=== PATIENT | female | born 1975 | race Caucasian/White ===

== ENCOUNTER 2020-04-09 16:19 | Outpatient (REF) | payer MEDICAID, SELFPAY ==
--- NOTE | 2020-04-09 16:26 | MM_ITS ---
EXAMINATION: MM SCREENING DIGITAL BREAST TOMOSYNTHESIS, BILATERAL CLINICAL INFORMATION: Screening. Asymptomatic. The lifetime risk of breast cancer based on the Tyrer-Cuzick Model is 10%. COMPARISON: Mammography: 09/28/2018, 09/24/2017, 09/11/2016 TECHNIQUE: Digital breast tomosynthesis is performed in both the craniocaudal and mediolateral oblique views along with computer-aided detection (CAD). Synthesized 2D images are generated from the tomosynthesis. FINDINGS: The breasts are almost entirely fatty (ACR BI-RADS breast composition Category a). There are no significant masses, abnormal calcifications, or other abnormalities. The axilla and skin contours are unremarkable. IMPRESSION: No mammographic evidence of malignancy. ASSESSMENT: BI-RADS 1: Negative RECOMMENDATION: Routine annual mammography screening. This patient's information was entered into a reminder system with a target due date for their next mammogram.
== END 2020-04-09 16:20 | disposition home or self-care (01) ==
LOC: HO.MAMMO 16:19
PROVIDERS: PCP Family Medicine; Visit Provider Family Medicine
DX: Z12.31 Encounter for screening mammogram for malignant neoplasm of breast (principal)
CPT/HCPCS: 77063; 77067; 78014

== ENCOUNTER 2020-04-11 08:44 | Outpatient (REF) | payer MEDICAID, SELFPAY ==
[2020-04-11 11:45] LABS: Hematocrit 40.1 % (37-47); Hemoglobin 12.9 g/dl (12.0-16.0); Mean Corpuscular HGB Conc 32.2 g/dl (31.0-35.0); Mean Corpuscular Hemoglobin 26.7 pg (27.0-33.0); Mean Corpuscular Volume 82.9 fL (80-98); Mean Platelet Volume 11.1 fL (9.4-12.3); Platelet Count 303 X10*3/uL (160-400); Red Blood Count 4.84 X10*6/uL (4.20-5.50); Red Cell Distribution Width 13.4 % (11.0-16.0); White Blood Count 7.9 X10*3/uL (4.8-10.8)
[2020-04-11 12:21] LABS: Thyroid Stimulating Hormone 1.88 mIU/mL (0.32-4.0)
[2020-04-11 14:19] LABS: CT PCR NOT DETECTED (Not Detect.); NG PCR NOT DETECTED (Not Detect.)
[2020-04-12 11:25] LABS: BV Int Neg Control Negative (Negative); BV Int Pos Control Positive (Positive)
== END 2020-04-11 08:45 | disposition home or self-care (01) ==
LOC: CF 08:44
PROVIDERS: PCP Family Medicine; Referring Provider Family Medicine; Visit Provider Advanced Practice Midwife
DX: Z01.419 Encounter for gynecological examination (general) (routine) without abnormal findings (principal); N94.6 Dysmenorrhea, unspecified; R10.2 Pelvic and perineal pain; N92.0 Excessive and frequent menstruation with regular cycle
CPT/HCPCS: 36415; 84443; 85027; 87480; 87491; 87510; 87591; 87660

== ENCOUNTER 2020-04-13 14:37 | Outpatient (REF) | payer MEDICAID, SELFPAY ==
--- NOTE | 2020-04-13 15:06 | US_ITS ---
EXAMINATION: PELVIC ULTRASOUND CLINICAL INFORMATION: Dysmenorrhea COMPARISON: Previous exams most recent March 2019 TECHNIQUE: Transabdominal and transvaginal pelvic ultrasound was performed. Transvaginal exam was performed for better visualization of the uterus and ovaries. FINDINGS: The uterus is anteverted and retroflexed and measures 7.2 x 3.4 x 3.9 cm in dimension. No focal uterine lesion is seen. Endometrial thickness is normal estimated at 0.9 cm. There are nabothian cysts in the cervix. The right ovary measures 2.1 x 2.6 x 2.7 cm. There is a 1.3 x 1.8 x 1.6 cm right ovarian cyst. The left ovary measures 1.8 x 1.3 x 2.9 cm. There is no fluid in the pelvis. IMPRESSION: Unremarkable exam.
== END 2020-04-13 14:38 | disposition home or self-care (01) ==
LOC: HO.US 14:37
PROVIDERS: PCP Family Medicine; Visit Provider Advanced Practice Midwife
DX: N94.6 Dysmenorrhea, unspecified (principal); R10.2 Pelvic and perineal pain
CPT/HCPCS: 76830; 76856

== ENCOUNTER 2020-08-22 10:41 | Outpatient (REF) | payer MEDICAID, SELFPAY ==
--- NOTE | ~2020-08-22 | XR_ITS ---
EXAMINATION: XR KNEE, RIGHT XR KNEE, LEFT CLINICAL INFORMATION: Bilateral knee pain COMPARISON: Radiographs bilateral knees 07/15/2018. TECHNIQUE: The right knee is imaged in 4 views of the left knee is imaged in 5 views. There are a total of 9 views. The series includes bilateral AP views with weightbearing. FINDINGS: Right: There is no fracture, dislocation, or destructive process. There are osteoarthritic changes greatest lateral patellofemoral joint with mild lateralization patella and lateral patellar spur and posterior superior and posterior inferior patellar spurs. There is small suprapatellar effusion. Hoffa's fat pad appears normal. No significant medial or lateral knee joint compartment narrowing. There are marginal osteophytes medial and lateral femoral condyles. No erosive change or chondrocalcinosis. Left: There is no fracture, dislocation, or destructive process. There are osteoarthritic changes greatest lateral patellofemoral joint with mild lateralization patella and lateral patellar spur and posterior superior and posterior inferior patellar spurs. No definite effusion. Hoffa's fat pad appears normal. No significant medial or lateral knee joint compartment narrowing. There are marginal osteophytes lateral femoral condyle and lateral tibial plateau. No erosive change or chondrocalcinosis. XR/XR knee RT 4V IMPRESSION: 1. Prominent bilateral lateral patellofemoral joint narrowing with mild bilateral lateralization patella. 2. Probable small right suprapatellar effusion. 3. No significant knee joint compartment narrowing. No erosive change.
--- NOTE | ~2020-08-22 | XR_ITS ---
EXAMINATION: XR KNEE, RIGHT XR KNEE, LEFT CLINICAL INFORMATION: Bilateral knee pain COMPARISON: Radiographs bilateral knees 07/15/2018. TECHNIQUE: The right knee is imaged in 4 views of the left knee is imaged in 5 views. There are a total of 9 views. The series includes bilateral AP views with weightbearing. FINDINGS: Right: There is no fracture, dislocation, or destructive process. There are osteoarthritic changes greatest lateral patellofemoral joint with mild lateralization patella and lateral patellar spur and posterior superior and posterior inferior patellar spurs. There is small suprapatellar effusion. Hoffa's fat pad appears normal. No significant medial or lateral knee joint compartment narrowing. There are marginal osteophytes medial and lateral femoral condyles. No erosive change or chondrocalcinosis. Left: There is no fracture, dislocation, or destructive process. There are osteoarthritic changes greatest lateral patellofemoral joint with mild lateralization patella and lateral patellar spur and posterior superior and posterior inferior patellar spurs. No definite effusion. Hoffa's fat pad appears normal. No significant medial or lateral knee joint compartment narrowing. There are marginal osteophytes lateral femoral condyle and lateral tibial plateau. No erosive change or chondrocalcinosis. XR/XR knee LT 4V IMPRESSION: 1. Prominent bilateral lateral patellofemoral joint narrowing with mild bilateral lateralization patella. 2. Probable small right suprapatellar effusion. 3. No significant knee joint compartment narrowing. No erosive change.
[2020-08-22 11:35] LABS: MANUAL DIFF FLAG NO
[2020-08-22 11:39] LABS: Basophils Absolute Auto 0.1 X10*3/uL (0.0-0.2); Basophils Percent Auto 0.9 % (0-2); Eosinophils Absolute Auto 0.3 X10*3/uL (0.0-0.4); Eosinophils Percent Auto 3.6 % (0-4); Hematocrit 39.6 % (37-47); Hemoglobin 12.8 g/dl (12.0-16.0); Imm Gran Abs Auto 0.03 X10*3/uL (0.00-0.03); Imm Gran Pct Auto 0.4 % (0.0-0.4); Lymphocytes Absolute Auto 1.4 X10*3/uL (1.2-4.9); Lymphocytes Percent Auto 20.4 % (20-40); Mean Corpuscular HGB Conc 32.3 g/dl (31.0-35.0); Mean Corpuscular Hemoglobin 26.6 pg (27.0-33.0); Mean Corpuscular Volume 82.3 fL (80-98); Mean Platelet Volume 11.6 fL (9.4-12.3); Monocytes Absolute Auto 0.6 X10*3/uL (0.1-1.2); Monocytes Percent Auto 8.5 % (2-11); Neutrophils Absolute Auto 4.5 X10*3/uL (2.0-8.3); Neutrophils Percent Auto 66.2 % (45-73); Platelet Count 283 X10*3/uL (160-400); Red Blood Count 4.81 X10*6/uL (4.20-5.50); Red Cell Distribution Width 13.4 % (11.0-16.0); White Blood Count 6.9 X10*3/uL (4.8-10.8)
[2020-08-22 12:07] LABS: Alanine Aminotransferase 23 U/L (0-31); Alkaline Phosphatase 94 U/L (39-117); Anion Gap 13 (12-20); Aspartate Amino Transferase 21 U/L (5-31); Bilirubin Direct 0.2 mg/dL (0.0-0.5); Bilirubin Total 0.5 mg/dL (0.0-1.0); Blood Urea Nitrogen 12 mg/dL (9-16); Calcium 8.6 mg/dL (8.4-10.2); Carbon Dioxide 25 mmol/L (22-29); Chloride 105 mmol/L (96-108); Cholesterol 224 mg/dL; Estimated Glomerular Filt Rate > 60; Glucose Random 84 mg/dL (60-115); HDL Cholesterol 42 mg/dL; LDL Cholesterol Calculated 153 mg/dl; Potassium 4.3 mmol/L (3.3-5.1); Sodium 139 mmol/L (135-145); Total Protein 7.1 g/dL (6.5-8.0); Triglycerides 145 mg/dL
[2020-08-22 12:19] LABS: Estimated Average Glucose 111 mg/dL; Hemoglobin A1c % 5.5 %
[2020-08-22 12:27] LABS: Free T4 (Free Thyroxine) 1.15 ng/dL (0.71-1.85); Thyroid Stimulating Hormone 1.54 uIU/mL (0.32-4.0); Vitamin D 25-OH Total 14.9 ng/mL (>30)
[2020-08-22 13:18] LABS: Creatinine Urine 99.57 mg/dL
[2020-08-23 08:09] LABS: HBsAGNum1 0.25 S/CO (0.00-0.99); HIV AB/AG Nonreactive (Nonreactive); HIV Num 1 0.08 S/CO (0.00-0.99); Hepatitis B Surface Antigen Negative (Negative); ~HepC Num1 0.08 S/CO (0.00-0.79); ~Hepatitis C Antibody Nonreactive (Nonreactive)
[2020-08-23 08:58] LABS: ~Hepatitis B Surface Antibody NONREACTIVE (Nonreactive)
[2020-08-23 11:17] LABS: Alpha Fetoprotein 5.2 ng/mL
[2020-08-24 08:17] LABS: Hepatitis A Antibody IgG Nonreactive (Nonreactive); ~Hepatitis A Antibody IgG 0.37 S/CO (0.00-0.99)
[2020-08-24 09:22] LABS: C. trachomatis RNA TMA NOT DETECTED (NOT DETECTED); N. gonorrhoeae RNA TMA NOT DETECTED (NOT DETECTED)
== END 2020-08-22 10:42 | disposition home or self-care (01) ==
LOC: HO.LAB 10:41
PROVIDERS: PCP Family Medicine; Visit Provider Family Medicine
DX: M25.562 Pain in left knee (principal); M25.561 Pain in right knee; I10 Essential (primary) hypertension; K76.0 Fatty (change of) liver, not elsewhere classified
CPT/HCPCS: 36415; 73564; 80048; 80061; 80076; 82043; 82105; 82306; 83036; 84439; 84443; 85025; 86706; 86708; 86803; 87340; 87389; 87491; 87591

== ENCOUNTER → 2020-09-06 13:15 | Outpatient (BNVA) | payer MEDICAID, SELFPAY | PROVIDERS: PCP Family Medicine; Visit Provider Orthopaedic Surgery | DX: M17.0 Bilateral primary osteoarthritis of knee (principal) | CPT/HCPCS: 99212 ==

== ENCOUNTER 2020-12-17 14:18 | Outpatient (REF) | payer MEDICAID, SELFPAY ==
--- NOTE | ~2020-12-17 | US_ITS ---
EXAMINATION: PELVIC ULTRASOUND CLINICAL INFORMATION: Pelvic pain COMPARISON: Previous exam April 2020 TECHNIQUE: Transabdominal and transvaginal pelvic ultrasound was performed. Transvaginal exam was performed for better visualization of the uterus and ovaries. FINDINGS: The uterus is anteverted and retroflexed and measures 8.1 x 3.2 x 5 cm in dimension. No focal uterine lesion is seen. Endometrial thickness is normal measuring 1.4 cm. There are nabothian cysts in the cervix. The ovaries are normal. The right ovary measures 2.4 x 1.6 x 1.8 cm. The left ovary measures 2.2 x 1.9 x 1.7 cm. There is a small amount of fluid in the pelvis. US/US pelvic and transvaginal IMPRESSION: Unremarkable pelvic ultrasound.
== END 2020-12-17 14:19 | disposition home or self-care (01) ==
LOC: HO.US 14:18
PROVIDERS: Visit Provider Family Medicine
DX: R10.2 Pelvic and perineal pain (principal)
CPT/HCPCS: 76830; 76856

== ENCOUNTER → 2021-02-28 14:44 | Outpatient (BNVA) | payer MEDICAID, SELFPAY | PROVIDERS: PCP Family Medicine; Visit Provider Advanced Practice Midwife | DX: R10.2 Pelvic and perineal pain (principal); I10 Essential (primary) hypertension; E78.00 Pure hypercholesterolemia, unspecified; J30.89 Other allergic rhinitis; J30.1 Allergic rhinitis due to pollen | CPT/HCPCS: 99212 ==

== ENCOUNTER 2021-04-24 14:23 | Outpatient (REF) | payer MEDICAID, SELFPAY ==
--- NOTE | ~2021-04-24 | MM_ITS ---
EXAMINATION: MM SCREENING DIGITAL BREAST TOMOSYNTHESIS, BILATERAL CLINICAL INFORMATION: Screening. Asymptomatic. The lifetime risk of breast cancer based on the Tyrer-Cuzick Model is 10%. COMPARISON: Mammography: 04/09/2020, 09/28/2018, 09/24/2017 TECHNIQUE: Digital breast tomosynthesis is performed in both the craniocaudal and mediolateral oblique views along with computer-aided detection (CAD). Synthesized 2D images are generated from the tomosynthesis. Additional views are provided: Right CC, right MLO, right cleavage. FINDINGS: The breasts are almost entirely fatty (ACR BI-RADS breast composition Category a). There are no significant masses, abnormal calcifications, or other abnormalities. Parenchymal pattern is similar to prior studies. No significant changes. Background stromal markings are stable. MM/MM tomosynthesis screening BI IMPRESSION: No mammographic evidence of malignancy. ASSESSMENT: BI-RADS 1: Negative RECOMMENDATION: Routine annual mammography screening. This patient's information was entered into a reminder system with a target due date for their next mammogram.
== END 2021-04-24 14:24 | disposition home or self-care (01) ==
LOC: HO.MAMMO 14:23
PROVIDERS: PCP Family Medicine; Visit Provider Family Medicine
DX: Z12.31 Encounter for screening mammogram for malignant neoplasm of breast (principal)
CPT/HCPCS: 77063; 77067

== ENCOUNTER 2021-05-13 13:01 | Outpatient (REF) | payer MEDICAID, SELFPAY ==
[2021-05-14 01:30] LABS: CT PCR NOT DETECTED (Not Detect.); NG PCR NOT DETECTED (Not Detect.)
== END 2021-05-13 13:02 | disposition home or self-care (01) ==
LOC: HO.LAB 13:01
PROVIDERS: PCP Family Medicine; Visit Provider Advanced Practice Midwife
DX: N92.0 Excessive and frequent menstruation with regular cycle (principal); N93.9 Abnormal uterine and vaginal bleeding, unspecified; Z20.2 Contact with and (suspected) exposure to infections with a predominantly sexual mode of transmission
CPT/HCPCS: 58100; 81025; 87491; 87591; 88305

== ENCOUNTER → 2021-05-22 14:17 | Outpatient (BNVA) | payer MEDICAID, SELFPAY | PROVIDERS: PCP Family Medicine; Visit Provider Advanced Practice Midwife ==

== ENCOUNTER → 2021-05-24 10:57 | Outpatient (BNVA) | payer MEDICAID, SELFPAY | PROVIDERS: PCP Family Medicine; Visit Provider Advanced Practice Midwife | DX: Z30.430 Encounter for insertion of intrauterine contraceptive device (principal) | CPT/HCPCS: 58300; 81025 ==

== ENCOUNTER → 2021-07-02 13:51 | Outpatient (BNVA) | payer MEDICAID, SELFPAY | PROVIDERS: PCP Family Medicine; Visit Provider Advanced Practice Midwife | DX: Z30.431 Encounter for routine checking of intrauterine contraceptive device (principal) | CPT/HCPCS: 99212 ==

== ENCOUNTER 2021-08-21 13:50 | Outpatient (REF) | payer MEDICAID, SELFPAY ==
[2021-08-21 14:50] LABS: Hematocrit 40.9 % (37.0-47.0); Hemoglobin 13.2 g/dl (12.0-16.0); Mean Corpuscular HGB Conc 32.3 g/dl (31.0-35.0); Mean Corpuscular Hemoglobin 26.5 pg (27.0-33.0); Mean Corpuscular Volume 82.1 fL (80.0-98.0); Mean Platelet Volume 10.8 fL (9.4-12.3); Platelet Count 274 X10*3/uL (160-400); Red Blood Count 4.98 X10*6/uL (4.20-5.50); White Blood Count 7.4 X10*3/uL (4.8-10.8)
[2021-08-21 15:59] LABS: Alanine Aminotransferase 22 U/L (0-31); Albumin Level 4.1 g/dL (3.5-5.0); Alkaline Phosphatase 91 U/L (39-117); Anion Gap 11 (12-20); Aspartate Amino Transferase 27 U/L (5-31); Bilirubin Total 0.2 mg/dL (0.0-1.0); Blood Urea Nitrogen 10 mg/dL (9-16); Calcium 9.4 mg/dL (8.4-10.2); Carbon Dioxide 27 mmol/L (22-29); Chloride 105 mmol/L (96-108); Estimated Glomerular Filt Rate > 60; Glucose Random 87 mg/dL (60-115); Potassium 4.3 mmol/L (3.3-5.1); Sodium 139 mmol/L (135-145); Total Protein 7.6 g/dL (6.5-8.0)
[2021-08-21 16:00] LABS: Vitamin B12 387 pg/mL (200-900)
[2021-08-21 16:09] LABS: TSH reflex Free T4 0.67 uIU/mL (0.32-4.0)
[2021-08-26 15:02] LABS: Vitamin D 25-OH, D2 8 ng/mL; Vitamin D 25-OH, D3 13 ng/mL; Vitamin D 25-OH, Total 21 ng/mL (30-100)
== END 2021-08-21 13:51 | disposition home or self-care (01) ==
LOC: HO.LAB 13:50
PROVIDERS: PCP Family Medicine; Referring Provider Family Medicine; Visit Provider Nurse Practitioner Family
DX: K59.00 Constipation, unspecified (principal); R19.7 Diarrhea, unspecified; E55.9 Vitamin D deficiency, unspecified; Z79.899 Other long term (current) drug therapy
CPT/HCPCS: 36415; 80053; 82306; 82607; 82746; 84443; 85027; 99212

== ENCOUNTER → 2021-09-24 14:21 | Outpatient (BNVA) | payer MEDICAID, SELFPAY | PROVIDERS: PCP Family Medicine; Referring Provider Family Medicine; Visit Provider Nurse Practitioner Family | DX: Z01.818 Encounter for other preprocedural examination (principal); K59.04 Chronic idiopathic constipation | CPT/HCPCS: 99212 ==

== ENCOUNTER 2021-11-20 12:41 | Outpatient (REF) | payer MEDICAID, SELFPAY ==
[2021-11-21 01:22] LABS: CT PCR NOT DETECTED (Not Detect.); NG PCR NOT DETECTED (Not Detect.)
[2021-11-21 09:18] LABS: BV Int Neg Control Negative (Negative); BV Int Pos Control Positive (Positive)
[2021-11-24 00:42] LABS: HPV mRNA E6/E7 rflx Not Detected (Not Detected)
== END 2021-11-20 12:42 | disposition home or self-care (01) ==
LOC: HO.LAB 12:41
PROVIDERS: PCP Family Medicine; Visit Provider Advanced Practice Midwife
DX: Z01.411 Encounter for gynecological examination (general) (routine) with abnormal findings (principal); Z11.51 Encounter for screening for human papillomavirus (HPV); R10.2 Pelvic and perineal pain
CPT/HCPCS: 87480; 87491; 87510; 87591; 87624; 87660; 88142

== ENCOUNTER 2021-12-19 15:42 | Outpatient (REF) | payer MEDICAID, SELFPAY ==
--- NOTE | ~2021-12-19 | US_ITS ---
EXAMINATION: US PELVIS CLINICAL INFORMATION: IUD check. COMPARISON: Ultrasound pelvis 12/17/2020. TECHNIQUE: Ultrasound of the pelvis was performed using both transabdominal and transvaginal transducers along with Doppler. Transvaginal imaging was performed due to inadequate visualization transabdominally. FINDINGS: UTERUS: The uterus is retroverted and anteflexed and measures 8.6 cm in length, 3.9 mL in AP and 5.7 cm in transverse dimensions. The double wall endometrial thickness is 0.9 cm. There is an IUD in correct position. The uterus is smooth in contour and has normal myometrial echogenicity. No visible fibroid. There are small nabothian cysts seen in the cervix. ADNEXA: Both ovaries are visualized. There is normal color flow to the adnexa. There is no ovarian torsion. There is no pelvic ascites or fluid collection. Right ovary measures 2.5 x 2.4 x 3.1 cm and volume 9.7 mL and it appears unremarkable. Previously, the right ovary measured 2.4 x 1.6 x 1.8 cm. Left ovary measures 3.0 x 2.4 x 2.4 cm and volume 9.1 mL and it appears unremarkable. Previously, the left ovary measured 2.2 x 1.9 x 1.7 cm. There is no free fluid seen in the cul-de-sac. US/US pelvic and transvaginal IMPRESSION: Unremarkable retroverted and anteflexed uterus. No focal lesion is seen. Unremarkable ovaries. Small nabothian cysts seen in the cervix.
== END 2021-12-19 15:43 | disposition home or self-care (01) ==
LOC: HO.US 15:42
PROVIDERS: Visit Provider Advanced Practice Midwife
DX: Z30.431 Encounter for routine checking of intrauterine contraceptive device (principal); R10.2 Pelvic and perineal pain
CPT/HCPCS: 76830; 76856

== ENCOUNTER 2022-01-03 09:53 | Day surgery (SDC) | payer MEDICAID, SELFPAY ==
--- NOTE | 2022-01-02 10:05 | HO.ANESPROP2 ---
Documented by User: Myrna Llanes NP 01/02/22 10:06 HPI - Anesthesia Eval Consult details Narrative: 46yo F for Colonoscopy PMFSH Active Problems Active Problems: All Active Problems (Updated 11/20/21 @ 13:25 by Madonna Mejia) IUD surveillance (Acute) Pelvic pain in female (Acute) BV (bacterial vaginosis) (Acute) Dysmenorrhea (Acute) Past Medical History Medical History H/O hidradenitis suppurativa History of high cholesterol History of PCOS Hx of ectopic Hx of essential hypertension Hx of herpes simplex infection Morbid obesity with BMI of 45.0-49.9, adult Family History Family History Father Hx of cancer of lung Mother History of asthma Family hx of hypertension History of high cholesterol Maternal Grandmother Hx of acute arthritis Family hx of hypertension History of angina History of high cholesterol Hx of diabetes mellitus Maternal Grandfather Family hx of hypertension Hx of completed stroke Family/Other Ovarian cancer Family/Other Colon cancer Surgical History Surgical History History of dermoid cyst excision History of unilateral fallopian tube excision Hx of dilation and curettage Social History Social History Alcohol intake: never Patient Tobacco Use Status: Never used Tobacco Use of substances other than those prescribed or required for medical reasons: No Are you DNR?: No Advance Directives: No Advance Directives Information Provided: Yes Meds Allergies Allergy/AdvReac Type Severity Reaction Status Date / Time dust Allergy Unknown Unknown Uncoded 12/30/21 16:19 mold/pollen Allergy Unknown Unknown Uncoded 12/30/21 16:19 Home Medications Medication Instructions Recorded Confirmed Last Taken Type epinephrine 0.3 mg/0.3 mL 0.3 mg IM Q10M PRN Allergic 04/11/20 12/30/21 Unknown History injection, auto-injector (EpiPen) Reaction loratadine 10 mg tablet (Allergy 10 mg PO DAILY 04/11/20 12/30/21 Unknown History Relief (loratadine)) montelukast 10 mg tablet 10 mg PO DAILY 04/11/20 12/30/21 Unknown History (Singulair) rosuvastatin 40 mg tablet (Crestor) 40 mg PO DAILY 04/11/20 12/30/21 Unknown History doxycycline hyclate 100 mg tablet 100 mg PO BID 08/21/21 12/30/21 Unknown History famotidine 20 mg tablet 20 mg PO BID PRN heartburn 08/21/21 12/30/21 Unknown History fluticasone propionate 50 2 spray intranasal DAILY 08/21/21 12/30/21 Unknown History mcg/actuation nasal spray,suspension levonorgestrel 20 mcg/24 hours (7 08/21/21 Unknown History yrs) 52 mg intrauterine device (Mirena) metformin 500 mg tablet 1,000 mg PO 08/21/21 Unknown History polyethylene glycol 3350 17 17 g PO DAILY 08/21/21 Unknown History gram/dose oral powder cyclobenzaprine 10 mg tablet 10 mg PO TID PRN pain 09/24/21 12/30/21 Unknown History ibuprofen 800 mg tablet 800 mg PO TID 09/24/21 12/30/21 Unknown History lisinopril 10 mg tablet 10 mg PO DAILY 09/24/21 12/30/21 Unknown History Exam Exam Date and Time: January 02, 2022 1005 Pertinent Lab Results Pertinent Lab Results: Laboratory Tests 08/21/21 08/21/21 14:44 14:44 WBC 7.4 Hgb 13.2 Hct 40.9 Plt Count 274 Sodium 139 Potassium 4.3 Chloride 105 Carbon Dioxide 27 BUN 10 Creatinine 0.67 Assessment and Plan Assessment Anesthesia Assessment: Chart Reviewed Documented by User: Oralia Marie MD 01/03/22 11:52 [facility] Past Medical History Medical History H/O hidradenitis suppurativa History of high cholesterol History of PCOS Hx of ectopic Hx of essential hypertension Hx of herpes simplex infection Morbid obesity with BMI of 45.0-49.9, adult Family History Family History Father Hx of cancer of lung Mother History of asthma Family hx of hypertension History of high cholesterol Maternal Grandmother Hx of acute arthritis Family hx of hypertension History of angina History of high cholesterol Hx of diabetes mellitus Maternal Grandfather Family hx of hypertension Hx of completed stroke Family/Other Ovarian cancer Family/Other Colon cancer Surgical History Surgical History History of dermoid cyst excision History of unilateral fallopian tube excision Hx of dilation and curettage History of Problems with Anesthesia: No Social History Social History Alcohol intake: never Patient Tobacco Use Status: Never used Tobacco Use of substances other than those prescribed or required for medical reasons: No Are you DNR?: No Advance Directives: No Advance Directives Information Provided: Yes Meds Allergies Allergy/AdvReac Type Severity Reaction Status Date / Time dust Allergy Unknown Unknown Uncoded 12/30/21 16:19 mold/pollen Allergy Unknown Unknown Uncoded 12/30/21 16:19 Home Medications Medication Instructions Recorded Confirmed Last Taken Type epinephrine 0.3 mg/0.3 mL 0.3 mg IM Q10M PRN Allergic 04/11/20 12/30/21 Unknown History injection, auto-injector (EpiPen) Reaction loratadine 10 mg tablet (Allergy 10 mg PO DAILY 04/11/20 12/30/21 Unknown History Relief (loratadine)) montelukast 10 mg tablet 10 mg PO DAILY 04/11/20 12/30/21 Unknown History (Singulair) rosuvastatin 40 mg tablet (Crestor) 40 mg PO DAILY 04/11/20 12/30/21 Unknown History doxycycline hyclate 100 mg tablet 100 mg PO BID 08/21/21 12/30/21 Unknown History famotidine 20 mg tablet 20 mg PO BID PRN heartburn 08/21/21 12/30/21 Unknown History fluticasone propionate 50 2 spray intranasal DAILY 08/21/21 12/30/21 Unknown History mcg/actuation nasal spray,suspension levonorgestrel 20 mcg/24 hours (7 intrauterine 08/21/21 Unknown History yrs) 52 mg intrauterine device (Mirena) metformin 500 mg tablet 1,000 mg PO 08/21/21 Unknown History polyethylene glycol 3350 17 17 g PO DAILY 08/21/21 Unknown History gram/dose oral powder cyclobenzaprine 10 mg tablet 10 mg PO TID PRN pain 09/24/21 12/30/21 Unknown History ibuprofen 800 mg tablet 800 mg PO TID 09/24/21 12/30/21 Unknown History lisinopril 10 mg tablet 10 mg PO DAILY 09/24/21 12/30/21 Unknown History Exam Airway Mallampati Class: II TM Dist: >3cm Neck ROM: Full Loose/Missing/Broken Teeth: No Heart: RRR Lungs: CTA Assessment and Plan Final Anesthetic Review History of Problems with Anesthesia: No NPO: Yes ASA Class: III Final Preanesthetic Review: Meds/Allgs Chart Reviewed, Consent Obtained/Reviewed and Anes Risks/Benef Reviewed Patient Risk: Intermediate Procedure Risk: Low Anesthetic Plan Anesthetic Plan: MAC: Disposition: Standard PACU
[2022-01-03 10:15] VITALS: BP 145/84; PULSE 79; RESP 18; TEMP 36.3; O2SAT 97; BMI 45.7
[2022-01-03 10:28] LABS: UPreg QC Valid YES; Urine Pregnancy NEGATIVE (NEGATIVE)
[2022-01-03] MEDS: Lactated Ringers 1,000 ML 100 ML IVCONT (10:31)
--- NOTE | 2022-01-03 10:53 | MHC.SHP ---
Pre-Procedural Eval Section A Date of Service: 01/03/22 Section B Chief Complaint: screening Relevant Family History (Specify if Yes): Yes Relevant Social History: None Present Medications: see Short Stay Collaborative assessment Medical History: Significant History (H/O hidradenitis suppurativa History of high cholesterol History of PCOS Hx of ectopic Hx of essential hypertension Hx of herpes simplex infection) History of Previous Operations: Relevant previous surgery/procedure and date(s) (History of dermoid cyst excision History of unilateral fallopian tube excision Hx of dilation and curettage) Allergies: Allergies Allergy/AdvReac Type Severity Reaction Status Date / Time dust Allergy Unknown Unknown Uncoded 12/30/21 16:19 mold/pollen Allergy Unknown Unknown Uncoded 12/30/21 16:19 Review of Systems Sugical H&P ROS: Negative: Constitution, Cardiovascular, Respiratory and Gastrointestinal Exam Surgical H&P Exam: Normal: Heart, Normal: Lungs, Normal: Extremities and Normal: Abdomen Plan Diagnosis/Plan: Unchanged I have reviewed the history and physical and performed a pertinent physical examination on my patient. No changes have occurred unless specified.
--- NOTE | 2022-01-03 11:53 | P.BOP_ITS ---
Brief Operative Note Date of Service: 01/03/22 Pre-op diagnosis: Colon cancer screening, chronic constipation, rectal bleeding Post-op diagnosis: other (Colon polyp, diverticulosis, hemorrhoids) Procedure: COLONOSCOPY TILL CECUM WITH SNARE POLYPECTOMY Consent: Indications for the procedure and potential complications of bleeding, perforation, reaction to medications and missed diagnosis were discussed with the patient and informed consent was obtained. Instrument: Olympus PCF H 190 L variable stiffness pediatric colonoscope Monitoring: Vital signs and clinical assessment, intermittent blood pressure monitoring, continuous EKG monitoring, Pulse oximetry and Carbon Dioxide monitoring were done throughout the procedure. Colon withdrawl time was 23 minutes. Procedure: The patient was placed in the left lateral decubitis position and pre-procedure medications were administered. After a digital rectal examination of the ano-rectum, the video colonoscope was inserted into the rectum and advanced through the colon to the cecum. The colonoscope was slowly withdrawn in a retrograde panoramic fashion and the colon mucosa was carefully examined including a retroflexed view of the rectum. Findings and interventions are described below. Procedure Difficulty: Without difficulty Findings: Terminal Ileum: Not evaluated Cecum: Normal Ascending Colon: Normal Transverse Colon: A 8-9 mm adenomatous appearing sessile polyp removed with a cold snare and polyp was not retrieved. Descending Colon: Moderate diverticulosis Sigmoid Colon: Moderate diverticulosis Rectum: Normal Ano-rectum: Moderate internal hemorrhoids Colon preparation: Good after some irrigation Impression and Post Procedure Diagnosis: Colonoscopy Findings: One small polyps removed Moderate diverticulosis seen in the left colon Moderate hemorrhoids on retroflexed exam. Plan: Patient has an appointment on 01/15/22 in the GI Clinic with Jasmin Meek FNP- [facility]. Repeat Colonoscopy in 5 years since a small adenomatous appearing polyp was re moved and not retrieved and due to family hx of colon cancer. Colon polyps and diverticulosis handouts were given in the discharge area Surgeon: Misty Berrios MD Anesthesia: MAC (Dr Marie) Was an Customer Care Specialist used for this Procedure?: Yes Customer Care Specialist: Manda Ferrara Estimated blood loss (mL): 0 Pathology: none sent Condition: stable Disposition: PACU
[2022-01-03 12:46] VITALS: BP 137/74; PULSE 92; RESP 19; TEMP 36.4; O2SAT 99
[2022-01-03 13:00] VITALS: BP 147/84; PULSE 71; RESP 18; TEMP 36.4; O2SAT 100
--- NOTE | 2022-01-06 15:12 | W.PM.OPN ---
Operative Note Operative Note Date of Service: 01/06/22 Narrative: Pre-op diagnosis: Colon cancer screening, chronic constipation, rectal bleeding Post-op diagnosis:?other (Colon polyp, diverticulosis, hemorrhoids) Procedure: COLONOSCOPY TILL CECUM WITH SNARE POLYPECTOMY Consent: Indications for the procedure and potential complications of bleeding, perforation, reaction to medications and missed diagnosis were discussed with the patient and informed consent was obtained. Instrument: Olympus PCF H 190 L variable stiffness pediatric colonoscope Monitoring: Vital signs and clinical assessment, intermittent blood pressure monitoring, continuous EKG monitoring, Pulse oximetry and Carbon Dioxide monitoring were done throughout the procedure. Colon withdrawl time was 23 minutes. Procedure: The patient was placed in the left lateral decubitis position and pre-procedure medications were administered. After a digital rectal examination of the ano-rectum, the video colonoscope was inserted into the rectum and advanced through the colon to the cecum. The colonoscope was slowly withdrawn in a retrograde panoramic fashion and the colon mucosa was carefully examined including a retroflexed view of the rectum. Findings and interventions are described below. Procedure Difficulty: Without difficulty Findings: Terminal Ileum: Not evaluated Cecum:? Normal Ascending Colon:? Normal Transverse Colon:? A 8-9 mm adenomatous appearing sessile polyp removed with a cold snare and polyp was not retrieved. Descending Colon:? Moderate diverticulosis Sigmoid Colon:? Moderate diverticulosis Rectum:? Normal Ano-rectum:? Moderate internal hemorrhoids Colon preparation:? Good after some irrigation Impression and Post Procedure Diagnosis: Colonoscopy Findings: One small polyps removed Moderate diverticulosis seen in the left colon Moderate hemorrhoids on retroflexed exam. Plan: Patient has an appointment on 01/15/22 in the GI Clinic with Jasmin Meek FNP-BC. Repeat Colonoscopy in 5 years since a small adenomatous appearing polyp was removed and not retrieved and due to family hx of colon cancer. Colon polyps and diverticulosis handouts were given in the discharge area Surgeon: Misty Berrios MD Anesthesia:?MAC (Dr Marie) Was an Corporate Physical Security Supervisor used for this Procedure?:?Yes Corporate Physical Security Supervisor:?Manda Ferrara Estimated blood loss (mL):?0 Pathology:?none sent Condition:?stable Disposition:?PACU
== END 2022-01-03 13:55 | disposition home or self-care (01) ==
PROVIDERS: Nurse Practitioner; PCP Family Medicine; Visit Provider Internal Medicine Gastroenterology
PROC: 0DJD8ZZ Inspection of Lower Intestinal Tract, Via Natural or Artificial Opening Endoscopic (ICD-10-PCS; CPT 45378; principal; 2022-01-03 11:10)
DX: Z12.11 Encounter for screening for malignant neoplasm of colon (principal); K63.5 Polyp of colon; K57.30 Diverticulosis of large intestine without perforation or abscess without bleeding; K64.8 Other hemorrhoids; K59.04 Chronic idiopathic constipation; I10 Essential (primary) hypertension; E78.00 Pure hypercholesterolemia, unspecified; Z79.1 Long term (current) use of non-steroidal anti-inflammatories (NSAID); Z79.899 Other long term (current) drug therapy; Z86.19 Personal history of other infectious and parasitic diseases; E66.01 Morbid (severe) obesity due to excess calories; Z68.42 Body mass index [BMI] 45.0-49.9, adult
CPT/HCPCS: 45385; 81025

== ENCOUNTER 2022-01-13 11:14 | Outpatient (REF) | payer MEDICAID, SELFPAY ==
[2022-01-13 11:57] LABS: Hematocrit 40.7 % (37.0-47.0); Hemoglobin 13.1 g/dl (12.0-16.0); Mean Corpuscular HGB Conc 32.2 g/dl (31.0-35.0); Mean Corpuscular Hemoglobin 26.5 pg (27.0-33.0); Mean Corpuscular Volume 82.4 fL (80.0-98.0); Mean Platelet Volume 11.4 fL (9.4-12.3); Platelet Count 257 X10*3/uL (160-400); Red Blood Count 4.94 X10*6/uL (4.20-5.50)
[2022-01-13 12:30] LABS: Alanine Aminotransferase 16 U/L (0-31); Albumin Level 4.1 g/dL (3.5-5.0); Alkaline Phosphatase 85 U/L (39-117); Anion Gap 12 (12-20); Aspartate Amino Transferase 18 U/L (5-31); Bilirubin Direct 0.2 mg/dL (0.0-0.5); Bilirubin Total 0.4 mg/dL (0.0-1.0); Blood Urea Nitrogen 8 mg/dL (9-16); Carbon Dioxide 26 mmol/L (22-29); Chloride 106 mmol/L (96-108); Cholesterol 175 mg/dL; Estimated Glomerular Filt Rate > 60; Glucose Random 89 mg/dL (60-115); HDL Cholesterol 44 mg/dL; LDL Cholesterol Calculated 107 mg/dl; Potassium 4.6 mmol/L (3.3-5.1); Sodium 139 mmol/L (135-145); Total Protein 7.2 g/dL (6.5-8.0); Triglycerides 124 mg/dL
[2022-01-13 12:47] LABS: Estimated Average Glucose 105 mg/dL; Hemoglobin A1c % 5.3 %
[2022-01-13 12:54] LABS: Free T4 (Free Thyroxine) 1.07 ng/dL (0.71-1.85); Thyroid Stimulating Hormone 0.94 uIU/mL (0.32-4.0); Vitamin D 25-OH Total 17.3 ng/mL (>30)
[2022-01-13 13:22] LABS: Syphilis Screen Nonreactive (Nonreactive)
[2022-01-13 13:45] LABS: Creatinine Urine 50.79 mg/dL; Microalbum/Creatinine Ratio Ur 11.8 ug/mg cr
[2022-01-13 15:44] LABS: CT PCR NOT DETECTED (Not Detect.); NG PCR NOT DETECTED (Not Detect.)
[2022-01-14 08:07] LABS: HIV AB/AG Nonreactive (Nonreactive); HIV Num 1 0.07 S/CO (0.00-0.99)
[2022-01-14 08:08] LABS: ~HepC Num1 0.06 S/CO (0.00-0.79); ~Hepatitis C Antibody Nonreactive (Nonreactive)
[2022-01-16 13:56] LABS: Alpha Fetoprotein 5.2 ng/mL
== END 2022-01-13 11:15 | disposition home or self-care (01) ==
LOC: HO.LAB 11:14
PROVIDERS: PCP Family Medicine; Visit Provider Family Medicine
DX: Z11.3 Encounter for screening for infections with a predominantly sexual mode of transmission (principal); Z11.4 Encounter for screening for human immunodeficiency virus [HIV]; R10.2 Pelvic and perineal pain; E78.5 Hyperlipidemia, unspecified; I10 Essential (primary) hypertension; K76.0 Fatty (change of) liver, not elsewhere classified; Z71.2 Person consulting for explanation of examination or test findings
CPT/HCPCS: 80048; 80061; 80076; 82043; 82105; 82306; 83036; 84439; 84443; 85027; 86780; 86803; 87389; 87491; 87591; 99212

== ENCOUNTER 2022-02-13 09:26 | Outpatient (REF) | payer MEDICAID, SELFPAY ==
--- NOTE | ~2022-02-13 | US_ITS ---
EXAMINATION: US ABDOMEN COMPLETE CLINICAL INFORMATION: Fatty liver. COMPARISON: Ultrasound abdomen complete 12/07/2018. TECHNIQUE: Real-time imaging of the abdominal viscera. Technically limited study secondary to body habitus. FINDINGS: PANCREAS: Normal ABDOMINAL AORTA: The proximal, mid, and distal segments are normal in caliber. INFERIOR VENA CAVA: Visualized portions are normal. LIVER: The liver is normal in size. The liver contour is normal. There is diffuse liver echogenicity. No focal hepatic lesion. There is no intrahepatic biliary duct dilatation seen. GALLBLADDER: Normal. The gallbladder is physiologically distended without evidence of stones, sludge, polyps, wall thickening or pericholecystic fluid. COMMON BILE DUCT: Normal in caliber measuring 0.3 cm in diameter. RIGHT KIDNEY: Normal. No hydronephrosis. No renal calculi or focal parenchymal lesions. The kidney measures 12.0 cm in maximum dimension. LEFT KIDNEY: Normal. No hydronephrosis. No renal calculi or focal parenchymal lesions. The kidney measures 10.4 cm in maximum dimension. SPLEEN: Normal. The spleen measures 11.6 cm in maximum dimension. FREE FLUID: None US/US abdomen complete IMPRESSION: Mild echogenic liver without focal lesion seen. The rest of the abdominal ultrasound is unremarkable.
== END 2022-02-13 09:27 | disposition home or self-care (01) ==
LOC: HO.US 09:26
PROVIDERS: Visit Provider Family Medicine
DX: K76.0 Fatty (change of) liver, not elsewhere classified (principal)
CPT/HCPCS: 76700

== ENCOUNTER → 2022-03-07 14:13 | Outpatient (BNVA) | payer MEDICAID, SELFPAY | PROVIDERS: PCP Family Medicine; Referring Provider Family Medicine; Visit Provider Internal Medicine Cardiovascular Disease | DX: R07.89 Other chest pain (principal); I10 Essential (primary) hypertension | CPT/HCPCS: 93005; 99202 ==

== ENCOUNTER 2022-03-12 17:49 | Outpatient (REF) | payer MEDICAID, SELFPAY ==
[2022-03-14 16:49] LABS: H Pylori Breath Test Negative (Negative)
== END 2022-03-12 17:50 | disposition home or self-care (01) ==
LOC: HO.LNP 17:49
PROVIDERS: Visit Provider Nurse Practitioner Family
DX: K21.9 Gastro-esophageal reflux disease without esophagitis (principal); Z11.0 Encounter for screening for intestinal infectious diseases
CPT/HCPCS: 83013; 99212

== ENCOUNTER → 2022-03-18 10:25 | Outpatient (REF) | payer MEDICAID, SELFPAY ==
--- NOTE | 2022-03-18 10:27 | CA_ITS ---
Acquisition Time: 2022-03-18 10:33:38 Total Exercise Time: 00:05:00 Test Indications: cp Medications: see chart Protocol: CHLOE Max HR: 166 BPM 95% of Pred: 174 BPM Max BP: 180/090 mmHG Max Work Load: 7.0 METS Exercise stress test with exercise 5 min of Chloe protocol, achieving 95% MPHR, 7 METs with moderate sob and fatigue, no chest discomfort, without arrythmia, with normotensive response to exercise, without EKG changes meeting criteria for ischemia with exercise, in recovery there was T inversion lead III ( present at baseline) and downsloping ST leads aVF, V5-V6. Her sob resolved rest. Will order an exercise nuclear stress test for further evaluation. Test reviewed with Dr Bryant Referred By: Eugenio Bryant Overread By: AKIN STOKES
== END ==
LOC: HO.CARD 10:25
PROVIDERS: Visit Provider Internal Medicine Cardiovascular Disease
DX: R07.89 Other chest pain (principal)
CPT/HCPCS: 93017

== ENCOUNTER → 2022-03-26 08:50 | Outpatient (REF) | payer MEDICAID, SELFPAY ==
--- NOTE | ~2022-03-26 | NM_ITS ---
Exercise Myocardial perfusion study Indication: Abnormal stress test evaluate for myocardial ischemia Technique: The patient was brought in for an exercise perfusion study on 03/26/2022. Patient performed exercise as per Max protocol and was injected 45 mCi of sestamibi was given intravenously one target HR was achieved. Images were obtained using the SPECT gamma camera interlaced with the gating device. Images were obtained in supine position. Resting perfusion study was performed on 03/27/2022. Patient was administered 45 mCi of sestamibi intravenously at rest. Images were then obtained in supine position. Images obtained with and without CT attenuation. Total DLP 150 mGy-cm Images were processed with the software and compared side to side in short axis, horizontal long axis and vertical long axis views. Findings: The stress perfusion study showed non attenuated images show minimally reduced uptake in the basal inferior wall of the LV myocardium. Remainder of the LV myocardium normally perfused. Attenuation corrected images show minimal thinning of the distal anterior wall of the LV myocardium.. The gated study shows normal LV systolic function with calculated LVEF of 73%. LV cavity is normal in size. The gated study shows normal systolic wall thickening and contraction of all segments. There is no transient ischemic dilation. Resting study shows no change in perfusion pattern compared to stress perfusion study. Gating at rest reveals normal systolic wall motion with ejection fraction at 73%. The findings are consistent with normal myocardial perfusion. NM/NM naila perf SPECT rest & str Impression: 1. Normal myocardial perfusion 2. Gated LVEF is 73% 3. Transient ischemic dilatation not present Stress EKG is no ischemia
--- NOTE | 2022-03-26 10:09 | CA_ITS ---
Acquisition Time: 2022-03-26 09:03:42 Total Exercise Time: 00:05:15 Test Indications: R94.39 Medications: SEE CHART Protocol: CHLOE Max HR: 160 BPM 91% of Pred: 174 BPM Max BP: 166/078 mmHG Max Work Load: 7.0 METS Exercise stress test with exercise 5 min 15 sec of Chloe protocol, achieving 90% MPHR, with moderate sob and fatigue, no chest discomfort, with rare isolated PVC, with normotensive response to exercise, without EKG changes meeting criteria for ischemia. Nuclear images pending. Test reviewed with Dr Fajardo. Referred By: Madison Pompa Overread By: MADISON POMPA
== END ==
LOC: HO.CARD 08:50
PROVIDERS: Visit Provider Nurse Practitioner Family
DX: R94.39 Abnormal result of other cardiovascular function study (principal)
CPT/HCPCS: 78452; 93017; A9500

== ENCOUNTER 2022-04-25 14:38 | Outpatient (REF) | payer MEDICAID, SELFPAY ==
--- NOTE | ~2022-04-25 | MM_ITS ---
EXAMINATION: MM SCREENING DIGITAL BREAST TOMOSYNTHESIS, BILATERAL CLINICAL INFORMATION: Screening. Asymptomatic. The lifetime risk of breast cancer based on the Tyrer-Cuzick Model is 11%. COMPARISON: Mammography: April 24, 2021 and studies dating back to July 25, 2015 TECHNIQUE: Digital breast tomosynthesis is performed in both the craniocaudal and mediolateral oblique views along with computer-aided detection (CAD). Synthesized 2D images are generated from the tomosynthesis. FINDINGS: The breasts are almost entirely fatty (ACR BI-RADS breast composition Category a). There are no significant masses, abnormal calcifications, or other abnormalities. MM/MM tomosynthesis screening BI IMPRESSION: No significant change from ASSESSMENT: BI-RADS 1: Negative RECOMMENDATION: Routine annual mammography screening. This patient's information was entered into a reminder system with a target due date for their next mammogram.
== END 2022-04-25 14:39 | disposition home or self-care (01) ==
LOC: HO.MAMMO 14:38
PROVIDERS: Visit Provider Family Medicine
DX: Z12.31 Encounter for screening mammogram for malignant neoplasm of breast (principal)
CPT/HCPCS: 77063; 77067

== ENCOUNTER 2022-06-20 08:44 | Outpatient (REF) | payer MEDICAID, SELFPAY ==
--- NOTE | ~2022-06-20 | FL_ITS ---
EXAMINATION: UPPER GI EXAM WITH BARIUM SWALLOW CLINICAL INFORMATION: Dysphagia COMPARISON: None TECHNIQUE: Routine barium swallow was performed in upright view with thick barium and barium coated turkey. Subsequently upper GI air-contrast study was performed in upright and lying supine and prone position. FINDINGS: On oral administration of thick barium, effervescent granules and barium coated turkey there is normal propagation bolus from the oral cavity through the pharynx, esophagus into stomach without any evidence of obstruction, narrowing or stricture. There is no extrinsic compression or mucosal abnormality. No laryngeal penetration or aspiration seen. On placing patient supine and prone lying the course, caliber and peristalsis of the stomach, duodenal bulb and the sweep is normal. There is minimal gastroesophageal reflux without hiatal hernia. The mucosal pattern of the stomach, duodenal bulb and the sweep is normal. FL/FL upper GI w Ba Swallow IMPRESSION: 1. Minimal gastroesophageal reflux without hiatal hernia. 2. Barium swallow exam is unremarkable. Fluoroscopy time: 1.7 minutes. Dose area product: 69.107 Gy.cm2. Images: 53
== END 2022-06-20 08:45 | disposition home or self-care (01) ==
LOC: HO.XRAY 08:44
PROVIDERS: PCP Family Medicine; Visit Provider Nurse Practitioner Family
DX: K21.9 Gastro-esophageal reflux disease without esophagitis (principal)
CPT/HCPCS: 74240

== ENCOUNTER 2022-08-13 | Outpatient (REF) | payer MEDICAID, SELFPAY | END 2022-08-13 00:01 | disposition home or self-care (01) | LOC: CF | PROVIDERS: PCP Family Medicine; Visit Provider Nurse Practitioner Family | DX: K57.90 Diverticulosis of intestine, part unspecified, without perforation or abscess without bleeding (principal); K21.9 Gastro-esophageal reflux disease without esophagitis; K59.04 Chronic idiopathic constipation | CPT/HCPCS: 99212 ==

== ENCOUNTER → 2022-11-12 13:46 | Outpatient (BNVA) | payer MEDICAID, SELFPAY | PROVIDERS: PCP Family Medicine; Visit Provider Nurse Practitioner Family | DX: K57.90 Diverticulosis of intestine, part unspecified, without perforation or abscess without bleeding (principal); K58.1 Irritable bowel syndrome with constipation; K59.01 Slow transit constipation; K21.9 Gastro-esophageal reflux disease without esophagitis | CPT/HCPCS: 99212 ==

== ENCOUNTER 2023-01-20 15:59 | Outpatient (AMB) | payer MEDICAID, SELFPAY ==
[2023-01-20 16:06] VITALS: BP 173/76; PULSE 81; BMI 44.5
--- NOTE | 2023-01-20 16:06 | A.OFFVIS_ITS ---
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 Patient denies having any abdominal pain or discomfort. Patient was also encouraged to increase fluid intake and activity. The importance of empty her bowels completely was discussed with patient IBS (irritable bowel syndrome) Reports to be moving her bowels better now, however she states that she does not empty them completely. Patient can take 2 senna if needed. Patient was also encouraged fluid intake and increase activity to promote better bowel motility Constipation Continue current treatment with MiraLax and senna. Patient can increase senna if necessary. If she continues to be constipated patient will call the office and we can send her script for Margaret GERD (gastroesophageal reflux disease) Continue current dose of pantoprazole. Patient was encouraged to avoid dietary triggers and late night snacking. Staying upright for minimum 3 hours after meals discussed with patient. I will see patient in 4 months, sooner on as needed basis. Patient is agreeable to this plan and verbalizes understanding of instructions. She was given the opportunity to ask questions and all questions answered. ? Thank you for allowing me to participate in her care Plan Medications Refilled pantoprazole take one tablet half an hour before breakfast 40 mg PO DAILY 90 tabs 2RF K21.9 TODAY'S VISIT Patient is here today for follow-up. Patient reports that she has been feeling fairly well moving her bowels better. Take Senokot on as needed basis. Reports that couple times in November and couple times in December she blood on the stool when she wiped. No rectal bleeding or melena. Patient had colonoscopy in 2021 that showed moderate internal hemorrhoids. Patient denies any rectal pain. Patient reports that her soon is usually soft. Sometimes she has constipation and stool that is hard, however she states that she avoid pushing. Take Senokot and MiraLax as needed and has no trouble going. Patient reports that she is taking pantoprazole every morning half an hour before breakfast and her symptoms of acid reflux are suppressed. Patient denies any dyspepsia, dysphagia or odynophagia. Patient denies any other GI concerning symptoms. [facility] Medical History Diverticulosis H/O hidradenitis suppurativa History of high cholesterol History of PCOS Hx of ectopic Hx of essential hypertension Hx of herpes simplex infection Morbid obesity with BMI of 45.0-49.9, adult Surgical History History of dermoid cyst excision History of unilateral fallopian tube excision Hx of dilation and curettage Family History Father Hx of cancer of lung Mother History of asthma Family hx of hypertension History of high cholesterol Maternal Grandmother Hx of acute arthritis Family hx of hypertension History of angina History of high cholesterol Hx of diabetes mellitus Maternal Grandfather Family hx of hypertension Hx of completed stroke Family/Other Ovarian cancer Family/Other Colon cancer Social History Alcohol intake: never Patient Tobacco Use Status: Never used Tobacco Female Reproductive History Menstrual Age of Menarche: 12 Review of Systems Const Denies weight gain and Denies weight loss ENT Reports no additional complaints, Denies dysphagia and Denies odynophagia Card Reports no additional complaints Resp Reports no additional complaints GI Denies abdominal pain, Denies belching, Denies melena, Denies bloating, Reports hematochezia, Denies change in bowel habits, Denies dysphagia, Denies excessive flatus, Denies dyspepsia, Denies heartburn, Denies diarrhea, Denies loose stools, Denies nausea, Denies odynophagia and Denies vomiting Reports no additional complaints Musc Reports no additional complaints Neuro Reports no additional complaints Psych Reports no additional complaints Endo Reports no additional complaints Physical Exam Vital Signs: Last Vital Signs Pulse 81 01/20/23 16:06 BP 173/76 H 01/20/23 16:06 BMI result Body Mass Index 44.5 Const General: healthy appearing, no acute distress and well developed Nutritional Appearance: obese Orientation/consciousness: patient oriented x3 HEENT Head: Yes normal to inspection, Yes normocephalic and Yes atraumatic Face and sinus: Yes normal facial exam Mouth: Normal oral and palatal mucosa present Throat: Yes posterior oropharynx normal, Yes tonsils normal and Yes uvula mi dline Eyes General: appearance normal, both eyes and all related structures Neck Neck: Yes normal visual inspection, Yes full ROM and Yes trachea midline Thyroid: Thyroid normal Resp Effort & Inspection: normal respiratory effort, able to speak in complete sentences, no tracheal deviation and symmetric chest movement Auscultation: clear to auscultation bilaterally Cardio Rate: regular rate Heart sounds: S1 normal heart sound present and S2 normal heart sound present GI Inspection: Yes normal to inspection, No distended and Yes obesity Palpation (GI): Soft to palpation, not firm, nontender and No hepatosplenomegaly present Auscultation: normal bowel sounds General: Yes no CVA tenderness Back/Spine/Pelvis Back: no CVA tenderness Skin General skin exam: elasticity normal, turgor normal and dry skin Neuro General: patient oriented x3 Psych Appearance: grossly normal Mental Status: mental status grossly normal Speech and movement: Normal speech and movement present Affect: normal affect Assessment & Plan Assessment & Plan (1) Diverticulosis: Code(s): K57.90 - Diverticulosis of intestine, part unspecified, without perforation or abscess without bleeding Plan: Continue high-fiber diet. (2) IBS (irritable bowel syndrome): Code(s): K58.9 - Irritable bowel syndrome without diarrhea Qualifiers: Irritable bowel syndrome type: without diarrhea Qualified Code(s): K58.9 - Irritable bowel syndrome without diarrhea Plan: Continue avoiding dietary triggers. Avoid dietary triggers (3) Constipation: Code(s): K59.00 - Constipation, unspecified Qualifiers: Constipation type: slow transit constipation Qualified Code(s): K59.01 - Slow transit constipation Plan: Continue Senokot on the needed basis, however patient was encouraged to take Colace daily. Patient was also encouraged to increase fluid intake and activity to promote better bowel motility. (4) GERD (gastroesophageal reflux disease): Code(s): K21.9 - Gastro-esophageal reflux disease without esophagitis Qualifiers: Esophagitis presence: esophagitis presence not specified Qualified Code(s): K21.9 - Gastro-esophageal reflux disease without esophagitis Plan: Continue current dose of pantoprazole. Discussed with her avoiding dietary triggers and late night snacking. Staying upright for minimum 3 hours after meals discussed with patient. (5) Internal hemorrhoids without complication: Code(s): K64.8 - Other hemorrhoids Plan: Proctosol ordered. Sitz bath recommended. I will see patient in 2 months, sooner on as needed basis. Patient is agreeable to this plan and verbalizes understanding of instructions. She was given the opportunity to ask questions and all questions answered. Thank you for allowing me to participate in her care Medications: New docusate sodium 100 mg PO BEDTIME 90 caps 3RF K59.00 - Constipation, unspecified hydrocortisone 2.5% (Proctosol HC) 1 appl HI BID-QID PRN 30 grams 2RF hemorrhoids K64.9 - Unspecified hemorrhoids Coding Level of Care Code Est Pt Level 3 (07547) Diagnoses Diverticulosis K57.90 IBS (irritable bowel syndrome) K58.9 Irritable bowel syndrome type: without diarrhea Constipation K59.01 Constipation type: slow transit constipation GERD (gastroesophageal reflux disease) K21.9 Esophagitis presence: esophagitis presence not specified Internal hemorrhoids without complication K64.8 Time Spent (min) 30 Comment 20 minutes spent with patient and additional 10 minutes spent reviewing her records
== END 2023-01-20 16:25 | disposition home or self-care (01) ==
PROVIDERS: Visit Provider Nurse Practitioner Family
DX: K57.90 Diverticulosis of intestine, part unspecified, without perforation or abscess without bleeding (principal); K58.9 Irritable bowel syndrome, unspecified; K59.01 Slow transit constipation; K21.9 Gastro-esophageal reflux disease without esophagitis; K64.8 Other hemorrhoids
CPT/HCPCS: 99213

== ENCOUNTER → 2023-01-20 15:59 | Outpatient (BNVA) | payer MEDICAID, SELFPAY | PROVIDERS: Visit Provider Nurse Practitioner Family | DX: K57.90 Diverticulosis of intestine, part unspecified, without perforation or abscess without bleeding (principal); K58.9 Irritable bowel syndrome, unspecified; K59.01 Slow transit constipation; K64.8 Other hemorrhoids; K21.9 Gastro-esophageal reflux disease without esophagitis; E78.00 Pure hypercholesterolemia, unspecified; Z68.41 Body mass index [BMI] 40.0-44.9, adult | CPT/HCPCS: 99213 ==

== ENCOUNTER 2023-03-04 13:46 | Outpatient (REF) | payer MEDICAID, SELFPAY ==
[2023-03-05 13:10] LABS: BV Int Neg Control Negative (Negative); BV Int Pos Control Positive (Positive)
== END 2023-03-04 13:47 | disposition home or self-care (01) ==
LOC: HO.LNP 13:46
PROVIDERS: PCP Family Medicine; Visit Provider Advanced Practice Midwife
DX: Z01.419 Encounter for gynecological examination (general) (routine) without abnormal findings (principal); N89.8 Other specified noninflammatory disorders of vagina; R10.2 Pelvic and perineal pain
CPT/HCPCS: 87480; 87510; 87660; 99396

== ENCOUNTER 2023-03-04 13:46 | Outpatient (AMB) | payer MEDICAID, SELFPAY ==
--- NOTE | 2023-03-04 13:47 | A.OFFVIS_ITS ---
Intake Vital Signs 03/04/23 13:50 Height 5 ft 5 in Weight 268 lb BMI 44.6 BP 130/80 Blood Pressure Location Lt brachial Position Sitting Intake Visit Reasons: Annual Intake Note: The patient agreed to use of a biomedical engineering aide during this encounter. Scribed for MARITZA Mujica by Leatha Christensen biomedical engineering aide, on 03/04/2023 at 2:08 pm EST. Information Interpreted: non-clinical & clinical Allergies dust Allergy (Unknown, Uncoded 01/20/23 16:07) Unknown mold/pollen Allergy (Unknown, Uncoded 01/20/23 16:07) Unknown Is last menstrual period known: No Post menopausal: Yes Patient : No HPI HPI Comments History of Present Illness Details She is a premenopausal woman presenting for annual exam. Reports occasional pelvic pain/lower abdominal and is seeing GI specialist. History of Diverticulosis. Patient admits she tries to eat a healthy diet including Calcium and Vitamin D. She stays active with exercise. Currently sexually active. Is doing well with Mirena IUD. Denies vaginal itching, odor, itching and irritation. Admits vaginal discharge and vaginal dryness. STD screening offered; she declines. Denies family hx of breast. Last pap smear 11/20/21. Last mammogram 04/25/22. UTD on colonoscopy, has follow up due to history of rectal bleeding. [facility] Medical History Diverticulosis H/O hidradenitis suppurativa History of high cholesterol History of PCOS Hx of ectopic Hx of essential hypertension Hx of herpes simplex infection Morbid obesity with BMI of 45.0-49.9, adult Surgical History History of dermoid cyst excision History of unilateral fallopian tube excision Hx of dilation and curettage Family History Father Hx of cancer of lung Mother History of asthma Family hx of hypertension History of high cholesterol Maternal Grandmother Hx of acute arthritis Family hx of hypertension History of angina History of high cholesterol Hx of diabetes mellitus Maternal Grandfather Family hx of hypertension Hx of completed stroke Family/Other Ovarian cancer Family/Other Colon cancer Social History Alcohol intake: never Patient Tobacco Use Status: Never used Tobacco Female Reproductive History Menstrual Age of Menarche: 12 Duration of menses: 3-5 days control method: progestin IUCD (Mirena 05/24/21; IUD strings visible 03/04/23) Total pregnancies: 1 Ectopics: 1 Date of last pap smear: 11/20/21 (negative) Date of Mammogram: 04/25/22 Physical Exam Vital Signs: Last Vital Signs BP 130/80 03/04/23 13:50 BMI result Body Mass Index 44.6 Const General: cooperative, healthy appearing, no acute distress, well developed and alert Orientation/consciousness: patient oriented x3 HEENT Head: Yes normal to inspection Eyes General: appearance normal, both eyes and all related structures Neck Neck: Yes normal visual inspection Thyroid: Thyroid normal Chest Chest palpation & inspection: normal inspection of the chest Breast/axilla inspection: normal inspection of the breasts (no puckering, dimpling, peau de orange, retraction, discharge, masses) Breast/axilla palpation: normal palpation of the breasts Resp Effort & Inspection: normal respiratory effort GI Inspection: Yes normal to inspection Palpation (GI): Soft to palpation (to palpation) Rectal Exam - Female: deferred General: Yes bladder normal to inspection External Female Exam: normal external appearance and normal appearance of the urethra Speculum Exam - Vagina: normal appearance of the vagina, normal palpation and abnormal vaginal discharge (near IUD strings) yellow (thick) Speculum Exam - Cervix: normal appearance of the cervix, normal palpation and Other cervical findings present (IUD strings visible) Bimanual exam- vagina & uterus: normal palpation and normal palpation Bimanual Exam- Adnexa, other: normal adnexae and no masses Skin General skin exam: no rashes or lesions noted Neuro General: patient oriented x3 Cognition (Neuro): normal cognition Extrem General: Yes normal to inspection Psych Attitude: cooperative Thought process: Normal thought process present Assessment & Plan Assessment & Plan (1) Encounter for well woman exam: Code(s): Z01.419 - Encounter for gynecological examination (general) (routine) without abnormal findings Plan: Discussed: Current recommendations for pap smears per ASCCP guidelines Breast awareness and periodic self breast exams. Maintaining a healthy lifestyle including a well balanced diet and routine exercise. Encouraged patient to sign up for patient portal. All of her questions and concerns were addressed to the best of my ability. RTO in one year for AG. (2) Vaginal discharge: Code(s): N89.8 - Other specified noninflammatory disorders of vagina Plan: BV testing done today. Await results and treat accordingly. (3) Pelvic pain: Code(s): R10.2 - Pelvic and perineal pain Plan: Follow up w/ GI specialist regarding concerns. (4) Vaginal dryness: Code(s): N89.8 - Other specified noninflammatory disorders of vagina Plan: Recommend Replens, [place] jelly, Astroglide or coconut oil for vaginal dryness. Orders: Orders Bacterial Vaginosis Panel Today Z01.419 - Encounter for gynecological examination (general) (routine) without abnormal findings Coding Level of Care Code Est Pt Prev Care 40-64y(66247) Diagnoses Encounter for well woman exam Z01.419 Vaginal discharge N89.8 Pelvic pain R10.2 Vaginal dryness N89.8
[2023-03-04 13:50] VITALS: BP 130/80; BMI 44.6
== END 2023-03-04 14:28 | disposition home or self-care (01) ==
LOC: HO.HWS 13:46
PROVIDERS: PCP Family Medicine; Visit Provider Advanced Practice Midwife
DX: Z01.419 Encounter for gynecological examination (general) (routine) without abnormal findings (principal); N89.8 Other specified noninflammatory disorders of vagina; R10.2 Pelvic and perineal pain
CPT/HCPCS: 99396

== ENCOUNTER 2023-03-17 15:41 | Outpatient (AMB) | payer MEDICAID, SELFPAY ==
[2023-03-17 15:44] VITALS: BP 140/76; PULSE 70; BMI 44.4
--- NOTE | 2023-03-17 15:44 | A.OFFVIS_ITS ---
Intake Vital Signs 03/17/23 15:44 Height 5 ft 5 in Weight 266 lb 12.149 oz BMI 44.4 BP 140/76 H Blood Pressure Location Lt brachial Position Sitting Pulse 70 Intake Visit Reasons: 2 month f/u Intake Note: Quan presents in the office as a 2 month follow up. CC: She states that last week she bled a little when she had a BM. She feels like it was because there was a little dryness and the stool was hard. Last month she had some bleeding that was bright red on the TP and a little in the water. It may have also been because the stool was hard. She went today and everything was okay. Sexual Health Physician Required: No Allergies dust Allergy (Unknown, Uncoded 03/17/23 15:46) Unknown mold/pollen Allergy (Unknown, Uncoded 03/17/23 15:46) Unknown HPI 2 month f/u HPI Details LAST VISIT: Diverticulosis Continue high-fiber diet. IBS (irritable bowel syndrome) Continue avoiding dietary triggers. Avoid dietary triggers Constipation Continue Senokot on the needed basis, however patient was encouraged to take Colace daily. Patient was also encouraged to increase fluid intake and activity to promote better bowel motility. GERD (gastroesophageal reflux disease) Continue current dose of pantoprazole. Discussed with her avoiding dietary triggers and late night snacking. Staying upright for minimum 3 hours after meals discussed with patient. Internal hemorrhoids without complication Proctosol ordered. Sitz bath recommended. I will see patient in 2 months, sooner on as needed basis. Patient is agreeable to this plan and verbalizes understanding of instructions. She was given the opportunity to ask questions and all questions answered. TODAY'S VISIT Patient is here today for follow-up. Patient reports that she has been feeling well, however she had couple episodes when she was having a bowel movement very hard and difficult to pass. Patient states that she let couple times. Small amount of blood on the tissue after a bowel movement when wiping. Patient states that she took Colace and it helped. Patient is not taking Colace every day. She is trying to drink fluids as much as she can. Patient is not taking MiraLax either. Patient is taking pantoprazole in the morning and it reporting that her symptoms of acid reflux are suppressed. Patient denies eating late at night. Denies dyspepsia, dysphagia or odynophagia. Denies melena, hematochezia (except for couple episodes after being constipated) unintentional weight loss or ribbon like stools. [facility] Medical History Diverticulosis H/O hidradenitis suppurativa History of high cholesterol History of PCOS Hx of ectopic Hx of essential hypertension Hx of herpes simplex infection Morbid obesity with BMI of 45.0-49.9, adult Surgical History History of dermoid cyst excision History of unilateral fallopian tube excision Hx of dilation and curettage Family History Father Hx of cancer of lung Mother History of asthma Family hx of hypertension History of high cholesterol Maternal Grandmother Hx of acute arthritis Family hx of hypertension History of angina History of high cholesterol Hx of diabetes mellitus Maternal Grandfather Family hx of hypertension Hx of completed stroke Family/Other Ovarian cancer Family/Other Colon cancer Social History Alcohol intake: never Patient Tobacco Use Status: Never used Tobacco Female Reproductive History Menstrual Age of Menarche: 12 Review of Systems Const Denies weight gain and Denies weight loss ENT Reports no additional complaints, Denies dysphagia and Denies odynophagia Card Reports no additional complaints Resp Reports no additional complaints GI Denies abdominal pain, Denies belching, Denies melena, Denies bloating, Reports constipation, Denies dysphagia, Denies excessive flatus, Denies dyspepsia, Denies heartburn, Denies diarrhea, Denies loose stools, Denies nausea, Denies odynophagia and Denies vomiting Reports no additional complaints Musc Reports no additional complaints Neuro Reports no additional complaints Psych Reports no additional complaints Endo Reports no additional complaints Physical Exam Vital Signs: Last Vital Signs Pulse 70 03/17/23 15:44 BP 140/76 H 03/17/23 15:44 BMI result Body Mass Index 44.4 Const General: healthy appearing, no acute distress and well developed Nutritional Appearance: obese Orientation/consciousness: patient oriented x3 HEENT Head: Yes normal to inspection, Yes normocephalic and Yes atraumatic Face and sinus: Yes normal facial exam Mouth: Normal oral and palatal mucosa present Throat: Yes posterior oropharynx normal, Yes tonsils normal and Yes uvula midline Eyes General: appearance normal, both eyes and all related structures Neck Neck: Yes normal visual inspection, Yes full ROM and Yes trachea midline Thyroid: Thyroid normal Resp Effort & Inspection: normal respiratory effort, able to speak in complete sentences, no tracheal deviation and symmetric chest movement Auscultation: clear to auscultation bilaterally Cardio Rate: regular rate Heart sounds: S1 normal heart sound present and S2 normal heart sound present GI Inspection: Yes normal to inspection, No distended and Yes obesity Palpation (GI): Soft to palpation, not firm, nontender and No hepatosplenomegaly present Auscultation: normal bowel sounds General: Yes no CVA tenderness Back/Spine/Pelvis Back: no CVA tenderness Skin General skin exam: elasticity normal, turgor normal and dry skin Neuro General: patient oriented x3 Psych Appearance: grossly normal Mental Status: mental status grossly normal Speech and movement: Normal speech and movement present Assessment & Plan Assessment & Plan (1) Diverticulosis: Code(s): K57.90 - Diverticulosis of intestine, part unspecified, without perforation or abscess without bleeding (2) IBS (irritable bowel syndrome): Code(s): K58.9 - Irritable bowel syndrome without diarrhea Qualifiers: Irritable bowel syndrome type: with constipation Qualified Code(s): K58.1 - Irritable bowel syndrome with constipation (3) Constipation: Code(s): K59.00 - Constipation, unspecified Qualifiers: Constipation type: chronic idiopathic constipation Qualified Code(s): K59.04 - Chronic idiopathic constipation (4) GERD (gastroesophageal reflux disease): Code(s): K21.9 - Gastro-esophageal reflux disease without esophagitis Qualifiers: Esophagitis presence: without esophagitis Qualified Code(s): K21.9 - Gastro-esophageal reflux disease without esophagitis (5) Internal hemorrhoids without complication: Code(s): K64.8 - Other hemorrhoids Plan Patient was encouraged to increase fluid intake and activity promote better bowel motility. Patient will take MiraLax every morning and Colace at night time. Patient will continue with pantoprazole daily. Discussed with patient avoiding dietary triggers and like dissected. Staying upright for minimum 3 hours after meals discussed with patient. I will see her in 6 months, sooner on as needed basis. Patient is agreeable to this plan and verbalizes understanding of instructions. She was given the opportunity to ask questions and all questions answered. Thank you for allowing me to participate in her care Coding Level of Care Code Est Pt Level 3 (40919) Diagnoses Diverticulosis K57.90 Irritable bowel syndrome with constipation K58.1 Irritable bowel syndrome type: with constipation Chronic idiopathic constipation K59.04 Constipation type: chronic idiopathic constipation Gastroesophageal reflux disease without esophagitis K21.9 Esophagitis presence: without esophagitis Internal hemorrhoids without complication K64.8 Time Spent (min) 25 Comment 15 minutes spent with patient and additional 10 minutes spent reviewing her records
== END 2023-03-17 16:12 | disposition home or self-care (01) ==
PROVIDERS: PCP Family Medicine; Visit Provider Nurse Practitioner Family
DX: K57.90 Diverticulosis of intestine, part unspecified, without perforation or abscess without bleeding (principal); K58.1 Irritable bowel syndrome with constipation; K59.04 Chronic idiopathic constipation; K21.9 Gastro-esophageal reflux disease without esophagitis; K64.8 Other hemorrhoids
CPT/HCPCS: 99213

== ENCOUNTER → 2023-03-17 15:41 | Outpatient (BNVA) | payer MEDICAID, SELFPAY | PROVIDERS: PCP Family Medicine; Visit Provider Nurse Practitioner Family | DX: K58.1 Irritable bowel syndrome with constipation (principal); K59.04 Chronic idiopathic constipation; K57.90 Diverticulosis of intestine, part unspecified, without perforation or abscess without bleeding; K21.9 Gastro-esophageal reflux disease without esophagitis; K64.8 Other hemorrhoids; Z79.899 Other long term (current) drug therapy | CPT/HCPCS: 99212 ==

== ENCOUNTER 2023-04-28 13:40 | Outpatient (REF) | payer MEDICAID, SELFPAY | END 2023-04-28 13:41 | disposition home or self-care (01) | LOC: HO.MAMMO 13:40 | PROVIDERS: PCP Family Medicine; Visit Provider Family Medicine | DX: Z12.31 Encounter for screening mammogram for malignant neoplasm of breast (principal) | CPT/HCPCS: 77063; 77067 ==

== ENCOUNTER → 2023-04-28 14:00 | Outpatient (BNV) | payer MEDICAID, SELFPAY | PROVIDERS: PCP Family Medicine; Visit Provider Radiology Diagnostic Radiology | DX: Z12.31 Encounter for screening mammogram for malignant neoplasm of breast (principal) | CPT/HCPCS: 77063; 77067 ==

== ENCOUNTER 2023-06-22 09:55 | Outpatient (REF) | payer MEDICAID, SELFPAY ==
--- NOTE | ~2023-06-22 | US_ITS ---
EXAMINATION: US ABDOMEN LIMITED CLINICAL INFORMATION: Fatty (change of) liver, not elsewhere classified. COMPARISON: Ultrasound abdomen complete 02/13/2022 and 12/07/2018. TECHNIQUE: Real-time imaging of the right upper quadrant abdominal viscera. Limited visualization due to bowel gas. FINDINGS: PANCREAS: Limited visualization of pancreatic tail and head. Imaged portion of pancreatic body is unremarkable. LIVER: Increased hepatic parenchymal heterogeneity and echogenicity which could be associated with hepatocellular disease/hepatic steatosis and substantially limits visualization. Liver is enlarged, 17.8 cm. GALLBLADDER: Gallbladder appears contracted. Per wind commissioning technician's statement, patient was not appropriately prepped for the exam. Repeat scan after appropriate preparation, nothing by mouth protocol, recommended. COMMON BILE DUCT: Normal in caliber measuring 0.3 cm in diameter. RIGHT KIDNEY: No hydronephrosis. No renal calculi. Limited visualization. The kidney measures 10.4 cm in maximum dimension. FREE FLUID: None. US/US abdomen limited IMPRESSION: 1. Increased hepatic parenchymal heterogeneity and echogenicity which could be associated with hepatocellular disease/hepatic steatosis and substantially limits visualization. Liver is enlarged, 17.8 cm. 2. Gallbladder appears contracted. Per wind commissioning technician's statement, patient was not appropriately prepped for the exam. Repeat scan after appropriate preparation, nothing by mouth protocol, recommended.
--- NOTE | ~2023-06-22 | US_ITS ---
EXAMINATION: US PELVIS CLINICAL INFORMATION: Intermittent bleeding and pelvic pain, lower pelvic pain. IUD in place. COMPARISON: Pelvic ultrasound of 12/19/2021 and 12/17/2020. TECHNIQUE: Ultrasound of the pelvis is performed using both transabdominal and transvaginal transducers along with Doppler. Transvaginal imaging is performed due to inadequate visualization transabdominally. FINDINGS: Uterus is heterogeneous and measures 7.1 x 5.6 x 5.5 cm and appears bulky, although no discrete fibroids are identified. IUD is difficult to characterize due to body habitus and position of the uterus. Endometrium difficult to characterize due to shadowing from IUD, uterine positioning and body habitus although small measured fundal segment measures approximately 0.7 cm. Small amount of free fluid in the pelvis. Left ovary not visualized. Limited visualization due to bowel gas. Right ovary measures 2.6 x 1.4 x 2.2 cm, volume 4.2 mm A 0.5 cm echogenic focus within the right ovary was not appreciated on prior exams and may possibly represent a dermoid. US/US pelvic and transvaginal IMPRESSION: 1. Heterogeneous, bulky uterus. No discrete fibroids. 2. IUD difficult to characterize due to body habitus and position of uterus. 3. Endometrium difficult to characterize due to shadowing from IUD, uterine positioning and body habitus although small measured fundal segment measures approximately 0.7 cm. 4. Right ovarian 0.5 cm echogenic focus was not appreciated on prior exams and may possibly represent a dermoid. 5. Left ovary not visualized. 6. Small amount of free fluid in the pelvis. 7. Gynecologic consultation recommended to determine further management including possible additional imaging with MRI. Recommend follow up ultrasound in 6-8 weeks.
== END 2023-06-22 09:56 | disposition home or self-care (01) ==
LOC: HO.US 09:55
PROVIDERS: PCP Family Medicine; Visit Provider Family Medicine
DX: K76.0 Fatty (change of) liver, not elsewhere classified (principal)
CPT/HCPCS: 76705; 76830; 76856

== ENCOUNTER 2023-07-29 11:02 | Outpatient (REF) | payer MEDICAID, SELFPAY ==
[2023-07-29 13:46] LABS: MANUAL DIFF FLAG NO
[2023-07-29 14:10] LABS: Basophils Absolute Auto 0.1 X10*3/uL (0.0-0.2); Basophils Percent Auto 0.9 % (0-2); Eosinophils Absolute Auto 0.3 X10*3/uL (0.0-0.4); Eosinophils Percent Auto 3.5 % (0-4); Hematocrit 44.4 % (37.0-47.0); Hemoglobin 14.3 g/dl (12.0-16.0); Imm Gran Abs Auto 0.03 X10*3/uL (0.00-0.03); Imm Gran Pct Auto 0.4 % (0.0-0.4); Lymphocytes Absolute Auto 1.8 X10*3/uL (1.2-4.9); Lymphocytes Percent Auto 22.6 % (20-40); Mean Corpuscular HGB Conc 32.2 g/dl (31.0-35.0); Mean Corpuscular Hemoglobin 27.9 pg (27.0-33.0); Mean Corpuscular Volume 86.5 fL (80.0-98.0); Mean Platelet Volume 12.2 fL (9.4-12.3); Monocytes Absolute Auto 0.6 X10*3/uL (0.1-1.2); Monocytes Percent Auto 7.1 % (2-11); Neutrophils Absolute Auto 5.2 x10*3/uL (2.0-8.3); Neutrophils Percent Auto 65.5 % (45-73); Platelet Count 291 X10*3/uL (160-400); Red Blood Count 5.13 X10*6/uL (4.20-5.50); Red Cell Distribution Width 12.5 % (11.0-16.0)
[2023-07-29 14:26] LABS: Estimated Average Glucose 103 mg/dL; Hemoglobin A1c % 5.2 % (<6.0)
[2023-07-29 14:31] LABS: Alanine Aminotransferase 22 U/L (0-31); Albumin Level 4.1 g/dL (3.5-5.0); Alkaline Phosphatase 81 U/L (39-117); Anion Gap 12 (12-20); Aspartate Amino Transferase 21 U/L (5-31); Bilirubin Direct 0.2 mg/dL (0.0-0.5); Bilirubin Total 0.5 mg/dL (0.0-1.0); Blood Urea Nitrogen 12 mg/dL (9-16); Calcium 9.6 mg/dL (8.4-10.2); Carbon Dioxide 26 mmol/L (22-29); Chloride 105 mmol/L (96-108); Cholesterol 256 mg/dL (<200); Estimated Glomerular Filt Rate > 60; Free T4 (Free Thyroxine) 1.18 ng/dL (0.71-1.85); Glucose Random 87 mg/dL (60-115); HDL Cholesterol 42 mg/dL (>40); LDL Cholesterol Calculated 189 mg/dL (<100); Potassium 4.1 mmol/L (3.3-5.1); Sodium 139 mmol/L (135-145); Thyroid Stimulating Hormone 0.44 uIU/mL (0.32-4.0); Total Protein 7.9 g/dL (6.5-8.0); Triglycerides 128 mg/dL (<150); Vitamin D 25-OH Total 25.3 ng/mL (>30)
[2023-07-29 14:31] LABS: Creatinine Urine 122.44 mg/dL; Microalbum/Creatinine Ratio Ur 9.8 ug/mg cr (<30)
[2023-07-29 17:44] LABS: CT PCR NOT DETECTED (Not Detect.); NG PCR NOT DETECTED (Not Detect.)
[2023-07-30 08:03] LABS: Syphilis Screen Nonreactive (Nonreactive)
[2023-07-30 08:26] LABS: HBS Num1 0.17 mIU/mL (0-7.99); HBsAGNum1 0.46 S/CO (0.00-0.99); HIV AB/AG Nonreactive (Nonreactive); HIV Num 1 0.45 S/CO (0.00-0.99); Hepatitis B Surface Antigen Negative (Negative); ~HepC Num1 0.08 S/CO (0.00-0.79); ~Hepatitis B Surface Antibody NONREACTIVE (Nonreactive); ~Hepatitis C Antibody Nonreactive (Nonreactive)
[2023-07-31 13:44] LABS: Alpha Fetoprotein 4.2 ng/mL
== END 2023-07-29 11:03 | disposition home or self-care (01) ==
LOC: HO.HHCL 11:02
PROVIDERS: Visit Provider Family Medicine
DX: Z11.4 Encounter for screening for human immunodeficiency virus [HIV] (principal); Z11.3 Encounter for screening for infections with a predominantly sexual mode of transmission; I10 Essential (primary) hypertension
CPT/HCPCS: 0353U; 36415; 80048; 80061; 80076; 82043; 82105; 82306; 82570; 83036; 84439; 84443; 85025; 86706; 86780; 86803; 87340; 87389

== ENCOUNTER 2023-08-10 14:58 | Outpatient (REF) | payer MEDICAID, SELFPAY ==
--- NOTE | ~2023-08-10 | MR_ITS ---
EXAMINATION: MRI PELVIS WITH AND WITHOUT CONTRAST CLINICAL INFORMATION: Reason for Exam abnormal pelvic US with heterogenous, enlarged uterus COMPARISON: Pelvic ultrasound 06/22/2023 TECHNIQUE: Multiple routine MRI sequences through the pelvis were obtained on a high-field 1.5 Eleni MRI before and after the uneventful administration of 10 mL of Gadavist gadolinium-based IV contrast. FINDINGS: UTERUS: The uterus is anteverted. Uterus measures 9.3 x 4.5 x 6.4 cm. The endometrial stripe measures 0.6 cm in thickness. An intrauterine device is in satisfactory position within the endometrium. The junctional zone appears thickened anteriorly up to 1.2 cm. No discrete uterine mass is seen. CERVIX: Unremarkable. VAGINA: Unremarkable. RIGHT OVARY: The right ovary measures 2.5 2.6 x 3.1 cm. LEFT OVARY: The left ovary measures 2.5 x 1.9 x 3.8 cm. KIDNEYS: Two normally positioned kidneys are seen. No hydronephrosis. BLADDER: Underdistended. PELVIC FREE FLUID: No free fluid or ascites. LYMPH NODES: No pathologically enlarged lymph nodes. MR/MR pelvis wo/w con IMPRESSION: Thickened junctional zone possibly representing adenomyosis. Satisfactory position of IUD.
[2023-08-10] MEDS: gadobutroL 10 ML VIAL IVPUSH (15:57)
== END 2023-08-10 14:59 | disposition home or self-care (01) ==
LOC: HO.MRI 14:58
PROVIDERS: PCP Family Medicine; Visit Provider Family Medicine
DX: R93.89 Abnormal findings on diagnostic imaging of other specified body structures (principal)
CPT/HCPCS: 72197; A9585

== ENCOUNTER 2023-08-14 09:25 | Outpatient (REF) | payer MEDICAID, SELFPAY ==
--- NOTE | ~2023-08-14 | US_ITS ---
EXAMINATION: US ABDOMEN COMPLETE CLINICAL INFORMATION: Follow up fatty liver. COMPARISON: Ultrasound abdomen limited 06/22/2023. Ultrasound abdomen complete 02/13/2022. TECHNIQUE: Real-time imaging of the abdominal viscera. FINDINGS: PANCREAS: Normal. ABDOMINAL AORTA: The proximal, mid, and distal segments are normal in caliber. INFERIOR VENA CAVA: Visualized portions are normal. LIVER: The liver is normal in size. The liver contour is normal. Increased parenchymal echogenicity. No focal hepatic lesion. There is no intrahepatic biliary duct dilatation seen. GALLBLADDER: Normal. The gallbladder is physiologically distended without evidence of stones, sludge, polyps, wall thickening or pericholecystic fluid. COMMON BILE DUCT: Normal in caliber measuring 0.3 cm in diameter. RIGHT KIDNEY: Normal. No hydronephrosis. No renal calculi or focal parenchymal lesions. The kidney measures 10.3 cm in maximum dimension. LEFT KIDNEY: Normal. No hydronephrosis. No renal calculi or focal parenchymal lesions. The kidney measures 11.5 cm in maximum dimension. SPLEEN: Normal. The spleen measures 12.1 cm in maximum dimension. FREE FLUID: None. US/US abdomen complete IMPRESSION: Increased hepatic parenchymal echogenicity is nonspecific and could be seen in the setting of hepatic steatosis or hepatocellular disease. Correlate with liver function tests.
== END 2023-08-14 09:26 | disposition home or self-care (01) ==
LOC: HO.US 09:25
PROVIDERS: PCP Family Medicine; Visit Provider Family Medicine
DX: K76.0 Fatty (change of) liver, not elsewhere classified (principal)
CPT/HCPCS: 76700

== ENCOUNTER 2023-09-15 14:26 | Outpatient (AMB) | payer MEDICAID, SELFPAY ==
--- NOTE | 2023-09-15 14:34 | A.OFFVIS_ITS ---
Intake Vital Signs 09/15/23 14:35 Height 5 ft 5 in Weight 266 lb 5.094 oz BMI 44.3 BP 145/76 H Blood Pressure Location Rt brachial Position Sitting Pulse 68 Pulse Source Pulse Oximeter Intake Visit Reasons: 6 month follow up Intake Note: Pt presents to the office today for a 6 month follow up for constipation. She states she has constipation every once in a while but she states when she notices she is starting to get constipated she will take her medications everyday for a few days to help. She denies any other GI concerns. Allergies dust Allergy (Unknown, Uncoded 09/15/23 14:37) Unknown mold/pollen Allergy (Unknown, Uncoded 09/15/23 14:37) Unknown HPI 6 month follow up HPI Details LAST VISIT: Diverticulosis IBS (irritable bowel syndrome) Constipation GERD (gastroesophageal reflux disease) Internal hemorrhoids without complication Plan Patient was encouraged to increase fluid intake and activity promote better bowel motility. Patient will take MiraLax every morning and Colace at night norma e. Patient will continue with pantoprazole daily. Discussed with patient avoiding dietary triggers and like dissected. Staying upright for minimum 3 hours after meals discussed with patient. I will see her in 6 months, sooner on as needed basis. Patient is agreeable to this plan and verbalizes understanding of instructions. She was given the opportunity to ask questions and all questions answered. TODAY'S VISIT Patient is here today for follow-up. Patient reports that she has been feeling better. Patient was found to have adenomyoma by abdominal MRI. Patient was reporting to have lower pelvic pain and was sent for abdominal and pelvic ultrasound and unable to visualize well due to her body habitus. PCP send her for MRI and then eventually for more ultrasound. Patient reports that she has appointment with her OBGYN in few months. Patient was encouraged to call the office to schedule a follow-up. Patient is taking ibuprofen on as needed basis for pain. Reports that she has been doing well. Now that patient is moving her bowels better she also is feeling well. Patient goes to the bathroom every day if no bowel movement for 1 day patient will be taking senna to help her move her bowels. Patient also has MiraLax and is able to take that on as needed basis. Patient denies melena, hematochezia, unintentional weight loss or ribbon like stools. Patient denies any dyspepsia, dysphagia or odynophagia. Currently patient is taking pantoprazole daily and reports that her symptoms are suppressed. Patient denies any other GI concerning symptoms. [facility] Medical History Diverticulosis Morbid obesity with BMI of 45.0-49.9, adult H/O hidradenitis suppurativa Hx of ectopic Hx of herpes simplex infection History of high cholesterol Hx of essential hypertension History of PCOS Surgical History History of dermoid cyst excision Hx of dilation and curettage History of unilateral fallopian tube excision Family History Father Hx of cancer of lung Mother History of asthma Family hx of hypertension History of high cholesterol Maternal Grandmother Hx of acute arthritis Family hx of hypertension History of angina History of high cholesterol Hx of diabetes mellitus Maternal Grandfather Family hx of hypertension Hx of completed stroke Family/Other Ovarian cancer Family/Other Colon cancer Social History Alcohol intake: never Patient Tobacco Use Status: Never used Tobacco Female Reproductive History Menstrual Age of Menarche: 12 Review of Systems Const Denies weight gain and Denies weight loss ENT Reports no additional complaints, Denies dysphagia and Denies odynophagia Card Reports no additional complaints Resp Reports no additional complaints GI Denies abdominal pain, Denies belching, Denies melena, Denies bloating, Denies change in bowel habits, Reports constipation (Occasional), Denies dysphagia, Denies excessive flatus, Denies dyspepsia, Denies heartburn, Denies diarrhea, Denies loose stools, Denies nausea, Denies odynophagia and Denies vomiting Reports no additional complaints Musc Reports no additional complaints Neuro Reports no additional complaints Psych Reports no additional complaints Endo Reports no additional complaints Physical Exam Vital Signs: Last Vital Signs Pulse 68 09/15/23 14:35 BP 145/76 H 09/15/23 14:35 BMI result Body Mass Index 44.3 Const General: healthy appearing and no acute distress Nutritional Appearance: obese Orientation/consciousness: patient oriented x3 Resp Effort & Inspection: normal respiratory effort, able to speak in complete sentences, no tracheal deviation and symmetric chest movement Auscultation: clear to auscultation bilaterally Cardio Rate: regular rate GI Inspection: Yes normal to inspection, No distended and Yes obesity Palpation (GI): Soft to palpation, not firm, nontender and No hepatosplenomegaly present Auscultation: normal bowel sounds General: Yes no CVA tenderness Back/Spine/Pelvis Back: no CVA tenderness Skin General skin exam: elasticity normal, turgor normal and dry skin Neuro General: patient oriented x3 Psych Appearance: grossly normal Mental Status: mental status grossly normal Assessment & Plan Assessment & Plan (1) Diverticulosis: Code(s): K57.90 - Diverticulosis of intestine, part unspecified, without perforation or abscess without bleeding (2) Transaminitis: Code(s): R74.01 - Elevation of levels of liver transaminase levels (3) IBS (irritable bowel syndrome): Code(s): K58.9 - Irritable bowel syndrome without diarrhea Qualifiers: Irritable bowel syndrome type: with constipation Qualified Code(s): K58.1 - Irritable bowel syndrome with constipation (4) Constipation: Code(s): K59.00 - Constipation, unspecified Qualifiers: Constipation type: slow transit constipation Qualified Code(s): K59.01 - Slow transit constipation (5) GERD (gastroesophageal reflux disease): Code(s): K21.9 - Gastro-esophageal reflux disease without esophagitis Qualifiers: Esophagitis presence: esophagitis presence not specified Qualified Code(s): K21.9 - Gastro-esophageal reflux disease without esophagitis (6) Internal hemorrhoids without complication: Code(s): K64.8 - Other hemorrhoids Plan Continue pantoprazole every morning half an hour before breakfast. Continue avoiding dietary triggers and late night snacking. Discussed with patient also trying to lose weight. Patient continues to have elevated liver enzymes we will send her for limited liver ultrasound with elastography. Patient was encouraged to take senna every day to help her move her bowels. She will call her OBGYN to make appointment sooner to discuss recent finding on MRI. I will see patient in 6 months, sooner on as needed basis. She is agreeable to this plan and verbalizes understanding of instructions. She was given the opportunity to ask questions and all questions answered. Thank you for allowing me to participate in her care Orders: Orders US abdomen otoole w elastography 4 Months R74.01 - Elevation of levels of liver transaminase levels Medications: Refilled sennosides (Natural Senna Laxative) 8.6 mg PO BEDTIME 90 tabs 3RF constipation K59.00 - Constipation, unspecified pantoprazole take one tablet half an hour before breakfast 40 mg PO DAILY 90 tabs 2RF K21.9 - Gastro-esophageal reflux disease without esophagitis Coding Level of Care Code Est Pt Level 3 (89996) Diagnoses Diverticulosis K57.90 Transaminitis R74.01 Irritable bowel syndrome with constipation K58.1 Irritable bowel syndrome type: with constipation Slow transit constipation K59.01 Constipation type: slow transit constipation Gastroesophageal reflux disease, unspecified whether esophagitis present K21.9 Esophagitis presence: esophagitis presence not specified Internal hemorrhoids without complication K64.8 Time Spent (min) 25 Comment 15 minutes spent with patient and additional 10 minutes spent reviewing her records
[2023-09-15 14:35] VITALS: BP 145/76; PULSE 68; BMI 44.3
== END 2023-09-15 15:00 | disposition home or self-care (01) ==
PROVIDERS: PCP Family Medicine; Visit Provider Nurse Practitioner Family
DX: K57.90 Diverticulosis of intestine, part unspecified, without perforation or abscess without bleeding (principal); R74.01 Elevation of levels of liver transaminase levels; K58.1 Irritable bowel syndrome with constipation; K59.01 Slow transit constipation; K21.9 Gastro-esophageal reflux disease without esophagitis; K64.8 Other hemorrhoids
CPT/HCPCS: 99213

== ENCOUNTER → 2023-09-15 14:26 | Outpatient (BNVA) | payer MEDICAID, SELFPAY | PROVIDERS: PCP Family Medicine; Visit Provider Nurse Practitioner Family | DX: K57.90 Diverticulosis of intestine, part unspecified, without perforation or abscess without bleeding (principal); K58.1 Irritable bowel syndrome with constipation; R74.01 Elevation of levels of liver transaminase levels; K59.01 Slow transit constipation; K21.9 Gastro-esophageal reflux disease without esophagitis; K64.8 Other hemorrhoids | CPT/HCPCS: 99212 ==

== ENCOUNTER 2024-01-13 11:23 | Outpatient (REF) | payer MEDICAID, SELFPAY ==
--- NOTE | ~2024-01-13 | US_ITS ---
EXAMINATION: US ABDOMEN LIMITED WITH LIVER ELASTOGRAPHY CLINICAL INFORMATION: Elevated liver enzymes. COMPARISON: None available. TECHNIQUE: Real-time imaging of the abdominal viscera. Noninvasive ultrasound liver fibrosis assessment is performed using Analisa ElastPQ point quantification shear wave elastography (2D-SWE) with a C5-2 MHz transducer. Multiple elastography samples are obtained. FINDINGS: PANCREAS: Normal. The visualized pancreatic head and body are normal in appearance. The remainder of the pancreas is obscured from visualization by the overlying bowel gas. LIVER: Liver is enlarged with increased echogenicity consistent with hepatic steatosis. No focal lesion or intrahepatic biliary duct dilatation. The right lobe measures 20.4 cm in length. The left lobe measures 10.4 cm in length. Portal flow is towards the liver (hepatopetal). Shear wave liver elastography median stiffness is 2.0 m/s (reference: normal median stiffness is 1.3 m/s or less). IQR/median stiffness to assess sampling precision is 0.09 (reference: good quality data set is IQR/median stiffness of 0.15 or less). GALLBLADDER: Normal. The gallbladder is physiologically distended without evidence of stones, sludge, polyps, wall thickening or pericholecystic fluid. COMMON BILE DUCT: Normal in caliber measuring 0.2 cm in diameter. RIGHT KIDNEY: Normal. No hydronephrosis. No renal calculi or focal parenchymal lesions. The kidney measures 10.6 cm in maximum dimension. FREE FLUID: None. US/US abdomen otoole w elastography IMPRESSION: 1. Enlarged echogenic liver consistent with hepatic steatosis. 2. Liver elastography: Measurements are suggestive of compensated advanced chronic liver disease but need further test for confirmation. REFERENCE: Society of Radiologists in Ultrasound Liver Stiffness Thresholds (2020): LIVER STIFFNESS THRESHOLDS: *Liver Stiffness equal or less than 1.3 m/s: High probability of being normal. *Liver Stiffness less than 1.7 m/s: In the absence of other known clinical signs, rules out compensated advanced chronic liver disease. *Liver Stiffness 1.7-2.1 m/s: Suggestive of compensated advanced chronic liver disease but need further test for confirmation. *Liver Stiffness over 2.1 m/s: Rules in compensated advanced chronic liver disease. *Liver Stiffness over 2.4 m/s: Suggestive of clinically significant portal hypertension. QUALITY OF DATA SET: *IQR/Median value equal or less than 0.15 implies a quality data set. *IQR/Median value over 0.15 implies a poor quality data set. SIGNIFICANT CHANGE FROM PRIOR EXAM: Significant change if liver stiffness measurement is 10% or greater from prior exam. OTHER CONSIDERATIONS: The stage of liver fibrosis may be overestimated in the setting of acute hepatitis, liver inflammation, elevated liver function tests, hepatic vascular congestion, obstructive cholestasis, non-fasting state, and infiltrative diseases such as amyloidosis and lymphoma. In some patients with NAFLD, the liver stiffness thresholds for compensated advanced chronic liver disease may be lower. In causes other than viral hepatitis and NAFLD, liver stiffness thresholds are not well established.
== END 2024-01-13 11:24 | disposition home or self-care (01) ==
LOC: HO.US 11:23
PROVIDERS: PCP Family Medicine; Visit Provider Nurse Practitioner Family
DX: R74.01 Elevation of levels of liver transaminase levels (principal)
CPT/HCPCS: 76705; 76981

== ENCOUNTER 2024-03-21 13:10 | Outpatient (REF) | payer MEDICAID, SELFPAY ==
[2024-03-21 15:20] LABS: Iron 100 mcg/dL (30-160); Percent Iron Saturation 38 % (15-50); Total Iron Binding Capacity 260 mcg/dL (228-428); Unsaturated Iron Binding 160 ug/dL
[2024-03-21 15:26] LABS: Ferritin 41 ng/mL (10-250)
[2024-03-22 10:29] LABS: Ceruloplasmin 26 mg/dL (14-48)
[2024-03-22 13:08] LABS: Alpha Fetoprotein 4.4 ng/mL
[2024-03-24 11:23] LABS: Mitochondrial Antibodies NEGATIVE (NEGATIVE)
[2024-03-24 20:33] LABS: Smooth Muscle Antibody 36 U (<20)
[2024-03-29 17:58] LABS: FIB-ALT 19 U/L (6-29); FIB-Alpha-2-Macroglobulin 239 mg/dL (106-279); FIB-Apolipoprotein A1 148 mg/dL (101-198); FIB-GGT 43 U/L (3-55); FIB-Haptoglobin 147 mg/dL (43-212); FIB-Total Bilirubin 0.5 mg/dL (0.2-1.2); Liver Fibrosis Score 0.24; Liver Fibrosis Stage F0-F1; Nec Inflam Act Grade A0; Nec Inflam Act Score 0.07
== END 2024-03-21 13:11 | disposition home or self-care (01) ==
LOC: HO.LAB 13:10
PROVIDERS: PCP Family Medicine; Visit Provider Nurse Practitioner Family
DX: K76.0 Fatty (change of) liver, not elsewhere classified (principal); K58.9 Irritable bowel syndrome, unspecified; K21.9 Gastro-esophageal reflux disease without esophagitis; K57.90 Diverticulosis of intestine, part unspecified, without perforation or abscess without bleeding; K59.01 Slow transit constipation; R79.89 Other specified abnormal findings of blood chemistry; R74.8 Abnormal levels of other serum enzymes; D64.9 Anemia, unspecified
CPT/HCPCS: 36415; 81596; 82105; 82390; 82728; 83540; 86015; 86381; 99212

== ENCOUNTER 2024-03-21 13:10 | Outpatient (AMB) | payer MEDICAID, SELFPAY ==
--- NOTE | 2024-03-21 13:23 | MHC.OFFVIS ---
Vital Signs 03/21/24 13:24 Height 5 ft 5 in Weight 269 lb 6.478 oz BMI 44.8 BP 134/62 Blood Pressure Location Rt brachial Position Sitting Pulse 72 Pulse Source Pulse Oximeter Pulse Oximetry (%) 96 Oxygen Delivery Method Room Air Intake Visit Reasons: 6 month follow up US Intake Note: Quan presents in office today for a scheduled 6 mos FUV. CC; Pt is here to discuss their current condition as well as their most recent US. Pt reports that they have been doing OK since their last visit. Pt has been dealing with minor, intermittent symptoms. However, they have no major concerns. Pt does report needing refills of the pantoprazole and the senna. Contract Assistant Required: No Allergies dust Allergy (Unknown, Uncoded 09/15/23 14:37) Unknown mold/pollen Allergy (Unknown, Uncoded 09/15/23 14:37) Unknown HPI HPI 6 month follow up US: Details: LAST VISIT Diverticulosis Transaminitis IBS (irritable bowel syndrome) Constipation GERD (gastroesophageal reflux disease) Internal hemorrhoids without complication Plan Continue pantoprazole every morning half an hour before breakfast. Continue avoiding dietary triggers and late night snacking. Discussed with patient also trying to lose weight. Patient continues to have elevated liver enzymes we will send her for limited liver ultrasound with elastography. Patient was encouraged to take senna every day to help her move her bowels. She will call her OBGYN to make appointment sooner to discuss recent finding on MRI. I will see patient in 6 months, sooner on as needed basis. She is agreeable to this plan and verbalizes understanding of instructions. She was given the opportunity to ask questions and all questions answered. ? Thank you for allowing me to participate in her care Orders Orders US abdomen otoole w elastography 4 Months R74.01 Medications Refilled sennosides (Natural Senna Laxative) 8.6 mg PO BEDTIME 90 tabs 3RF constipation K59.00 pantoprazole take one tablet half an hour before breakfast 40 mg PO DAILY 90 tabs 2RF K21.9 TODAY'S VISIT Patient is here today for follow-up. She reports that she has been doing fairly well. Patient states that she changed her diet and is no longer eating any fried or fatty food. Patient is moving her bowels well, takes Senokot on as needed basis, states that since she started eating better able to have a bowel movement almost every day. Takes pantoprazole daily. Her symptoms are suppressed for the most part. Patient denies any melena, hematochezia, unintentional weight loss or ribbon like stools. Patient denies any abdominal pain or discomfort. Denies any GI symptoms or concerns. Patient continues with normal liver enzymes. Abdominal ultrasound with elastography done and discussed with patient. [facility] Medical History Diverticulosis Morbid obesity with BMI of 45.0-49.9, adult H/O hidradenitis suppurativa Hx of ectopic Hx of herpes simplex infection History of high cholesterol Hx of essential hypertension History of PCOS Surgical History History of dermoid cyst excision Hx of dilation and curettage History of unilateral fallopian tube excision Family History Father Hx of cancer of lung Mother History of asthma Family hx of hypertension History of high cholesterol Maternal Grandmother Hx of acute arthritis Family hx of hypertension History of angina History of high cholesterol Hx of diabetes mellitus Maternal Grandfather Family hx of hypertension Hx of completed stroke Family/Other Ovarian cancer Family/Other Colon cancer Social History Alcohol intake: never Patient Tobacco Use Status: Never used Tobacco Female Reproductive History Menstrual Age of Menarche: 12 Review of Systems Const Denies weight gain and Denies weight loss ENT Reports no additional complaints, Denies dysphagia and Denies odynophagia Card Reports no additional complaints Resp Reports no additional complaints GI Denies abdominal pain, Denies belching, Denies melena, Denies bloating, Denies change in bowel habits, Denies dysphagia, Denies excessive flatus, Denies dyspepsia, Denies heartburn, Denies diarrhea, Denies loose stools, Denies nausea, Denies odynophagia and Denies vomiting Musc Reports no additional complaints Neuro Reports no additional complaints Psych Reports no additional complaints Endo Reports no additional complaints Physical Exam Vital Signs: Last Vital Signs Pulse 72 03/21/24 13:24 BP 134/62 03/21/24 13:24 Pulse Ox 96 03/21/24 13:24 Oxygen Delivery Method Room Air 03/21/24 13:24 BMI result Body Mass Index 44.8 Const General: healthy appearing and no acute distress Nutritional Appearance: obese Orientation/consciousness: patient oriented x3 Resp Effort & Inspection: normal respiratory effort, able to speak in complete sentences, no tracheal deviation and symmetric chest movement Auscultation: clear to auscultation bilaterally Cardio Rate: regular rate GI Inspection: Yes normal to inspection, No distended and Yes obesity Palpation (GI): Soft to palpation, not firm, nontender and No hepatosplenomegaly present Auscultation: normal bowel sounds General: Yes no CVA tenderness Back/Spine/Pelvis Back: no CVA tenderness Skin General skin exam: elasticity normal, turgor normal and dry skin Neuro General: patient oriented x3 Psych Appearance: grossly normal Mental Status: mental status grossly normal Results Reviewed Results Reviewed: ABDOMINAL ULTRASOUND WITH LIVER ELASTOGRAPHY FINDINGS: PANCREAS: Normal. The visualized pancreatic head and body are normal in appearance. The remainder of the pancreas is obscured from visualization by the overlying bowel gas. LIVER: Liver is enlarged with increased echogenicity consistent with hepatic steatosis. No focal lesion or intrahepatic biliary duct dilatation. The right lobe measures 20.4 cm in length. The left lobe measures 10.4 cm in length. Portal flow is towards the liver (hepatopetal). Shear wave liver elastography median stiffness is 2.0 m/s (reference: normal median stiffness is 1.3 m/s or less). IQR/median stiffness to assess sampling precision is 0.09 (reference: good quality data set is IQR/median stiffness of 0.15 or less). GALLBLADDER: Normal. The gallbladder is physiologically distended without evidence of stones, sludge, polyps, wall thickening or pericholecystic fluid. COMMON BILE DUCT: Normal in caliber measuring 0.2 cm in diameter. RIGHT KIDNEY: Normal. No hydronephrosis. No renal calculi or focal parenchymal lesions. The kidney measures 10.6 cm in maximum dimension. FREE FLUID: None. US/US abdomen otoole w elastography IMPRESSION: 1. Enlarged echogenic liver consistent with hepatic steatosis. 2. Liver elastography: Measurements are suggestive of compensated advanced chronic liver disease but need further test for confirmation. Assessment & Plan Assessment & Plan (1) Diverticulosis: Code(s): K57.90 - Diverticulosis of intestine, part unspecified, without perforation or abscess without bleeding Category: Medical (2) Constipation: Code(s): K59.00 - Constipation, unspecified Qualifiers: Constipation type: slow transit constipation Qualified Code(s): K59.01 - Slow transit constipation (3) IBS (irritable bowel syndrome): Code(s): K58.9 - Irritable bowel syndrome without diarrhea Qualifiers: Irritable bowel syndrome type: without diarrhea Qualified Code(s): K58.9 - Irritable bowel syndrome without diarrhea (4) GERD (gastroesophageal reflux disease): Code(s): K21.9 - Gastro-esophageal reflux disease without esophagitis Qualifiers: Esophagitis presence: without esophagitis Qualified Code(s): K21.9 - Gastro-esophageal reflux disease without esophagitis (5) Hepatic steatosis: Code(s): K76.0 - Fatty (change of) liver, not elsewhere classified Plan Abdominal ultrasound discussed with patient. Chronic compensated advanced liver disease. Patient continues with normal liver enzymes. Will rule out autoimmune disorders. Will check liver fibrosis panel to stage it. If stage F1 R F2 patient may be placed on resmetirom (Rezdiffa), 1st FDA approved treatment of Sellers along with diet and exercise. Continue pantoprazole daily. Avoid dietary triggers and late night snacking. Staying upright for minimum 3 hours after meals discussed with patient. Patient will follow-up in the office in 6 months, sooner on as needed basis. She is agreeable to this plan and verbalizes understanding of instructions. She was given the opportunity to ask questions and all questions answered. Thank you for allowing participate in her care Orders: Orders Alpha Fetoprotein Today R79.89 - Other specified abnormal findings of blood chemistry Smooth Muscle Antibody Today R79.89 - Other specified abnormal findings of blood chemistry Ceruloplasmin Today R79.89 - Other specified abnormal findings of blood chemistry IRON PROFILE Today D64.9 - Anemia, unspecified Mitochondrial Antibody Today R79.89 - Other specified abnormal findings of blood chemistry Ferritin Today R74.8 - Abnormal levels of other serum enzymes Liver Fibrosis Pnl Today K76.0 - Fatty (change of) liver, not elsewhere classified Coding Level of Care Code Est Pt Level 4 (06914) Diagnoses Diverticulosis K57.90 Slow transit constipation K59.01 Constipation type: slow transit constipation Irritable bowel syndrome without diarrhea K58.9 Irritable bowel syndrome type: without diarrhea Gastroesophageal reflux disease without esophagitis K21.9 Esophagitis presence: without esophagitis Hepatic steatosis K76.0 Time Spent (min) 35 Comment 20 minutes spent with patient and additional 15 minutes spent reviewing her records
[2024-03-21 13:24] VITALS: BP 134/62; PULSE 72; O2SAT 96; BMI 44.8
== END 2024-03-21 13:56 | disposition home or self-care (01) ==
PROVIDERS: PCP Family Medicine; Visit Provider Nurse Practitioner Family
DX: K57.90 Diverticulosis of intestine, part unspecified, without perforation or abscess without bleeding (principal); K59.01 Slow transit constipation; K58.9 Irritable bowel syndrome, unspecified; K21.9 Gastro-esophageal reflux disease without esophagitis; K76.0 Fatty (change of) liver, not elsewhere classified
CPT/HCPCS: 99214

== ENCOUNTER 2024-04-08 17:49 | Emergency (ER) | payer MEDICAID, SELFPAY ==
[2024-04-08 18:24] VITALS: BP 155/72; PULSE 83; RESP 20; TEMP 36.5; O2SAT 98; BMI 43.2
--- NOTE | 2024-04-08 18:32 | ECG_ITS ---
Test Reason : lightness Blood Pressure : / mmHG Vent. Rate : 075 BPM Atrial Rate : 075 BPM P-R Int : 160 ms QRS Dur : 080 ms QT Int : 396 ms P-R-T Axes : 025 025 025 degrees QTc Int : 442 ms Normal sinus rhythm Normal ECG When compared with ECG of 17-JUN-2013 08:25, No significant change was found Referred By: Abbi Pollock Electronically Signed By:YANE REDDY
--- NOTE | 2024-04-08 18:32 | ED.GENADULT ---
HPI - General Adult General Chief complaint: General Medical Stated complaint: light headed x1.5 wks Time Seen by Provider: 04/08/24 23:52 Source: patient Mode of arrival: ambulatory Limitations: no limitations History of Present Illness ED Provider: ruperto JUNIOR narrative: Patient's no significant was medical history except for hypotension started on lisinopril comes here for 10 days of nonspecific dizziness lightheadedness patient on standing no nausea no vomiting today patient had slight imbalance you no headache no history of similar dizziness in the past no neck pain no headache today patient felt like passing out while standing no chest pain or palpitation Related Data Home Medications ?Medication ?Instructions ?Recorded ?Confirmed rosuvastatin 40 mg tablet (Crestor) 40 mg PO DAILY 04/11/20 03/07/22 levonorgestrel 21 mcg/24 hr (up to intrauterine 08/21/21 03/07/22 8 years) 52 mg intrauterine device (Mirena) ibuprofen 800 mg tablet 800 mg PO TID 09/24/21 03/07/22 lisinopril 10 mg tablet 10 mg PO DAILY 09/24/21 03/07/22 simethicone 125 mg chewable tablet 125 mg PO QID PRN gas 01/13/22 03/07/22 (Gas Relief Extra Strength) Previous Rx's ?Medication ?Instructions ?Recorded cholecalciferol (vitamin D3) 50 50 mcg PO DAILY #90 caps 09/24/21 mcg (2,000 unit) capsule polyethylene glycol 3350 17 17 g PO DAILY #510 grams 08/13/22 gram/dose oral powder docusate sodium 100 mg capsule 100 mg PO BEDTIME #90 caps 01/20/23 hydrocortisone 2.5 % topical cream 1 appl [place] BID-QID PRN hemorrhoids 01/20/23 with perineal applicator #30 grams (Proctosol HC) pantoprazole 40 mg tablet,delayed 40 mg PO DAILY #90 tabs 09/15/23 release sennosides 8.6 mg tablet (Natural 8.6 mg PO BEDTIME constipation #90 09/15/23 Senna Laxative) tabs Allergies Allergy/AdvReac Type Severity Reaction Status Date / Time metronidazole [From Flagyl] Allergy Hives Verified 04/08/24 18:27 dust Allergy Unknown Unknown Uncoded 04/08/24 18:27 mold/pollen Allergy Unknown Unknown Uncoded 04/08/24 18:27 Review of Systems Review of Systems: Yes all other systems are reviewed and are negative [facility] Past Medical History Medical History Diverticulosis Morbid obesity with BMI of 45.0-49.9, adult H/O hidradenitis suppurativa Hx of ectopic Hx of herpes simplex infection History of high cholesterol Hx of essential hypertension History of PCOS Surgical History History of dermoid cyst excision Hx of dilation and curettage History of unilateral fallopian tube excision Family History Family History Father Hx of cancer of lung Mother History of asthma Family hx of hypertension History of high cholesterol Maternal Grandmother Hx of acute arthritis Family hx of hypertension History of angina History of high cholesterol Hx of diabetes mellitus Maternal Grandfather Family hx of hypertension Hx of completed stroke Family/Other Ovarian cancer Family/Other Colon cancer Social History Social History Alcohol intake: never Patient Tobacco Use Status: Never used Tobacco Advance Directives: No Advance Directives Information Provided: No Physical Exam ED Vital Signs: Vital Signs - 24 hr 04/08/24 18:24 04/08/24 23:17 04/09/24 00:21 Temperature 97.7 F 98.6 F 98.6 F Pulse Rate 83 71 71 Respiratory Rate 20 16 16 Blood Pressure 155/72 H 155/71 H 155/71 H Pulse Oximetry 98 100 100 Oxygen Delivery Method Room Air Room Air Room Air BMI result Body Mass Index 43.2 Appearance: Alert. Oriented X3. No acute distress. Normal orthostatics Eyes: PERRLA, No Nystagmus ENT: Pharynx normal. Oral Mucosa moist Neck: Normal inspection. Neck supple. CVS: Normal heart rate and rhythm. Pulses normal. Respiratory: No respiratory distress. Equal air entry bilateral, no wheezing/rales/rhonchi Abdomen: Soft and nontender. Bowel sounds are present, no mass palpable, no CVA tenderness Skin: Skin warm and dry. Normal skin color. Normal skin turgor. Extremities: No lower extremity edema. No calf tenderness Neuro: Oriented X 3. No motor deficit. No sensory deficit.No cerebellar signs , cranial nerves II-XII intact Course Course Course Narrative: This is a Rapid Medical Examination (RME) performed by Tho Pollock PA-C in triage. Full HPI, ROS, assessment and treatment plan per primary provider in the Main ED. 48 yo female hx HTN, diverticulosis here for eval of intermittent light headedness (room spinning) x 1.5 weeks. present at rest and on exertion. denies cp, sob, palpitations, headache, vision changes. no head truma. no new medications. normal PO intake. + exam nonfocal. perrla. cerebellum intact. Plan: labs, ekg Medical Decision Making Medical Decision Making MDM Narrative: Patient with dizziness/near-syncope which is going for essentially negative cell stripper without any arrhythmias patient advised to follow and drink plenty of fluids Differential Diagnosis Differential Diagnoses: The differential diagnosis associated with the presentation includes Admission/Observation Consideration of admission/observation: Escalation of care including admission/observation considered Lab Data [facility] Lab Attestation statement: I reviewed the patient's lab results. 04/08/24 19:26 04/08/24 19:26 Labs: Lab Results 04/08/24 Range/Units 19:26 WBC 9.7 (4.8-10.8) X10*3/uL RBC 4.88 (4.20-5.50) X10*6/uL Hgb 14.3 (12.0-16.0) g/dl Hct 41.3 (37.0-47.0) % MCV 84.6 (80.0-98.0) fL MCH 29.3 (27.0-33.0) pg MCHC 34.6 (31.0-35.0) g/dl RDW 12.2 (11.0-16.0) % Plt Count 269 (160-400) X10*3/uL MPV 10.8 (9.4-12.3) fL Immature Gran % (Auto) 0.2 (0.0-0.4) % Neut % (Auto) 70.2 (45-73) % Lymph % (Auto) 20.5 (20-40) % [place] % (Auto) 5.3 (2-11) % Eos % (Auto) 3.1 (0-4) % Baso % (Auto) 0.7 (0-2) % Lymph # (Auto) 2.0 (1.2-4.9) X10*3/uL [place] # (Auto) 0.5 (0.1-1.2) X10*3/uL Eos # (Auto) 0.3 (0.0-0.4) X10*3/uL Baso # (Auto) 0.1 (0.0-0.2) X10*3/uL Abs Immat Gran (auto) 0.02 (0.00-0.03) X10*3/uL Absolute Neuts (auto) 6.8 (2.0-8.3) x10*3/uL Absolute Nucleated RBC 0.000 (0.0-0.012) X10*3/uL Nucleated RBC % (auto) 0.0 (0.0-0.2) /100WBC PT 10.5 L (10.9-12.4) SEC INR 0.9 (0.9-1.1) Sodium 140 (135-145) mmol/L Potassium 3.8 (3.3-5.1) mmol/L Chloride 108 (96-108) mmol/L Carbon Dioxide 26 (22-29) mmol/L Anion Gap 10 L (12-20) BUN 12 (9-16) mg/dL Creatinine 0.87 (0.5-1.4) mg/dL Estim Creat Clear Calc 105.1 Estimated GFR > 60 Random Glucose 130 H (60-115) mg/dL Calcium 8.6 D (8.4-10.2) mg/dL Magnesium 2.2 (1.6-2.6) mg/dL Total Bilirubin 0.3 (0.0-1.0) mg/dL AST 17 (5-31) U/L ALT 16 (0-31) U/L Alkaline Phosphatase 89 (39-117) U/L Troponin I High Sens < 2.7 (<3.5-17.0) ng/L Total Protein 7.5 (6.5-8.0) g/dL Albumin 3.8 (3.5-5.0) g/dL Discharge Plan Discharge Clinical Impression: Vasovagal near-syncope Patient Disposition: Home, Self-Care Instructions: Near Syncope (ED) Additional Instructions: Drink plenty of fluids Take medication as prescribed by your PCP Do not stand up all of a sudden sit for few minutes before you stand up Follow with PCP Prescriptions: No Action rosuvastatin [Crestor] 40 mg tablet 40 mg PO DAILY Mirena 20 mcg/24 hours (7 yrs) 52 mg intrauterine device intrauterine ibuprofen 800 mg tablet 800 mg PO TID lisinopril 10 mg tablet 10 mg PO DAILY cholecalciferol (vitamin D3) 50 mcg (2,000 unit) capsule 50 mcg PO DAILY Qty: 90 3RF simethicone [Gas Relief Extra Strength] 125 mg tablet,chewable 125 mg PO QID PRN (Reason: gas) polyethylene glycol 3350 17 gram/dose powder 17 g PO DAILY Qty: 510 3RF docusate sodium 100 mg capsule 100 mg PO BEDTIME Qty: 90 3RF hydrocortisone [Proctosol HC] 2.5 % cream with perineal applicator 1 appl [place] BID-QID PRN (Reason: hemorrhoids) Qty: 30 2RF sennosides [Natural Senna Laxative] 8.6 mg tablet 8.6 mg PO BEDTIME Qty: 90 3RF pantoprazole 40 mg tablet,delayed release (DR/EC) 40 mg PO DAILY Qty: 90 2RF Rx Instructions: take one tablet half an hour before breakfast Interventions: ED Discharge Assessment Last Done: 04/09/24 00:21 Discharge Date/Time: 04/09/24 00:22 Print Language: Telugu
--- NOTE | 2024-04-08 19:28 | MHC.EDTECH ---
Patient brought into triage area,ekg taken per order and signed by provider,labs drawn and sen to lab.
[2024-04-08 19:30] LABS: MANUAL DIFF FLAG NO
[2024-04-08 19:38] LABS: Basophils Absolute Auto 0.1 X10*3/uL (0.0-0.2); Basophils Percent Auto 0.7 % (0-2); Eosinophils Absolute Auto 0.3 X10*3/uL (0.0-0.4); Eosinophils Percent Auto 3.1 % (0-4); Hematocrit 41.3 % (37.0-47.0); Hemoglobin 14.3 g/dl (12.0-16.0); Imm Gran Abs Auto 0.02 X10*3/uL (0.00-0.03); Imm Gran Pct Auto 0.2 % (0.0-0.4); Lymphocytes Percent Auto 20.5 % (20-40); Mean Corpuscular HGB Conc 34.6 g/dl (31.0-35.0); Mean Corpuscular Hemoglobin 29.3 pg (27.0-33.0); Mean Corpuscular Volume 84.6 fL (80.0-98.0); Mean Platelet Volume 10.8 fL (9.4-12.3); Monocytes Absolute Auto 0.5 X10*3/uL (0.1-1.2); Monocytes Percent Auto 5.3 % (2-11); Neutrophils Absolute Auto 6.8 x10*3/uL (2.0-8.3); Neutrophils Percent Auto 70.2 % (45-73); Platelet Count 269 X10*3/uL (160-400); Red Blood Count 4.88 X10*6/uL (4.20-5.50); Red Cell Distribution Width 12.2 % (11.0-16.0); White Blood Count 9.7 X10*3/uL (4.8-10.8)
[2024-04-08 19:57] LABS: Alanine Aminotransferase 16 U/L (0-31); Albumin Level 3.8 g/dL (3.5-5.0); Alkaline Phosphatase 89 U/L (39-117); Anion Gap 10 (12-20); Aspartate Amino Transferase 17 U/L (5-31); Bilirubin Total 0.3 mg/dL (0.0-1.0); Blood Urea Nitrogen 12 mg/dL (9-16); Calcium 8.6 mg/dL (8.4-10.2); Carbon Dioxide 26 mmol/L (22-29); Chloride 108 mmol/L (96-108); Creatinine Clr Calc Pharmacy 105.1; Estimated Glomerular Filt Rate > 60; Glucose Random 130 mg/dL (60-115); Magnesium 2.2 mg/dL (1.6-2.6); Potassium 3.8 mmol/L (3.3-5.1); Sodium 140 mmol/L (135-145); Total Protein 7.5 g/dL (6.5-8.0)
[2024-04-08 20:06] LABS: INTERNATIONAL NORM RATIO 0.9 (0.9-1.1); Prothrombin Time 10.5 SEC (10.9-12.4)
[2024-04-08 20:08] LABS: Troponin-I High Sensitivity < 2.7 ng/L (<3.5-17.0)
[2024-04-08 23:17] VITALS: BP 155/71; PULSE 71; RESP 16; TEMP 37; O2SAT 100
[2024-04-09 00:21] VITALS: BP 155/71; PULSE 71; RESP 16; TEMP 37; O2SAT 100
== END 2024-04-09 00:22 | disposition home or self-care (01) ==
PROVIDERS: Physician Assistant Medical; Emergency Provider Internal Medicine; PCP Family Medicine
DX: R55 Syncope and collapse (principal); R42 Dizziness and giddiness; I10 Essential (primary) hypertension; E78.5 Hyperlipidemia, unspecified; Z79.899 Other long term (current) drug therapy; Z79.02 Long term (current) use of antithrombotics/antiplatelets
CPT/HCPCS: 36415; 80053; 83735; 84484; 85025; 85610; 93005; 99283; 99284

== ENCOUNTER 2024-04-22 15:23 | Outpatient (REF) | payer MEDICAID, SELFPAY ==
--- NOTE | ~2024-04-22 | US_ITS ---
EXAMINATION: US EXTRACRANIAL CAROTID DUPLEX, BILATERAL CLINICAL INFORMATION: new onset dizziness COMPARISON: None available. TECHNIQUE: Real-time ultrasound and Doppler techniques (integrating B-mode 2-D vascular images, Doppler spectral analysis and color-flow Doppler imaging) were utilized to interrogate the extracranial carotid arteries, the vertebral arteries and proximal subclavian arteries bilaterally. The degree of stenosis is determined by criteria similar to NASCET. FINDINGS: Right Side: 1. There is mild atherosclerotic plaque seen in the bifurcation/proximal ICA region. 2. The common carotid artery PSV proximally is 213 cm/s and distally 83 cm/s. 3. The proximal internal carotid artery velocities are 67 cm/s systolic and 15 cm/s diastolic. 4. The proximal external carotid artery PSV is 88 cm/s. 5. The vertebral artery shows antegrade flow. 6. The subclavian artery waveforms are normal. Left Side: 1. There is mild atherosclerotic plaque seen in the bifurcation/proximal ICA region. 2. The common carotid artery PSV proximally is 156 cm/s and distally 85 cm/s. 3. The proximal internal carotid artery velocities are 51 cm/s systolic and 9 cm/s diastolic. 4. The proximal external carotid artery PSV is 139 cm/s. 5. The vertebral artery shows antegrade flow. 6. The subclavian artery waveforms are normal. US/US carotid duplex BI IMPRESSION: 1. RIGHT: Minimal, non-hemodynamically significant stenosis of the proximal right internal carotid artery corresponding to a 0-49% stenosis by velocity criteria. 2. LEFT: Minimal, non-hemodynamically significant stenosis of the proximal left internal carotid artery corresponding to a 0-49% stenosis by velocity criteria. 3. Incidental finding of bilateral thyroid nodules. Recommend dedicated thyroid ultrasound, if not already obtained. Electronically signed by: Kaylee Titus MD 05/02/2024 10:46 PM EDT
== END 2024-04-22 15:24 | disposition home or self-care (01) ==
LOC: HO.US 15:23
PROVIDERS: PCP Family Medicine; Visit Provider Family Medicine
DX: R42 Dizziness and giddiness (principal)
CPT/HCPCS: 93880

== ENCOUNTER 2024-04-27 13:14 | Outpatient (REF) | payer MEDICAID, SELFPAY ==
--- NOTE | ~2024-04-27 | CT_ITS ---
EXAMINATION: CT HEAD WITHOUT CONTRAST CLINICAL INFORMATION: New onset dizziness. COMPARISON: None available. TECHNIQUE: Contiguous axial imaging was performed from the skull base to vertex without intravenous administration of contrast. This CT examination was performed using dose optimization techniques as appropriate, variously including the following: *Automated exposure control. *Adjustment of mA and/or kV according to patient size (this includes techniques or standardized protocols for targeted exams where dose is matched to indication/reason for exam; i.e. extremities or head). *Use of iterative reconstruction technique. DLP: 784 mGy-cm FINDINGS: There is no evidence of acute intracranial hemorrhage or edematous territorial infarction. Hills-white matter differentiation is preserved. There is no abnormal attenuation within the brain parenchyma. The ventricles are normal in morphology and size. No evidence for obstructive hydrocephalus. No abnormal mass effect or midline shift. No extra-axial fluid collections. No acute soft tissue or osseous abnormalities. Moderate mucosal thickening of the paranasal sinuses. The mastoid air cells and middle ear cavities are clear. CT/CT head/brain wo IV con IMPRESSION: 1. No evidence of acute intracranial hemorrhage or edematous territorial infarction. 2. Moderate sinonasal mucosal disease. Electronically signed by: Liborio Milligan DO 06/15/2024 05:16 AM EST
== END 2024-04-27 13:15 | disposition home or self-care (01) ==
LOC: HO.CT 13:14
PROVIDERS: PCP Family Medicine; Visit Provider Family Medicine
DX: R42 Dizziness and giddiness (principal)
CPT/HCPCS: 70450

== ENCOUNTER 2024-05-03 13:54 | Outpatient (REF) | payer MEDICAID, SELFPAY ==
--- NOTE | ~2024-05-03 | MM_ITS ---
EXAMINATION: MM SCREENING DIGITAL BREAST TOMOSYNTHESIS, BILATERAL CLINICAL INFORMATION: Screening. Asymptomatic. COMPARISON: Mammography: Comparison is made with available priors TECHNIQUE: Digital breast mammography with tomosynthesis is performed in both the craniocaudal and mediolateral oblique views along with computer-aided detection (CAD). FINDINGS: There are scattered areas of fibroglandular density (ACR BI-RADS breast composition Category b). There are no significant masses, abnormal calcifications, or other abnormalities. MM/MM tomosynthesis screening BI IMPRESSION: No mammographic evidence of malignancy. ASSESSMENT: BI-RADS BI-RADS 1 - Negative RECOMMENDATION: Routine annual mammography screening. 1 year F/U This examination should not preclude the clinical evaluation of a suspicious palpable abnormality. This patient's information was entered into a reminder system with a target due date for their next mammogram. Electronically signed by: Deisy Cancino DO 05/11/2024 10:46 AM KRISTY
== END 2024-05-03 13:55 | disposition home or self-care (01) ==
LOC: HO.MAMMO 13:54
PROVIDERS: PCP Family Medicine; Visit Provider Family Medicine
DX: Z12.31 Encounter for screening mammogram for malignant neoplasm of breast (principal)
CPT/HCPCS: 77063; 77067

== ENCOUNTER → 2024-05-03 14:15 | Outpatient (BNV) | payer MEDICAID, SELFPAY | PROVIDERS: PCP Family Medicine; Visit Provider Internal Medicine | DX: Z12.31 Encounter for screening mammogram for malignant neoplasm of breast (principal) | CPT/HCPCS: 77063; 77067 ==

== ENCOUNTER 2024-05-23 15:25 | Outpatient (REF) | payer MEDICAID, SELFPAY | END 2024-05-23 15:26 | disposition home or self-care (01) | LOC: HO.US 15:25 | PROVIDERS: PCP Family Medicine; Visit Provider Family Medicine | DX: E04.2 Nontoxic multinodular goiter (principal) | CPT/HCPCS: 76536 ==

== ENCOUNTER → 2024-06-06 14:37 | Outpatient (REF) | payer MEDICAID, SELFPAY ==
--- NOTE | 2024-06-06 14:43 | CA_ITS ---
Transthoracic Echocardiogram Patient (Last, First, Middle): Quan Rowley, Gender: Female Date of : 1975 Age: 49 Procedure Date: 06/06/2024 Procedure Type: Transthoracic Echocardiogram Location: OP Height: 165. cm Weight: 121.57 kg BSA: 2.24 m2 Heart Rate: 61 bpm BP: 140 / 85 mmHg Management Tech: LIZ Referring MD: Barbara Triplett DO Symptoms: R42 DIZZINESS Study Quality: Adequate w/Contrast ECG Rhythm: Sinus Conclusions: - The left ventricular systolic function is normal. The calculated ejection fraction is 57% by biplane method. - No obvious valvular pathology seen on this study. Findings Procedure Information Contrast agent, definity, is being given per protocol without apparent complications. Left Ventricle Normal left ventricular cavity size. There is normal left ventricular wall thickness. The left ventricular systolic function is normal. The calculated ejection fraction is 57% by biplane method. There is no evidence of regional wall motion abnormalities. Diastolic function is normal for age. Right Ventricle Mildly increased right ventricular cavity size. There is normal right ventricular systolic function. Atria Both atria are normal in size. Aortic Valve There is a normal trileaflet aortic valve. There is no aortic valve stenosis. There is no aortic valve regurgitation. Mitral Valve The mitral valve appears normal. There is trace mitral valve regurgitation. There is no mitral valve stenosis. Pulmonic Valve The pulmonic valve is likely normal. Tricuspid Valve Normal tricuspid valve structure. There is trace tricuspid valve regurgitation. There is no evidence of pulmonary hypertension. Great Vessels The asc aorta and aortic arch are normal in size. Venous The inferior vena cava is normal in size and collapses greater than 50% with inspiration. Pericardium/Pleural There is no evidence of pericardial effusion. Prior Study Comparison No prior study available for comparison. Recommendations, Care & Conclusions No obvious valvular pathology seen on this study. Measurements 2D Linear Measurements IVSd: 0.98 0.6-0.9/0.6-1.0 cm LVIDd: 4.41 3.9-5.3/4.2-5.9 cm LVIDd Index: 1.97 2.4-3.2/2.2-3.1 cm/m2 LVIDs: 2.88 2.0-3.6 cm LVPWd: 0.82 0.7-1.1 cm LA Diam: 4.10 2.7-3.8/3.0-4.0 cm LAIDs Index: 1.83 1.5-2.3 cm/m2 LV Mass: 160.23 67-162/88-224 g LV Mass Index: 71.53 43-95/49-115 g/m2 LVOT Diam: 1.90 3.0+(-)1.3 cm 2D Systolic Function EF 4C: 62.90 >55% EF 2C: 51.40 >55% EF BiP: 57.10 >55% Mitral Valve MV Pk E: 0.95 MV PK A: 0.83 MV Decel Time: 199.00 E/A: 1.10 E'Lateral: 10.80 E'Medial: 7.29 E/E' Med: 13.00 E/E' Lat: 8.80 PHT: 58.00 MVA PHT: 3.79 Decel Glasscock: 4.78 Aortic Valve AoV Pk Ancelmo: 1.45 AoV Mn Ancelmo: 1.00 AoV VTI: 0.34 AoV Pk Grad: 8.00 Aov Mn Grad: 5.00 MYRA Cont.VTI: 2.16 LVOT LVOT Pk Ancelmo: 1.28 LVOT Mn Ancelmo: 0.79 LVOT VTI: 0.26 LVOT Pk Grad: 7.00 LVOT Mn Grad: 3.00 LVOT Diam: 1.90 LVOT Area: 2.84 Diastolic Function MV Pk E: 0.95 MV Pk A: 0.83 E/A: 1.10 E'Medial: 7.29 E/E' Med: 13.00 E' Laterial: 10.80 E/E' Lat: 8.80 Right Ventricle TAPSE (mm): 26.70 TVS' Ancelmo: 12.00 Tricuspid Valve TR Pk Ancelmo: 1.73 TR Pk Grad: 12.00 RA Press: 3.00 RVSP: 15.00 Great Vessels Aorta Sinus of Valsalva: 3.00 2.0-3.5 cm Ao Asc: 3.50 2.1-3.4 cm Ao Arch: 3.00 Pulmonary Valve PV Pk Ancelmo: 0.91 Peak PV Grad: 3.00 Updated in Other Vendor System with Status of Final Jose Alfredo Fajardo MD electronically signed on 06/07/2024 8:38:55 AM with status of Final
== END ==
LOC: HO.CARD 14:37
PROVIDERS: PCP Family Medicine; Visit Provider Family Medicine
DX: R42 Dizziness and giddiness (principal)
CPT/HCPCS: 93306; Q9957

== ENCOUNTER → 2024-06-06 14:43 | Outpatient (BNV) | payer MEDICAID, SELFPAY | PROVIDERS: PCP Family Medicine; Visit Provider Internal Medicine | DX: R42 Dizziness and giddiness (principal) | CPT/HCPCS: 93306 ==

== ENCOUNTER 2024-08-19 11:11 | Outpatient (REF) | payer MEDICAID, SELFPAY ==
--- OUTSIDE RECORDS SUMMARY | 2024-08-19 12:05 | XMS_ITS | Encounter Summary ---
Author Organization [employer] Address [address] [facility] 7[address] [place] [address] Care Team Providers Care Healthcare Translator Name Role Phone IoanaBarbara Primary Care Provider + [phone] Encounter Details Date Type Department Care Team (Late st Contact Info) Description 10/13/2023 Orders Only [facility] MEDICINE [address] [place] [address] ProviderSussy MD Social History Tobacco Use Types Packs/Day Years Used Date Smoking Tobacco: Never Passive Smoke Exposure: Never Smokeless Tobacco: Never Alcohol Use Standard Drinks/Week Comments Never 0 (1 standard drink = 0.6 oz pur e alcohol) Depression Answer Date Recorded Patient Health Questionnaire-9 Score 1 11/11/2022 Housing Stability Answer Date Recorded What is your housing situation today? I have layo sauer 04/30/[address] you li ve. Do you have problems with any of the following? None of the above 04/30/2023 Food Insecurity Answer Date Recorded Within the past 12 months, y ou worried that your food would run out before you got money to buy more: Never True 04/30/2023 Within the past 12 months,th e food you bought just didn't last and you didn't have enough money to get more: Never True Transportation Answer Date Recorded In the past 12 months, has l ack of transportation kept you from medical appts, meetings, work or from getting things needed for daily living? No 04/30/2023 Utilities Answer Date Recorded In the past 12 months, has t he electric, gas, oil or water company threatened to shut off services in your home? No 04/30/2023 Depression Answer Date Recorded Patient Health Questionnaire-2 Score 0 11/11/2022 Comments Unknown Sex and Gender Information Value Date Recorded Sex Assigned at Female 05/05/2022 10:17 AM EDT Legal Sex Female 10:17 AM EDT Gender Identity Female 05/05/2022 10:17 AM EDT Sexual Orientation Straight 05/05/2022 10 :17 AM EDT documented as of this encounter Plan of Treatment Not on file documented as of this encounter Procedures Procedure Name Priority Date/Time Associated Diagnosis Comments HM COLONOSCOPY Routine 01/10/2022 11:40 AM EDT documented in this encounter Results * Hm Colonoscopy (01/10/2022 11:40 AM EDT) us Historical Provider MD HEALTH MAINTENANCE Final Result documented in this encounter Visit Diagnoses Not on filedocumented in this encounter Additional Health Concerns Assessment Noted Time PHQ-9 Depression Total Score: 1 11/12/19 23 9:48 AM EDT documented as of this encounter Care Teams Healthcare Translator Relationship Specialty Start Date End Date Barbara Triplett DO [address] [place] [id number] PCP - General Family Medicine 03/14/13 documented as of this encounter
--- OUTSIDE RECORDS SUMMARY | 2024-08-19 12:05 | XMS_ITS | Encounter Summary ---
Author Organization [employer] Address [address] [facility] 7 [place] [address] Care Team Providers Care Whiteprinting Machine Operator Name Role Phone Barbara Triplett DO Primary Care Provider + [phone] Reason for Visit * Reason Comments Med Refill Encounter Details Date Type Department Care Team (Late st Contact Info) Description 04/07/2024 Refill [facility] MEDICINE [address] [place] [address] Barbara Triplett DO [address] [place] [address] Joana Social History Tobacco Use Types Packs/Day Years Used Date Smoking Tobacco: Never Passive Smoke Exposure: Never Smokeless Tobacco: Never Alcohol Use Standard Drinks/Week Comments Never 0 (1 standard drink = 0.6 oz pur e alcohol) Depression Answer Date Recorded Patient Health Questionnaire-9 Score 3 12/01/2023 Patient Health Questionnaire-9 Score 3 12/01/2023 Last PHQ-9: Questionnaire Data Not on file 0 12/01/2023 Housing Stability Answer Date Recorded What is your housing situation today? I have layo sauer 12/01/[address] you li ve. Do you have problems with any of the following? Mold;Pests such as bugs, ants, or mice 12/01/2023 Food Insecurity Answer Date Recorded Within the past 12 months, y ou worried that your food would run out before you got money to buy more: Never True 12/01/2023 Within the past 12 months,th e food you bought just didn't last and you didn't have enough money to get more: Never True Transportation Answer Date Recorded In the past 12 months, has l ack of transportation kept you from medical appts, meetings, work or from getting things needed for daily living? No 12/01/2023 Utilities Answer Date Recorded In the past 12 months, has t he electric, gas, oil or water company threatened to shut off services in your home? No 12/01/2023 Depression Answer Date Recorded Patient Health Questionnaire-2 Score 2 12/01/2023 Comments Unknown Sex and Gender Information Value Date Recorded Sex Assigned at Female 05/05/2022 10:17 AM EDT Legal Sex Female 10:17 AM EDT Gender Identity Female 05/05/2022 10:17 AM EDT Sexual Orientation Straight 05/05/2022 10 :17 AM EDT documented as of this encounter Plan of Treatment Not on file documented as of this encounter Visit Diagnoses Diagnosis Rosacea documented in this encounter Additional Health Concerns Assessment Noted Time PHQ-9 Depression Total Score: 3 12/01/19 24 10:50 AM EDT documented as of this encounter Care Teams Whiteprinting Machine Operator Relationship Specialty Start Date End Date Barbara Triplett DO [address] [place] [id number] PCP - General Family Medicine 03/14/13 documented as of this encounter
--- OUTSIDE RECORDS SUMMARY | 2024-08-19 12:06 | XMS_ITS | Encounter Summary ---
Author Organization [employer] Address [address] [place] [address] 7t [place] [address] Care Team Providers Care Canvass Manager Name Role Phone LitzyBarbara avalos Primary Care Provider + [phone] Reason for Visit * Reason Comments Med Refill Encounter Details Date Type Department Care Team ([facility] st Contact Info) Description 11/18/2022 Refill [facility] MEDICINE [address] [place] [address] Destiny Metcalf MD [address] [place] [address] Social History Tobacco Use Types Packs/Day Years Used Date Smoking Tobacco: Never Passive Smoke Exposure: Never Smokeless Tobacco: Never Depression Answer Date Recorded Patient Health Questionnaire-9 Score 1 11/11/2022 Depression Answer Date Recorded Patient Health Questionnaire-2 Score 0 11/11/2022 Comments Unknown Sex and Gender Information Value Date Recorded Sex Assigned at Female 05/05/2022 10:17 AM EDT Legal Sex Female 10:17 AM EDT Gender Identity Female 05/05/2022 10:17 AM EDT Sexual Orientation Straight 05/05/2022 10 :17 AM EDT COVID-19 Exposure Response Date Recorded In the last 10 days, have yo u been in contact with someone who was confirmed or suspected to have Coronavirus/COVID-19? No / Unsure 11/11/2022 9:35 AM EDT documented as of this encounter Plan of Treatment Not on file documented as of this encounter Visit Diagnoses Not on filedocumented in this encounter Additional Health Concerns Assessment Noted Time PHQ-9 Depression Total Score: 1 11/12/19 23 9:48 AM EDT documented as of this encounter Care Teams Canvass Manager Relationship Specialty Start Date End Date Barbara Triplett DO [address] [place] [address] PCP - General Family Medicine 03/14/13 documented as of this encounter
--- OUTSIDE RECORDS SUMMARY | 2024-08-19 12:06 | XMS_ITS | Encounter Summary ---
Author Organization [employer] Address [address] [place] [address] 7t [place] [address] Care Team Providers Care Hotel Staff Member Name Role Phone Barbara Triplett Primary Care Provider Encounter Details Date Type Department Care Team (Latest Contact Info) Description 08/19/2024 Travel Social History Tobacco Use Types Packs/Day Years [...] Patient Health Questionnaire-2 Score 2 12/01/2023 Comments No Sex and Gender Information Value Date Recorded [...] documented as of this encounter Care Teams Hotel Staff Member Relationship Specialty Start Date End Date Barbara Triplett DO [address] [place] [address] PCP - General Family Medicine 03/14/13 documented as of this encounter
--- OUTSIDE RECORDS SUMMARY | 2024-08-19 12:06 | XMS_ITS | Encounter Summary ---
Author Organization [employer] Address [address] [place] [address] 7 [place] [address] Care Team Providers Care Electrician Locomotive Name Role Phone Barbara Triplett DO Primary Care Provider + [phone] Reason for Visit * Reason Onset Date Comments Nurse Triage 08/03/2024 Encounter Details Date Type Department Care Team ([facility] st Contact Info) Description 08/03/2024 Telephone [facility] MEDICINE [address] [place] [address] Barbara Triplett DO [address] [place] [address] Nurse Triage Social History Tobacco Use Types Packs/Day Years [...] AM EDT documented as of this encounter Miscellaneous Notes * Telephone Encounter - Amina Curtis RN - 08/03/2024 2:54 PM EST Triage call Pt reports green stool yesterday and today. Pt does report being at a alliance party over the weekend where the cake was dyed a very dark navy blue. Pt denies fever, abdominal pain, constipation or blood in the stool. Pt is advised to drink adequate liquids and see if the color of stool changes over the next couple of days. Advised to call back if stool remains green or other worsening symptoms occur. Pt agrees with disposition and will call if needed. Protocol Used: Stools - Unusual Color (Adult) Protocol-Based Disposition: Home Care Positive Triage Question: * Green stools * All higher-acuity triage questions were negative Care Advice Discussed: * Green Stools * Reasons To Call Back - You become worse * Telephone Encounter - Warner Rose - 08/03/2024 1:25 PM EST Symptom: Stools - Unusual Color Outcome: Schedule an appointment to be seen within 24 hours Reason: Caller denied all higher acuity questions The caller accepted this outcome. Contact pt at [phone] documented in this encounter Plan of Treatment Not on file documented as of this encounter Visit Diagnoses Not on filedocumented in this encounter Additional Health Concerns Assessment Noted Time PHQ-9 Depression Total Score: 3 12/01/19 24 10:50 AM EDT documented as of this encounter Care Teams Electrician Locomotive Relationship Specialty Start Date End Date Barbara Triplett DO [address] [place] [id number] PCP - General Family Medicine 03/14/13 documented as of this encounter
--- OUTSIDE RECORDS SUMMARY | 2024-08-19 12:06 | XMS_ITS | Encounter Summary ---
Author Organization [employer] Address [address] [place] [address] [address]t [place] [address] Care Team Providers Care Operator Electronic Warfare Name Role Phone Barbara Triplett Primary Care Provider + [phone] Reason for Visit * Reason Comments Med Refill Encounter Details Date Type Department Care Team ([facility] st Contact Info) Description 12/30/2022 Refill [facility] MEDICINE [address] [place] [address] Destiny Metcalf MD [address] [place] [address] Social History Tobacco Use Types Packs/Day Years [...] suspected to have Coronavirus/COVID-19? No / Unsure 12/29/2022 10:49 AM EDT documented as of this encounter Plan of Treatment Not on file documented as of this encounter Visit Diagnoses Not on filedocumented in this encounter Additional Health Concerns Assessment Noted Time PHQ-9 Depression Total Score: 1 11/12/19 23 9:48 AM EDT documented as of this encounter Care Teams Operator Electronic Warfare Relationship Specialty Start Date End Date Barbara Triplett DO [address] [place] [address] PCP - General Family Medicine 03/14/13 documented as of this encounter
--- OUTSIDE RECORDS SUMMARY | 2024-08-19 12:06 | XMS_ITS | Encounter Summary ---
Author Organization [employer] Address [address] [place] [address] 7 [place] [address] Care Team Providers Care Fork Lift Technician Name Role Phone Barbara Triplett DO Primary Care Provider + [phone] Reason for Visit * Reason Onset Date Comments Nurse Triage 03/25/2023 Encounter Details Date Type Department Care Team ([facility] st Contact Info) Description 03/25/2023 Telephone [facility] MEDICINE [address] [place] [address] Barbara Triplett DO [address] [place] [address] Nurse Triage Social History Tobacco Use Types [...] Telephone Encounter - Amina Curtis RN - 03/25/2023 2:55 PM EDT Triage call Pt reports red, bumpy rash under both breasts, under abdominal fold and on top of abdomen along top of panty line. Pt reports redness under both arms/pits. Pt reports a burning sensation and itchiness and tender at times. Pt was just prescribed two new ointments today waiting for pharmacy pick up man. Triamcinolone 0.1% and metronidazole 0.75% cream. Pt is advised to start these creams and if by the end of the week they are not effectively decreasing the rash come to [facility] to be seen byprovider. Pt agrees with this plan and home care. Protocol Used: Rash or Redness - Widespread (Adult) Protocol-Based Disposition: Home Care Positive Triage Question: * Heat rash, questions about * All higher-acuity triage questions were negative Care Advice Discussed: * Reasons To Call Back - Rash becomes purple or blood-colored or blister-like - Fever occurs or severe itching - You become worse * Telephone Encounter - Rachelle Hogan - 03/25/2023 2:36 PM EDT Symptom: Rash or Redness - Widespread Outcome: Schedule a same-day appointment or talk to a nurse or provider today Reason: itchy The caller accepted this outcome documented in this encounter Plan of Treatment Not on file documented as of this encounter Visit Diagnoses Not on filedocumented in this encounter Additional Health Concerns Assessment Noted Time PHQ-9 Depression Total Score: 1 11/12/19 23 9:48 AM EDT documented as of this encounter Care Teams Fork Lift Technician Relationship Specialty Start Date End Date Barbara Triplett DO [address] [place] [id number] PCP - General Family Medicine 03/14/13 documented as of this encounter
--- OUTSIDE RECORDS SUMMARY | 2024-08-19 12:06 | XMS_ITS | Encounter Summary ---
Author Organization [employer] Address [address] [facility] 7t [place] [address] Care Team Providers Care Staff Nurse Midwife Name Role Phone LitzyBarbara avalos Primary Care Provider + [phone] Encounter Details Date Type Department Care Team (Late st Contact Info) Description 04/10/2023 Abstract [facility] MEDICINE [address] [place] [address] Deyanira Olivares Social History Tobacco Use Types Packs/Day Years Used Date Smoking Tobacco: Never Passive Smoke Exposure: Never Smokeless Tobacco: Never Alcohol Use Standard Drinks/Week Comments Never 0 (1 standard drink = 0.6 oz pur e alcohol) Depression Answer Date Recorded Patient Health Questionnaire-9 Score 1 11/11/2022 Housing Stability Answer Date Recorded What is your housing situation today? I have layo sauer 04/13/[address] you li ve. Do you have problems with any of the following? None of the above 04/13/2023 Food Insecurity Answer Date Recorded Within the past 12 months, y ou worried that your food would run out before you got money to buy more: Never True 04/13/2023 Within the past 12 months,th e food you bought just didn't last and you didn't have enough money to get more: Never True 03/2023 Transportation Answer Date Recorded In the past 12 months, has l ack of transportation kept you from medical appts, meetings, work or from getting things needed for daily living? No 04/13/2023 Utilities Answer Date Recorded In the past 12 months, has t he electric, gas, oil or water company threatened to shut off services in your home? No 04/13/2023 Depression Answer Date Recorded Patient Health Questionnaire-2 [...] Procedure Name Priority Date/Time Associated Diagnosis Comments PAP/HPV Routine 11/20/2021 documented in this encounter Results * Pap Smear (11/20/2021) Pap Negative for intraephithelial lesion or malignancy Negative for intraephithelial lesion or malignancy, Other HPV Undetected us Historical Provider HEALTH MAINTENANCE Final Result documented in this encounter Visit Diagnoses Not on filedocumented in this encounter Additional Health Concerns Assessment Noted Time PHQ-9 Depression Total Score: 1 11/12/19 23 9:48 AM EDT documented as of this encounter Care Teams Staff Nurse Midwife Relationship Specialty Start Date End Date Barbara Triplett DO [address] [place] [id number] PCP - General Family Medicine 03/14/13 documented as of this encounter
--- OUTSIDE RECORDS SUMMARY | 2024-08-19 12:06 | XMS_ITS | Encounter Summary ---
Author Organization [employer] Address [address] [place] [address] [address] [place] [address] Care Team Providers Care Liaison Officer Name Role Phone Barbara Triplett Primary Care Provider [phone] Encounter Details Date Type Department Care Team (Latest Contact Info) Description 07/21/2024 Travel Social History Tobacco Use Types Packs/Day [...] documented as of this encounter Care Teams Liaison Officer Relationship Specialty Start Date End Date Barbara Triplett DO [address] [place] [address] PCP - General Family Medicine 03/14/13 documented as of this encounter
--- OUTSIDE RECORDS SUMMARY | 2024-08-19 12:06 | XMS_ITS | Encounter Summary ---
Author Organization [employer] Address [address] [facility] [address] [place] [address] Care Team Providers Care Greenskeeper Laborer Name Role Phone Barbara Triplett DO Primary Care Provider + [phone] Reason for Visit * Reason Comments Med Refill Encounter Details Date Type Department Care Team (Late st Contact Info) Description 08/04/2024 Refill [facility] MEDICINE [address] [place] [address] Barbara Triplett DO [address] [place] [address] Social History Tobacco Use Types Packs/Day Years [...] documented as of this encounter Care Teams Greenskeeper Laborer Relationship Specialty Start Date End Date Barbara Triplett DO [address] [place] [id number] PCP - General Family Medicine 03/14/13 documented as of this encounter
--- OUTSIDE RECORDS SUMMARY | 2024-08-19 12:06 | XMS_ITS | Encounter Summary ---
Author Organization [employer] Address [address] [place] [address] [address] [place] [address] Care Team Providers Care Supervisor Alteration Workroom Name Role Phone Barbara Triplett DO Primary Care Provider [phone] Encounter Details Date Type Department Care Team (Latest Contact Info) Description 08/19/2024 10:00 AM EST Office Visit [facility] [address] [place] [address] Barbara Triplett DO [address] [place] [address] Essential hypertension (Primary Dx); Other hyperlipidemia; Depressive disorder; Fatty liver; Chronic gastroesophageal reflux disease; Chronic pelvic pain; Multiple thyroid nodules; Dizziness; Healthcare maintenance Social History Tobacco Use Types Packs/Day Years [...] your housing situation today? I have layo cristiane 12/01/[address] you li [...] AM EDT documented as of this encounter Last Filed Vital Signs Vital Sign Reading Time Taken Comments Blood Pressure 136/78 08/19/2024 9:59 AM EST Pulse 70 08/19/2024 9:59 AM EST Temperature 36.7 ??C (98 ??F) 08/19/2024 9:59 AM EST Respiratory Rate 20 08/19/2024 9:59 AM EST Oxygen Saturation 98% 08/19/2024 9:59 AM EST Inhaled Oxygen Concentration - - Weight 124 kg (274 lb) 08/19/2024 9:59 AM EST Height 165.1 cm (5' 5 ) 08/19/2024 9:59 AM EST Body Mass Index 45.6 08/19/2024 9:59 AM EST documented in this encounter Progress Notes * Barbara Triplett, DO - 08/19/2024 10:00 AM EST SUBJECTIVE: Quan Rowley is a 49 y.o. year old female who presents for follow up. HPI She has no concerns. She wants to review her imaging results. She says that her insurance changed because of increase in her pay. She had f/u with Dr. Carrizales in May. She was recommended orthotics and insoles. She likes him a lot and says that he is so cool. She hasn't been back because she hasn't been having any sx. Review of Systems Constitutional: Negative for chills and fever. Respiratory: Negative for shortness of breath. Cardiovascular: Negative for chest pain and leg swelling. Gastrointestinal: Negative for abdominal pain, diarrhea and vomiting. Neurological: Negative for headaches. Patient Active Problem List Diagnosis Chronic gastroesophageal reflux disease Genital herpes simplex History of COVID-19 Hyperlipidemia Essential hypertension BMI 40.0-44.9, adult ([facility]) Osteoarthritis Polycystic ovarian syndrome Rosacea Varicose veins Vitamin D deficiency Allergic rhinitis Fatty liver Depressive disorder Hidradenitis suppurativa Healthcare maintenance Chronic pelvic pain Multiple thyroid nodules Allergies Allergen Reactions M[employer] Smuts OBJECTIVE Vitals: 08/19/24 0959 BP: 136/78 BP Location: Left arm Patient Position: Sitting BP Cuff Size: Adult Pulse: 70 Resp: 20 Temp: 98 ??F (36.7 ??C) TempSrc: Oral SpO2: 98% Weight: 274 lb (124 kg) Height: 5' 5 (1.651 m) Physical Exam Constitutional: General: She is not in acute distress. Appearance: Normal appearance. Cardiovascular: Rate and Rhythm: Normal rate and regular rhythm. Heart sounds: Normal heart sounds. No murmur heard. Pulmonary: Effort: Pulmonary effort is normal. Breath sounds: Normal breath sounds. No wheezing or rhonchi. Neurological: General: No focal deficit present. Mental Status: She is alert and oriented to person, place, and time. Cranial Nerves: No cranial nerve deficit. Motor: No weakness. Gait: Gait normal. Psychiatric: Mood and Affect: Mood normal. Thought Content: Thought content normal. ASSESSMENT/PLAN Diagnoses and all orders for this visit: Essential hypertension BP controlled -cont lisinopril daily -Cr/GFR and urine microalbumin wnl JUL 2023 -> repeat prior to next visit -there is nml EKG in chart -s/p optho eval [address] Ruelas, appt Feb 2025 - T4, Free; Future - Vitamin D, 25-Hydroxy, Total, Immunoassay; Future - Lipid Panel, Standard; Future - TSH; Future - Hepatic Function Panel; Future - Hemoglobin A1c; Future - Basic Metabolic Panel; Future - CBC; Future - Albumin, Random Urine W/Creatinine; Future Other hyperlipidemia Significant bump in LDL JUL 2023 -cont crestor nightly -repeat lipids prior to next visit Depressive disorder -she denies any current SI/HI -she has the number for crisis and contracts for safety -cont effexor daily -f/u with therapist as scheduled Fatty liver -abd US with echogenic liver, no focal lesion JUL 2023, repeat as per GI -AFP and LFTs nml JUL 2023 -s/p Hep A/B vaccines -f/u with GI as scheduled, due next mos Chronic gastroesophageal reflux disease -H. pylori negative MAR 2022 -cont protonix daily -cont simethicone prn -f/u with GI as scheduled, due next mos Chronic pelvic pain With intermittent sx -pelvic US with heterogenous bulky uterus, endometrium difficult to characterize, 5mm R ovarian echogenic focus, and small amt of free fluid JUN 2023 -MRI pelvis with thickened junctional zone, possibly representing adenomyosis AUG 2023 -cont motrin prn -she declines referral to PT -f/u with soap drier tender as scheduled, appt summer 2024 Dizziness Sx resolved -CT head with no acute findings Apr 2024 -ECHO with nml EF, nml diastolic function, no WMA and no valvular pathology Jun 2024 -carotid US with no hemodynamically significant stenosis Apr 2024 -advised stay well-hydrated -cont meclizine prn -advised contact [facility] if sx recur Multiple thyroid nodules -thyroid US with three subcentimeter TR3 nodules, largest 8mm and two subcentimeter TR4 nodule, largest 5mm May 2024, reviewed with patient Healthcare maintenance -she declines flu vaccine -s/p COVID vaccine JUL 2023, she declines repeat -s/p Tdap Feb 2013 -s/p Td JUL 2023 -s/p Hep A/B vaccines -PPD negative MAR 2013 -pap wnl/HPV negative with midwifery NOVEMBER 2021 -mammo BIRADS 05 APR 2024 -colonosopy with diverticulosis and hemorrhoids JAN 2022, repeat in 5 years per GI -A1c 5.07 JUL 2023 -STI/HIV screen negative JUL 2023 F/U with me in 4 mos or sooner prn Current Outpatient Medications: cholecalciferol VITAMIN D (Vitamin D-3) 50 MCG (1999) capsule, TAKE 1 CAPSULE BY MOUTH EVERY DAY, Disp: 90 capsule, Rfl: 3 cyclobenzaprine (Flexeril) 10 MG tablet, TAKE 1 TABLET BY MOUTH 3 TIMES A DAY NEEDED FOR PAIN, Disp: 30 tablet, Rfl: 2 docusate sodium (Colace) 100 MG capsule, TAKE 1 CAPSULE BY MOUTH EVERYDAY AT BEDTIME, Disp: , Rfl: doxycycline (Vibra-Tabs) 100 MG tablet, TAKE 1 TABLET BY MOUTH TWICE A DAY, Disp: 60 tablet, Rfl: 1 Gas Relief Extra Strength 125 MG chewable tablet, CHEW 1 TABLET BY ORAL ROUTE 4 TIMES EVERY DAY NEEDED FOR GASSINESS, Disp: 120 tablet, Rfl: 2 hydrocortisone (Anusol-HC) 2.5 % rectal cream, APPLY RECTALLY 2 TO 4 TIMES A DAY NEEDED FOR HEMORRHOIDS, Disp: , Rfl: ibuprofen 800 MG tablet, TAKE 1 TABLET BY MOUTH THREE TIMES A DAY WITH FOOD, Disp: 90 tablet, Rfl: 3 lisinopril 10 MG tablet, TAKE 1 TABLET BY MOUTH EVERY DAY, Disp: 90 tablet, Rfl: 1 loratadine (Claritin) 10 MG tablet, TAKE 1 TABLET BY MOUTH EVERY DAY IN THE MORNING, Disp: 90 tablet, Rfl: 3 meclizine (Antivert) 25 MG tablet, Take 1 tablet (25 mg) by mouth if needed in the morning, at noon, and at bedtime for dizziness., Disp: 30 tablet, Rfl: 1 metFORMIN (Glucophage) 500 MG tablet, Take 2 tablets (1,000 mg) by mouth with breakfast and with evening meal., Disp: 360 tablet, Rfl: 1 metroNIDAZOLE (Metrocream) 0.75 % cream, APPLY SPARINGLY TO AFFECTED AREA TWICE A DAY, Disp: 45 g, Rfl: 0 pantoprazole (ProtoNix) 40 MG EC tablet, TAKE 1 TABLET ORALLY DAILY TAKE ONE TABLET HALF AN HOUR BEFORE BREAKFAST, Disp: , Rfl: polyethylene glycol, PEG, 3350 (Glycolax) 17 GM/SCOOP powder, MIX 17 GRAMS IN LIQUID AND DRINK DAILY, Disp: , Rfl: rosuvastatin (Crestor) 40 MG tablet, TAKE 1 TABLET BY MOUTH EVERY DAY, Disp: 90 tablet, Rfl: 3 senna (Senokot) 8.6 MG tablet, TAKE 1 TABLET BY MOUTH AT BEDTIME FOR CONSITPATION, Disp: , Rfl: triamcinolone (Kenalog) 0.1 % cream, APPLY TOPICALLY IF NEEDED IN THE MORNING AND AT BEDTIME FOR RASH OR IRRITATION., Disp: 30 g, Rfl: 3 valACYclovir (Valtrex) 500 MG tablet, TAKE 1 TABLET BY MOUTH TWICE A DAY X 3 DAYS IF NEEDED FOR OUTBREAK, Disp: 12 tablet, Rfl: 0 venlafaxine XR (Effexor XR) 37.5 MG 24 hr capsule, TAKE 1 CAPSULE BY MOUTH EVERY DAY. DO NOT CRUSH OR CHEW., Disp: 30 capsule, Rfl: 3 documented in this encounter Plan of Treatment Scheduled Orders Name Type Priority Associated Diagnoses Orde r Schedule T4, Free Lab Routine Essential hypertension Expected: 08/19/2024 (Approximate), Expires: 08/19/2025 Vitamin D, 25-Hydroxy, Total, Immunoassay Lab Routine Essential hypertension Expected: 08/19/2024 (Approximate), Expires: 08/19/2025 Lipid Panel, Standard Lab Routine Essential hypertension Expected: 08/19/2024 (Approximate), Expires: 08/19/2025 TSH Lab Routine Essential hypertension Expected: 08/19/2024 (Approximate), Expires: 08/19/2025 Hepatic Function Panel Lab Routine Essential hypertension Expected: 08/19/2024 (Approximate), Expires: 08/19/2025 Hemoglobin A1c Lab Routine Essential hypertension Expected: 08/19/2024 (Approximate), Expires: 08/19/2025 Basic Metabolic Panel Lab Routine Essential hypertension Expected: 08/19/2024 (Approximate), Expires: 08/19/2025 CBC Lab Routine Essential hypertension Expected: 08/19/2024, Expires: 08/19/2025 Albumin, Random Urine W/Creatinine Lab Routine Essential hypertension Expected: 08/19/2024 (Approximate), Expires: 08/19/2025 documented as of this encounter Visit Diagnoses Diagnosis Essential hypertension- Primary Unspecified essential hypertension Other hyperlipidemia Depressive disorder Depressive disorder, not elsewhere classified Fatty liver Other chronic nonalcoholic liver disease Chronic gastroesophageal reflux disease Chronic pelvic pain Unspecified symptom associated with female genital organs Multiple thyroid nodules Nontoxic multinodular goiter Dizziness Dizziness and giddiness Healthcare maintenance documented in this encounter Additional Health Concerns Assessment Noted Time PHQ-9 Depression Total Score: 3 12/01/19 24 10:50 AM EDT documented as of this encounter Care Teams Supervisor Alteration Workroom Relationship Specialty Start Date End Date Barbara Triplett DO [address] [place] [address] [id number] PCP - General Family Medicine 03/14/13 documented as of this encounter
--- OUTSIDE RECORDS SUMMARY | 2024-08-19 12:06 | XMS_ITS | Encounter Summary ---
Author Organization [employer] Address [address] [place] [address] [address] [place] [address] Care Team Providers Care Medical Management Trainer Name Role Phone Barbara Triplett DO Primary Care Provider [phone] Encounter Details Date Type Department Care Team ([facility] st Contact Info) Description 09/15/2022 Orders Only [facility] [address] [place] [address] Barbara Rider LPN Social History Tobacco Use Types Packs/Day Years Used Date Smoking Tobacco: Never Passive Smoke Exposure: Never Smokeless Tobacco: Never Comments Unknown Sex and Gender Information Value Date Recorded Sex Assigned at Female 05/05/2022 10:17 AM EDT Legal Sex Female 10:17 AM EDT Gender Identity Female 05/05/2022 10:17 AM EDT Sexual Orientation Straight 05/05/2022 10 :17 AM EDT documented as of this encounter Plan of Treatment Not on file documented as of this encounter Visit Diagnoses Not on filedocumented in this encounter Care Teams Medical Management Trainer Relationship Specialty Start Date End Date Barbara Triplett DO [address] [place] [id number] PCP - General Family Medicine 03/14/13 documented as of this encounter
--- OUTSIDE RECORDS SUMMARY | 2024-08-19 12:06 | XMS_ITS | Encounter Summary ---
Author Organization [employer] Address [address] [place] [address] [address] [place] [address] Care Team Providers Care Guitar Player Name Role Phone Barbara Triplett DO Primary Care Provider Encounter Details Date Type Department Care Team ([facility] st Contact Info) Description 12/30/2022 Orders Only [facility] [address] [place] [address] Barbara Rider LPN Social History Tobacco Use [...] documented as of this encounter Care Teams Guitar Player Relationship Specialty Start Date End Date Barbara Triplett DO [address] [place] [address] PCP - General Family Medicine 03/14/13 documented as of this encounter
--- OUTSIDE RECORDS SUMMARY | 2024-08-19 12:06 | XMS_ITS | Clinical Summary ---
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 360 tablet 1 023 Active cyclobenzaprine (Flexeril) 10 MG tablet TAKE 1 TABLET BY MOUTH 3 TIMES A DAY NEEDED FOR PAIN 30 tablet 2 023 Active pantoprazole (ProtoNix) 40 MG EC tablet TAKE 1 TABLET ORALLY DAILY TAKE ONE TABLET HALF AN HOUR BEFORE BREAKFAST 023 Active polyethylene glycol, PEG, 3350 (Glycolax) 17 GM/SCOOP powder MIX 17 GRAMS IN LIQUID AND DRINK DAILY 023 Active senna (Senokot) 8.6 MG tablet TAKE 1 TABLET BY MOUTH AT BEDTIME FOR CONSITPATION 023 Active docusate sodium (Colace) 100 MG capsule TAKE 1 CAPSULE BY MOUTH EVERYDAY AT BEDTIME 023 Active hydrocortisone (Anusol-HC) 2.5 % rectal cream APPLY RECTALLY 2 TO 4 TIMES A DAY NEEDED FOR HEMORRHOIDS 023 Active doxycycline (Vibra-Tabs) 100 MG tabletIndications :Hidradenitis suppurativa TAKE 1 TABLET BY MOUTH TWICE A DAY 60 tablet 1 023 Active loratadine (Claritin) 10 MG tabletIndications :Seasonal allergic rhinitis, unspecified trigger TAKE 1 TABLET BY MOUTH EVERY DAY IN THE MORNING 90 tablet 3 024 Active lisinopril 10 MG tabletIndications :Hypertension, unspecified type TAKE 1 TABLET BY MOUTH EVERY DAY 90 tablet 1 024 Active Gas Relief Extra Strength 125 MG chewable tablet CHEW 1 TABLET BY ORAL ROUTE 4 TIMES EVERY DAY NEEDED FOR GASSINESS 120 tablet 2 024 Active meclizine (Antivert) 25 MG tablet Take 1 tablet (25 mg) by mouth if needed in the morning, at noon, and at bedtime for dizziness. 30 tablet 1 024 2024 Active valACYclovir (Valtrex) 500 MG tabletIndications :HSV infection TAKE 1 TABLET BY MOUTH TWICE A DAY X 3 DAYS IF NEEDED FOR OUTBREAK 12 tablet Active rosuvastatin (Crestor) 40 MG tablet TAKE 1 TABLET BY MOUTH EVERY DAY 90 tablet 3 024 Active venlafaxine XR (Effexor XR) 37.5 MG 24 hr capsule TAKE 1 CAPSULE BY MOUTH EVERY DAY. DO NOT CRUSH OR CHEW. 30 capsule 3 024 Active ibuprofen 800 MG tabletIndications :Osteoarthritis, unspecified osteoarthritis type, unspecified site TAKE 1 TABLET BY MOUTH THREE TIMES A DAY WITH FOOD 90 tablet 3 024 Active triamcinolone (Kenalog) 0.1 % creamIndications: Folliculitis,Rash APPLY TOPICALLY IF NEEDED IN THE MORNING AND AT BEDTIME FOR RASH OR IRRITATION. 30 g 3 024 Active metroNIDAZOLE (Metrocream) 0.75 % creamIndications: Rosacea APPLY SPARINGLY TO AFFECTED AREA TWICE A DAY 45 g 024 Active cholecalciferol VITAMIN D (Vitamin D-3) 50 MCG (1999 UT) capsule TAKE 1 CAPSULE BY MOUTH EVERY DAY 90 capsule 3 025 Active cholecalciferol (Vitamin D-3) 50 MCG (2000 UT) capsule TAKE 1 TABLET BY MOUTH EVERY DAY 90 capsule 3 024 2024 Discontinued Active Problems Problem Noted Date Diagnosed Date Chronic pelvic pain 08/19/2024 Multiple thyroid nodules 08/19/2024 Healthcare maintenance 12/01/2023 Allergic rhinitis 12/03/2022 Fatty liver 12/03/2022 Depressive disorder 12/03/2022 Hidradenitis suppurativa 12/03/2022 History of COVID-19 08/15/2022 Chronic gastroesophageal reflux disease 07/18/19 16 Genital herpes simplex 07/18/2015 Hyperlipidemia 07/18/2015 Essential hypertension 07/18/2015 BMI 40.0-44.9, adult 07/18/2015 Osteoarthritis 07/18/2015 Polycystic ovarian syndrome 07/18/2015 Rosacea 07/18/2015 Varicose veins 07/18/2015 Vitamin D deficiency 07/18/2015 Resolved Problems Problem Noted Date Diagnosed Date Resolved Date Dyslipidemia 08/15/2022 12/03/2022 Herpes simplex type 2 infection 08/15/2022 12/03/2022 Encounters Date Type Department Care Team Description 08/19/2024 10:00 AM EST Office Visit [facility] [address] [place] [address] Barbara Triplett DO Essential hypertension (Primary Dx); Other hyperlipidemia; Depressive disorder; Fatty liver; Chronic gastroesophageal reflux disease; Chronic pelvic pain; Multiple thyroid nodules; Dizziness; Healthcare maintenance 08/19/2024 Travel 08/04/2024 Refill [facility] [address] [place] [address] Barbara Triplett DO 08/03/2024 Telephone [facility] [address] [place] [address] Barbara Triplett DO Nurse Triage 07/21/2024 Travel 06/13/2024 Refill [facility] [address] [place] [address] Barbara Triplett DO Folliculitis; Rash; Rosacea 05/22/2024 Refill [facility] [address] [place] [address] Barbara Triplett DO Osteoarthritis, unspecified osteoarthritis type, unspecified site from Last 3 Months Immunizations Name Administration Dates Next Due Hep A, Adult 12/27/2021,04/01/2021 Hep B, adult 11/11/2022,12/27/2021,04/01/2021 Pfizer Covid-19 Vaccine 12+ 07/29/2023 TD (adult), 2 Lf tetanus tox oid, preservative free, adsorbed 07/29/2023,12/22/2011,11/10/2008 Tdap 02/11/2013 Social History Tobacco Use Types Packs/Day Years Used Date Smoking Tobacco: Never Passive Smoke Exposure: Never Smokeless Tobacco: Never Tobacco Cessation:Counseling Given: Not Answered Alcohol Use Standard Drinks/Week Comments Never 0 [...] Orientation Straight 05/05/2022 10 :17 AM EDT Last Filed Vital Signs Vital Sign Reading [...] Mass Index 45.6 08/19/2024 9:59 AM EST Plan of Treatment Health Maintenance Due Date Last Done Comments CT Colonography 1975 FIT DNA/Cologuard 1975 FIT 1975 FOBT 1975 Sigmoidoscopy 1975 Family Planning (PISQ) 1990 COVID-19 Vaccine ( season) 2024 07/29/2023, 01/30/2021, 01/10/2021 Influenza Vaccine (#1) 2024 Pap Smear 11/20/2024 11/20/2021 Depression Screening 11/30/2024 12/01/2023, 12/01/19 24 SDOH Screening 11/30/2024 12/01/2023 Zoster Vaccines (1 of 2) 2025 Mammogram 05/03/2025 05/03/2024, 04/06, 04/25/2022, Additional history exists Alcohol/Substance Use Screening 08/19/2025 08/19/2024 Tobacco Screening 08/19/2025 08/19/2024 Cervical Cancer Screening 11/20/2026 HPV/Cotest 11/20/2026 11/20/2021, 11/03, 11/20/2021 Colonoscopy 01/10/2027 01/10/2022 Colorectal Cancer Screening 01/10/2027 Lipid Panel 07/29/2028 07/29/2023, 01/03, 08/22/2020 DTaP/Tdap/Td Vaccines (3 - Td or Tdap) 07/29/2033 07/29/2023, 02/11/2013, 12/22/2011, Additional history exists RSV Patients and Patients Aged 60 years or older (1 - 1-dose 75+ series) 2050 Hepatitis A Vaccines Completed 12/27/2021, 04/01/20 Hepatitis B Vaccines Completed 11/11/2022, 12/27/2021, 04/01/2021 HIV Screening Completed 07/29/2023, 01/03, 08/22/2020, Additional history exists Hepatitis C Screening Completed 07/29/2023 , 01/13/2022, 08/22/2020, Additional history exists HIB Vaccines Aged Out No longer eligi ble based on patient's age to complete this topic HPV Vaccines Aged Out No longer eligi ble based on patient's age to complete this topic IPV Vaccines Aged Out No longer eligi ble based on patient's age to complete this topic Meningococcal Vaccine Aged Out No kera felipe eligible based on patient's age to complete this topic Pneumococcal Vaccine: Pediatrics (0 to 5 Years) and At-Risk Patients (6 to 49) Years) Aged Out No longer eligible based on patient's age to complete this topic RSV under 20 months Aged Out No longe r eligible based on patient's age to complete this topic Rotavirus Vaccines Aged Out No longer eligible based on patient's age to complete this topic Procedures Procedure Name Priority Date/Time Associated Diagnosis Comments US THYROID Routine 05/23/2024 4:03 PM EST Multiple thyroid nodules BI MAMMOGRAM SCREENING TOMOSYNTHESIS BILATERAL Routine 05/03/2024 2:00 PM EDT HEPATITIS C AB W/REFL TO HCV RNA, QN, PCR Routine 07/29/2023 11:06 AM EST HIV 1/2 ANTIGEN/ANTIBODY, FOURTH GENERATION W/RFL Routine 07/29/2023 11:06 AM EST Essential hypertension LIPID PANEL, STANDARD Routine 07/29/2023 11:06 AM EST Essential hypertension HM COLONOSCOPY Routine 01/10/2022 11:40 AM EDT HM PAP/HPV Routine 11/20/2021 from Last 3 Months or Most Recently Relevant to Health Maintenance Results * US Thyroid (05/23/2024 4:03 PM EST) Anatomical Region Laterality Modality Head, Neck Ultrasound 05/23/2024 4:03 PM EST Narrative 06/26/2024 5:47 PM EST ? [facility] ?[address] ?[place] [address] ? Ultrasound Report ? Signed ? Patient: Rowley,Quan ?MR#: [id number] ?? 82 ? : 1975 ?Acct:[id number] ? Age/Sex: 49 / F ?ADM Date: 05/23/24 ? Loc: HO.US ? Attending Dr: Barbara Triplett DO ? Ordering Physician: Barbara Triplett DO ?? Date of Service: 05/23/24 ?? Procedure(s): US thyroid ?? Accession Number(s): [id number] ? cc: Barbara Triplett DO ? EXAMINATION: ?? US THYROID ? CLINICAL INFORMATION: ?? Follow up nodule seen on ultrasound April 2024. ? COMPARISON: ?? None available. ? TECHNIQUE: ?? Linear transducer grayscale and color Doppler examination with ?? attention to the region of the thyroid. ? FINDINGS: ? SIZE: Measurements of the thyroid lobes and nodules are given in ?? sagittal, anteroposterior and transverse dimensions respectively. ? Right Thyroid Lobe: 4.1 x 1.4 x 1.9 cm, volume 5.7 mL. ?? Parenchyma: The gland echotexture is heterogeneous. Thyroid vascularity ?? is normal. ? Left Thyroid Lobe: 4.1 x 1.4 x 1.8 cm, volume 5.4 mL. ?? Parenchyma: The gland echotexture is normal. Thyroid vascularity is ?? normal. ? Isthmus: 0.3 cm in maximum AP dimension. ? Estimated total number of nodules greater than or equal to 1 cm: 0. ?? 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 1. Location: Right mid. ? Size: 0.8 x 0.6 x 0.7 cm, volume 0.175 mL. ? Nodule characteristics: ? Composition: Solid (2). ? Echogenicity: Isoechoic (1). ? Shape: Not taller than wide (0). ? Margins: Ill-defined (0). ? Echogenic Foci: None (0). ? ACR TI-RADS total points: 3 ? ACR TI-RADS category: 3 ? 2. Location: Right mid. ? Size: 0.5 x 0.2 x 0.4 cm, volume 0.022 mL. ? Nodule characteristics: ? Composition: Solid (2). ? Echogenicity: Hypoechoic (2). ? Shape: Not taller than wide (0). ? Margins: Smooth (0). ? Echogenic Foci: None (0). ? ACR TI-RADS total points: 4 ? ACR TI-RADS category: 4 ? 3. Location: Isthmus ? Size: 0.5 x 0.2 x 0.4 cm, volume 0.023 mL. ? Nodule characteristics: ? Composition: Solid/almost completely solid (2). ? Echogenicity: Hypoechoic (2). ? Shape: Not taller than wide (0). ? Margins: Smooth (0). ? Echogenic Foci: None (0). ? ACR TI-RADS total points: 4 ? ACR TI-RADS category: 4 ? 4. Location: Left mid ? Size: 0.8 x 0.6 x 0.7 cm, volume 0.175 mL. ? Nodule characteristics: ? Composition: Solid (2). ? Echogenicity: Isoechoic (1). ? Shape: Not taller than wide (0). ? Margins: Ill-defined (0). ? Echogenic Foci: None (0). ? ACR TI-RADS total points: 3 ? ACR TI-RADS category: 3 ? 5. Location: Left mid ? Size: 0.5 x 0.3 x 0.3 cm, volume 0.027 mL. ? Nodule characteristics: ? Composition: Solid (2). ? Echogenicity: Isoechoic (1). ? Shape: Not taller than wide (0). ? Margins: Ill-defined (0). ? Echogenic Foci: None (0). ? ACR TI-RADS total points: 3 ? ACR TI-RADS category: 3 ? NODES: No lymphadenopathy is seen in the tissue surrounding the thyroid ?? gland. ? US/US thyroid ?? IMPRESSION: ?? 1. Three subcentimeter TR 3 thyroid nodules, largest 0.8 cm right TR 3. ? 2. Two subcentimeter TR 4 thyroid nodules, largest 0.5 cm. ? ACR TI-RADS RECOMMENDATION REFERENCE: ?? Ultrasound-guided fine-needle aspiration, followup ultrasound, no ?? further follow up. ? * TR1 (0 point) and TR2 (2 points): No FNA or follow up. ? * TR3 (3 points): FNA if more than or equal to 2.5 cm in maximum ?? dimension, followup ultrasound in 1, 3 and 5 years if 1.5 to 2.4 cm in ?? maximum dimension. ? * TR4 (4-6 points): FNA if more than or equal to 1.5 cm in maximum ?? dimension, followup ultrasound in 1, 2, 3 and 5 years if 1 to 1.4 cm in ?? maximum dimension. ? * TR5 (more than or equal to 7 points): FNA if more than or equal to 1 ?? cm in maximum dimension, followup ultrasound every year for 5 years if ?? 0.5 to 0.9 cm in maximum dimension. ? * TR3, TR4 or TR5 nodules that are below the size threshold for ?? followup receive no follow up. ? Electronically signed by: ??Reshma Luna MD ??06/26/2024 05:43 PM EST ?? RP ? Dictated By: ?Reshma Luna MD ? Signed By: ?<Electronically signed by Reshma Luna MD in OV> ? 06/26/243 ? DD/ 1603 ? TD/TT: 05/23/24 1603 ? Sample Stitcher: ? Procedure Note Donotlaurainterpreter, Image - 06/26/2024 [place] [address] Ultrasound Report Signed Patient: Regi Rowley#: [id number] 82 : 1975Acct:[id number] Age/Sex: 49 / FADM Date: 05/23/24 Loc: HO.US Attending Dr: Barbara Triplett DO Ordering Physician: Barbara Triplett DO Date of Service: 05/23/24 Procedure(s): US thyroid Accession Number(s): [id number] cc: Barbara Triplett DO EXAMINATION: US THYROID CLINICAL INFORMATION: Follow up nodule seen on ultrasound April 2024. COMPARISON: None available. TECHNIQUE: Linear transducer grayscale and color Doppler examination with attention to the region of the thyroid. FINDINGS: SIZE: Measurements of the thyroid lobes and nodules are given in sagittal, anteroposterior and transverse dimensions respectively. Right Thyroid Lobe: 4.1 x 1.4 x 1.9 cm, volume 5.7 mL. Parenchyma: The gland echotexture is heterogeneous. Thyroid vascularity is normal. Left Thyroid Lobe: 4.1 x 1.4 x 1.8 cm, volume 5.4 mL. Parenchyma: The gland echotexture is normal. Thyroid vascularity is normal. Isthmus: 0.3 cm in maximum AP dimension. Estimated total number of nodules greater than or equal to 1 cm: 0. 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 Location: Right mid. Size: 0.8 x 0.6 x 0.7 cm, volume 0.175 mL. Nodule characteristics: Composition: Solid (2). Echogenicity: Isoechoic (1). Shape: Not taller than wide (0). Margins: Ill-defined (0). Echogenic Foci: None (0). ACR TI-RADS total points: 3 ACR TI-RADS category: 3 2. Location: Right mid. Size: 0.5 x 0.2 x 0.4 cm, volume 0.022 mL. Nodule characteristics: Composition: Solid (2). Echogenicity: Hypoechoic (2). Shape: Not taller than wide (0). Margins: Smooth (0). Echogenic Foci: None (0). ACR TI-RADS total points: 4 ACR TI-RADS category: 4 3. Location: Isthmus Size: 0.5 x 0.2 x 0.4 cm, volume 0.023 mL. Nodule characteristics: Composition: Solid/almost completely solid (2). Echogenicity: Hypoechoic (2). Shape: Not taller than wide (0). Margins: Smooth (0). Echogenic Foci: None (0). ACR TI-RADS total points: 4 ACR TI-RADS category: 4 4. Location: Left mid Size: 0.8 x 0.6 x 0.7 cm, volume 0.175 mL. Nodule characteristics: Composition: Solid (2). Echogenicity: Isoechoic (1). Shape: Not taller than wide (0). Margins: Ill-defined (0). Echogenic Foci: None (0). ACR TI-RADS total points: 3 ACR TI-RADS category: 3 5. Location: Left mid Size: 0.5 x 0.3 x 0.3 cm, volume 0.027 mL. Nodule characteristics: Composition: Solid (2). Echogenicity: Isoechoic (1). Shape: Not taller than wide (0). Margins: Ill-defined (0). Echogenic Foci: None (0). ACR TI-RADS total points: 3 ACR TI-RADS category: 3 NODES: No lymphadenopathy is seen in the tissue surrounding the thyroid gland. US/US thyroid IMPRESSION: 1. Three subcentimeter TR 3 thyroid nodules, largest 0.8 cm right TR 3. 2. Two subcentimeter TR 4 thyroid nodules, largest 0.5 cm. ACR TI-RADS RECOMMENDATION REFERENCE: Ultrasound-guided fine-needle aspiration, followup ultrasound, no further follow up. * TR1 (0 point) and TR2 (2 points): No FNA or follow up. * TR3 (3 points): FNA if more than or equal to 2.5 cm in maximum dimension, followup ultrasound in 1, 3 and 5 years if 1.5 to 2.4 cm in maximum dimension. * TR4 (4-6 points): FNA if more than or equal to 1.5 cm in maximum dimension, followup ultrasound in 1, 2, 3 and 5 years if 1 to 1.4 cm in maximum dimension. * TR5 (more than or equal to 7 points): FNA if more than or equal to 1 cm in maximum dimension, followup ultrasound every year for 5 years if 0.5 to 0.9 cm in maximum dimension. * TR3, TR4 or TR5 nodules that are below the size threshold for followup receive no follow up. Electronically signed by: Reshma Luna MD 06/26/2024 05:43 PM EST Dictated By: Reshma Luna MD Signed By: <Electronically signed by Reshma Luna MD in OV> 06/26/24 1743 DD/ 1603 TD/TT: 05/23/24 1603 Sample Stitcher: us Barbara Triplett DO IMG US PROCEDURES Edited Res ult - Final * BI Mammogram Screening Tomosynthesis Bilateral (05/03/2024 2:00 PM EDT) Anatomical Region Laterality Modality Breast Bilateral Mammography 05/03/2024 2:00 PM EDT Narrative 05/11/2024 10:49 AM EST ? [facility] ? [address] [facility] ?[place] [address] ? Mammography Report ? Signed ? Patient: Rowley,Quan ?MR#: [id number] ?? 82 ? : 1975 ?Acct:[id number] ? Age/Sex: 49 / F ?ADM Date: 10/29/24 ? Loc: HO.MAMMO ? Attending Dr: Barbara Triplett DO ? Ordering Physician: Barbara Triplett DO ?Results: 1N ?? egative ? Date of Service: 05/03/24 ?Follow Up: 1 Year From Orig ?? inal Mammogram ? Procedure(s): MM tomosynthesis screening BI ?? Accession Number(s): [id number] ? cc: Barbara Triplett DO ? EXAMINATION: ?? MM SCREENING DIGITAL BREAST TOMOSYNTHESIS, BILATERAL ? CLINICAL INFORMATION: ? Screening. Asymptomatic. ? COMPARISON: ?? Mammography: Comparison is made with available priors ? TECHNIQUE: ?? Digital breast mammography with tomosynthesis is performed in both the ?? craniocaudal and mediolateral oblique views along with computer-aided ?? detection (CAD). ? FINDINGS: ?? There are scattered areas of fibroglandular density (ACR BI-RADS breast ?? composition Category b). ? There are no significant masses, abnormal calcifications, or other ?? abnormalities. ? MM/MM tomosynthesis screening BI ?? IMPRESSION: ?? No mammographic evidence of malignancy. ? ASSESSMENT: ? BI-RADS BI-RADS 1 - Negative ? RECOMMENDATION: ?? Routine annual mammography screening. ? 1 year F/U ? This examination should not preclude the clinical evaluation of a ?? suspicious palpable abnormality. ? This patient's information was entered into a reminder system with a ?? target due date for their next mammogram. ? Electronically signed by: ??Deisy Cancino DO ??05/11/2024 10:46 AM EST ?? RP ? Dictated By: ?Deisy Cancino DO ? Signed By: ?<Electronically signed by Deisy Cancino, DO in OV> ? 05/11/24 1046 ? DD/ 1400 ? TD/TT: 05/03/24 1421 ? Sample Stitcher: ? Procedure Note Donotlaurainterpreter, Image - 05/11/2024 [facility] [address] [place], [place] [address] Mammography Report Signed Patient: Quan RowleyMR#: [id number] 82 : 1975Acct:[id number] Age/Sex: 49 / FADM Date: 05/03/24 Loc: HO.MAMMO Attending Dr: Barbara Triplett DO Ordering Physician: Barbara Triplettults: 1N egative Date of Service: 05/03/24Follow Up: 1 Year From Orig inal Mammogram Procedure(s): MM tomosynthesis screening BI Accession Number(s): [id number] cc: Barbara Triplett DO EXAMINATION: MM SCREENING DIGITAL BREAST TOMOSYNTHESIS, BILATERAL CLINICAL INFORMATION: Screening. Asymptomatic. COMPARISON: Mammography: Comparison is made with available priors TECHNIQUE: Digital breast mammography with tomosynthesis is performed in both the craniocaudal and mediolateral oblique views along with computer-aided detection (CAD). FINDINGS: There are scattered areas of fibroglandular density (ACR BI-RADS breast composition Category b). There are no significant masses, abnormal calcifications, or other abnormalities. MM/MM tomosynthesis screening BI IMPRESSION: No mammographic evidence of malignancy. ASSESSMENT: BI-RADS BI-RADS 1 - Negative RECOMMENDATION: Routine annual mammography screening. 1 year F/U This examination should not preclude the clinical evaluation of a suspicious palpable abnormality. This patient's information was entered into a reminder system with a target due date for their next mammogram. Electronically signed by: Deisy Cancino DO 05/11/2024 10:46 AM EST Dictated By: Deisy Cancino DO Signed By: <Electronically signed by Deisy Cancino DO in OV> 05/11/24 1046 DD/ 1400 TD/TT: 05/03/24 1421 Sample Stitcher: Barbara Triplett DO IMG BI PROCEDURES Final Resu lt * Hepatitis C Antibody with Reflex to HCV, RNA, Quantitative, Real-Time PCR (07/29/2023 11:06 AM EST) Hepatitis C Antibody Nonreactive Nonreactive [facility] Comment:Antibodies to HCV no t detected; does not exclude early acuteHCV infection. 07/29/2023 11:0 6 AM EST 07/29/2023 1:42 PM EST Barbara Triplett DO LAB BLOOD ORDERABLES Final R esult Performing Organization Address City/[facility]/ZIP Co de Phone Number [facility] [address] [place] [phone] * HIV-1/2 Antigen and Antibodies, Fourth Generation, with Reflexes (07/29/2023 11:06 AM EST) HIV AB/AG Nonreactive Nonreactive [facility] Comment:HIV-1 p24 Ag and/or HIV-1/HIV-2 Ab not detected.A test result that is nonreactive does not exclude thepossibility of exposure to or infection with HIV-1 and/orHIV-2. Nonreactive results in this assay for individualswith prior exposure to HIV-1 and/or HIV-2 may be due toantigen and antibody levels that are below the limit ofdetection of this assay.The [employer] HIV Ag/Ab Combo assay result andsupplemental assay results should be interpreted inconjunction with the patient's clinical presentation,history and other laboratory results. If the results areinconsistent with clinical evidence, additional testing issuggested to confirm the result. Blood Venous blood specimen / Unknown 07/29/2023 11:06 AM EST 07/29/2023 1:42 PM EST Barbara Triplett DO LAB BLOOD ORDERABLES Final R esult [facility] [address] [place] [phone] * (ABNORMAL) Lipid Panel, Standard (07/29/2023 11:06 AM EST) Triglycerides 128 <150 mg/dL [facility] Comment:Desirable Triglyceri de: less than 150 mg/dLBorderline High Triglyceride 150-199 mg/dLHigh Triglyceride: 200-499 mg/dLVery High Triglyceride: greater than or equal to 5OO mg/dL Cholesterol 256(H) <200 mg/dL [facility] Comment:Desirable Cholestero l: less than 200 mg/dLBorderline High Cholesterol: 200-239 mg/dLHigh Cholesterol: greater than 239 mg/dL LDL Cholesterol Calculated 189(H) <100 mg/dL [facility] Comment:Desirable LDL: less than 100 mg/dLNear Optimal/Above Optimal LDL: 110- 129 mg/dLBorderline High LDL: 130-159 mg/dLHigh LDL: 160-189 mg/dLVery High LDL: greater than or equal to 190 mg/dL HDL Cholesterol 42 >40 mg/dL [facility] Comment:Desirable HDL: great er than 40 mg/dL Note: This HDL assay may give artificially low results in patients with liver disease. Blood Venous blood specimen / Unknown 07/29/2023 11:06 AM EST 07/29/2023 1:42 PM EST Barbara Triplett DO LAB BLOOD ORDERABLES Final R esult [facility] [address] [place] [phone] [phone] * Hm Colonoscopy (01/10/2022 11:40 AM EDT) Historical Provider HEALTH MAINTENANCE Final Result * Hm Pap Smear (11/20/2021) Pap Negative for intraephithelial lesion or malignancy Negative for intraephithelial lesion or malignancy, Other HPV Undetected Historical Provider HEALTH MAINTENANCE Final Result from Last 3 Months or Most Recently Relevant to Health Maintenance [place] [address] [address] Care Teams 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
--- OUTSIDE RECORDS SUMMARY | 2024-08-19 12:06 | XMS_ITS | Clinical Summary ---
Author Organization [address] [facility] Address [address] [place] [address] Phone Care Team Providers Care Informatics Developer Name Role Phone LitzyBarbara avalos Zohreh ROBERSON Primary Care Provider [phone] Allergies Active Allergy Reactions Criticality Noted Date Comments Metronidazole 10/29/2023 Medications salicylic acid 40 % plaster Apply 1 applicator topically 1 (one) time each day. Salicylic Acid 40 % STICK Active ammonium lactate (AmLactin) 12 % lotion Apply topically if needed for dry skin. 400 g 4 05/19/20 Active Encounters Date Type Department Care Team Description 05/19/2024 1:00 PM EST Office Visit Orthopedic Surgery - [place] [address] [facility] [address] [place] [id number] Sushant Carrizales, DPM Kris's bunionette, left (Primary Dx); Metatarsalgia of left foot from Last 3 Months Social History Tobacco Use Types Packs/Day Years Used Date Smoking Tobacco: Never Assessed Comments Unknown Sex and Gender Information Value Date Recorded Sex Assigned at Not on file Legal Sex Female 2:56 PM EST Gender Identity Not on file Sexual Orientation Not on file Last Filed Vital Signs Vital Sign Reading Time Taken Comments Blood Pressure - - Pulse - - Temperature - - Respiratory Rate - - Oxygen Saturation - - Inhaled Oxygen Concentration - - Weight 122 kg (268 lb) 05/19/2024 1:00 PM EST Height 165.1 cm (5' 5 ) 05/19/2024 1:00 PM EST Body Mass Index 44.6 05/19/2024 1:00 PM EST Plan of Treatment Health Maintenance Due Date Last Done Comments Breast Cancer Screening 1975 Cervical Cancer Screening: Pap Smear 1996 COVID-19 Vaccine ( season) 2024 07/29/2023, 01/30/2021, 01/10/2021 Influenza Vaccine (#1) 2024 Colorectal Cancer Screening: Colonoscopy 04/14/2024 Social Influencers of Health Screening 04/14/2024 Depression Screening 11/30/2024 12/01/2023 Hypertension/CHF/CAD Annual BMP Blood Test 04/08/2025 04/08/2024 Cholesterol Screening (Lipid Panel) 07/29/2028 07/29/2023 DTaP,Tdap,and Td Vaccines (5 - Td or Tdap) 07/29/2033 07/29/2023, 02/11/2013, 12/22/2011, Additional history exists Hepatitis A Vaccines Completed 12/27/2021, 04/01/20 Hepatitis B Vaccines Completed 11/11/2022, 12/27/2021, 04/01/2021 HIV Screening Completed 07/29/2023 Hepatitis C Screening Completed 07/29/2023 HIB Vaccines Aged Out No longer eligi ble based on patient's age to complete this topic HPV Vaccines Aged Out No longer eligi ble based on patient's age to complete this topic IPV Vaccines Aged Out No longer eligi ble based on patient's age to complete this topic MMR Vaccines Aged Out No longer eligi ble based on patient's age to complete this topic Meningococcal ACWY Vaccine Aged Out N o longer eligible based on patient's age to complete this topic Meningococcal B Vacine Aged Out No lo nger eligible based on patient's age to complete this topic Pneumococcal Vaccine: Pediatrics (0 to 5 Years) and At-Risk Patients (6 to 64 Years) Aged Out No longer eligible based on patient's age to complete this topic RSV Immunization Patients Under 20 months Aged Out No longer eligible based on patient's age to complete this topic Varicella Vaccines Aged Out No longer eligible based on patient's age to complete this topic Insurance [place] Care Teams Informatics Developer Relationship Specialty Start Date End Date Barbara Triplett DO [address] [place] [address] PCP - General 07/30/23
[2024-08-19 13:19] LABS: Hematocrit 42.1 % (37.0-47.0); Hemoglobin 13.8 g/dl (12.0-16.0); Mean Corpuscular HGB Conc 32.8 g/dl (31.0-35.0); Mean Corpuscular Hemoglobin 28.2 pg (27.0-33.0); Mean Corpuscular Volume 85.9 fL (80.0-98.0); Mean Platelet Volume 11.6 fL (9.4-12.3); Platelet Count 268 X10*3/uL (160-400); Red Cell Distribution Width 12.1 % (11.0-16.0); White Blood Count 6.9 X10*3/uL (4.8-10.8)
[2024-08-19 13:42] LABS: Estimated Average Glucose 105 mg/dL; Hemoglobin A1c % 5.3 % (<6.0); Total Hemoglobin (HGBA1C) 3609.3775 umol/L
[2024-08-19 13:43] LABS: Microalbum/Creatinine Ratio Ur 14.7 ug/mg cr (<30)
[2024-08-19 13:56] LABS: Alanine Aminotransferase 17 U/L (0-31); Albumin Level 3.9 g/dL (3.5-5.0); Alkaline Phosphatase 81 U/L (39-117); Anion Gap 10 (12-20); Aspartate Amino Transferase 23 U/L (5-31); Bilirubin Direct 0.1 mg/dL (0.0-0.5); Bilirubin Total 0.4 mg/dL (0.0-1.0); Blood Urea Nitrogen 15 mg/dL (9-16); Calcium 9.3 mg/dL (8.4-10.2); Carbon Dioxide 25 mmol/L (22-29); Chloride 107 mmol/L (96-108); Cholesterol 246 mg/dL (<200); Estimated Glomerular Filt Rate > 60; Glucose Random 81 mg/dL (60-115); HDL Cholesterol 46 mg/dL (>40); LDL Cholesterol Calculated 176 mg/dL (<100); Potassium 4.3 mmol/L (3.3-5.1); Sodium 138 mmol/L (135-145); Total Protein 7.8 g/dL (6.5-8.0); Triglycerides 120 mg/dL (<150)
[2024-08-19 14:00] LABS: Free T4 (Free Thyroxine) 1.21 ng/dL (0.71-1.85); Thyroid Stimulating Hormone 0.87 uIU/mL (0.32-4.0); Vitamin D 25-OH Total 27.5 ng/mL (>30)
== END 2024-08-19 11:12 | disposition home or self-care (01) ==
LOC: HO.HHCL 11:11
PROVIDERS: Visit Provider Family Medicine
DX: I10 Essential (primary) hypertension (principal)
CPT/HCPCS: 36415; 80048; 80061; 80076; 82043; 82306; 82570; 83036; 84439; 84443; 85027

== ENCOUNTER 2024-09-15 13:06 | Outpatient (AMB) | payer OTHER, SELFPAY ==
[2024-09-15 13:20] VITALS: BP 140/64; PULSE 64; O2SAT 97; BMI 43.0
--- NOTE | 2024-09-15 13:20 | A.OFFVIS_ITS ---
Vital Signs 09/15/24 13:20 Height 5 ft 6 in Weight 266 lb 5.094 oz BMI 43.0 BP 140/64 H Blood Pressure Location Rt brachial Position Sitting Pulse 64 Pulse Source Pulse Oximeter Pulse Oximetry (%) 97 Oxygen Delivery Method Room Air Intake Visit Reasons: 6 month follow up Intake Note: ESTABLISHED PATIENT for GERD, hepatic steatosis mgmt. Labs done. Chief Complaint; Pt reports that her sx have greatly improved since last visit. No concerns currently. Pt requests refill of miralax powder. Kennel Aide Required: No Accompanied by: Self / Same As Patient Allergies mold Allergy (Intermediate, Verified 09/15/24 13:21) Unknown house dust Allergy (Mild, Verified 09/15/24 13:21) Sneezing metronidazole [From Flagyl] Allergy (Verified 04/08/24 18:27) Hives HPI HPI 6 month follow up: Details: LAST VISIT Diverticulosis Constipation IBS (irritable bowel syndrome) GERD (gastroesophageal reflux disease) Hepatic steatosis Plan Abdominal ultrasound discussed with patient. Chronic compensated advanced liver disease. Patient continues with normal liver enzymes. Will rule out autoimmune disorders. Will check liver fibrosis panel to stage it. If stage F1 R F2 patient may be placed on resmetirom (Rezdiffa), 1st FDA approved treatment of Sellers along with diet and exercise. Continue pantoprazole daily. Avoid dietary triggers and late night snacking. Staying upright for minimum 3 hours after meals discussed with patient. Patient will follow-up in the office in 6 months, sooner on as needed basis. She is agreeable to this plan and verbalizes understanding of instructions. She was given the opportunity to ask questions and all questions answered. ? Thank you for allowing participate in her care Orders Orders Alpha Fetoprotein Today R79.89 Smooth Muscle Antibody Today R79.89 Ceruloplasmin Today R79.89 IRON PROFILE Today D64.9 Mitochondrial Antibody Today R79.89 Ferritin Today R74.8 Liver Fibrosis Pnl Today K76.0 TODAY'S VISIT patient is here today for follow-up. Patient reports that she has been doing quite well. Denies any GI concerning symptoms. Reports that she is taking pantoprazole almost every day. Occasionally when she forgets for day or 2 she might have returning symptoms. Patient tries not to forget. Moves her bowels daily takes MiraLax and senna. Denies melena, hematochezia, unintentional weight loss or ribbon like stools. Labs discussed with patient. Everything came back normal except for mildly elevated smooth muscle antibody. Patient had normal liver enzymes and normal alk phosphate. [facility] Medical History Diverticulosis Morbid obesity with BMI of 45.0-49.9, adult H/O hidradenitis suppurativa Hx of ectopic Hx of herpes simplex infection History of high cholesterol Hx of essential hypertension History of PCOS Surgical History History of dermoid cyst excision Hx of dilation and curettage History of unilateral fallopian tube excision Family History Father Hx of cancer of lung Mother History of asthma Family hx of hypertension History of high cholesterol Maternal Grandmother Hx of acute arthritis Family hx of hypertension History of angina History of high cholesterol Hx of diabetes mellitus Maternal Grandfather Family hx of hypertension Hx of completed stroke Family/Other Ovarian cancer Family/Other Colon cancer Social History Alcohol intake: never Patient Tobacco Use Status: Never used Tobacco Female Reproductive History Menstrual Age of Menarche: 12 Review of Systems Const Denies weight gain and Denies weight loss ENT Reports no additional complaints, Denies dysphagia and Denies odynophagia Card Reports no additional complaints Resp Reports no additional complaints GI Denies abdominal pain, Denies belching, Denies melena, Denies bloating, Denies change in bowel habits, Denies dysphagia, Denies excessive flatus, Denies dyspepsia, Denies heartburn, Denies diarrhea, Denies loose stools, Denies nausea, Denies odynophagia and Denies vomiting Musc Reports no additional complaints Neuro Reports no additional complaints Psych Reports no additional complaints Endo Reports no additional complaints Physical Exam Vital Signs: Last Vital Signs Pulse 64 09/15/24 13:20 BP 140/64 H 09/15/24 13:20 Pulse Ox 97 09/15/24 13:20 Oxygen Delivery Method Room Air 09/15/24 13:20 BMI result Body Mass Index 43.0 Const General: healthy appearing and no acute distress Nutritional Appearance: obese Orientation/consciousness: patient oriented x3 Resp Effort & Inspection: normal respiratory effort, able to speak in complete sentences, no tracheal deviation and symmetric chest movement Auscultation: clear to auscultation bilaterally Cardio Rate: regular rate GI Inspection: Yes normal to inspection, No distended and Yes obesity Palpation (GI): Soft to palpation, not firm, nontender and No hepatosplenomegaly present Auscultation: normal bowel sounds General: Yes no CVA tenderness Back/Spine/Pelvis Back: no CVA tenderness Skin General skin exam: elasticity normal, turgor normal and dry skin Neuro General: patient oriented x3 Psych Appearance: grossly normal Mental Status: mental status grossly normal Results Reviewed Results Reviewed: Laboratory Tests 03/21/24 04/08/24 08/19/24 14:27 19:26 11:15 Iron 100 Ferritin 41 AST 17 23 ALT 16 17 Alkaline Phosphatase 89 81 Liver Fibrosis Stage F0-F1 Ceruloplasmin 26 Alpha Fetoprotein 4.4 Anti-Mitochondrial Ab NEGATIVE Anti-Smooth Muscle Ab 36 H Assessment & Plan Assessment & Plan (1) Diverticulosis: Code(s): K57.90 - Diverticulosis of intestine, part unspecified, without perforation or abscess without bleeding Category: Medical (2) Constipation: Code(s): K59.00 - Constipation, unspecified Qualifiers: Constipation type: slow transit constipation Qualified Code(s): K59.01 - Slow transit constipation (3) IBS (irritable bowel syndrome): Code(s): K58.9 - Irritable bowel syndrome, unspecified Qualifiers: Irritable bowel syndrome type: without diarrhea Qualified Code(s): K58.9 - Irritable bowel syndrome, unspecified (4) GERD (gastroesophageal reflux disease): Code(s): K21.9 - Gastro-esophageal reflux disease without esophagitis Qualifiers: Esophagitis presence: esophagitis presence not specified Qualified Code(s): K21.9 - Gastro-esophageal reflux disease without esophagitis (5) Hepatic steatosis: Code(s): K76.0 - Fatty (change of) liver, not elsewhere classified Plan Hepatic steatosis, liver fibrosis F0/F1. Patient was encouraged to continue avoiding dietary triggers. Low-fat, low-salt, low carb and high-protein diet recommended. Losing weight also recommended. Will repeat labs And ultrasound in 5 months before her next appointment. Patient will follow-up in 6 months, sooner on as needed basis. She is agreeable to this plan and verbalizes understanding of instructions. She was given the opportunity to ask questions and all questions answered. Thank you for allowing me to participate in her care Orders: Orders DELLA Reflex Titer and Pattern 5 Months R74.8 - Abnormal levels of other serum enzymes Smooth Muscle Antibody 5 Months R79.89 - Other specified abnormal findings of blood chemistry Liver Panel 5 Months R74.01 - Elevation of levels of liver transaminase levels Liver Fibrosis Pnl 5 Months K76.0 - Fatty (change of) liver, not elsewhere classified US abdomen otoole w elastography 5 Months K76.0 - Fatty (change of) liver, not elsewhere classified Medications: Refilled polyethylene glycol 3350 17 grams PO DAILY 510 grams 3RF pantoprazole 40 mg PO QAM 90 tabs 3RF K21.9 - Gastro-esophageal reflux disease without esophagitis sennosides (Natural Senna Laxative) 8.6 mg PO BEDTIME 90 tabs 3RF constipation K59.00 - Constipation, unspecified Coding Level of Care Code Est Pt Level 3 (52139) Diagnoses Diverticulosis K57.90 Slow transit constipation K59.01 Constipation type: slow transit constipation Irritable bowel syndrome without diarrhea K58.9 Irritable bowel syndrome type: without diarrhea Gastroesophageal reflux disease, unspecified whether esophagitis present K21.9 Esophagitis presence: esophagitis presence not specified Hepatic steatosis K76.0 Time Spent (min) 25 Comment 15 minutes spent with patient and additional 10 minutes spent reviewing her records
--- OUTSIDE RECORDS SUMMARY | 2024-09-15 16:37 | XMS_ITS | Encounter Summary ---
Author Organization [employer] Address [address] [facility] [address] [place] [address] Care Team Providers Care Vocal Music Instructor Name Role Phone IoanaBarbara Primary Care Provider + [phone] Encounter Details Date Type Department Care Team (Late st Contact Info) Description 10/13/2023 Orders Only [facility] MED[facility]INE [address] [place] [address] ProviderSussy MD Social History Tobacco Use Types [...] documented as of this encounter Care Teams Vocal Music Instructor Relationship Specialty Start Date End Date Barbara Triplett DO [address] [place] [id number] PCP - General Family Medicine 03/14/13 documented as of this encounter
--- OUTSIDE RECORDS SUMMARY | 2024-09-15 16:37 | XMS_ITS | Encounter Summary ---
Author Organization [employer] Address [address] [facility] [address] [place] [address] Care Team Providers Care Hand Trimmer Name Role Phone Barbara Triplett DO Primary Care Provider + [phone] Reason for Visit * Reason Comments Med Refill Encounter Details Date Type Department Care Team (Late st Contact Info) Description 04/07/2024 Refill [facility] MED[facility]INE [address] [place] [address] Barbara Triplett DO [address] [place] [address] Joana Social History Tobacco Use Types Packs/Day [...] documented as of this encounter Care Teams Hand Trimmer Relationship Specialty Start Date End Date Barbara Triplett DO [address] [place] [id number] PCP - General Family Medicine 03/14/13 documented as of this encounter
--- OUTSIDE RECORDS SUMMARY | 2024-09-15 16:38 | XMS_ITS | Encounter Summary ---
Author Organization [employer] Address [address] [place] [address] [address] [place] [address] Care Team Providers Care Coding File Clerk Name Role Phone Barbara Triplett DO Primary Care Provider [phone] Encounter Details Date Type Department Care Team ([facility] st Contact Info) Description 09/15/2022 Orders Only [facility] MED [facility] PEDS [address] [place] [address] Barbara Rider LPN Social History Tobacco Use [...] on filedocumented in this encounter Care Teams Coding File Clerk Relationship Specialty Start Date End Date Barbara Triplett DO [address] [place] [id number] PCP - General Family Medicine 03/14/13 documented as of this encounter
--- OUTSIDE RECORDS SUMMARY | 2024-09-15 16:38 | XMS_ITS | Encounter Summary ---
Author Organization [employer] Address [address] [place] [address] [address] [place] [address] Care Team Providers Care Immigration Guard Name Role Phone LitzyBarbara avalos Primary Care Provider + [phone] Reason for Visit * Reason Comments Med Refill Encounter Details Date Type Department Care Team ([facility] st Contact Info) Description 11/18/2022 Refill [facility] MED[facility]INE [address] [place] [address] Destiny Metcalf MD [address] [place] [address] Social History Tobacco Use Types Packs/Day Years [...] documented as of this encounter Care Teams Immigration Guard Relationship Specialty Start Date End Date Barbara Triplett DO [address] [place] [address] PCP - General Family Medicine 03/14/13 documented as of this encounter
--- OUTSIDE RECORDS SUMMARY | 2024-09-15 16:38 | XMS_ITS | Clinical Summary ---
Author Organization [employer] Address [address] [place] [address] [address] [place] [address] Care Team Providers Care [employer] Banker Name Role Phone Barbara Triplett Primary Care Provider Allergies Active Allergy Reactions Criticality Noted Date Comments Molds & Smuts 10/28/2021 Medications metFORMIN (Glucophage) 500 MG tabletIndications: Hidradenitis Take 2 tablets (1,000 mg) by mouth with breakfast and with evening meal. 360 tablet 1 09/18/19 23 Active cyclobenzaprine (Flexeril) 10 MG tablet TAKE 1 TABLET BY MOUTH 3 TIMES A DAY NEEDED FOR PAIN 30 tablet 2 12/03/19 23 Active pantoprazole (ProtoNix) 40 MG EC tablet TAKE 1 TABLET ORALLY DAILY TAKE ONE TABLET HALF AN HOUR BEFORE BREAKFAST 11/13/19 23 Active polyethylene glycol, PEG, 3350 (Glycolax) 17 GM/SCOOP powder MIX 17 GRAMS IN LIQUID AND DRINK DAILY 08/13/19 23 Active senna (Senokot) 8.6 MG tablet TAKE 1 TABLET BY MOUTH AT BEDTIME FOR CONSITPATION 08/13/19 23 Active docusate sodium (Colace) 100 MG capsule TAKE 1 CAPSULE BY MOUTH EVERYDAY AT BEDTIME 01/21/20 23 Active hydrocortisone (Anusol-HC) 2.5 % rectal cream APPLY RECTALLY 2 TO 4 TIMES A DAY NEEDED FOR HEMORRHOIDS 01/21/20 23 Active doxycycline (Vibra-Tabs) 100 MG tabletIndications: Hidradenitis suppurativa TAKE 1 TABLET BY MOUTH TWICE A DAY 60 tablet 1 04/03/20 23 Active loratadine (Claritin) 10 MG tabletIndications: Seasonal allergic rhinitis, unspecified trigger TAKE 1 TABLET BY MOUTH EVERY DAY IN THE MORNING 90 tablet 3 09/09/19 24 Active lisinopril 10 MG tabletIndications: Hypertension, unspecified type TAKE 1 TABLET BY MOUTH EVERY DAY 90 tablet 1 01/05/20 24 Active Gas Relief Extra Strength 125 MG chewable tablet CHEW 1 TABLET BY ORAL ROUTE 4 TIMES EVERY DAY NEEDED FOR GASSINESS 120 tablet 2 01/27/20 24 Active meclizine (Antivert) 25 MG tablet Take 1 tablet (25 mg) by mouth if needed in the morning, at noon, and at bedtime for dizziness. 30 tablet 1 04/19/20 24 025 Active valACYclovir (Valtrex) 500 MG tabletIndications: HSV infection TAKE 1 TABLET BY MOUTH TWICE A DAY X 3 DAYS IF NEEDED FOR OUTBREAK 12 tablet 05/13/20 24 Active rosuvastatin (Crestor) 40 MG tablet TAKE 1 TABLET BY MOUTH EVERY DAY 90 tablet 3 05/13/20 24 Active venlafaxine XR (Effexor XR) 37.5 MG 24 hr capsule TAKE 1 CAPSULE BY MOUTH EVERY DAY. DO NOT CRUSH OR CHEW. 30 capsule 3 05/18/20 24 Active ibuprofen 800 MG tabletIndications: Osteoarthritis, unspecified osteoarthritis type, unspecified site TAKE 1 TABLET BY MOUTH THREE TIMES A DAY WITH FOOD 90 tablet 3 05/25/20 24 Active triamcinolone (Kenalog) 0.1 % creamIndications:F olliculitis,Rash APPLY TOPICALLY IF NEEDED IN THE MORNING AND AT BEDTIME FOR RASH OR IRRITATION. 30 g 3 06/14/20 24 Active metroNIDAZOLE (Metrocream) 0.75 % creamIndications:R osacea APPLY SPARINGLY TO AFFECTED AREA TWICE A DAY 45 g 06/14/20 24 Active cholecalciferol VITAMIN D (Vitamin D-3) 50 MCG (1999 UT) capsule TAKE 1 CAPSULE BY MOUTH EVERY DAY 90 capsule 3 08/04/19 25 Active Active Problems Problem Noted Date Diagnosed Date Chronic pelvic pain 08/19/2024 Multiple thyroid nodules 08/19/2024 Healthcare maintenance 12/01/2023 Allergic rhinitis 12/03/2022 Fatty liver 12/03/2022 Depressive disorder 12/03/2022 Hidradenitis suppurativa 12/03/2022 History of COVID-19 08/15/2022 Chronic gastroesophageal reflux disease 01/13/20 16 Genital herpes simplex 07/18/2015 Hyperlipidemia 07/18/2015 Essential hypertension 07/18/2015 BMI 40.0-44.9, adult 07/18/2015 Osteoarthritis 07/18/2015 Polycystic ovarian syndrome 07/18/2015 Rosacea 07/18/2015 Varicose veins 07/18/2015 Vitamin D deficiency 07/18/2015 Resolved Problems Problem Noted Date Diagnosed Date Resolved Date Dyslipidemia 08/15/2022 12/03/2022 Herpes simplex type 2 infection 08/15/2022 12/03/2022 Encounters Date Type Department Care Team Description 08/19/2024 10:00 AM EST Office Visit [facility] [address] [place] [address] Barbara Triplett DO Essential hypertension (Primary Dx); Other hyperlipidemia; Depressive disorder; Fatty liver; Chronic gastroesophageal reflux disease; Chronic pelvic pain; Multiple thyroid nodules; Dizziness; Healthcare maintenance 08/19/2024 Travel 08/04/2024 Refill [facility] [address] [place] [address] Barbara Triplett DO 08/03/2024 Telephone [facility] [address] [place] [address] Barbara Triplett DO Nurse Triage 07/21/2024 Travel from Last 3 Months Immunizations Name Administration [...] 11/20/2024 11/20/2021 Depression Screening 11/30/2024 12/01/2023, 12/01/19 SDOH Screening 11/30/2024 12/01/2023 Zoster Vaccines (1 of 2) 2025 Mammogram 05/03/2025 05/03/2024, 04/06, 04/28/2023, Additional history exists Alcohol/Substance Use Screening 08/19/2025 08/19/2024 Tobacco Screening 08/19/2025 08/19/2024 Cervical Cancer Screening 11/20/2026 HPV/Cotest 11/20/2026 11/20/2021, 11/03, 11/20/2021 Colonoscopy 01/10/2027 01/10/2022 Colorectal Cancer Screening 01/10/2027 Lipid Panel 08/19/2029 08/19/2024, 07/07, 01/13/2022, Additional history exists DTaP/Tdap/Td Vaccines (3 - Td or Tdap) [...] Procedure Name Priority Date/Time Associated Diagnosis Comments ALBUMIN, RANDOM URINE W/CREATININE Routine 08/19/2024 11:15 AM EST Essential hypertension CBC Routine 08/19/2024 11:15 AM EST Essential hypertension BASIC METABOLIC PANEL Routine 08/19/2024 11:15 AM EST Essential hypertension HEMOGLOBIN A1C Routine 08/19/2024 11:15 AM EST Essential hypertension HEPATIC FUNCTION PANEL Routine 08/19/2024 11:15 AM EST Essential hypertension TSH Routine 08/19/2024 11:15 AM EST Essential hypertension LIPID PANEL, STANDARD Routine 08/19/2024 11:15 AM EST Essential hypertension VITAMIN D,25-OH,TOTAL,IA Routine 08/19/2024 11:15 AM EST Essential hypertension T4, FREE Routine 08/19/2024 11:15 AM EST Essential hypertension BI MAMMOGRAM SCREENING TOMOSYNTHESIS BILATERAL Routine 05/03/2024 2:00 PM EDT HEPATITIS C AB W/REFL TO HCV RNA, QN, PCR Routine 07/29/2023 11:06 AM EST HIV 1/2 ANTIGEN/ANTIBODY, FOURTH GENERATION W/RFL Routine 07/29/2023 11:06 AM EST Essential hypertension HM COLONOSCOPY Routine 01/10/2022 11:40 AM EDT PAP/HPV Routine 11/20/2021 from Last 3 Months or Most Recently Relevant to Health Maintenance Results * (ABNORMAL) Vitamin D, 25-Hydroxy, Total, Immunoassay (08/19/2024 11:15 AM EST) Vitamin D 25-OH Total 27.5(L) >30 ng/mL [facility] Comment:Health Based Referen ce Values*< 20 ng/mL Cajvprxto16-78 ng/mL Insufficient> 30 ng/mL Sufficient*Aaron PELAEZ. N Engl J Med. 2007;357:266-280Care must be taken in interpreting Vitamin D results fromdifferent laboratories and methodologies. Published datademonstrated that results from patients undergoinghemodialysis may show a negative bias when tested withvarious automated 25-OH vitamin D assays when compared toLC-MS/MS.When testing samples from patients whose predominant form ofVitamin D is Vitamin D2, such as patients receiving VitaminD2 supplementation, results that are subtherapeutic shouldbe confirmed with another method such as LC-MS/MS. Blood Venous blood specimen / Unknown 08/19/2024 11:15 AM EST 08/19/2024 1:05 PM EST us Barbara Triplett DO LAB BLOOD ORDERABLES Final R esult [facility] [address] [place] [phone] * Albumin, Random Urine W/Creatinine (08/19/2024 11:15 AM EST) Creatinine, Urine 74.50 mg/dL [facility] Microalbumin Urine 11.0 mg/L [facility] Microalbum Creatinine Ratio Ur 14.7 <30 ug/mg cr [facility] Comment:Albumin/Creatinine R atio Reference Ranges: Normal: < 30 ug/mg creatinine Microalbuminuria: 30 - 300 ug/mg creatinineClinical Albuminuria: > 300 ug/mg creatinine Urine (Urine, Random) 08/19/2024 11:15 AM EST 08/19/2024 1:01 PM EST Barbara Triplett DO LAB URINE ORDERABLES Final R esult Performing Organization Address City/[facility]/ZIP Co de Phone Number [facility] [address] [place] [phone] * CBC (08/19/2024 11:15 AM EST) White Blood Count 6.9 4.8 - 10.8 X10*3/uL [facility] Red Blood Count 4.90 4.20 - 5.50 X10*6/uL [facility] Hemoglobin 13.8 12.0 - 16.0 g/dl [facility] Hematocrit 42.1 37.0 - 47.0 % [facility] Mean Corpuscular Volume 85.9 80.0 - 98.0 fL [facility] Mean Corpuscular Hemoglobin 28.2 27.0 - 33.0 pg [facility] Mean Corpuscular HGB Conc 32.8 31.0 - 35.0 g/dl [facility] Red Cell Distribution Width 12.1 11.0 - 16.0 % [facility] Platelet Count 268 160 - 400 X10*3/uL [facility] Mean Platelet Volume 11.6 9.4 - 12.3 fL [facility] NRBC Pct Auto 0.0 0.0 - 0.2 /100WBC [facility] NRBC Abs Auto 0.000 0.0 - 0.012 X10*3/uL [facility] Blood Venous blood specimen / Unknown 08/19/2024 11:15 AM EST 08/19/2024 1:05 PM EST Barbara Triplett DO LAB BLOOD ORDERABLES Final R esult Performing Organization Address City/[facility]/ZIP Co de Phone Number [facility] [address] [place] [phone] * TSH (08/19/2024 11:15 AM EST) Thyroid Stimulating Hormone 0.87 0.32 - 4.0 uIU/mL [facility] Comment:TSH 3rd Generation ( [employer] [facility]) Blood Venous blood specimen / Unknown 08/19/2024 11:15 AM EST 08/19/2024 1:05 PM EST Barbara Ioana DO LAB BLOOD ORDERABLES Final R esult Performing Organization Address City/[facility]/ZIP Co de Phone Number [facility] [address] [place] [phone] * T4, Free (08/19/2024 11:15 AM EST) Free T4 (Free Thyroxine) 1.21 0.71 - 1.85 ng/dL [facility] Blood Venous blood specimen / Unknown 08/19/2024 11:15 AM EST 08/19/2024 1:05 PM EST Barbara Ioana DO LAB BLOOD ORDERABLES Final R esult Performing Organization Address City/[facility] Co de Phone Number [facility] [address] [place] [phone] * Hemoglobin A1c (08/19/2024 11:15 AM EST) Hemoglobin A1c 5.3 <6.0 % [facility] Comment:Hemoglobin A1C Refer ence Range Adults: 4.8 - 6.0 % Non diabetic: < 6.0 % Goal: < 7.0 %Additional Action Suggested: > 8.0 %Note: Hemoglobin A1c results are invalid for patients with abnormal amounts of HbF. Blood transfusions may impact the HbA1c concentration in the patient sample. Estimated Average Glucose 105 mg/dL [facility] Comment:eAG = Estimated ave rage glucose which is %A1C expressed asaverage glucose, using the formula of the B1L-TwornpgGyuhiqm Glucose study (ADAG), Diabetes Care, Vol.31,#8,2007 Blood Venous blood specimen / Unknown 08/19/2024 11:15 AM EST 08/19/2024 1:05 PM EST Barbara Triplett LAB BLOOD ORDERABLES Final R esult Performing Organization Address City/[facility]/ZIP Co de Phone Number [facility] [address] [place] [phone] * Hepatic Function Panel (08/19/2024 11:15 AM EST) Bilirubin, Total 0.4 0.0 - 1.0 mg/dL [facility] Bilirubin, Direct 0.1 0.0 - 0.5 mg/dL [facility] Aspartate Amino Transferase 23 5 - 31 U/L [facility] Alanine Aminotransferase 17 0 - 31 U/L [facility] Total Protein 7.8 6.5 - 8.0 g/dL [facility] Albumin Level 3.9 3.5 - 5.0 g/dL [facility] Alkaline Phosphatase 81 39 - 117 U/L [facility] Blood Venous blood specimen / Unknown 08/19/2024 11:15 AM EST 08/19/2024 1:05 PM EST Barbara Triplett DO LAB BLOOD ORDERABLES Final R esult Performing Organization Address City/[facility]/ZIP Co de Phone Number [facility] [address] [place] [phone] * (ABNORMAL) Lipid Panel, Standard (08/19/2024 11:15 AM EST) Triglycerides 120 <150 mg/dL [facility] Comment:Desirable Triglyceri de: less than 150 mg/dLBorderline High Triglyceride 150-199 mg/dLHigh Triglyceride: 200-499 mg/dLVery High Triglyceride: greater than or equal to 5OO mg/dL Cholesterol 246(H) <200 mg/dL [facility] Comment:Desirable Cholestero l: less than 200 mg/dLBorderline High Cholesterol: 200-239 mg/dLHigh Cholesterol: greater than 239 mg/dL LDL Cholesterol Calculated 176(H) <100 mg/dL [facility] Comment:Desirable LDL: less than 100 mg/dLNear Optimal/Above Optimal LDL: 110- 129 mg/dLBorderline High LDL: 130-159 mg/dLHigh LDL: 160-189 mg/dLVery High LDL: greater than or equal to 190 mg/dL HDL Cholesterol 46 >40 mg/dL [facility] Comment:Desirable HDL: great er than 40 mg/dL Note: This HDL assay may give artificially low results in patients with liver disease. Blood Venous blood specimen / Unknown 08/19/2024 11:15 AM EST 08/19/2024 1:05 PM EST us Barbara Triplett DO LAB BLOOD ORDERABLES Final R esult [facility] [address] [place] [address] [phone] * (ABNORMAL) Basic Metabolic Panel (08/19/2024 11:15 AM EST) Sodium 138 135 - 145 mmol/L [facility] Potassium 4.3 3.3 - 5.1 mmol/L [facility] Chloride 107 96 - 108 mmol/L [facility] Carbon Dioxide 25 22 - 29 mmol/L [facility] Anion Gap 10(L) 12 - 20 [facility] Urea Nitrogen (BUN) 15 9 - 16 mg/dL [facility] Creatinine, Serum 0.67 0.5 - 1.4 mg/dL [facility] Estimated Glomerular Filt Rate >60 [facility] Comment:Chronic Kidney Disea se: Estimated GFR < 60 mL/min/1.83l2Aojpss Kidney Disease: Estimated GFR < 15 mL/min/1.73m2 Glucose 81 60 - 115 mg/dL [facility] Calcium 9.3 8.4 - 10.2 mg/dL [facility] Blood Venous blood specimen / Unknown 08/19/2024 11:15 AM EST 08/19/2024 1:05 PM EST us Barbara Ioana DO LAB BLOOD ORDERABLES Final R esult [facility] [address] [facility] [place] [phone] * BI Mammogram Screening Tomosynthesis Bilateral (05/03/2024 2:00 PM EDT) Anatomical Region Laterality Modality Breast Bilateral Mammography 05/03/2024 2:00 PM EDT Narrative 05/11/2024 10:49 AM EST ? [facility] ? [address] ?[place] [address] ? Mammography Report ? Signed ? Patient: Rowley,Quan ?MR#: [id number] ?? 82 ? : 1975 ?Acct:[id number] ? Age/Sex: 49 / F ?ADM Date: 05/03/24 ? Loc: HO.MAMMO ? Attending Dr: Barbara Triplett DO ? Ordering Physician: Barbara Triplett DO ?Results: 1N ?? egative ? Date of Service: 05/03/24 ?Follow Up: 1 Year From Orig ?? inal Mammogram ? Procedure(s): MM tomosynthesis screening BI ?? Accession Number(s): [id number] ? cc: Barbara Triplett DO ? EXAMINATION: [...] ??Deisy Cancino DO ??05/11/2024 10:46 AM EST ? Dictated By: ?Deisy Cancino DO ? Signed By: ?<Electronically signed by Deisy Cancino, DO in OV> ? 05/11/24 1046 ? DD/ 1400 ? TD/TT: 05/03/24 1421 ? Brake Reliner: ? Procedure Note Yovanny Gutierres - 05/11/2024 [facility] [address] [place] [address] Dr. [place], [place] [address] Mammography Report Signed Patient: Quan Rowley#: [id number] 82 : 1975Acct:[id number] Age/Sex: 49 / FADM Date: 05/03/24 Loc: HO.MAMMO Attending Dr: Barbara Triplett DO Ordering Physician: Barbara Triplettults: 1N egative Date of Service: 05/03/24Follow Up: 1 Year From Orig ina Mammogram Procedure(s): MM tomosynthesis screening BI Accession Number(s): [id number] cc: Barbara Triplett DO EXAMINATION: MM SCREENING [...] 05/11/24 1046 DD/ 1400 TD/TT: 05/03/24 1421 Brake Reliner: Barbara Triplett DO IMG BI PROCEDURES Final Resu lt * Hepatitis C Antibody with Reflex to HCV, RNA, Quantitative, Real-Time PCR (07/29/2023 11:06 AM EST) Hepatitis C Antibody Nonreactive Nonreactive [facility] Comment:Antibodies to HCV no t detected; does not exclude early acuteHCV infection. 07/29/2023 11:0 6 AM EST 07/29/2023 1:42 PM EST Barbara Triplett DO LAB BLOOD ORDERABLES Final R esult [facility] [address] [place] [phone] * HIV-1/2 Antigen and Antibodies, Fourth Generation, with Reflexes (07/29/2023 11:06 AM EST) HIV AB/AG Nonreactive Nonreactive [facility] Comment:HIV-1 p24 Ag and/or HIV-1/HIV-2 Ab not detected.A test result that is nonreactive does not exclude thepossibility of exposure to or infection with HIV-1 and/orHIV-2. Nonreactive results in this assay for individualswith prior exposure to HIV-1 and/or HIV-2 may be due toantigen and antibody levels that are below the limit ofdetection of this assay.The [facility] HIV Ag/Ab Combo assay result andsupplemental assay results should be interpreted inconjunction with the patient's clinical presentation,history and other laboratory results. If the results areinconsistent with clinical evidence, additional testing issuggested to confirm the result. Blood Venous blood specimen / Unknown 07/29/2023 11:06 AM EST 07/29/2023 1:42 PM EST Barbara Triplett DO LAB BLOOD ORDERABLES Final R esult [facility] [address] [place] [phone] * Colonoscopy (01/10/2022 11:40 AM EDT) Historical Provider HEALTH MAINTENANCE Final Result * Pap Smear (11/20/2021) Pap Negative for intraephithelial lesion or malignancy Negative for intraephithelial lesion or malignancy, Other HPV Undetected Historical Provider HEALTH MAINTENANCE Final Result from Last 3 Months or Most Recently Relevant to Health Maintenance Insurance Care Teams International Bank[employer] Relationship Specialty Start Date End Date Barbara Triplett DO [address] [place] [phone] PCP - General Family Medicine 03/14/13
--- OUTSIDE RECORDS SUMMARY | 2024-09-15 16:38 | XMS_ITS | Encounter Summary ---
Author Organization [employer] Address [address] [place] [address] 7 [place] [address] Care Team Providers Care Service Control Operator Name Role Phone Barbara Triplett DO Primary Care Provider [phone] Encounter Details Date Type Department Care Team (Latest Contact Info) Description 08/19/2024 10:00 AM EST Office Visit [facility] MEDICINE [address] [place] [address] Barbara Triplett DO [address] [place] [address] Essential hypertension (Primary Dx); Other hyperlipidemia; Depressive [...] COVID-19 Hyperlipidemia Essential hypertension BMI 40.0-44.9, adult ([facility]) Osteoarthritis Polycystic ovarian syndrome Rosacea Varicose veins [...] -she declines referral to PT -f/u with director of distribution as scheduled, appt summer 2024 Dizziness Sx resolved -CT head with no acute findings Apr 2024 -ECHO with nml EF, nml diastolic function, no WMA and no valvular pathology Jun 2024 -carotid US with no hemodynamically significant stenosis Apr 2024 -advised stay well-hydrated -cont meclizine prn -advised contact [facility] if sx recur Multiple thyroid nodules -thyroid [...] Procedure Name Priority Date/Time Associated Diagnosis Comments VITAMIN D,25-OH,TOTAL,IA Routine 08/19/2024 11:15 AM EST Essential hypertension ALBUMIN, RANDOM URINE W/CREATININE Routine 08/19/2024 11:15 [...] Routine 08/19/2024 11:15 AM EST Essential hypertension documented in this encounter Results * Albumin, Random Urine W/Creatinine (08/19/2024 11:15 AM EST) Creatinine, Urine 74.50 mg/dL [facility] Microalbumin Urine 11.0 mg/L [facility] Microalbum Creatinine Ratio Ur 14.7 <30 ug/mg cr [facility] Comment:Albumin/Creatinine R atio Reference Ranges: Normal: < 30 ug/mg creatinine Microalbuminuria: 30 - 300 ug/mg creatinineClinical Albuminuria: > 300 ug/mg creatinine Urine (Urine, Random) 08/19/2024 11:15 AM EST 08/19/2024 1:01 PM EST Barbara Triplett LAB URINE ORDERABLES Final R esult Performing Organization Address City/[facility]/ZIP Co de Phone Number [facility] [address] [place] [phone] * CBC (08/19/2024 11:15 AM EST) White Blood Count 6.9 4.8 - 10.8 X10*3/uL [facility] Red Blood Count 4.90 4.20 - 5.50 X10*6/uL [facility] Hemoglobin 13.8 12.0 - 16.0 g/dl [facility] Hematocrit 42.1 37.0 - 47.0 % [facility] Mean Corpuscular Volume 85.9 80.0 - 98.0 fL [facility] Mean Corpuscular Hemoglobin 28.2 27.0 - 33.0 pg [facility] Mean Corpuscular HGB Conc 32.8 31.0 - 35.0 g/dl [facility] Red Cell Distribution Width 12.1 11.0 - 16.0 % [facility] Platelet Count 268 160 - 400 X10*3/uL [facility] Mean Platelet Volume 11.6 9.4 - 12.3 fL [facility] NRBC Pct Auto 0.0 0.0 - 0.2 /100WBC [facility] NRBC Abs Auto 0.000 0.0 - 0.012 X10*3/uL [facility] Blood Venous blood specimen / Unknown 08/19/2024 11:15 AM EST 08/19/2024 1:05 PM EST Barbara Triplett DO LAB BLOOD ORDERABLES Final R esult Performing Organization Address City/[facility]/ZIP Co de Phone Number [facility] [address] [place] [phone] * (ABNORMAL) Basic Metabolic Panel (08/19/2024 11:15 AM EST) Sodium 138 135 - 145 mmol/L [facility] Potassium 4.3 3.3 - 5.1 mmol/L [facility] Chloride 107 96 - 108 mmol/L [facility] Carbon Dioxide 25 22 - 29 mmol/L [facility] Anion Gap 10(L) 12 - 20 [facility] Urea Nitrogen (BUN) 15 9 - 16 mg/dL [facility] Creatinine, Serum 0.67 0.5 - 1.4 mg/dL [facility] Estimated Glomerular Filt Rate >60 [facility] Comment:Chronic Kidney Disea se: Estimated GFR < 60 mL/min/1.40l5Hirzhb Kidney Disease: Estimated GFR < 15 mL/min/1.73m2 Glucose 81 60 - 115 mg/dL [facility] Calcium 9.3 8.4 - 10.2 mg/dL [facility] Blood Venous blood specimen / Unknown 08/19/2024 11:15 AM EST 08/19/2024 1:05 PM EST Barbara Triplett DO LAB BLOOD ORDERABLES Final R esult [facility] [address] [place] [phone] * Hemoglobin A1c (08/19/2024 11:15 AM EST) Hemoglobin A1c 5.3 <6.0 % [facility] Comment:Hemoglobin A1C Refer ence Range Adults: 4.8 - 6.0 % Non diabetic: < 6.0 % Goal: < 7.0 %Additional Action Suggested: > 8.0 %Note: Hemoglobin A1c results are invalid for patients with abnormal amounts of HbF. Blood transfusions may impact the HbA1c concentration in the patient sample. Estimated Average Glucose 105 mg/dL [facility] Comment:eAG = Estimated ave rage glucose which is %A1C expressed asaverage glucose, using the formula of the V0Q-EezgvdfGxgfjwj Glucose study (ADAG), Diabetes Care, Vol.31,#8,2007 Blood Venous blood specimen / Unknown 08/19/2024 11:15 AM EST 08/19/2024 1:05 PM EST Barbara Triplett DO LAB BLOOD ORDERABLES Final R esult [facility] [address] [place] [phone] [phone] * Hepatic Function Panel (08/19/2024 11:15 AM EST) Bilirubin, Total 0.4 0.0 - 1.0 mg/dL [facility] Bilirubin, Direct 0.1 0.0 - 0.5 mg/dL [facility] Aspartate Amino Transferase 23 5 - 31 U/L [facility] Alanine Aminotransferase 17 0 - 31 U/L [facility] Total Protein 7.8 6.5 - 8.0 g/dL [facility] Albumin Level 3.9 3.5 - 5.0 g/dL [facility] Alkaline Phosphatase 81 39 - 117 U/L [facility] Blood Venous blood specimen / Unknown 08/19/2024 11:15 AM EST 08/19/2024 1:05 PM EST Barbara Triplett DO LAB BLOOD ORDERABLES Final R esult [facility] [address] [place] [phone] * TSH (08/19/2024 11:15 AM EST) Thyroid Stimulating Hormone 0.87 0.32 - 4.0 uIU/mL [facility] Comment:TSH 3rd Generation ( [employer]) Blood Venous blood specimen / Unknown 08/19/2024 11:15 AM EST 08/19/2024 1:05 PM EST Barbara Ioana LAB BLOOD ORDERABLES Final R esult Performing Organization Address City/[facility]/ZIP Co de Phone Number [facility] [address] [place] [phone] * (ABNORMAL) Lipid Panel, Standard (08/19/2024 11:15 AM EST) Triglycerides 120 <150 mg/dL [facility] Comment:Desirable Triglyceri de: less than 150 mg/dLBorderline High Triglyceride 150-199 mg/dLHigh Triglyceride: 200-499 mg/dLVery High Triglyceride: greater than or equal to 5OO mg/dL Cholesterol 246(H) <200 mg/dL [facility] Comment:Desirable Cholestero l: less than 200 mg/dLBorderline High Cholesterol: 200-239 mg/dLHigh Cholesterol: greater than 239 mg/dL LDL Cholesterol Calculated 176(H) <100 mg/dL [facility] Comment:Desirable LDL: less than 100 mg/dLNear Optimal/Above Optimal LDL: 110- 129 mg/dLBorderline High LDL: 130-159 mg/dLHigh LDL: 160-189 mg/dLVery High LDL: greater than or equal to 190 mg/dL HDL Cholesterol 46 >40 mg/dL [facility] Comment:Desirable HDL: great er than 40 mg/dL Note: This HDL assay may give artificially low results in patients with liver disease. Blood Venous blood specimen / Unknown 08/19/2024 11:15 AM EST 08/19/2024 1:05 PM EST us Barbara Triplett DO LAB BLOOD ORDERABLES Final R esult [facility] [address] [place] [phone] * (ABNORMAL) Vitamin D, 25-Hydroxy, Total, Immunoassay (08/19/2024 11:15 AM EST) Vitamin D 25-OH Total 27.5(L) >30 ng/mL [facility] Comment:Health Based Referen ce Values*< 20 ng/mL [id number] ng/mL Insufficient> 30 ng/mL Sufficient*Aaron PELAEZ. N [...] ORDERABLES Final R esult Performing Organization Address City/[facility]/ZIP Co de Phone Number [facility] [address] [place] [phone] * T4, Free (08/19/2024 11:15 AM EST) Free T4 (Free Thyroxine) 1.21 0.71 - 1.85 ng/dL [facility] Blood Venous blood specimen / Unknown 08/19/2024 11:15 AM EST 08/19/2024 1:05 PM EST Barbara Triplett LAB BLOOD ORDERABLES Final R esult Performing Organization Address City/[facility]/ZIP Co de Phone Number [facility] [address] [place] [phone] documented in this encounter Visit Diagnoses Diagnosis Essential hypertension- [...] Noted Time PHQ-9 Depression Total Score: 3 05/28/20 24 10:50 AM EDT documented as of this encounter Care Teams Service Control Operator Relationship Specialty Start Date End Date Barbara Triplett DO [address] [place] [address] PCP - General Family Medicine 03/14/13 documented as of this encounter
--- OUTSIDE RECORDS SUMMARY | 2024-09-15 16:38 | XMS_ITS | Encounter Summary ---
Author Organization [employer] Address [address] [place] [address] 7 [place] [address] Care Team Providers Care Silk Screen Printer Machine Name Role Phone Barbara Triplett DO Primary Care Provider + [phone] Reason for Visit * Reason Onset Date Comments Nurse Triage 03/25/2023 Encounter Details Date Type Department Care Team ([facility] st Contact Info) Description 03/25/2023 Telephone [facility] MEDICINE [address] [place] [address] Barbara Triplett DO [address] [place] [address] Nurse Triage Social History Tobacco Use Types [...] two new ointments today waiting for pharmacy berry picker. Triamcinolone 0.1% and metronidazole 0.75% cream. Pt is advised to start these creams and if by the end of the week they are not effectively decreasing the rash come to [facility] to be seen byprovider. Pt agrees [...] documented as of this encounter Care Teams Silk Screen Printer Machine Relationship Specialty Start Date End Date Barbara Triplett DO [address] [place] [phone] PCP - General Family Medicine 03/14/13 documented as of this encounter
--- OUTSIDE RECORDS SUMMARY | 2024-09-15 16:38 | XMS_ITS | Encounter Summary ---
Author Organization [employer] Address [address] [facility] 7t [place] [address] Care Team Providers Care Hr Receptionist Name Role Phone LitzyBarbara avalos Primary Care Provider + [phone] Encounter Details Date Type Department Care Team (Late st Contact Info) Description 04/10/2023 Abstract [facility] MEDICINE [address] [place] [address] Deyanira Olivares Social History Tobacco Use Types [...] documented as of this encounter Care Teams Hr Receptionist Relationship Specialty Start Date End Date Barbara Triplett DO [address] [place] [address] PCP - General Family Medicine 03/14/13 documented as of this encounter
--- OUTSIDE RECORDS SUMMARY | 2024-09-15 16:38 | XMS_ITS | Encounter Summary ---
Author Organization [employer] Address [address] [place] [address] 7[address] [place] [address] Care Team Providers Care Sr. Manager Corporate Communications Name Role Phone Barbara Triplett Primary Care [...] documented as of this encounter Care Teams Sr. Manager Corporate Communications Relationship Specialty Start Date End Date Barbara Triplett DO [address] [place] [address] PCP - General Family Medicine 03/14/13 documented as of this encounter
--- OUTSIDE RECORDS SUMMARY | 2024-09-15 16:38 | XMS_ITS | Encounter Summary ---
Author Organization [employer] Address [address] [place] [address] 7 [place] [address] Care Team Providers Care Oil Extractor Name Role Phone Barbara Triplett DO Primary Care Provider + [phone] Reason for Visit * Reason Onset Date Comments Nurse Triage 08/03/2024 Encounter Details Date Type Department Care Team ([facility] st Contact Info) Description 08/03/2024 Telephone [facility] MEDICINE [address] [place] [address] Barbara Triplett DO [address] [place] [address] Nurse Triage Social History Tobacco Use Types [...] today. Pt does report being at a democrat over the weekend where the cake was [...] caller accepted this outcome. Contact pt at [phone] documented in this encounter Plan of Treatment Not on file documented as of this encounter Visit Diagnoses Not on filedocumented in this encounter Additional Health Concerns Assessment Noted Time PHQ-9 Depression Total Score: 3 12/01/19 24 10:50 AM EDT documented as of this encounter Care Teams Oil Extractor Relationship Specialty Start Date End Date Barbara Triplett DO [address] [place] [phone] PCP - General Family Medicine 03/14/13 documented as of this encounter
--- OUTSIDE RECORDS SUMMARY | 2024-09-15 16:38 | XMS_ITS | Clinical Summary ---
Author Organization [facility] Address [address] [place] [address] Phone Care Team Providers Care Hydro Operator Name Role Phone Mery Triplettnifer Zohreh ROBERSON Primary Care Provider [phone] Allergies Active Allergy Reactions Criticality Noted Date Comments Metronidazole 10/29/2023 Medications salicylic acid 40 % plaster Apply 1 applicator topically 1 (one) time each day. Salicylic Acid 40 % STICK Active ammonium lactate (AmLactin) 12 % lotion Apply topically if needed for dry skin. 400 g 05/19/20 Active Social History Tobacco Use Types Packs/Day Years [...] to complete this topic Insurance MEDICA[place] - [place] Care Teams Hydro Operator Relationship Specialty Start Date End Date Barbara Triplett DO [address] [place], [place] PCP - General 07/30/23
--- OUTSIDE RECORDS SUMMARY | 2024-09-15 16:38 | XMS_ITS | Encounter Summary ---
Author Organization [employer] Address [address] [place] [address] 7t [place] [address] Care Team Providers Care Manager Brand Name Role Phone Barbara Triplett DO Primary Care Provider [phone] Encounter Details Date Type Department Care Team ([facility] st Contact Info) Description 12/30/2022 Orders Only [facility] & [facility]S [address] [place] [address] Barbara Rider LPN Social History Tobacco Use [...] documented as of this encounter Care Teams Manager Brand Relationship Specialty Start Date End Date Barbara Triplett DO [address] [place] [address] PCP - General Family Medicine 03/14/13 documented as of this encounter
--- OUTSIDE RECORDS SUMMARY | 2024-09-15 16:38 | XMS_ITS | Encounter Summary ---
Author Organization [employer] Address [address] [place] [address] 7t [place] [address] Care Team Providers Care Tile Layer Drainage Name Role Phone Barbara Triplett Primary Care Provider + [phone] Reason for Visit * Reason Comments Med Refill Encounter Details Date Type Department Care Team ([facility] st Contact Info) Description 12/30/2022 Refill [facility] MEDICINE [address] [place] [address] Destiny Metcalf MD [address] [place] [address] Social History Tobacco Use Types Packs/Day Years [...] documented as of this encounter Care Teams Tile Layer Drainage Relationship Specialty Start Date End Date Barbara Triplett DO [address] [place] [address] PCP - General Family Medicine 03/14/13 documented as of this encounter
== END 2024-09-15 13:48 | disposition home or self-care (01) ==
LOC: HO.HGI 13:07
PROVIDERS: PCP Family Medicine; Visit Provider Nurse Practitioner Family
DX: K57.90 Diverticulosis of intestine, part unspecified, without perforation or abscess without bleeding (principal); K59.01 Slow transit constipation; K58.9 Irritable bowel syndrome, unspecified; K21.9 Gastro-esophageal reflux disease without esophagitis; K76.0 Fatty (change of) liver, not elsewhere classified
CPT/HCPCS: 99213

== ENCOUNTER → 2024-09-15 13:06 | Outpatient (BNVA) | payer OTHER, SELFPAY | PROVIDERS: PCP Family Medicine; Visit Provider Nurse Practitioner Family | DX: K21.9 Gastro-esophageal reflux disease without esophagitis (principal); K58.1 Irritable bowel syndrome with constipation; K57.90 Diverticulosis of intestine, part unspecified, without perforation or abscess without bleeding; K59.01 Slow transit constipation; K76.0 Fatty (change of) liver, not elsewhere classified; R74.8 Abnormal levels of other serum enzymes; R79.89 Other specified abnormal findings of blood chemistry; R74.01 Elevation of levels of liver transaminase levels | CPT/HCPCS: 99212 ==

== ENCOUNTER 2024-10-05 14:02 | Outpatient (REF) | payer OTHER, SELFPAY ==
--- OUTSIDE RECORDS SUMMARY | 2024-10-05 17:15 | XMS_ITS | Encounter Summary ---
Author Organization [employer] Address [address] [facility] 7t [place] [address] Care Team Providers Care Rn Supplemental Name Role Phone IoanaBarbara Primary Care Provider + [phone] Encounter Details Date Type Department Care Team (Late st Contact Info) Description 10/13/2023 Orders Only [facility] [address] [place] [address] ProviderSussy MD Social History Tobacco Use Types [...] documented as of this encounter Care Teams Rn Supplemental Relationship Specialty Start Date End Date Barbara Tirplett DO [address] [place] [phone] PCP - General Family Medicine 03/14/13 documented as of this encounter
--- OUTSIDE RECORDS SUMMARY | 2024-10-05 17:16 | XMS_ITS | Clinical Summary ---
Author Organization [facility] Address [address] [place] [address] Phone Care Team Providers Care Dough Panner Name Role Phone Mery Triplettnifer Zohreh ROBERSON Primary Care Provider [phone] Allergies Active Allergy Reactions Criticality Noted Date [...] to complete this topic Insurance MEDICAID - [place] Care Teams Dough Panner Relationship Specialty Start Date End Date Barbara Triplett DO [address] [place], [place] PCP - General 07/30/23
--- OUTSIDE RECORDS SUMMARY | 2024-10-05 17:16 | XMS_ITS | Encounter Summary ---
Author Organization [employer] Address [address] [place] [address] 7t [place] [address] Care Team Providers Care Optics Engineer Name Role Phone LitzyBarbara avalos Primary Care Provider + [phone] Reason for Visit * Reason Comments Med Refill Encounter Details Date Type Department Care Team ([facility] st Contact Info) Description 11/18/2022 Refill [facility] [address] [place] [address] Destiny Metcalf MD [address] [place] [address] Social History Tobacco Use Types Packs/Day Years [...] documented as of this encounter Care Teams Optics Engineer Relationship Specialty Start Date End Date Barbara Triplett DO [address] [place] [address] PCP - General Family Medicine 03/14/13 documented as of this encounter
--- OUTSIDE RECORDS SUMMARY | 2024-10-05 17:16 | XMS_ITS | Encounter Summary ---
Author Organization [employer] Address [address] [place] [address] 7 [place] [address] Care Team Providers Care Banquet Bartender Name Role Phone Barbara Triplett DO Primary Care Provider + [phone] Reason for Visit * Reason Onset Date Comments Nurse Triage 08/03/2024 Encounter Details Date Type Department Care Team ([facility] st Contact Info) Description 08/03/2024 Telephone [facility] [address] [place] [address] Barbara Triplett DO [address] [place] [address] Nurse Triage Social History Tobacco Use Types [...] caller accepted this outcome. Contact pt at [phone] documented in this encounter Plan of Treatment Not on file documented as of this encounter Visit Diagnoses Not on filedocumented in this encounter Additional Health Concerns Assessment Noted Time PHQ-9 Depression Total Score: 3 12/01/19 24 10:50 AM EDT documented as of this encounter Care Teams Banquet Bartender Relationship Specialty Start Date End Date Barbara Triplett DO [address] [place] [phone] PCP - General Family Medicine 03/14/13 documented as of this encounter
--- OUTSIDE RECORDS SUMMARY | 2024-10-05 17:16 | XMS_ITS | Encounter Summary ---
Author Organization [employer] Address [address] [place] [address] 7t [place] [address] Care Team Providers Care Research Test Engine Operator Name Role Phone Barbara Triplett Primary Care Provider + [phone] Reason for Visit * Reason Comments Med Refill Encounter Details Date Type Department Care Team ([facility] st Contact Info) Description 12/30/2022 Refill [facility] [address] [place] [address] Destiny Metcalf MD [address] [place] [address] Social History Tobacco Use Types Packs/Day Years [...] documented as of this encounter Care Teams Research Test Engine Operator Relationship Specialty Start Date End Date Barbara Triplett DO [address] [place] [address] PCP - General Family Medicine 03/14/13 documented as of this encounter
--- OUTSIDE RECORDS SUMMARY | 2024-10-05 17:16 | XMS_ITS | Encounter Summary ---
Author Organization [employer] Address [address] [place] [address] 7 [place] [address] Care Team Providers Care Boilermaker Loftsman Name Role Phone Barbara Triplett DO Primary Care Provider Encounter Details Date Type Department Care Team ([facility] st Contact Info) Description 09/15/2022 Orders Only [facility] [address] [place] [address] Barbara Rider LPN Social History Tobacco Use [...] on filedocumented in this encounter Care Teams Boilermaker Loftsman Relationship Specialty Start Date End Date Barbara Triplett DO [address] [place] [address] PCP - General Family Medicine 03/14/13 documented as of this encounter
--- OUTSIDE RECORDS SUMMARY | 2024-10-05 17:16 | XMS_ITS | Encounter Summary ---
Author Organization [employer] Address [address] [place] [address] 7 [place] [address] Care Team Providers Care Agricultural Plow Operator Name Role Phone Barbara Triplett DO Primary Care Provider + [phone] Reason for Visit * Reason Onset Date Comments Nurse Triage 03/25/2023 Encounter Details Date Type Department Care Team ([facility] st Contact Info) Description 03/25/2023 Telephone [facility] [address] [place] [address] Barbara Triplett DO [address] [place] [address] Nurse Triage Social History Tobacco Use Types [...] new ointments today waiting for pharmacy pick remover. Triamcinolone 0.1% and metronidazole 0.75% cream. Pt is advised to start these creams and if by the end of the week they are not effectively decreasing the rash come to [facility] to be seen byprovider. Pt agrees with [...] documented as of this encounter Care Teams Agricultural Plow Operator Relationship Specialty Start Date End Date Barbara Triplett DO [address] [place] [phone] PCP - General Family Medicine 03/14/13 documented as of this encounter
--- OUTSIDE RECORDS SUMMARY | 2024-10-05 17:16 | XMS_ITS | Clinical Summary ---
Author Organization [employer] Address [address] [place] [address] 7t [place] [address] Care Team Providers Care Cotton Weigher Name Role Phone Barbara Triplett Primary Care [...] Description 08/19/2024 10:00 AM EST Office Visit [facility] [address] [place] [address] Barbara Triplett DO Essential hypertension (Primary Dx); Other hyperlipidemia; Depressive disorder; Fatty liver; Chronic gastroesophageal reflux disease; Chronic pelvic pain; Multiple thyroid nodules; Dizziness; Healthcare maintenance 08/19/2024 Travel 08/04/2024 Refill [facility] [address] [place] [address] Barbara Triplett DO 08/03/2024 Telephone [facility] [address] [place] [address] Barbara Triplett DO Nurse Triage 07/21/2024 Travel [...] Vitamin D 25-OH Total 27.5(L) >30 ng/mL [facility] Comment:Health Based Referen ce Values*< 20 ng/mL Gedpbeeih52-87 ng/mL Insufficient> 30 ng/mL Sufficient*Aaron PELAEZ. N [...] DO LAB BLOOD ORDERABLES Final R esult [facility] [address] [place] [phone] * Albumin, Random Urine W/Creatinine (08/19/2024 11:15 AM EST) Creatinine, Urine 74.50 mg/dL [facility] Microalbumin Urine 11.0 mg/L [facility] Microalbum Creatinine Ratio Ur 14.7 <30 ug/mg cr [facility] Comment:Albumin/Creatinine R atio Reference Ranges: Normal: < 30 ug/mg creatinine Microalbuminuria: 30 - 300 ug/mg creatinineClinical Albuminuria: > 300 ug/mg creatinine Urine (Urine, Random) 08/19/2024 11:15 AM EST 08/19/2024 1:01 PM EST Barbara Triplett DO LAB URINE ORDERABLES Final R esult Performing Organization Address City/[facility]/ZIP Co de Phone Number [facility] [address] [place] [phone] * CBC (08/19/2024 11:15 AM EST) White Blood Count 6.9 4.8 - 10.8 X10*3/uL [facility] Red Blood Count 4.90 4.20 - 5.50 X10*6/uL [facility] Hemoglobin 13.8 12.0 - 16.0 g/dl [facility] Hematocrit 42.1 37.0 - 47.0 % [facility] Mean Corpuscular Volume 85.9 80.0 - 98.0 fL [facility] Mean Corpuscular Hemoglobin 28.2 27.0 - 33.0 pg [facility] Mean Corpuscular HGB Conc 32.8 31.0 - 35.0 g/dl [facility] Red Cell Distribution Width 12.1 11.0 - 16.0 % [facility] Platelet Count 268 160 - 400 X10*3/uL [facility] Mean Platelet Volume 11.6 9.4 - 12.3 fL [facility] NRBC Pct Auto 0.0 0.0 - 0.2 /100WBC [facility] NRBC Abs Auto 0.000 0.0 - 0.012 X10*3/uL [facility] Blood Venous blood specimen / Unknown 08/19/2024 11:15 AM EST 08/19/2024 1:05 PM EST Barbara Triplett DO LAB BLOOD ORDERABLES Final R esult Performing Organization Address City/[facility]/ZIP Co de Phone Number [facility] [address] [place] [phone] [phone] * TSH (08/19/2024 11:15 AM EST) Thyroid Stimulating Hormone 0.87 0.32 - 4.0 uIU/mL [facility] Comment:TSH 3rd Generation ( [facility]) Blood Venous blood specimen / Unknown 08/19/2024 11:15 AM EST 08/19/2024 1:05 PM EST Barbara Ioana DO LAB BLOOD ORDERABLES Final R esult Performing Organization Address City/[facility]/ZIP Co de Phone Number [facility] [address] [place] [phone] * T4, Free (08/19/2024 11:15 AM EST) Free T4 (Free Thyroxine) 1.21 0.71 - 1.85 ng/dL [facility] Blood Venous blood specimen / Unknown 08/19/2024 11:15 AM EST 08/19/2024 1:05 PM EST Barbara Ioana DO LAB BLOOD ORDERABLES Final R esult Performing Organization Address City/[facility] Co de Phone Number [facility] [address] [place] [phone] * Hemoglobin A1c (08/19/2024 11:15 AM EST) Hemoglobin A1c 5.3 <6.0 % [facility] Comment:Hemoglobin A1C Refer ence Range Adults: 4.8 - 6.0 % Non diabetic: < 6.0 % Goal: < 7.0 %Additional Action Suggested: > 8.0 %Note: Hemoglobin A1c results are invalid for patients with abnormal amounts of HbF. Blood transfusions may impact the HbA1c concentration in the patient sample. Estimated Average Glucose 105 mg/dL [facility] Comment:eAG = Estimated ave rage glucose which is %A1C expressed asaverage glucose, using the formula of the [id number] Glucose study (ADAG), Diabetes Care, Vol.31,#8,2007 Blood Venous blood specimen / Unknown 08/19/2024 11:15 AM EST 08/19/2024 1:05 PM EST Barbara Triplett LAB BLOOD ORDERABLES Final R esult Performing Organization Address City/[facility]/ZIP Co de Phone Number [facility] [address] [place] [phone] * Hepatic Function Panel (08/19/2024 11:15 AM EST) Bilirubin, Total 0.4 0.0 - 1.0 mg/dL [facility] Bilirubin, Direct 0.1 0.0 - 0.5 mg/dL [facility] Aspartate Amino Transferase 23 5 - 31 U/L [facility] Alanine Aminotransferase 17 0 - 31 U/L [facility] Total Protein 7.8 6.5 - 8.0 g/dL [facility] Albumin Level 3.9 3.5 - 5.0 g/dL [facility] Alkaline Phosphatase 81 39 - 117 U/L [facility] Blood Venous blood specimen / Unknown 08/19/2024 11:15 AM EST 08/19/2024 1:05 PM EST Barbara Triplett DO LAB BLOOD ORDERABLES Final R esult Performing Organization Address City/[facility]/ZIP Co de Phone Number [facility] [address] [place] [phone] * (ABNORMAL) Lipid Panel, Standard (08/19/2024 11:15 AM EST) Triglycerides 120 <150 mg/dL [facility] Comment:Desirable Triglyceri de: less than 150 mg/dLBorderline High Triglyceride 150-199 mg/dLHigh Triglyceride: 200-499 mg/dLVery High Triglyceride: greater than or equal to 5OO mg/dL Cholesterol 246(H) <200 mg/dL [facility] Comment:Desirable Cholestero l: less than 200 mg/dLBorderline High Cholesterol: 200-239 mg/dLHigh Cholesterol: greater than 239 mg/dL LDL Cholesterol Calculated 176(H) <100 mg/dL [facility] Comment:Desirable LDL: less than 100 mg/dLNear Optimal/Above Optimal LDL: 110- 129 mg/dLBorderline High LDL: 130-159 mg/dLHigh LDL: 160-189 mg/dLVery High LDL: greater than or equal to 190 mg/dL HDL Cholesterol 46 >40 mg/dL [facility] Comment:Desirable HDL: great er than 40 mg/dL Note: This HDL assay may give artificially low results in patients with liver disease. Blood Venous blood specimen / Unknown 08/19/2024 11:15 AM EST 08/19/2024 1:05 PM EST us Barbara Triplett DO LAB BLOOD ORDERABLES Final R esult [facility] [address] [place] [address] [phone] * (ABNORMAL) Basic Metabolic Panel (08/19/2024 11:15 AM EST) Sodium 138 135 - 145 mmol/L [facility] Potassium 4.3 3.3 - 5.1 mmol/L [facility] Chloride 107 96 - 108 mmol/L [facility] Carbon Dioxide 25 22 - 29 mmol/L [facility] Anion Gap 10(L) 12 - 20 [facility] Urea Nitrogen (BUN) 15 9 - 16 mg/dL [facility] Creatinine, Serum 0.67 0.5 - 1.4 mg/dL [facility] Estimated Glomerular Filt Rate >60 [facility] Comment:Chronic Kidney Disea se: Estimated GFR < 60 mL/min/[id number] Kidney Disease: Estimated GFR < 15 mL/min/1.73m2 Glucose 81 60 - 115 mg/dL [facility] Calcium 9.3 8.4 - 10.2 mg/dL [facility] Blood Venous blood specimen / Unknown 08/19/2024 11:15 AM EST 08/19/2024 1:05 PM EST us Barbara Ioana DO LAB BLOOD ORDERABLES Final R esult [facility] [address] [place] [phone] * BI Mammogram Screening Tomosynthesis Bilateral (05/03/2024 2:00 PM EDT) Anatomical Region Laterality Modality Breast Bilateral Mammography 05/03/2024 2:00 PM EDT Narrative 05/11/2024 10:49 AM EST ? [facility] ? [address] ?[place] [address] ? Mammography Report ? Signed ? Patient: Rowley,Quan ?MR#: [id number] ?? 82 ? : 1975 ?Acct:[id number] ? Age/Sex: 49 / F ?ADM Date: 05/03/24 ? Loc: HO.MAMMO ? Attending Dr: Barbara Triplett DO ? Ordering Physician: Barbara Triplett DO ?Results: 1N ?? egative ? Date of Service: 05/03/24 ?Follow Up: 1 Year From Orig ?? inal Mammogram ? Procedure(s): MM tomosynthesis screening BI ?? Accession Number(s): [id number] ? cc: Barbara Triplett DO ? EXAMINATION: [...] DD/ 1400 ? TD/TT: 05/03/24 1421 ? Ball Warper Tender: ? Procedure Note Yovanny Gutierres - 05/11/2024 [facility] [address] [place] [address] Dr. [place], [place] [address] Mammography Report Signed Patient: Quan Rowley#: [id number] 82 : 1975Acct:[id number] Age/Sex: 49 / FADM Date: 05/03/24 Loc: HO.MAMMO Attending Dr: Barbara Triplett DO Ordering Physician: Barbara Triplettults: 1N egative Date of Service: 05/03/24Follow Up: 1 Year From Orig ina Mammogram Procedure(s): MM tomosynthesis screening BI Accession Number(s): [id number] cc: Barbara Triplett DO EXAMINATION: MM SCREENING [...] 05/11/24 1046 DD/ 1400 TD/TT: 05/03/24 1421 Ball Warper Tender: Barbara Triplett DO IMG BI PROCEDURES Final Resu lt * Hepatitis C Antibody with Reflex to HCV, RNA, Quantitative, Real-Time PCR (07/29/2023 11:06 AM EST) Hepatitis C Antibody Nonreactive Nonreactive [facility] Comment:Antibodies to HCV no t detected; does not exclude early acuteHCV infection. 07/29/2023 11:0 6 AM EST 07/29/2023 1:42 PM EST Barbara Triplett DO LAB BLOOD ORDERABLES Final R esult [facility] [address] [place] [phone] * HIV-1/2 Antigen and Antibodies, Fourth Generation, with Reflexes (07/29/2023 11:06 AM EST) HIV AB/AG Nonreactive Nonreactive [facility] Comment:HIV-1 p24 Ag and/or HIV-1/HIV-2 Ab not detected.A test result that is nonreactive does not exclude thepossibility of exposure to or infection with HIV-1 and/orHIV-2. Nonreactive results in this assay for individualswith prior exposure to HIV-1 and/or HIV-2 may be due toantigen and antibody levels that are below the limit ofdetection of this assay.The rimidi HIV Ag/Ab Combo assay result andsupplemental assay results should be interpreted inconjunction with the patient's clinical presentation,history and other laboratory results. If the results areinconsistent with clinical evidence, additional testing issuggested to confirm the result. Blood Venous blood specimen / Unknown 07/29/2023 11:06 AM EST 07/29/2023 1:42 PM EST Barbara Triplett DO LAB BLOOD ORDERABLES Final R esult [facility] [address] [place] [phone] * Colonoscopy (01/10/2022 11:40 AM EDT) Historical Provider HEALTH MAINTENANCE Final Result * Pap Smear (11/20/2021) Pap Negative for intraephithelial lesion or malignancy Negative for intraephithelial lesion or malignancy, Other HPV Undetected Historical Provider HEALTH MAINTENANCE Final Result from Last 3 Months or Most Recently Relevant to Health Maintenance Insurance Care Teams Cotton Weigher Relationship Specialty Start Date End Date Barbara Triplett DO [address] [place] [phone] PCP - General Family Medicine 03/14/13
--- OUTSIDE RECORDS SUMMARY | 2024-10-05 17:16 | XMS_ITS | Encounter Summary ---
Author Organization [employer] Address [address] [place] [address] 7t [place] [address] Care Team Providers Care Customer Care Agent Name Role Phone Barbara Triplett DO Primary Care Provider Encounter Details Date Type Department Care Team ([facility] st Contact Info) Description 12/30/2022 Orders Only [facility] [address] [place] [address] Barbara Rider LPN Social History Tobacco Use [...] documented as of this encounter Care Teams Customer Care Agent Relationship Specialty Start Date End Date Barbara Triplett DO [address] [place] [address] PCP - General Family Medicine 03/14/13 documented as of this encounter
--- OUTSIDE RECORDS SUMMARY | 2024-10-05 17:16 | XMS_ITS | Encounter Summary ---
Author Organization [employer] Address [address] [facility] 7 [place] [address] Care Team Providers Care Boss Dyer Name Role Phone Barbara Triplett DO Primary Care Provider + [phone] Reason for Visit * Reason Comments Med Refill Encounter Details Date Type Department Care Team (Late st Contact Info) Description 04/07/2024 Refill [facility] [address] [place] [address] Barbara Triplett DO [address] [place] [address] Joana Social History Tobacco Use Types Packs/Day [...] documented as of this encounter Care Teams Boss Dyer Relationship Specialty Start Date End Date Barbara Triplett DO [address] [place] [phone] PCP - General Family Medicine 03/14/13 documented as of this encounter
--- OUTSIDE RECORDS SUMMARY | 2024-10-05 17:16 | XMS_ITS | Encounter Summary ---
Author Organization [employer] Address [address] [facility] 7t [place] [address] Care Team Providers Care Senior Internal Auditor Name Role Phone LitzyBarbara avalos Primary Care Provider + [phone] Encounter Details Date Type Department Care Team (Late st Contact Info) Description 04/10/2023 Abstract [facility] [address] [place] [address] Deyanira Olivares Social History Tobacco Use Types [...] documented as of this encounter Care Teams Senior Internal Auditor Relationship Specialty Start Date End Date Barbara Triplett DO [address] [place] [phone] PCP - General Family Medicine 03/14/13 documented as of this encounter
[2024-10-06 02:31] LABS: CT PCR NOT DETECTED (Not Detect.); NG PCR NOT DETECTED (Not Detect.)
[2024-10-06 08:31] LABS: Syphilis Screen Nonreactive (Nonreactive)
[2024-10-06 08:46] LABS: HBc Num1 0.09 S/CO (0.00-0.79); HIV AB/AG Nonreactive (Nonreactive); HIV Num 1 0.08 S/CO (0.00-0.99); Hepatitis B Core Antibody Nonreactive (Nonreactive); ~Hepatitis C Antibody Nonreactive (Nonreactive)
[2024-10-06 08:55] LABS: Bacterial Vaginosis PCR NEGATIVE (Negative); Candida Group PCR NOT DETECTED (Not Detect); Candida glab krusei PCR NOT DETECTED (Not Detect); Trichomonas vaginalis PCR NOT DETECTED (Not Detect)
== END 2024-10-05 14:03 | disposition home or self-care (01) ==
LOC: HO.LAB 14:02
PROVIDERS: PCP Family Medicine; Visit Provider Advanced Practice Midwife
DX: Z01.419 Encounter for gynecological examination (general) (routine) without abnormal findings (principal); Z20.2 Contact with and (suspected) exposure to infections with a predominantly sexual mode of transmission
CPT/HCPCS: 81515; 86704; 86780; 86803; 87389; 87491; 87591; 99396; 99459

== ENCOUNTER 2024-10-05 14:02 | Outpatient (AMB) | payer OTHER, SELFPAY ==
--- NOTE | 2024-10-05 14:05 | A.OFFVIS_ITS ---
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 She is doing well with directional survey drafter concerns. Dx. w/Adenomyosis, pelvic discomfort. Mirena in place for AUB, has random bleeding. Currently sexually active, uses. Denies any vaginal dryness or irritation. STI testing offered; she accepts, desires bloodwork. Attempting to eat a healthy diet with calcium and vitamin D and stays active with exercise. Last pap smear; 2021, negative. Last mammogram; 2023. Colonoscopy is UTD. Family history of ovarian or colon cancer. [facility] Medical History (Updated 10/05/24 @ 14:38 by Martha Rowe CNM) Pelvic pain in female IUD (intrauterine device) in place Adenomyosis Diverticulosis Morbid obesity with BMI of 45.0-49.9, adult H/O hidradenitis suppurativa Hx of ectopic Hx of herpes simplex infection History of high cholesterol Hx of essential hypertension History of PCOS Surgical History History of dermoid cyst excision Hx of dilation and curettage History of unilateral fallopian tube excision Family History Father Hx of cancer of lung Mother History of asthma Family hx of hypertension History of high cholesterol Maternal Grandmother Hx of acute arthritis Family hx of hypertension History of angina History of high cholesterol Hx of diabetes mellitus Maternal Grandfather Family hx of hypertension Hx of completed stroke Family/Other Ovarian cancer Family/Other Colon cancer Social History Alcohol intake: never Patient Tobacco Use Status: Never used Tobacco Female Reproductive History Menstrual Age of Menarche: 12 Date of last menstrual period: 09/05/24 control method: progestin IUCD (Mirena 05/24/21) Total pregnancies: 1 Number of Living Children: 0 Ectopics: 1 Date of last pap smear: 11/20/21 (neg pap and hpv) Date of Mammogram: 05/03/24 (Birad 1) Review of Systems Const All systems reviewed & are unremarkable except as noted in HPI and below Reports as per HPI Eyes Reports no additional complaints ENT Reports no additional complaints Card Reports no additional complaints Resp Reports no additional complaints GI Reports as per HPI and Reports no additional complaints Reports as per HPI Musc Reports no additional complaints Skin/Breast Reports as per HPI Neuro Reports no additional complaints Psych Reports no additional complaints Endo Reports no additional complaints Dereje/Lymph Reports no additional complaints Aller/Immun Reports no additional complaints Physical Exam Vital Signs: BMI result Body Mass Index 42.8 Const General: cooperative, healthy appearing, no acute distress, well developed and alert Orientation/consciousness: patient oriented x3 HEENT Head: Yes normal to inspection Eyes General: appearance normal, both eyes and all related structures Neck Neck: Yes normal visual inspection Thyroid: Thyroid normal Chest Chest palpation & inspection: normal inspection of the chest and other (no puckering, dimpling, peau de orange, retraction, discharge, masses) Breast/axilla inspection: normal inspection of the breasts Breast/axilla palpation: normal palpation of the breasts Resp Effort & Inspection: normal respiratory effort GI Inspection: Yes normal to inspection Palpation (GI): Soft to palpation Rectal Exam - Female: deferred Other: HS symptoms of vulva General: Yes bladder normal to palpation External Female Exam: normal external appearance and normal appearance of the urethra Speculum Exam - Vagina: normal appearance of the vagina, normal palpation and normal vaginal discharge Speculum Exam - Cervix: normal appearance of the cervix, normal palpation and Other cervical findings present (IUD strings at the os) Bimanual exam- vagina & uterus: normal bimanual exam, normal palpation, uterine size normal, bladder normal to palpation, normal palpation and non-tender Bimanual Exam- Adnexa, other: no masses Skin Other: HS symptoms bilateral axilla and under breast General skin exam: no rashes or lesions noted Rashes: no rashes Neuro General: patient oriented x3 Cognition (Neuro): normal cognition Extrem General: Yes normal to inspection Psych Attitude: cooperative Thought process: Normal thought process present Assessment & Plan Assessment & Plan (1) Encounter for well woman exam with routine gynecological exam: Code(s): Z01.419 - Encounter for gynecological examination (general) (routine) without abnormal findings Category: Medical Plan Discussed: Current recommendations for pap smears per ASCCP guidelines. Breast awareness and periodic breast exams. Mammogram yearly. Maintain a healthy lifestyle including a well balanced diet and routine e xercise. Use condoms for STI prevention. Follow up with dermatology for HS. Patient verbalizes understanding and agrees to the plan of care. She was given opportunity to ask questions and all questions were answered to the best of my ability. RTO in one year for annual directional survey drafter examination. This note is constructed using voice recognition software. While every effort has been made to ensure accuracy, churn operator errors may have been included. Orders: Orders Bacterial Vaginosis Panel Today Z20.2 - Contact with and (suspected) exposure to infections with a predominantly sexual mode of transmission CT NG by PCR Today Z20.2 - Contact with and (suspected) exposure to infections with a predominantly sexual mode of transmission Hepatitis C Antibody Reflex Today Z20.2 - Contact with and (suspected) exposure to infections with a predominantly sexual mode of transmission Hepatitis B Core Antibody Today Z20.2 - Contact with and (suspected) exposure to infections with a predominantly sexual mode of transmission Syphilis Screen Today Z20.2 - Contact with and (suspected) exposure to infections with a predominantly sexual mode of transmission HIV Ab/Ag Today Z20.2 - Contact with and (suspected) exposure to infections with a predominantly sexual mode of transmission Coding Level of Care Code Est Pt Prev Care 40-64y([address]80) Diagnoses Encounter for well woman exam with routine gynecological exam Z01.419
[2024-10-05 14:06] VITALS: BP 120/80; BMI 42.8
--- OUTSIDE RECORDS SUMMARY | 2024-10-05 16:48 | XMS_ITS | Encounter Summary ---
Author Organization [employer] Address [address] [facility] 7t [place] [address] Care Team Providers Care Acid Supervisor Name Role Phone IoanaBarbara Primary Care Provider + [phone] Encounter Details Date Type Department Care Team (Late st Contact Info) Description 10/13/2023 Orders Only [facility] MEDICINE [address] [place] [address] ProviderSussy MD Social History Tobacco Use Types [...] documented as of this encounter Care Teams Acid Supervisor Relationship Specialty Start Date End Date Barbara Triplett DO [address] [place] [phone] PCP - General Family Medicine 03/14/13 documented as of this encounter
--- OUTSIDE RECORDS SUMMARY | 2024-10-05 16:48 | XMS_ITS | Encounter Summary ---
Author Organization [employer] Address [address] [place] [address] 7t [place] [address] Care Team Providers Care Hydro Operator Name Role Phone Barbara Triplett DO Primary Care Provider Encounter Details Date Type Department Care Team ([facility] st Contact Info) Description 12/30/2022 Orders Only [facility] & PEDS [address] [place] [address] Barbara Rider LPN Social History Tobacco Use [...] documented as of this encounter Care Teams Hydro Operator Relationship Specialty Start Date End Date Barbara Triplett DO [address] [place] [address] PCP - General Family Medicine 03/14/13 documented as of this encounter
--- OUTSIDE RECORDS SUMMARY | 2024-10-05 16:48 | XMS_ITS | Encounter Summary ---
Author Organization [employer] Address [address] [place] [address] 7 [place] [address] Care Team Providers Care Painter Spring Name Role Phone Barbara Triplett DO Primary Care Provider + [phone] Reason for Visit * Reason Onset Date Comments Nurse Triage 03/25/2023 Encounter Details Date Type Department Care Team ([facility] st Contact Info) Description 03/25/[address] [facility] [address] [place] [address] Barbara Triplett DO [address] [place] [address] Nurse Triage Social History Tobacco Use Types [...] effectively decreasing the rash come to [facility] to be seen byprovider. Pt agrees [...] documented as of this encounter Care Teams Painter Spring Relationship Specialty Start Date End Date Barbara Triplett DO [address] [place] [phone] PCP - General Family Medicine 03/14/13 documented as of this encounter
--- OUTSIDE RECORDS SUMMARY | 2024-10-05 16:48 | XMS_ITS | Clinical Summary ---
Author Organization [employer] Address [address] [place] [address] 7t [place] [address] Care Team Providers Care Fast Food Shift Supervisor Name Role Phone Barbara Triplett Primary Care [...] Description 08/19/2024 10:00 AM EST Office Visit [facility] [address] [place] [address] Barbara Triplett DO Essential hypertension (Primary Dx); Other hyperlipidemia; Depressive disorder; Fatty liver; Chronic gastroesophageal reflux disease; Chronic pelvic pain; Multiple thyroid nodules; Dizziness; Healthcare maintenance 08/19/2024 Travel 08/04/2024 Refill [facility] [address] [place] [address] Barbara Triplett DO 08/03/2024 Telephone [facility] [address] [place] [address] Barbara Triplett DO Nurse Triage 07/21/2024 Travel [...] Vitamin D 25-OH Total 27.5(L) >30 ng/mL [facility] Comment:Health Based Referen ce Values*< 20 ng/mL Ycwxvqdky02-27 ng/mL Insufficient> 30 ng/mL Sufficient*Aaron PELAEZ. N [...] DO LAB BLOOD ORDERABLES Final R esult [facility] [address] [place] [phone] * Albumin, Random Urine W/Creatinine (08/19/2024 11:15 AM EST) Creatinine, Urine 74.50 mg/dL [facility] Microalbumin Urine 11.0 mg/L [facility] Microalbum Creatinine Ratio Ur 14.7 <30 ug/mg cr [facility] Comment:Albumin/Creatinine R atio Reference Ranges: Normal: < 30 ug/mg creatinine Microalbuminuria: 30 - 300 ug/mg creatinineClinical Albuminuria: > 300 ug/mg creatinine Urine (Urine, Random) 08/19/2024 11:15 AM EST 08/19/2024 1:01 PM EST Barbara Triplett DO LAB URINE ORDERABLES Final R esult Performing Organization Address City/[facility]/ZIP Co de Phone Number [facility] [address] [place] [phone] [phone] * CBC (08/19/2024 11:15 AM EST) White Blood Count 6.9 4.8 - 10.8 X10*3/uL [facility] Red Blood Count 4.90 4.20 - 5.50 X10*6/uL [facility] Hemoglobin 13.8 12.0 - 16.0 g/dl [facility] Hematocrit 42.1 37.0 - 47.0 % [facility] Mean Corpuscular Volume 85.9 80.0 - 98.0 fL [facility] Mean Corpuscular Hemoglobin 28.2 27.0 - 33.0 pg [facility] Mean Corpuscular HGB Conc 32.8 31.0 - 35.0 g/dl [facility] Red Cell Distribution Width 12.1 11.0 - 16.0 % [facility] Platelet Count 268 160 - 400 X10*3/uL [facility] Mean Platelet Volume 11.6 9.4 - 12.3 fL [facility] NRBC Pct Auto 0.0 0.0 - 0.2 /100WBC [facility] NRBC Abs Auto 0.000 0.0 - 0.012 X10*3/uL [facility] Blood Venous blood specimen / Unknown 08/19/2024 11:15 AM EST 08/19/2024 1:05 PM EST Barbara Triplett DO LAB BLOOD ORDERABLES Final R esult Performing Organization Address City/[facility]/ZIP Co de Phone Number [facility] [address] [place] [phone] * TSH (08/19/2024 11:15 AM EST) Thyroid Stimulating Hormone 0.87 0.32 - 4.0 uIU/mL [facility] Comment:TSH 3rd Generation ( [facility]) Blood Venous blood specimen / Unknown 08/19/2024 11:15 AM EST 08/19/2024 1:05 PM EST Barbara Ioana DO LAB BLOOD ORDERABLES Final R esult Performing Organization Address City/[facility]/ZIP Co de Phone Number [facility] [address] [place] [phone] * T4, Free (08/19/2024 11:15 AM EST) Free T4 (Free Thyroxine) 1.21 0.71 - 1.85 ng/dL [facility] Blood Venous blood specimen / Unknown 08/19/2024 11:15 AM EST 08/19/2024 1:05 PM EST Barbara Ioana DO LAB BLOOD ORDERABLES Final R esult Performing Organization Address City/[facility] Co de Phone Number [facility] [address] [place] [phone] * Hemoglobin A1c (08/19/2024 11:15 AM EST) Hemoglobin A1c 5.3 <6.0 % [facility] Comment:Hemoglobin A1C Refer ence Range Adults: 4.8 - 6.0 % Non diabetic: < 6.0 % Goal: < 7.0 %Additional Action Suggested: > 8.0 %Note: Hemoglobin A1c results are invalid for patients with abnormal amounts of HbF. Blood transfusions may impact the HbA1c concentration in the patient sample. Estimated Average Glucose 105 mg/dL [facility] Comment:eAG = Estimated ave rage glucose which is %A1C expressed asaverage glucose, using the formula of the F6U-OeqrwmrAyknkje Glucose study (ADAG), Diabetes Care, Vol.31,#8,2007 Blood Venous blood specimen / Unknown 08/19/2024 11:15 AM EST 08/19/2024 1:05 PM EST Barbara Triplett LAB BLOOD ORDERABLES Final R esult Performing Organization Address City/[facility]/ZIP Co de Phone Number [facility] [address] [place] [phone] * Hepatic Function Panel (08/19/2024 11:15 AM EST) Bilirubin, Total 0.4 0.0 - 1.0 mg/dL [facility] Bilirubin, Direct 0.1 0.0 - 0.5 mg/dL [facility] Aspartate Amino Transferase 23 5 - 31 U/L [facility] Alanine Aminotransferase 17 0 - 31 U/L [facility] Total Protein 7.8 6.5 - 8.0 g/dL [facility] Albumin Level 3.9 3.5 - 5.0 g/dL [facility] Alkaline Phosphatase 81 39 - 117 U/L [facility] Blood Venous blood specimen / Unknown 08/19/2024 11:15 AM EST 08/19/2024 1:05 PM EST Barbara Triplett DO LAB BLOOD ORDERABLES Final R esult Performing Organization Address City/[facility]/ZIP Co de Phone Number [facility] [address] [place] [phone] * (ABNORMAL) Lipid Panel, Standard (08/19/2024 11:15 AM EST) Triglycerides 120 <150 mg/dL [facility] Comment:Desirable Triglyceri de: less than 150 mg/dLBorderline High Triglyceride 150-199 mg/dLHigh Triglyceride: 200-499 mg/dLVery High Triglyceride: greater than or equal to 5OO mg/dL Cholesterol 246(H) <200 mg/dL [facility] Comment:Desirable Cholestero l: less than 200 mg/dLBorderline High Cholesterol: 200-239 mg/dLHigh Cholesterol: greater than 239 mg/dL LDL Cholesterol Calculated 176(H) <100 mg/dL [facility] Comment:Desirable LDL: less than 100 mg/dLNear Optimal/Above Optimal LDL: 110- 129 mg/dLBorderline High LDL: 130-159 mg/dLHigh LDL: 160-189 mg/dLVery High LDL: greater than or equal to 190 mg/dL HDL Cholesterol 46 >40 mg/dL [facility] Comment:Desirable HDL: great er than 40 mg/dL Note: This HDL assay may give artificially low results in patients with liver disease. Blood Venous blood specimen / Unknown 08/19/2024 11:15 AM EST 08/19/2024 1:05 PM EST us Barbara Triplett DO LAB BLOOD ORDERABLES Final R esult [facility] [address] [place] [address] [phone] * (ABNORMAL) Basic Metabolic Panel (08/19/2024 11:15 AM EST) Sodium 138 135 - 145 mmol/L [facility] Potassium 4.3 3.3 - 5.1 mmol/L [facility] Chloride 107 96 - 108 mmol/L [facility] Carbon Dioxide 25 22 - 29 mmol/L [facility] Anion Gap 10(L) 12 - 20 [facility] Urea Nitrogen (BUN) 15 9 - 16 mg/dL [facility] Creatinine, Serum 0.67 0.5 - 1.4 mg/dL [facility] Estimated Glomerular Filt Rate >60 [facility] Comment:Chronic Kidney Disea se: Estimated GFR < 60 mL/min/1.80p5Hfhmuf Kidney Disease: Estimated GFR < 15 mL/min/1.73m2 Glucose 81 60 - 115 mg/dL [facility] Calcium 9.3 8.4 - 10.2 mg/dL [facility] Blood Venous blood specimen / Unknown 08/19/2024 11:15 AM EST 08/19/2024 1:05 PM EST us Barbara Ioana DO LAB BLOOD ORDERABLES Final R esult [facility] [address] [facility] [place] [phone] * BI Mammogram Screening Tomosynthesis Bilateral (05/03/2024 2:00 PM EDT) Anatomical Region Laterality Modality Breast Bilateral Mammography 05/03/2024 2:00 PM EDT Narrative 05/11/2024 10:49 AM EST ? [facility] ? [address] ?[place] [id number] ? Mammography Report ? Signed ? Patient: Rowley,Quan ?MR#: [id number] ?? 82 ? : 1975 ?Acct:[id number] ? Age/Sex: 49 / F ?ADM Date: 05/03/24 ? Loc: HO.MAMMO ? Attending Dr: Barbara Triplett DO ? Ordering Physician: Barbara Triplett DO ?Results: 1N ?? egative ? Date of Service: 05/03/24 ?Follow Up: 1 Year From Orig ?? inal Mammogram ? Procedure(s): MM tomosynthesis screening BI ?? Accession Number(s): [id number] ? cc: Barbara Triplett DO ? EXAMINATION: [...] DD/ 1400 ? TD/TT: 05/03/24 1421 ? Patient Care Associate: ? Procedure Note Yovanny Gutierres - 05/11/2024 [facility] [address] [place] [address] Dr. [place], [place] [address] Mammography Report Signed Patient: Quan Rowley#: [id number] : 1975Acct:[id number] Age/Sex: 49 / FADM Date: 05/03/24 Loc: HO.MAMMO Attending Dr: Barbara Triplett DO Ordering Physician: Barbara Triplettults: 1N egative Date of Service: 05/03/24Follow Up: 1 Year From Orig ina Mammogram Procedure(s): MM tomosynthesis screening BI Accession Number(s): [id number] cc: Barbara Triplett DO EXAMINATION: MM SCREENING [...] 05/11/24 1046 DD/ 1400 TD/TT: 05/03/24 1421 Patient Care Associate: Barbara Triplett DO IMG BI PROCEDURES Final Resu lt * Hepatitis C Antibody with Reflex to HCV, RNA, Quantitative, Real-Time PCR (07/29/2023 11:06 AM EST) Hepatitis C Antibody Nonreactive Nonreactive [facility] Comment:Antibodies to HCV no t detected; does not exclude early acuteHCV infection. 07/29/2023 11:0 6 AM EST 07/29/2023 1:42 PM EST Barbara Triplett DO LAB BLOOD ORDERABLES Final R esult [facility] [address] [place] [phone] * HIV-1/2 Antigen and Antibodies, Fourth Generation, with Reflexes (07/29/2023 11:06 AM EST) HIV AB/AG Nonreactive Nonreactive [facility] Comment:HIV-1 p24 Ag and/or HIV-1/HIV-2 Ab not detected.A test result that is nonreactive does not exclude thepossibility of exposure to or infection with HIV-1 and/orHIV-2. Nonreactive results in this assay for individualswith prior exposure to HIV-1 and/or HIV-2 may be due toantigen and antibody levels that are below the limit ofdetection of this assay.The Adlyfe HIV Ag/Ab Combo assay result andsupplemental assay results should be interpreted inconjunction with the patient's clinical presentation,history and other laboratory results. If the results areinconsistent with clinical evidence, additional testing issuggested to confirm the result. Blood Venous blood specimen / Unknown 07/29/2023 11:06 AM EST 07/29/2023 1:42 PM EST Barbara Triplett DO LAB BLOOD ORDERABLES Final R esult [facility] [address] [place] [phone] * Colonoscopy (01/10/2022 11:40 AM EDT) Historical Provider HEALTH MAINTENANCE Final Result * Pap Smear (11/20/2021) Pap Negative for intraephithelial lesion or malignancy Negative for intraephithelial lesion or malignancy, Other HPV Undetected Historical Provider HEALTH MAINTENANCE Final Result from Last 3 Months or Most Recently Relevant to Health Maintenance Insurance Care Teams Fast Food Shift Supervisor Relationship Specialty Start Date End Date Barbara Triplett DO [address] [place] [phone] PCP - General Family Medicine 03/14/13
--- OUTSIDE RECORDS SUMMARY | 2024-10-05 16:48 | XMS_ITS | Encounter Summary ---
Author Organization [employer] Address [address] [place] [address] 7 [place] [address] Care Team Providers Care Allergy Specialist Name Role Phone Barbara Triplett DO Primary Care Provider + [phone] Reason for Visit * Reason Onset Date Comments Nurse Triage 08/03/2024 Encounter Details Date Type Department Care Team ([facility] st Contact Info) Description 08/03/2024 Telephone [facility] [address] [place] [address] Barbara Triplett DO [address] [place] [address] Nurse Triage Social History Tobacco Use Types [...] today. Pt does report being at a green party over the weekend where the cake [...] caller accepted this outcome. Contact pt at [phone] documented in this encounter Plan of Treatment Not on file documented as of this encounter Visit Diagnoses Not on filedocumented in this encounter Additional Health Concerns Assessment Noted Time PHQ-9 Depression Total Score: 3 12/01/19 24 10:50 AM EDT documented as of this encounter Care Teams Allergy Specialist Relationship Specialty Start Date End Date Barbara Triplett DO [address] [place] [address] PCP - General Family Medicine 03/14/13 documented as of this encounter
--- OUTSIDE RECORDS SUMMARY | 2024-10-05 16:48 | XMS_ITS | Encounter Summary ---
Author Organization [employer] Address [address] [facility] 7 [place] [address] Care Team Providers Care Snowboard Designer Name Role Phone Barbara Triplett DO Primary Care Provider + [phone] Reason for Visit * Reason Comments Med Refill Encounter Details Date Type Department Care Team (Late st Contact Info) Description 04/07/2024 Refill [facility] [address] [place] [address] Barbara Triplett DO [address] [place] [address] Joana Social History Tobacco Use Types Packs/Day [...] your housing situation today? I have layo suaer 12/01/[address] you li [...] documented as of this encounter Care Teams Snowboard Designer Relationship Specialty Start Date End Date Barbara Triplett DO [address] [place] [phone] PCP - General Family Medicine 03/14/13 documented as of this encounter
--- OUTSIDE RECORDS SUMMARY | 2024-10-05 16:48 | XMS_ITS | Encounter Summary ---
Author Organization [employer] Address [address] [facility] 7t [place] [address] Care Team Providers Care Splicing Technician Name Role Phone LitzyBarbara avalos Primary Care Provider + [phone] Encounter Details Date Type Department Care Team (Late st Contact Info) Description 04/10/2023 Abstract [facility] [address] [place] [address] Deyanira Olivares Social History Tobacco Use Types [...] documented as of this encounter Care Teams Splicing Technician Relationship Specialty Start Date End Date Barbara Triplett DO [address] [place] [address] PCP - General Family Medicine 03/14/13 documented as of this encounter
--- OUTSIDE RECORDS SUMMARY | 2024-10-05 16:48 | XMS_ITS | Clinical Summary ---
Author Organization [address] [facility] Address [address] [place] [address] Phone Care Team Providers Care Wood Bucker Name Role Phone Mery Triplettnifer Zohreh ROBERSON Primary Care Provider [phone] Allergies Active Allergy Reactions Criticality Noted Date [...] to complete this topic Insurance MEDICAID - [place] Care Teams Wood Bucker Relationship Specialty Start Date End Date Barbara Triplett DO [address] [place], [place] PCP - General 07/30/23
--- OUTSIDE RECORDS SUMMARY | 2024-10-05 16:48 | XMS_ITS | Encounter Summary ---
Author Organization [employer] Address [address] [place] [address] 7t [place] [address] Care Team Providers Care House Nurse Name Role Phone Barbara Triplett Primary Care Provider + [phone] Reason for Visit * Reason Comments Med Refill Encounter Details Date Type Department Care Team ([facility] st Contact Info) Description 12/30/2022 Refill [facility] [address] [place] [address] Destiny Metcalf MD [address] [place] [address] Social History Tobacco Use Types Packs/Day Years [...] documented as of this encounter Care Teams House Nurse Relationship Specialty Start Date End Date Barbara Triplett DO [address] [place] [address] PCP - General Family Medicine 03/14/13 documented as of this encounter
--- OUTSIDE RECORDS SUMMARY | 2024-10-05 16:48 | XMS_ITS | Encounter Summary ---
Author Organization [employer] Address [address] [place] [address] 7 [place] [address] Care Team Providers Care Tobacco Sampler Name Role Phone Barbara Triplett DO Primary Care Provider [phone] Encounter Details Date Type Department Care Team ([facility] st Contact Info) Description 09/15/2022 Orders Only [facility] [address] [place] [address] Barbara Rider LPN Social History Tobacco Use [...] on filedocumented in this encounter Care Teams Tobacco Sampler Relationship Specialty Start Date End Date Barbara Triplett DO [address] [place] [address] PCP - General Family Medicine 03/14/13 documented as of this encounter
--- OUTSIDE RECORDS SUMMARY | 2024-10-05 16:48 | XMS_ITS | Encounter Summary ---
Author Organization [employer] Address [address] [place] [address] 7t [place] [address] Care Team Providers Care Engineering Job Titles Name Role Phone LitzyBarbara avalos Primary Care Provider + [phone] Reason for Visit * Reason Comments Med Refill Encounter Details Date Type Department Care Team ([facility] st Contact Info) Description 11/18/2022 Refill [facility] [address] [place] [address] Destiny Metcalf MD [address] [place] [address] Social History Tobacco Use Types Packs/Day Years [...] documented as of this encounter Care Teams Engineering Job Titles Relationship Specialty Start Date End Date Barbara Triplett DO [address] [place] [address] PCP - General Family Medicine 03/14/13 documented as of this encounter
== END 2024-10-05 15:18 | disposition home or self-care (01) ==
LOC: HO.HWS 14:02
PROVIDERS: PCP Family Medicine; Visit Provider Advanced Practice Midwife
DX: Z01.419 Encounter for gynecological examination (general) (routine) without abnormal findings (principal)
CPT/HCPCS: 99396; 99459

== ENCOUNTER 2024-10-05 14:35 | Outpatient (REF) | payer OTHER, SELFPAY | END 2024-10-05 14:36 | disposition home or self-care (01) | LOC: HO.LNP 14:35 | PROVIDERS: Visit Provider Advanced Practice Midwife | DX: Z13.89 Encounter for screening for other disorder (principal) ==

== ENCOUNTER 2025-02-17 09:47 | Outpatient (REF) | payer OTHER, SELFPAY ==
--- NOTE | ~2025-02-17 | US_ITS ---
EXAMINATION: US ABDOMEN LIMITED WITH LIVER ELASTOGRAPHY HISTORY: K76.0 - Fatty (change of) liver, not elsewhere classified TECHNIQUE: Real-time grayscale ultrasound imaging of the right upper quadrant was performed and images were reviewed. COMPARISON: Comparison is made with the prior examination dated 01/13/2024. FINDINGS: Liver: The right lobe of the liver measures 17.3 cm in size. The left lobe of the liver measures 7.5 cm in size. The liver demonstrates coarsened, mildly increased echotexture, consistent with steatosis. The liver contour appears slightly nodular. No focal mass or intrahepatic biliary ductal dilatation is identified. There is normal hepatopedal flow in the portal vein. Ultrasound elastography of the liver was performed with 10 separate measurements of the liver parenchyma with the patient in the supine position. Measurements were obtained approximately 2 cm below Pat's capsule and perpendicular to the capsule. The median shear wave velocity is 2.45 m/s. The interquartile range/median (IQR/median) is 0.08. Gallbladder and biliary tree: The gallbladder is unremarkable, without evidence of calculi, wall thickening, or pericholecystic fluid. There is no sonographic [place] sign. The common bile duct is normal in caliber measuring 4 mm. Right Kidney: The right kidney measures 12.2 cm in length. The right kidney is unremarkable, without evidence of masses, hydronephrosis, or calculi. Pancreas: The pancreatic head, neck, and body are unremarkable. The pancreatic tail is obscured by bowel gas. Abdominal aorta and inferior vena cava: The visualized portions of the abdominal aorta and inferior vena cava are normal in caliber. There is no free fluid in the right upper quadrant. US/US abdomen otoole w elastography IMPRESSION: Mild hepatic steatosis. Coarsened hepatic echotexture and a nodular liver contour, suggestive of cirrhosis. The median shear wave velocity in the liver is 2.45 m/s, corresponding to a median liver stiffness of 18.35 kPa. The IQR/median value is 0.08. This is indicative of a quality data set. Findings are indicative of a high elastography value indicating advanced chronic liver disease and portal hypertension. REFERENCE: Society of Radiologists in Ultrasound Liver Stiffness Thresholds (2020): LIVER STIFFNESS THRESHOLDS: *Shear wave velocity less than 1.3 m/s (Liver Stiffness equal or less than 5 kPa): High probability of being normal. *Shear wave velocity less than 1.7 m/s (Liver Stiffness less than 9 kPa): In the absence of other known clinical signs, rules out compensated advanced chronic liver disease. *Shear wave velocity between 1.7-2.1 m/s (Liver Stiffness 9-13 kPa): Suggestive of compensated advanced chronic liver disease but need further test for confirmation. *Shear wave velocity between 2.1-2.4 m/s (Liver Stiffness 13-17 kPa): Rules in compensated advanced chronic liver disease. *Shear wave velocity greater than 2.4 m/s (Liver Stiffness over 17 kPa): Suggestive of clinically significant portal hypertension. QUALITY OF DATA SET: *IQR/Median value equal or less than 0.15 implies a quality data set. *IQR/Median value over 0.15 implies a poor quality data set. SIGNIFICANT CHANGE FROM PRIOR EXAM: Significant change if liver stiffness measurement is 10% or greater from prior exam. OTHER CONSIDERATIONS: The stage of liver fibrosis may be overestimated in the setting of acute hepatitis, liver inflammation, elevated liver function tests, hepatic vascular congestion, obstructive cholestasis, non-fasting state, and infiltrative diseases such as amyloidosis and lymphoma. In some patients with NAFLD, the liver stiffness thresholds for compensated advanced chronic liver disease may be lower. In causes other than viral hepatitis and NAFLD, liver stiffness thresholds are not well established. Electronically signed by: Vignesh Puente MD 02/17/2025 10:57 AM EDT
--- OUTSIDE RECORDS SUMMARY | 2025-02-17 09:59 | XMS_ITS | Encounter Summary ---
Author Organization [employer] Address [address] [place] [address] 7 [place] [address] Care Team Providers Care Repairer Helper Name Role Phone Ioana Barbara Primary Care Provider + [phone] Encounter Details Date Type Department Care Team ([facility] st Contact Info) Description 10/13/2023 Orders Only [facility] [address] [place] [address] ProviderSussy MD Social History Tobacco Use Types [...] documented as of this encounter Care Teams Repairer Helper Relationship Specialty Start Date End Date Barbara Triplett DO [address] [place] [phone] PCP - General Family Medicine 03/14/13 documented as of this encounter
--- OUTSIDE RECORDS SUMMARY | 2025-02-17 09:59 | XMS_ITS | Clinical Summary ---
Author Organization [address] [facility] Address [address] [place] [address] Phone Care Team Providers Care Math And Physics Instructor Name Role Phone BerlinforeignMeryBarbara Zohreh ROBERSON Primary Care Provider [phone] Allergies Active Allergy Reactions Criticality Noted Date [...] Vaccine ( season) 2024 07/29/2023, 01/30/2021, 01/10/2021 Colorectal Cancer Screening: Colonoscopy 04/14/2024 Social Influencers of Health Screening 04/14/2024 Depression Screening 07/06/2024 Influenza Vaccine (#1) 2025 Hypertension/CHF/CAD Annual BMP Blood Test 04/08/2025 04/08/2024 [...] age to complete this topic Meningococcal B Vaccine Aged Out No l onger eligible based on patient's age to complete this topic Pneumococcal Vaccine: Pediatrics (0 to 5 Years) and At-Risk Patients (6 to 49 Years) Aged Out No longer eligible based on patient's age to complete this topic RSV Immunization Patients Under 20 months Aged Out No longer eligible based on patient's age to complete this topic Varicella Vaccines Aged Out No longer eligible based on patient's age to complete this topic Insurance MEDICAID - [place] Care Teams Math And Physics Instructor Relationship Specialty Start Date End Date Barbara Triplett DO [address] [place], [place] PCP - General 07/30/23
--- OUTSIDE RECORDS SUMMARY | 2025-02-17 09:59 | XMS_ITS | Clinical Summary ---
Author Organization [facility] Address [address] [address] Phone Care Team Providers Care Agriculture Extension Specialist Name Role Phone IoanaBarbara Primary Care Provider Allergies Active Allergy Reactions Criticality Noted Date Comments Mold Extracts 10/28/2021 Medications lisinopril (PRINIVIL,ZESTRI L) 10 MG tablet Take 10 mg by mouth daily. 2 Active loratadine (CLARITIN) 10 mg tablet Take 10 mg by mouth daily. 2 Active metFORMIN (GLUCOPHAGE) 500 MG tablet TAKE 2 TABLET BY MOUTH 2 TIMES EVERY DAY WITH MORNING AND EVENING MEALS 2 Active ibuprofen (ADVIL,MOTRIN) 800 MG tablet TAKE 1 TABLET BY MOUTH THREE TIMES A DAY WITH FOOD 2 Active doxycycline hyclate (DORYX) 100 MG tablet Take 100 mg by mouth 2 (two) times a day. 2 Active cholecalciferol (VITAMIN D3) 2,000 unit capsule Take by mouth daily. 2 Active famotidine (PEPCID) 20 MG tablet TAKE 1 TABLET BY MOUTH TWICE A DAY NEEDED FOR HEARTBURN 2 Active montelukast (SINGULAIR) 10 mg tablet Take 10 mg by mouth nightly at bedtime. Active triamcinolone acetonide 0.1 % cream Apply topically 2 (two) times a day. Active metroNIDAZOLE (METROCREAM) 0.75 % cream Apply topically 2 (two) times a day. Active polyethylene glycol (MIRALAX) 17 gram packet Take 17 g by mouth daily. Active valACYclovir (VALTREX) 500 MG tablet Take 500 mg by mouth 2 (two) times a day. Active fluticasone propionate (FLONASE) 50 mcg/actuation nasal spray 1 spray by Nasal route daily. Active rosuvastatin (CRESTOR) 40 MG tablet Take 40 mg by mouth daily. Active levonorgestreL (MIRENA) 20 mcg/24 hours (7 yrs) 52 mg intrauterine device 1 Device by Intrauterine route. Active triamcinolone acetonide 0.1 % cream Apply topically 2 (two) times a day as needed. 4 Active GAS RELIEF EXTRA STRENGTH 125 mg chewable tablet CHEW 1 TABLET BY ORAL ROUTE 4 TIMES EVERY DAY NEEDED FOR GASSINESS 4 Active venlafaxine (EFFEXOR-XR) 37.5 MG 24 hr capsule TAKE 1 CAPSULE (37.5 MG) BY MOUTH ONCE PER DAY. DO NOT CRUSH OR CHEW. 4 Active clotrimazole (LOTRIMIN) 1 % cream APPLY TOPICALLY IF NEEDED IN THE MORNING AND AT BEDTIME (SHOULDER RASH) FOR UP TO 28 DAYS. 4 Active Active Problems Problem Noted Date Diagnosed Date Dyslipidemia 01/07/2024 Herpes simplex type 2 infection 01/07/2024 Hypertension 01/07/2024 Polycystic ovaries 01/07/2024 Obesity 01/07/2024 Depressive disorder 12/03/2022 Fatty liver 12/03/2022 Hidradenitis suppurativa 12/03/2022 Chronic gastroesophageal reflux disease 07/18/19 16 Osteoarthritis 07/18/2015 Rosacea 07/18/2015 Family History Medical History Relation Comments Diabetes Father Heart disease Father Lung cancer Father Diabetes Maternal Aunt Diabetes Maternal Cousin Ovarian cancer Maternal Cousin Diabetes Maternal Grandmother Stroke Maternal Grandmother Heart disease Mother Relation Status Comments Father Maternal Aunt Maternal Cousin Alive Maternal Grandmother Mother Social History Tobacco Use Types Packs/Day Years Used Date Smoking Tobacco: Never Smokeless Tobacco: Never Tobacco Cessation:Counseling Given: Not Answered Alcohol Use Standard Drinks/Week Comments Not Currently 0 (1 standard drink = 0.6 oz pur e alcohol) Education Answer Date Recorded Are you interested in more education? Not on rupert e 10/31/2022 Are you concerned about learning? Not on file 10/31/2022 No 10/31/2022 No 10/31/2022 Digital Access Answer Date Recorded No 11/29/2022 No 11/29/2022 Reliable internet access at home? Not on file 11/29/2022 Device with a working camera? Not on file Comments Unknown Sex and Gender Information Value Date Recorded Sex Assigned at Not on file Legal Sex Female 3:53 PM EDT Gender Identity Not on file Sexual Orientation Not on file Last Filed Vital Signs Vital Sign Reading Time Taken Comments Blood Pressure 143/83 01/01/2024 10:01 AM EDT Pulse - - Temperature - - Respiratory Rate - - Oxygen Saturation - - Inhaled Oxygen Concentration - - Weight 126.1 kg (278 lb) 11/22/2021 1:02 PM EDT Height 165.1 cm (5' 5 ) 01/01/2024 10:01 AM EDT Body Mass Index 46.26 11/22/2021 1:02 PM EDT Plan of Treatment Health Maintenance Due Date Last Done Comments CREATININE LEVEL 1975 POTASSIUM LEVEL 1975 DEPRESSION SCREENING 1987 HEPATITIS C SCREENING 1993 HIV ONE-TIME SCREENING (18-65 YEARS) 1993 PAP SMEAR 1996 COLOGUARD 2020 COLONOSCOPY 2020 COLORECTAL CANCER SCREENING 2020 FIT TEST 2020 FOBT 2020 SIGMOIDOSCOPY 2020 VIRTUAL COLONOSCOPY 2020 COVID-19 VACCINE ( season) 2024 07/29/2023, 01/30/2021, 01/10/2021 BLOOD PRESSURE 07/02/2024 01/01/2024 MAMMOGRAM 04/28/2025 04/28/2023, 09/29/2018 LIPID PANEL 07/29/2028 07/29/2023 Adult Td,Tdap Booster 07/29/2033 07/29/2023 , 02/11/2013, 12/22/2011, Additional history exists HEPATITIS A VACCINES Aged Out 12/27/2021, 04/01/20 21 No longer eligible based on patient's age to complete this topic SMOKING STATUS SCREENING (Once After 26 Yrs) Completed 01/01/2024 HIB VACCINES Aged Out No longer eligi ble based on patient's age to complete this topic MENINGOCOCCAL VACCINES (ACWY) Aged Out No longer eligible based on patient's age to complete this topic MENINGOCOCCAL VACCINES (B) Aged Out N o longer eligible based on patient's age to complete this topic PNEUMOCOCCAL VACCINES (0-49 years) Aged Out No longer eligible based on patient's age to complete this topic Medical Devices Not on file Insurance C3 ACO C3 ACO C3 ACO C3 ACO C3 ACO C3 ACO C3 ACO C3 ACO C3 ACO Care Teams Agriculture Extension Specialist Relationship Specialty Start Date End Date Barbara Triplett DO [address] [place] [address] PCP - General Family Medicine 12/29/18 Additional Source Comments The information contained in this document represents components of the legal health record. It is not the complete legal health record.[facility]
== END 2025-02-17 09:48 | disposition home or self-care (01) ==
LOC: HO.US 09:47
PROVIDERS: PCP Family Medicine; Visit Provider Nurse Practitioner Family
DX: K76.0 Fatty (change of) liver, not elsewhere classified (principal)
CPT/HCPCS: 76705; 76981

== ENCOUNTER → 2025-02-17 09:49 | Outpatient (BNV) | payer OTHER, SELFPAY | PROVIDERS: PCP Family Medicine; Visit Provider Radiology Diagnostic Radiology | DX: K76.0 Fatty (change of) liver, not elsewhere classified (principal) | CPT/HCPCS: 76705 ==

== ENCOUNTER 2025-03-13 11:03 | Outpatient (REF) | payer OTHER, SELFPAY ==
[2025-03-13 12:18] LABS: Alanine Aminotransferase 17 U/L (0-31); Albumin Level 4.0 g/dL (3.5-5.0); Alkaline Phosphatase 77 U/L (39-117); Aspartate Amino Transferase 22 U/L (5-31); Total Protein 7.3 g/dL (6.5-8.0)
--- OUTSIDE RECORDS SUMMARY | 2025-03-13 13:31 | XMS_ITS | Encounter Summary ---
Author Organization [employer] Address [address] [place] [address] [address] [place] [address] Care Team Providers Care Sweatband Decorating Machine Operator Name Role Phone Barbara Triplett Primary Care Provider + [phone] Reason for Visit * Reason Comments Med Refill Encounter Details Date Type Department Care Team ([facility] Contact Info) Description 12/30/2022 Refill [facility] MEDICINE [address] [place] [address] Destiny Metcalf MD [address] [place] [address] Social History Tobacco Use Types Packs/Day Years [...] as of this encounter Plan of Treatment Upcoming Encounters Date Type Department Care Team (Late Contact Info) Description 03/24/2025 11:00 AM EDT Office Visit [facility] MEDICINE [address] [place] [address] Barbara Triplett DO [address] [place] [address] documented as of this encounter Visit Diagnoses Not on filedocumented in this encounter Additional Health Concerns Assessment Noted Time PHQ-9 Depression Total Score: 1 11/12/19 23 9:48 AM EDT documented as of this encounter Care Teams Sweatband Decorating Machine Operator Relationship Specialty Start Date End Date Barbara Triplett DO [address] [place] [address] PCP - General Family Medicine 03/14/13 documented as of this encounter
--- OUTSIDE RECORDS SUMMARY | 2025-03-13 13:31 | XMS_ITS | Encounter Summary ---
Author Organization [facility] [employer] Address [address] [place] [address] [place] [address] Care Team Providers Care Transition Teacher Name Role Phone Barbara Triplett DO Primary Care Provider + [phone] Encounter Details Date Type Department Care Team (Late st Contact Info) Description 09/15/2022 Orders Only [facility] P[facility]S [address] [place] [address] Barbara Rdier LPN Social History Tobacco Use Types Packs/Day [...] Encounters Date Type Department Care Team (Late st Contact Info) Description 03/24/2025 11:00 AM EDT Office Visit [facility] MEDICINE [address] [place] [address] Barbara Triplett DO [address] [place] [address] documented as of this encounter Visit Diagnoses Not on filedocumented in this encounter Care Teams Transition Teacher Relationship Specialty Start Date End Date Barbara Triplett DO [address] [place] [address] PCP - General Family Medicine 03/14/13 documented as of this encounter
--- OUTSIDE RECORDS SUMMARY | 2025-03-13 13:31 | XMS_ITS | Clinical Summary ---
Author Organization [facility] Address [address] [place] [address] Phone Care Team Providers Care Justice Professor Name Role Phone Mery Triplettnifer Zohreh ROBERSON Primary Care Provider [phone] Allergies Active Allergy Reactions Criticality Noted Date [...] 1975 Cervical Cancer Screening: Pap Smear 1996 Colorectal Cancer Screening: Colonoscopy 04/14/2024 Social Influencers of Health Screening 04/14/2024 Depression Screening 07/06/2024 COVID-19 Vaccine ( season) 2025 07/29/2023, 01/30/2021, 01/10/2021 Influenza Vaccine (#1) 2025 Hypertension/CHF/CAD Annual BMP [...] to complete this topic Insurance MEDICAID - [place] Care Teams Justice Professor Relationship Specialty Start Date End Date Barbara Triplett DO [address] [place], [place] PCP - General 07/30/23
--- OUTSIDE RECORDS SUMMARY | 2025-03-13 13:31 | XMS_ITS | Clinical Summary ---
Author Organization [employer] Address [address] [place] [address] 7 [place] [address] Care Team Providers Care Water Tender Name Role Phone IoanaBarbara Primary Care Provider [phone] Allergies Active Allergy Reactions Criticality Noted Date Comments Metronidazole 10/29/2023 Molds & Smuts 10/28/2021 Medications metFORMIN (Glucophage) 500 MG tabletIndications :Hidradenitis Take 2 tablets (1,000 mg) by mouth with breakfast and with evening meal. 360 tablet 1 023 Active pantoprazole (ProtoNix) 40 MG EC [...] A DAY NEEDED FOR HEMORRHOIDS 023 Active loratadine (Claritin) 10 MG tabletIndications :Seasonal allergic rhinitis, unspecified trigger TAKE 1 TABLET BY MOUTH EVERY DAY IN THE MORNING 90 tablet 3 024 Active Gas Relief Extra Strength 125 MG chewable tablet CHEW 1 TABLET BY ORAL ROUTE 4 TIMES EVERY DAY NEEDED FOR GASSINESS 120 tablet 2 024 Active valACYclovir (Valtrex) 500 MG tabletIndications :HSV infection TAKE 1 TABLET BY MOUTH TWICE A DAY X 3 DAYS IF NEEDED FOR OUTBREAK 12 tablet 024 Active rosuvastatin (Crestor) 40 MG tablet TAKE 1 TABLET BY MOUTH EVERY DAY 90 tablet 3 024 Active venlafaxine XR (Effexor XR) 37.5 MG 24 hr capsule TAKE 1 CAPSULE BY MOUTH EVERY DAY. DO NOT CRUSH OR CHEW. 30 capsule 3 024 Active triamcinolone (Kenalog) 0.1 % creamIndications: Folliculitis,Rash APPLY TOPICALLY IF NEEDED IN THE MORNING AND AT BEDTIME FOR RASH OR IRRITATION. 30 g 3 024 Active cholecalciferol VITAMIN D (Vitamin D-3) 50 MCG (2000 UT) capsule TAKE 1 CAPSULE BY MOUTH EVERY DAY 90 capsule 3 025 Active cyclobenzaprine (Flexeril) 10 MG tablet TAKE 1 TABLET BY MOUTH 3 TIMES A DAY NEEDED FOR PAIN 30 tablet 2 025 Active ibuprofen 800 MG tabletIndications :Osteoarthritis, unspecified osteoarthritis type, unspecified site TAKE 1 TABLET BY MOUTH 3 TIMES A DAY WITH FOOD 90 tablet 3 025 Active metroNIDAZOLE (Metrocream) 0.75 % creamIndications: Rosacea APPLY SPARINGLY TO AFFECTED AREA TWICE A DAY 45 g 025 Active lisinopril 10 MG tabletIndications :Hypertension, unspecified type TAKE 1 TABLET BY MOUTH EVERY DAY 90 tablet 1 025 Active meclizine (Antivert) 25 MG tablet TAKE 1 TABLET BY MOUTH IN THE MORNING, AT NOON AND AT BEDTIME NEEDED FOR DIZZINESS 30 tablet 1 025 Active doxycycline (Vibra-Tabs) 100 MG tabletIndications :Hidradenitis suppurativa TAKE 1 TABLET BY MOUTH TWICE A DAY. TAKE WITH A FULL GLASS OF WATER AND DO NOT LIE DOWN FOR AT LEAST 30 MINUTES AFTER. 60 tablet 1 025 Active meclizine (Antivert) 25 MG tablet Take 1 tablet (25 mg) by mouth if needed in the morning, at noon, and at bedtime for dizziness. 30 tablet 1 024 2024 Discontinued(R eorder (will not trigger notification to Pharmacy)) doxycycline (Vibra-Tabs) 100 MG tabletIndications :Hidradenitis suppurativa TAKE 1 TABLET BY MOUTH TWICE A DAY. TAKE WITH A FULL GLASS OF WATER AND DO NOT LIE DOWN FOR AT LEAST 30 MINUTES AFTER. 60 tablet 1 025 2024 Discontinued Active Problems Problem Noted Date Diagnosed Date Chronic pelvic pain 08/19/2024 Multiple thyroid nodules 08/19/2024 Obesity 01/07/2024 Dyslipidemia 01/07/2024 Hypertension 01/07/2024 Herpes simplex type 2 infection 01/07/2024 Polycystic ovaries 01/07/2024 Healthcare maintenance 12/01/2023 Allergic rhinitis 12/03/2022 Fatty [...] Encounters Date Type Department Care Team Description 03/13/2025 Orders Only GENERIC EXTERNAL DATA DEPARTMENT Provider, Generic External Data 03/07/2025 Telephone [facility] [address] [place] [address] Barbara Triplett DO Recall Letter (Recall Letter sent 03/07/25.) 02/25/2025 Refill [facility] [address] [place] [address] Barbara Triplett DO Hidradenitis suppurativa 02/24/2025 Refill [facility] [address] [place] [address] Barbara Triplett DO 02/17/2025 Orders Only [facility] External Provider, [facility] 01/20/2025 3:00 PM EDT Office Visit [facility] [address] [place] [address] Roldan Stein CNP Pelvic pain (Primary Dx) 01/20/2025 Refill [facility] [address] [place] [address] Barbara Triplett DO Hypertension, unspecified type 01/20/2025 Travel 01/19/2025 Telephone [facility] [address] [place] [address] Roma Sheffield [place] Chart Prep 01/19/2025 Telephone [facility] [address] [place] [address] Barbara Triplett DO Nurse Triage 12/17/2024 Refill [facility] [address] [place], [place] [phone] Barbara Triplett, DO Bernard from Last 3 Months Immunizations Immunization Administration Dates Next Due Hep A, Adult [...] Answer Date Recorded Patient Health Questionnaire-9 Score 0 01/20/2025 Patient Health Questionnaire-9 Score 0 01/20/2025 Last PHQ-9: Questionnaire Data Not on file 0 01/20/2025 Housing Stability Answer Date Recorded What is your housing situation today? I have layo sauer 01/20/[address] you li ve. Do you have problems with any of the following? None of the above 01/20/2025 Food Insecurity Answer Date Recorded Within the past 12 months, y ou worried that your food would run out before you got money to buy more: Never True 01/20/2025 Within the past 12 months,th e food you bought just didn't last and you didn't have enough money to get more: Never True Transportation Answer Date Recorded In the past 12 months, has l ack of transportation kept you from medical appts, meetings, work or from getting things needed for daily living? No 01/20/2025 Utilities Answer Date Recorded In the past 12 months, has t he electric, gas, oil or water company threatened to shut off services in your home? No 01/20/2025 Depression Answer Date Recorded Patient Health Questionnaire-2 Score 0 01/20/2025 Internet Access Answer Date Recorded Internet Access Q1 Yes 01/20/2025 Internet Access Q2 Not on file 01/20/2025 Comments No Sex and Gender Information Value Date Recorded Sex Assigned at Female 05/05/2022 10:17 AM EDT Legal Sex Female 10:17 AM EDT Gender Identity Female 05/05/2022 10:17 AM EDT Sexual Orientation Straight 05/05/2022 10 :17 AM EDT Last Filed Vital Signs Vital Sign Reading Time Taken Comments Blood Pressure 152/90 01/20/2025 3:27 PM EDT Pulse 69 01/20/2025 3:27 PM EDT Temperature 36.3 C (97.4 F) 01/20/2025 3:27 PM EDT Respiratory Rate 14 01/20/2025 3:27 PM EDT Oxygen Saturation 99% 01/20/2025 3:27 PM EDT Inhaled Oxygen Concentration - - Weight 122 kg (268 lb 6.4 oz) 01/20/2025 3:27 PM EDT Height 165.1 cm (5' 5 ) 01/20/2025 3:27 PM EDT Body Mass Index 44.66 01/20/2025 3:27 PM EDT Plan of Treatment Upcoming Encounters Date Type Department Care Team (Late st Contact Info) Description 03/24/2025 11:00 AM EDT Office Visit [facility] [address] [place] [address] Barbara Triplett DO [address] [place], [place] [phone] Health Maintenance Due Date Last Done Comments CT Colonography 1975 FIT DNA/Cologuard 1975 FIT 1975 FOBT 1975 Sigmoidoscopy 1975 Family Planning (PISQ) 1990 Pap Smear 11/20/2024 11/20/2021 COVID-19 Vaccine ( season) 2025 07/29/2023, 01/30/2021, 01/10/2021 Influenza Vaccine (#1) 2025 Zoster Vaccines (1 of 2) 2025 Mammogram 05/03/2025 05/03/2024, 04/06, 04/28/2023, Additional history exists Alcohol/Substance Use Screening 08/19/2025 08/19/2024 Depression Screening 01/20/2026 01/20/2025, 01/21/20 25 Disability Screening 01/20/2026 01/20/2025 SDOH Screening 01/20/2026 01/20/2025 Tobacco Screening 01/20/2026 01/20/2025 Cervical Cancer Screening 11/20/2026 HPV/Cotest 11/20/2026 11/20/2021, 11/03, 11/20/2021 Colonoscopy 01/10/2027 01/10/2022 Colorectal Cancer Screening 01/10/2027 Lipid Panel 08/19/2029 08/19/2024, 07/07, 01/13/2022, Additional history exists DTaP/Tdap/Td Vaccines (3 - Td or Tdap) 07/29/2033 07/29/2023, 02/11/2013, 12/22/2011, Additional history exists RSV Patients and Patients Aged 60 years or older (1 - 1-dose 75+ series) 2050 Hepatitis A Vaccines Completed 12/27/2021, 04/01/20 21 Hepatitis B Vaccines Completed 11/11/2022, 12/27/2021, 04/01/2021 HIV Screening Completed 10/05/2024, 07/07, 01/13/2022, Additional history exists Hepatitis C Screening Completed 10/05/2024 , 07/29/2023, 01/13/2022, Additional history exists HIB Vaccines Aged Out [...] Years) and At-Risk Patients (6 to 49) Years Aged Out No longer eligible based on patient's age to complete this topic RSV under 20 months Aged Out No longe r eligible based on patient's age to complete this topic Rotavirus Vaccines Aged Out No longer eligible based on patient's age to complete this topic Procedures Procedure Name Priority Date/Time Associated Diagnosis Comments HEPATIC FUNCTION PANEL Routine 03/13/2025 11:16 AM EDT US ABDOMEN BURRELL W ELASTOGRAPHY Routine 02/17/2025 10:01 AM EDT HEPATITIS C AB W/REFL TO HCV RNA, QN, PCR Routine 10/05/2024 3:02 PM EDT HIV 1/2 ANTIGEN/ANTIBODY, FOURTH GENERATION W/RFL Routine 10/05/2024 3:02 PM EDT LIPID PANEL, STANDARD Routine 08/19/2024 11:15 AM EST Essential hypertension BI MAMMOGRAM SCREENING TOMOSYNTHESIS BILATERAL Routine 05/03/2024 2:00 PM EDT HM COLONOSCOPY Routine 01/10/2022 11:40 AM EDT HM PAP/HPV Routine 11/20/2021 from Last 3 Months or Most Recently Relevant to Health Maintenance Results * Hepatic Function Panel (03/13/2025 11:16 AM EDT) Bilirubin, Total 0.5 0.0 - 1.0 mg/dL [facility] Bilirubin, Direct 0.1 0.0 - 0.5 mg/dL [facility] Aspartate Amino Transferase 22 5 - 31 U/L [facility] Alanine Aminotransferase 17 0 - 31 U/L [facility] Total Protein 7.3 6.5 - 8.0 g/dL [facility] Albumin Level 4.0 3.5 - 5.0 g/dL [facility] Alkaline Phosphatase 77 39 - 117 U/L [facility] 03/13/2025 11:1 6 AM EDT 03/13/2025 11:16 AM EDT us Generic External Data Provider LAB BLOOD ORDERAB LES Final Result Performing Organization Address City/State/[facility] Co de Phone Number [facility] [address] [place] [address] [phone] * US ABDOMEN BURRELL W ELASTOGRAPHY (02/17/2025 10:01 AM EDT) Anatomical Region Laterality Modality Abdomen Ultrasound 02/17/2025 10:0 1 AM EDT Narrative 02/17/2025 11:00 AM EDT [address] [address] Ultrasound Report Signed Patient: Quan Rowley MR#: [id number] 82 : 1975 Acct:[id number] Age/Sex: 49 / F ADM Date: 02/17/25 Loc: HO.US Attending Dr: Jasmin GIL-ASHWINI Ordering Physician: Jasmin Meek Date of Service: 02/17/25 Procedure(s): US abdomen burrell w elastography Accession Number(s): [id number] cc: Barbara Triplett DO; Jasmin Meek EDITOR DICTIONARY- EXAMINATION: US ABDOMEN LIMITED WITH LIVER ELASTOGRAPHY HISTORY: K76.0 - Fatty (change of) liver, not elsewhere classified TECHNIQUE: Real-time grayscale ultrasound imaging of the right upper quadrant was performed and images were reviewed. COMPARISON: Comparison is made with the prior examination dated 01/13/2024. FINDINGS: Liver: The right lobe of the liver measures 17.3 cm in size. The left lobe of the liver measures 7.5 cm in size. The liver demonstrates coarsened, mildly increased echotexture, consistent with steatosis. The liver contour appears slightly nodular. No focal mass or intrahepatic biliary ductal dilatation is identified. There is normal hepatopedal flow in the portal vein. Ultrasound elastography of the liver was performed with 10 separate measurements of the liver parenchyma with the patient in the supine position. Measurements were obtained approximately 2 cm below Pat's capsule and perpendicular to the capsule. The median shear wave velocity is 2.45 m/s. The interquartile range/median (IQR/median) is 0.08. Gallbladder and biliary tree: The gallbladder is unremarkable, without evidence of calculi, wall thickening, or pericholecystic fluid. There is no sonographic [place] sign. The common bile duct is normal in caliber measuring 4 mm. Right Kidney: The right kidney measures 12.2 cm in length. The right kidney is unremarkable, without evidence of masses, hydronephrosis, or calculi. Pancreas: The pancreatic head, neck, and body are unremarkable. The pancreatic tail is obscured by bowel gas. Abdominal aorta and inferior vena cava: The visualized portions of the abdominal aorta and inferior vena cava are normal in caliber. There is no free fluid in the right upper quadrant. US/US abdomen burrell w elastography IMPRESSION: Mild hepatic steatosis. Coarsened hepatic echotexture and a nodular liver contour, suggestive of cirrhosis. The median shear wave velocity in the liver is 2.45 m/s, corresponding to a median liver stiffness of 18.35 kPa. The IQR/median value is 0.08. This is indicative of a quality data set. Findings are indicative of a high elastography value indicating advanced chronic liver disease and portal hypertension. REFERENCE: Society of Radiologists in Ultrasound Liver Stiffness Thresholds (2020): LIVER STIFFNESS THRESHOLDS: *Shear wave velocity less than 1.3 m/s (Liver Stiffness equal or less than 5 kPa): High probability of being normal. *Shear wave velocity less than 1.7 m/s (Liver Stiffness less than 9 kPa): In the absence of other known clinical signs, rules out compensated advanced chronic liver disease. *Shear wave velocity between 1.7-2.1 m/s (Liver Stiffness 9-13 kPa): Suggestive of compensated advanced chronic liver disease but need further test for confirmation. *Shear wave velocity between 2.1-2.4 m/s (Liver Stiffness 13-17 kPa): Rules in compensated advanced chronic liver disease. *Shear wave velocity greater than 2.4 m/s (Liver Stiffness over 17 kPa): Suggestive of clinically significant portal hypertension. QUALITY OF DATA SET: *IQR/Median value equal or less than 0.15 implies a quality data set. *IQR/Median value over 0.15 implies a poor quality data set. SIGNIFICANT CHANGE FROM PRIOR EXAM: Significant change if liver stiffness measurement is 10% or greater from prior exam. OTHER CONSIDERATIONS: The stage of liver fibrosis may be overestimated in the setting of acute hepatitis, liver inflammation, elevated liver function tests, hepatic vascular congestion, obstructive cholestasis, non-fasting state, and infiltrative diseases such as amyloidosis and lymphoma. In some patients with NAFLD, the liver stiffness thresholds for compensated advanced chronic liver disease may be lower. In causes other than viral hepatitis and NAFLD, liver stiffness thresholds are not well established. Electronically signed by: Vignesh Puente MD 02/17/2025 10:57 AM EDT RP Dictated By: Vignesh Puente MD Signed By: <Electronically signed by Vignesh Puente MD in OV> 02/17/25 1057 DD/ 1001 TD/TT: 02/17/25 1018 Financial Analysis Manager: Procedure Note Donotuseinterpreter, Image - 02/17/2025 [place] [address] Ultrasound Report Signed Patient: Quan RowleyMR#: [id number] 82 : 1975Acct:[id number] Age/Sex: 49 / FADM Date: 02/17/25 Loc: HO.US Attending Dr: Jasmin PITT Ordering Physician: Jasmin Meek Date of Service: 02/17/25 Procedure(s): US abdomen burrell w elastography Accession Number(s): [id number] cc: Barbara Triplett DO; Jasmin Meek EXAMINATION: US ABDOMEN LIMITED WITH LIVER ELASTOGRAPHY HISTORY: K76.0 - Fatty (change of) liver, not elsewhere classified TECHNIQUE: Real-time grayscale ultrasound imaging of the right upper quadrant was performed and images were reviewed. COMPARISON: Comparison is made with the prior examination dated 01/13/2024. FINDINGS: Liver: The right lobe of the liver measures 17.3 cm in size. The left lobe of the liver measures 7.5 cm in size. The liver demonstrates coarsened, mildly increased echotexture, consistent with steatosis. The liver contour appears slightly nodular. No focal mass or intrahepatic biliary ductal dilatation is identified. There is normal hepatopedal flow in the portal vein. Ultrasound elastography of the liver was performed with 10 separate measurements of the liver parenchyma with the patient in the supine position. Measurements were obtained approximately 2 cm below Pat's capsule and perpendicular to the capsule. The median shear wave velocity is 2.45 m/s. The interquartile range/median (IQR/median) is 0.08. Gallbladder and biliary tree: The gallbladder is unremarkable, without evidence of calculi, wall thickening, or pericholecystic fluid. There is no sonographic [place] sign. The common bile duct is normal in caliber measuring 4 mm. Right Kidney: The right kidney measures 12.2 cm in length. The right kidney is unremarkable, without evidence of masses, hydronephrosis, or calculi. Pancreas: The pancreatic head, neck, and body are unremarkable. The pancreatic tail is obscured by bowel gas. Abdominal aorta and inferior vena cava: The visualized portions of the abdominal aorta and inferior vena cava are normal in caliber. There is no free fluid in the right upper quadrant. US/US abdomen burrell w elastography IMPRESSION: Mild hepatic steatosis. Coarsened hepatic echotexture and a nodular liver contour, suggestive of cirrhosis. The median shear wave velocity in the liver is 2.45 m/s, corresponding to a median liver stiffness of 18.35 kPa. The IQR/median value is 0.08. This is indicative of a quality data set. Findings are indicative of a high elastography value indicating advanced chronic liver disease and portal hypertension. REFERENCE: Society of Radiologists in Ultrasound Liver Stiffness Thresholds (2020): LIVER STIFFNESS THRESHOLDS: *Shear wave velocity less than 1.3 m/s (Liver Stiffness equal or less than 5 kPa): High probability of being normal. *Shear wave velocity less than 1.7 m/s (Liver Stiffness less than 9 kPa): In the absence of other known clinical signs, rules out compensated advanced chronic liver disease. *Shear wave velocity between 1.7-2.1 m/s (Liver Stiffness 9-13 kPa): Suggestive of compensated advanced chronic liver disease but need further test for confirmation. *Shear wave velocity between 2.1-2.4 m/s (Liver Stiffness 13-17 kPa): Rules in compensated advanced chronic liver disease. *Shear wave velocity greater than 2.4 m/s (Liver Stiffness over 17 kPa): Suggestive of clinically significant portal hypertension. QUALITY OF DATA SET: *IQR/Median value equal or less than 0.15 implies a quality data set. *IQR/Median value over 0.15 implies a poor quality data set. SIGNIFICANT CHANGE FROM PRIOR EXAM: Significant change if liver stiffness measurement is 10% or greater from prior exam. OTHER CONSIDERATIONS: The stage of liver fibrosis may be overestimated in the setting of acute hepatitis, liver inflammation, elevated liver function tests, hepatic vascular congestion, obstructive cholestasis, non-fasting state, and infiltrative diseases such as amyloidosis and lymphoma. In some patients with NAFLD, the liver stiffness thresholds for compensated advanced chronic liver disease may be lower. In causes other than viral hepatitis and NAFLD, liver stiffness thresholds are not well established. Electronically signed by: Vignesh Puente MD 02/17/2025 10:57 AM EDT Dictated By: Vignesh Puente MD Signed By: <Electronically signed by Vignesh Puente MD in OV> 02/17/25 1057 DD/ 1001 TD/TT: 02/17/25 1018 Financial Analysis Manager: us [facility] External Provider IMG US PROCEDURES Final Result * Hepatitis C Antibody with Reflex to HCV, RNA, Quantitative, Real-Time PCR (10/05/2024 3:02 PM EDT) Hepatitis C Antibody Nonreactive Nonreactive [facility] Comment:Antibodies to HCV no t detected; does not exclude early acuteHCV infection. 10/05/2024 3:02 PM EDT 10/05/2024 3:02 PM EDT us Generic External Data Provider LAB BLOOD ORDERAB LES Final Result [facility] [address] [place] [phone] * HIV-1/2 Antigen and Antibodies, Fourth Generation, with Reflexes (10/05/2024 3:02 PM EDT) HIV AB/AG Nonreactive Nonreactive [facility] Comment:HIV-1 p24 Ag and/or HIV-1/HIV-2 Ab not detected.A test result that is nonreactive does not exclude thepossibility of exposure to or infection with HIV-1 and/orHIV-2. Nonreactive results in this assay for individualswith prior exposure to HIV-1 and/or HIV-2 may be due toantigen and antibody levels that are below the limit ofdetection of this assay.The [employer] HIV Ag/Ab Combo assay result andsupplemental assay results should be interpreted inconjunction with the patient's clinical presentation,history and other laboratory results. If the results areinconsistent with clinical evidence, additional testing issuggested to confirm the result. 10/05/2024 3:02 PM EDT 10/05/2024 3:02 PM EDT us Generic External Data Provider LAB BLOOD ORDERAB LES Final Result [facility] [address] [place] [phone] * (ABNORMAL) Lipid Panel, Standard (08/19/2024 11:15 AM EST) Triglycerides 120 <150 mg/dL [facility] Comment:Desirable Triglyceri de: less than 150 mg/dLBorderline High Triglyceride 150-199 mg/dLHigh Triglyceride: 200-499 mg/dLVery High Triglyceride: greater than or equal to 5OO mg/dL Cholesterol 246(H) <200 mg/dL [facility] Comment:Desirable Cholestero l: less than 200 mg/dLBorderline High Cholesterol: 200-239 mg/dLHigh Cholesterol: greater than 239 mg/dL LDL Cholesterol Calculated 176(H) <100 mg/dL [facility] Comment:Desirable LDL: less than 100 mg/dLNear Optimal/Above Optimal LDL: 110- 129 mg/dLBorderline High LDL: 130-159 mg/dLHigh LDL: 160-189 mg/dLVery High LDL: greater than or equal to 190 mg/dL HDL Cholesterol 46 >40 mg/dL [facility] Comment:Desirable HDL: great er than 40 mg/dL Note: This HDL assay may give artificially low results in patients with liver disease. Blood Venous blood specimen / Unknown 08/19/2024 11:15 AM EST 08/19/2024 1:05 PM EST us Barbara Triplett DO LAB BLOOD ORDERABLES Final R esult [facility] [address] [place] [phone] * BI Mammogram Screening Tomosynthesis Bilateral (05/03/2024 2:00 PM EDT) Anatomical Region Laterality Modality Breast Bilateral Mammography 05/03/2024 2:00 PM EDT Narrative 05/11/2024 10:49 AM EST [address] [place] [address] Mammography Report Signed Patient: Quan Rowley MR#: [id number] 82 : 1975 Acct:[id number] Age/Sex: 49 / F ADM Date: 05/03/24 Loc: HO.MAMMO Attending Dr: Barbara Triplett DO Ordering Physician: Barbara Triplett DO Results: 1N egative Date of Service: 05/03/24 Follow Up: 1 Year From Orig inal Mammogram Procedure(s): MM tomosynthesis screening BI Accession Number(s): [id number] cc: Babrara Triplett DO EXAMINATION: MM SCREENING DIGITAL BREAST [...] 05/11/24 1046 DD/ 1400 TD/TT: 05/03/24 1421 Financial Analysis Manager: Procedure Note Donotuseinterpreter, Image - 05/11/2024 [place] [facility] [address] [place] [address] Mammography Report Signed Patient: Quan RowleyMR#: [id number] 82 : 1975Acct:[id number] Age/Sex: 49 / FADM Date: 05/03/24 Loc: HO.MAMMO Attending Dr: Barbara Triplett DO Ordering Physician: Barbara Triplettults: 1N egative Date of Service: 05/03/24Follow Up: 1 Year From Orig inal Mammogram Procedure(s): MM tomosynthesis screening BI Accession Number(s): [id number] cc: Barbara Triplett DO EXAMINATION: MM SCREENING [...] Deisy Cancino DO 05/11/2024 10:46 AM EST RP Dictated By: Deisy Cancino DO Signed By: <Electronically signed by Deisy Cancino DO in OV> 05/11/24 1046 DD/ 1400 TD/TT: 05/03/24 1421 Financial Analysis Manager: Barbara Triplett DO IMG BI PROCEDURES Final Resu lt * Hm Colonoscopy (01/10/2022 11:40 AM EDT) Historical Provider HEALTH MAINTENANCE Final Result * Hm Pap Smear (11/20/2021) Pap Negative for intraephithelial lesion or malignancy Negative for intraephithelial lesion or malignancy, Other HPV Undetected Historical Provider HEALTH MAINTENANCE Final Result from Last 3 Months or Most Recently Relevant to Health Maintenance Insurance [facility] Care Teams Water Tender Relationship Specialty Start Date End Date Barbara Triplett DO [address] [place], [place] [phone] PCP - General Family Medicine 03/14/13
--- OUTSIDE RECORDS SUMMARY | 2025-03-13 13:31 | XMS_ITS | Encounter Summary ---
Author Organization [employer] Address [address] [place] [address] 7 [place] [address] Care Team Providers Care Tooling Manager Name Role Phone Barbara Triplett DO Primary Care Provider + [phone] Reason for Visit * Reason Onset Date Comments Nurse Triage 03/25/2023 Encounter Details Date Type Department Care Team ([facility] st Contact Info) Description 03/25/2023 Telephone [facility] [address] [place] [address] Barbara Triplett DO [address] [place] [address] Nurse Triage Social History Tobacco Use Types [...] two new ointments today waiting for pharmacy apple picker. Triamcinolone 0.1% and metronidazole 0.75% cream. Pt is advised to start these creams and if by the end of the week they are not effectively decreasing the rash come to [facility] to be seen byprovider. Pt agrees [...] documented in this encounter Plan of Treatment Upcoming Encounters Date Type Department Care Team (Late st Contact Info) Description 03/24/2025 11:00 AM EDT Office Visit [facility] [address] [place] [address] Barbara rTiplett DO [address] [place] [address] documented as of this encounter Visit Diagnoses Not on filedocumented in this encounter Additional Health Concerns Assessment Noted Time PHQ-9 Depression Total Score: 1 11/12/19 23 9:48 AM EDT documented as of this encounter Care Teams Tooling Manager Relationship Specialty Start Date End Date Barbara Triplett DO [address] [place] [address] PCP - General Family Medicine 03/14/13 documented as of this encounter
--- OUTSIDE RECORDS SUMMARY | 2025-03-13 13:31 | XMS_ITS | Encounter Summary ---
Author Organization [employer] Address [address] [place] [address] 7 [place] [address] Care Team Providers Care Manager Life Sciences Name Role Phone Barbara Triplett DO Primary Care Provider + [phone] Reason for Visit * Reason Comments Med Refill Encounter Details Date Type Department Care Team ([facility] st Contact Info) Description 04/07/2024 Refill [facility] [address] [place] [address] Barbara Triplett DO [address] [place] [address] Joana Social History Tobacco Use Types Packs/Day [...] Description 03/24/2025 11:00 AM EDT Office Visit [facility] [address] [place] [address] Barbara Triplett DO [address] [place] [address] documented as of this encounter Visit Diagnoses Diagnosis Rosacea documented in this encounter Additional Health Concerns Assessment Noted Time PHQ-9 Depression Total Score: 3 12/01/19 24 10:50 AM EDT documented as of this encounter Care Teams Manager Life Sciences Relationship Specialty Start Date End Date Barbara Triplett DO [address] [place] [address] PCP - General Family Medicine 03/14/13 documented as of this encounter
--- OUTSIDE RECORDS SUMMARY | 2025-03-13 13:31 | XMS_ITS | Encounter Summary ---
Author Organization [employer] Address [address] [place] [address] 7 [place] [address] Care Team Providers Care Intermodal Customer Service Name Role Phone LitzyBarbara avalos Primary Care Provider + [phone] Encounter Details Date Type Department Care Team ([facility] st Contact Info) Description 04/10/[address] [facility]INE [address] [place] [address] Deyanira Olivares Social History Tobacco Use Types [...] Description 03/24/2025 11:00 AM EDT Office [address] [facility] [address] [place] [address] Barbara Triplett DO [address] [place], [place] [phone] documented as of this encounter Procedures Procedure Name Priority Date/Time Associated Diagnosis Comments PAP/HPV Routine 11/20/2021 documented in this encounter Results * Pap Smear (11/20/2021) Pap Negative for intraephithelial lesion or malignancy Negative for intraephithelial lesion or malignancy, Other HPV Undetected us Historical Provider MD HEALTH MAINTENANCE Final Result documented in this encounter Visit Diagnoses Not on filedocumented in this encounter Additional Health Concerns Assessment Noted Time PHQ-9 Depression Total Score: 1 11/12/19 23 9:48 AM EDT documented as of this encounter Care Teams Intermodal Customer Service Relationship Specialty Start Date End Date Barbara Triplett DO [address] [place] [address] PCP - General Family Medicine 03/14/13 documented as of this encounter
--- OUTSIDE RECORDS SUMMARY | 2025-03-13 13:31 | XMS_ITS | Encounter Summary ---
Author Organization [employer] Address [address] [place] [address] 7 [place] [address] Care Team Providers Care Network Admin Name Role Phone Barbara Triplett DO Primary Care Provider + [phone] Reason for Visit * Reason Onset Date Comments Nurse Triage 08/03/2024 Encounter Details Date Type Department Care Team ([facility] st Contact Info) Description 08/03/2024 Telephone [facility] MEDICINE [address] [place], [place] [phone] Barbara Triplett DO [address] [place] [address] Nurse Triage Social History Tobacco Use Types [...] caller accepted this outcome. Contact pt at [phone] documented in this encounter Plan of Treatment Upcoming Encounters Date Type Department Care Team (Late st Contact Info) Description 03/24/2025 11:00 AM EDT Office Visit [facility] [address] [place] [address] Barbara Triplett DO [address] [place] [address] documented as of this encounter Visit Diagnoses Not on filedocumented in this encounter Additional Health Concerns Assessment Noted Time PHQ-9 Depression Total Score: 3 12/01/19 24 10:50 AM EDT documented as of this encounter Care Teams Network Admin Relationship Specialty Start Date End Date Barbara Triplett DO [address] [place] [address] PCP - General Family Medicine 03/14/13 documented as of this encounter
--- OUTSIDE RECORDS SUMMARY | 2025-03-13 13:31 | XMS_ITS | Encounter Summary ---
Author Organization [employer] Address [address] [place] [address] 7 [place] [address] Care Team Providers Care Insole Taper Name Role Phone Barbara Triplett DO Primary Care Provider + [phone] Encounter Details Date Type Department Care Team (Late st Contact Info) Description 12/30/2022 Orders Only [facility] [address] [place], [place] [phone] Barbara Rider LPN Social History Tobacco Use [...] Description 03/24/2025 11:00 AM EDT Office Visit [facility] MEDICINE [address] [place] [address] Barbara Triplett DO [address] [place] [address] documented as of this encounter Visit Diagnoses Not on filedocumented in this encounter Additional Health Concerns Assessment Noted Time PHQ-9 Depression Total Score: 1 11/12/19 23 9:48 AM EDT documented as of this encounter Care Teams Insole Taper Relationship Specialty Start Date End Date Barbara Triplett DO [address] [place] [address] PCP - General Family Medicine 03/14/13 documented as of this encounter
--- OUTSIDE RECORDS SUMMARY | 2025-03-13 13:31 | XMS_ITS | Encounter Summary ---
Author Organization [employer] Address [address] [place] [address] 7 [place] [address] Care Team Providers Care Top Closer Name Role Phone Barbara Triplett DO Primary Care Provider + [phone] Reason for Visit * Reason Onset Date Comments Med Refill 10/16/2024 Encounter Details Date Type Department Care Team ([facility] st Contact Info) Description 10/16/2024 Refill [facility] [address] [place] [address] Barbara Triplett DO [address] [place] [address] Social History Tobacco Use Types Packs/Day Years [...] Description 03/24/2025 11:00 AM EDT Office Visit [facility] [address] [place] [address] Barbara Triplett DO [address] [place] [address] documented as of this encounter Visit Diagnoses Not on filedocumented in this encounter Additional Health Concerns Assessment Noted Time PHQ-9 Depression Total Score: 3 12/01/19 24 10:50 AM EDT documented as of this encounter Care Teams Top Closer Relationship Specialty Start Date End Date Barbara Triplett DO [address] [place] [address] PCP - General Family Medicine 03/14/13 documented as of this encounter
--- OUTSIDE RECORDS SUMMARY | 2025-03-13 13:31 | XMS_ITS | Clinical Summary ---
Author Organization [facility] Address [address] [address] Phone Care Team Providers Care Salt Plant Operator Name Role Phone IoanaBarbara Primary Care Provider [phone] Allergies Active Allergy Reactions Criticality Noted Date [...] FOBT 2020 SIGMOIDOSCOPY 2020 VIRTUAL COLONOSCOPY 2020 BLOOD PRESSURE 07/02/2024 01/01/2024 INFLUENZA VACCINE (#1) 2025 COVID-19 VACCINE ( season) 2025 07/29/2023, 01/30/2021, 01/10/2021 MAMMOGRAM 04/28/2025 04/28/2023, 09/29/2018 LIPID PANEL 07/29/2028 [...] ACO C3 ACO C3 ACO Care Teams Salt Plant Operator Relationship Specialty Start Date End Date Barbara Triplett DO [address] [place] [address] PCP - General Family Medicine 12/29/18 Additional Source Comments The information contained in this document represents components of the legal health record. It is not the complete legal health record.[facility]
--- OUTSIDE RECORDS SUMMARY | 2025-03-13 13:31 | XMS_ITS | Encounter Summary ---
Author Organization [employer] Address [address] [place] [address] 7 [place] [address] Care Team Providers Care Service Station Equipment Mechanic Name Role Phone Barbara Triplett DO Primary Care Provider + [phone] Reason for Visit * Reason Comments Med Refill Encounter Details Date Type Department Care Team (Late st Contact Info) Description 11/18/2022 Refill [facility] MEDICINE [address] [place] [address] [phone] Destiny Metcalf MD [address] [place] [address] [phone] Social History Tobacco Use Types Packs/Day Years [...] Description 03/24/2025 11:00 AM EDT Office Visit [facility] MEDICINE [address] [place] [id number] Barbara Triplett DO [address] [place] [address] documented as of this encounter Visit Diagnoses Not on filedocumented in this encounter Additional Health Concerns Assessment Noted Time PHQ-9 Depression Total Score: 1 11/12/19 23 9:48 AM EDT documented as of this encounter Care Teams Service Station Equipment Mechanic Relationship Specialty Start Date End Date Barbara Triplett DO [address] [place] [address] PCP - General Family Medicine 03/14/13 documented as of this encounter
--- OUTSIDE RECORDS SUMMARY | 2025-03-13 13:31 | XMS_ITS | Encounter Summary ---
Author Organization [employer] Address [address] [place] [address] 7 [place] [address] Care Team Providers Care Customer Service Technician Name Role Phone Ioana Barbara Primary Care Provider + [phone] Encounter Details Date Type Department Care Team ([facility] st Contact Info) Description 10/13/2023 Orders Only [facility]INE [address] [place] [address] ProviderSussy MD Social History Tobacco Use Types [...] Description 03/24/2025 11:00 AM EDT Office Visit [facility] [address] [place] [address] Barbara Triplett DO [address] [place] [address] documented as of this encounter Procedures Procedure Name Priority Date/Time Associated Diagnosis Comments HM COLONOSCOPY Routine 01/10/2022 11:40 AM EDT documented in this encounter Results * Hm Colonoscopy (01/10/2022 11:40 AM EDT) Historical Provider HEALTH MAINTENANCE Final Result documented in this encounter Visit Diagnoses Not on filedocumented in this encounter Additional Health Concerns Assessment Noted Time PHQ-9 Depression Total Score: 1 11/12/19 23 9:48 AM EDT documented as of this encounter Care Teams Customer Service Technician Relationship Specialty Start Date End Date Barbara Triplett DO [address] [place] [address] PCP - General Family Medicine 03/14/13 documented as of this encounter
--- OUTSIDE RECORDS SUMMARY | 2025-03-13 13:31 | XMS_ITS | Encounter Summary ---
Author Organization [employer] Address [address] [place] [address] 7 [place] [address] Care Team Providers Care Power Plant Technician Name Role Phone LitzyBarbara avalos Primary Care Provider + [phone] Encounter Details Date Type Department Care Team (Late st Contact Info) Description 03/13/2025 Orders Only [facility]PART[facility] Provider, Generic External Data Social History Tobacco Use Types Packs/Day Years [...] Description 03/24/2025 11:00 AM EDT Office Visit [facility] MEDICINE [address] [place], [place] [phone] Barbara Triplett DO [address] [place], [place] [phone] documented as of this encounter Procedures Procedure Name Priority Date/Time Associated Diagnosis Comments HEPATIC FUNCTION PANEL Routine 03/13/2025 11:16 AM EDT documented in this encounter Results * Hepatic Function Panel (03/13/2025 11:16 AM EDT) Bilirubin, Total 0.5 0.0 - 1.0 mg/dL [facility] Bilirubin, Direct 0.1 0.0 - 0.5 mg/dL [facility] Aspartate Amino Transferase 22 5 - 31 U/L [facility] Alanine Aminotransferase 17 0 - 31 U/L [facility] Total Protein 7.3 6.5 - 8.0 g/dL [facility] Albumin Level 4.0 3.5 - 5.0 g/dL [facility] Alkaline Phosphatase 77 39 - 117 U/L [facility] 03/13/2025 11:1 6 AM EDT 03/13/2025 11:16 AM EDT us Generic External Data Provider LAB BLOOD ORDERAB LES Final Result [facility] [address] [place] [address] [phone] documented in this encounter Visit Diagnoses Not on filedocumented in this encounter Additional Health Concerns Assessment Noted Time PHQ-9 Depression Total Score: 0 01/21/20 25 3:30 PM EDT documented as of this encounter Care Teams Power Plant Technician Relationship Specialty Start Date End Date Barbara Triplett DO [address] [place] [address] PCP - General Family Medicine 03/14/13 documented as of this encounter
[2025-03-16 10:49] LABS: Anti Nuclear Antibody Screen NEGATIVE (NEGATIVE)
[2025-03-21 15:48] LABS: FIB-ALT 15 U/L (6-29); FIB-Alpha-2-Macroglobulin 216 mg/dL (106-279); FIB-Apolipoprotein A1 167 mg/dL (101-198); FIB-GGT 39 U/L (3-55); FIB-Haptoglobin 143 mg/dL (43-212); FIB-Total Bilirubin 0.5 mg/dL (0.2-1.2); Liver Fibrosis Score 0.17; Liver Fibrosis Stage F0; Nec Inflam Act Grade A0; Nec Inflam Act Score 0.04
== END 2025-03-13 11:04 | disposition home or self-care (01) ==
LOC: HO.LAB 11:03
PROVIDERS: PCP Family Medicine; Visit Provider Nurse Practitioner Family
DX: Z01.84 Encounter for antibody response examination (principal); K76.0 Fatty (change of) liver, not elsewhere classified; R74.01 Elevation of levels of liver transaminase levels; R74.8 Abnormal levels of other serum enzymes; R79.89 Other specified abnormal findings of blood chemistry
CPT/HCPCS: 36415; 80076; 81596; 86015; 86038

== ENCOUNTER 2025-03-14 12:37 | Outpatient (AMB) | payer OTHER, SELFPAY ==
--- NOTE | 2025-03-14 12:58 | A.OFFVIS_ITS ---
Vital Signs 03/14/25 13:00 Height 5 ft 6 in Weight 267 lb BMI 43.1 BP 138/64 Blood Pressure Location Rt brachial Position Sitting Pulse 74 Pulse Source Pulse Oximeter Pulse Oximetry (%) 98 Oxygen Delivery Method Room Air Intake Visit Reasons: 6m elevated LFT Intake Note: ESTABLISHED PATIENT for GERD, hepatic steatosis mgmt. Reminded of labs 03/09. Chief Complaint; Pt denies any GI sx or concerns at this time. Crossing Supervisor Required: No Accompanied by: Self / Same As Patient Allergies mold Allergy (Intermediate, Verified 03/14/25 12:58) Unknown house dust Allergy (Mild, Verified 03/14/25 12:58) Sneezing metronidazole (From Flagyl) Allergy (Verified 03/14/25 12:58) Hives HPI HPI 6m elevated LFT: Details: LAST VISIT Diverticulosis Constipation IBS (irritable bowel syndrome) GERD (gastroesophageal reflux disease) Hepatic steatosis Plan Hepatic steatosis, liver fibrosis F0/F1. Patient was encouraged to continue avoiding dietary triggers. Low-fat, low-salt, low carb and high-protein diet recommended. Losing weight also recommended. Will repeat labs And ultrasound in 5 months before her next appointment. Patient will follow-up in 6 months, sooner on as needed basis. She is agreeable to this plan and verbalizes understanding of instructions. She was given the opportunity to ask questions and all questions answered. ? Thank you for allowing me to participate in her care Orders DELLA Reflex Titer and Pattern 5 Months R74.8 Smooth Muscle Antibody 5 Months R79.89 Liver Panel 5 Months R74.01 Liver Fibrosis Pnl 5 Months K76.0 US abdomen otoole w elastography 5 Months K76.0 Refilled polyethylene glycol 3350 17 grams PO DAILY 510 grams 3RF pantoprazole 40 mg PO QAM 90 tabs 3RF K21.9 sennosides (Natural Senna Laxative) 8.6 mg PO BEDTIME 90 tabs 3RF constipation K59.00 TODAY'S VISIT Patient is here today for follow-up and to discuss lab results. Elastography worsened since the last one done 1 year ago. Fibrosis panel done fibrosis F0. Fib 4 score also low 0.98?points Advanced fibrosis excluded. Approximate fibrosis stage: Troy 0-1 (Jericho et al 2006) Patient reports that she is trying to lose weight and trying to walk. Patient is taking pantoprazole in the morning and reports that her symptoms of acid reflux are suppressed. Patient is moving her bowels well uses senna as needed. Patient denies dyspepsia, dysphagia odynophagia. Patient denies melena, hematochezia, unintentional weight loss or ribbon like stools. Patient reports to be doing well. [facility] Medical History Pelvic pain in female IUD (intrauterine device) in place Adenomyosis Diverticulosis Morbid obesity with BMI of 45.0-49.9, adult H/O hidradenitis suppurativa Hx of ectopic Hx of herpes simplex infection History of high cholesterol Hx of essential hypertension History of PCOS Surgical History History of dermoid cyst excision Hx of dilation and curettage History of unilateral fallopian tube excision Family History Father Hx of cancer of lung Mother History of asthma Family hx of hypertension History of high cholesterol Maternal Grandmother Hx of acute arthritis Family hx of hypertension History of angina History of high cholesterol Hx of diabetes mellitus Maternal Grandfather Family hx of hypertension Hx of completed stroke Family/Other Ovarian cancer Family/Other Colon cancer Social History Alcohol intake: never Patient Tobacco Use Status: Never used Tobacco Female Reproductive History Menstrual Age of Menarche: 12 Review of Systems Const Denies weight gain and Denies weight loss ENT Reports no additional complaints, Denies dysphagia and Denies odynophagia Card Reports no additional complaints Resp Reports no additional complaints GI Denies abdominal pain, Denies belching, Denies melena, Denies bloating, Denies change in bowel habits, Denies dysphagia, Denies excessive flatus, Denies dyspepsia, Denies heartburn, Denies diarrhea, Denies loose stools, Denies rula sea, Denies odynophagia and Denies vomiting Musc Reports no additional complaints Neuro Reports no additional complaints Psych Reports no additional complaints Endo Reports no additional complaints Physical Exam Vital Signs: Last Vital Signs Pulse 74 03/14/25 13:00 BP 138/64 03/14/25 13:00 Pulse Ox 98 03/14/25 13:00 Oxygen Delivery Method Room Air 03/14/25 13:00 BMI result Body Mass Index 43.1 Const General: healthy appearing and no acute distress Nutritional Appearance: obese Orientation/consciousness: patient oriented x3 Resp Effort & Inspection: normal respiratory effort, able to speak in complete sentences, no tracheal deviation and symmetric chest movement Auscultation: clear to auscultation bilaterally Cardio Rate: regular rate GI Inspection: Yes normal to inspection, No distended and Yes obesity Palpation (GI): Soft to palpation, not firm, nontender and No hepatosplenomegaly present Auscultation: normal bowel sounds General: Yes no CVA tenderness Back/Spine/Pelvis Back: no CVA tenderness Skin General skin exam: elasticity normal, turgor normal and dry skin Neuro General: patient oriented x3 Psych Appearance: grossly normal Mental Status: mental status grossly normal Results Reviewed Results Reviewed: Laboratory Tests 03/13/25 11:16 Total Bilirubin 0.5 Direct Bilirubin 0.1 AST 22 ALT 17 Alkaline Phosphatase 77 0.98?points Advanced fibrosis excluded Approximate fibrosis stage: Troy 0-1 (Jericho et al 2006) IMPRESSION: Mild hepatic steatosis. Coarsened hepatic echotexture and a nodular liver contour, suggestive of cirrhosis. The median shear wave velocity in the liver is 2.45 m/s, corresponding to a median liver stiffness of 18.35 kPa. The IQR/median value is 0.08. This is indicative of a quality data set. Findings are indicative of a high elastography value indicating advanced chronic liver disease and portal hypertension. Laboratory Tests 03/13/25 11:16 Liver Fibrosis Stage F0 DELLA Screen NEGATIVE Anti-Smooth Muscle Ab 33 H Assessment & Plan Assessment & Plan (1) Diverticulosis: Code(s): K57.90 - Diverticulosis of intestine, part unspecified, without perforation or abscess without bleeding Category: Medical (2) Constipation: Code(s): K59.00 - Constipation, unspecified Qualifiers: Constipation type: slow transit constipation Qualified Code(s): K59.01 - Slow transit constipation (3) Irritable bowel syndrome: Code(s): K58.9 - Irritable bowel syndrome, unspecified Qualifiers: Irritable bowel syndrome type: without diarrhea Qualified Code(s): K58.9 - Irritable bowel syndrome, unspecified (4) Gastroesophageal reflux disease: Code(s): K21.9 - Gastro-esophageal reflux disease without esophagitis Qualifiers: Esophagitis presence: esophagitis presence not specified Qualified Code(s): K21.9 - Gastro-esophageal reflux disease without esophagitis (5) Steatosis of liver: Code(s): K76.0 - Fatty (change of) liver, not elsewhere classified Plan Continue current management for reflux. Continue pantoprazole. Avoid dietary triggers in late night snacking. Staying upright for minimal 3 hours after meals discussed with patient. Patient will try to exercise on a regular basis and try to lose weight. Follow low fat, low salt, low carb and high-protein diet. List of food recommended for NAFLD given to patient. Patient will follow-up in our office in 6 months. She will get ultrasound again in 5 months. Patient was encouraged to call us if she will have any GI concerning symptoms. She is agreeable to this plan and verbalizes understanding of instructions. She was given the opportunity to ask questions and all questions answered. Thank you for allowing me to participate in her care Orders: Orders US abdomen otoole w elastography 5 Months K76.0 - Fatty (change of) liver, not elsewhere classified Medications: Changed From polyethylene glycol 3350 17 grams PO DAILY 510 grams 3RF To polyethylene glycol 3350 17 grams PO DAILY 510 grams 3RF Coding Level of Care Code New Pt Level 3 (83392) Diagnoses Diverticulosis K57.90 Slow transit constipation K59.01 Constipation type: slow transit constipation Irritable bowel syndrome without diarrhea K58.9 Irritable bowel syndrome type: without diarrhea Gastroesophageal reflux disease, unspecified whether esophagitis present K21.9 Esophagitis presence: esophagitis presence not specified Steatosis of liver K76.0 Time Spent (min) 30 Comment 20 minutes spent with patient and additional 10 minutes spent reviewing her records
[2025-03-14 13:00] VITALS: BP 138/64; PULSE 74; O2SAT 98; BMI 43.1
--- OUTSIDE RECORDS SUMMARY | 2025-03-14 14:57 | XMS_ITS | Encounter Summary ---
Author Organization [employer] Address [address] [place] [address] 7 [place] [address] Care Team Providers Care Cyber Transport Systems Specialist Name Role Phone Barbara Triplett DO Primary Care Provider + [phone] Reason for Visit * Reason Onset Date Comments Med Refill 10/16/2024 Encounter Details Date Type Department Care Team ([facility] [facility] st Contact Info) Description 10/16/2024 Refill [facility] MED[facility]INE [address] [place] [address] Barbara Triplett DO [address] [place] [address] Social History Tobacco Use Types Packs/Day Years [...] Description 03/24/2025 11:00 AM EDT Office Visit [facility] [address] [place] [address] Barbara Triplett DO [address] [place] [address] documented as of this encounter Visit Diagnoses Not on filedocumented in this encounter Additional Health Concerns Assessment Noted Time PHQ-9 Depression Total Score: 3 12/01/19 24 10:50 AM EDT documented as of this encounter Care Teams Cyber Transport Systems Specialist Relationship Specialty Start Date End Date Barbara Triplett DO [address] [place] [address] PCP - General Family Medicine 03/14/13 documented as of this encounter
--- OUTSIDE RECORDS SUMMARY | 2025-03-14 14:57 | XMS_ITS | Encounter Summary ---
Author Organization [employer] Address [address] [place] [address] 7 [place] [address] Care Team Providers Care Attractions Associate Name Role Phone Barbara Triplett DO Primary Care Provider + [phone] Reason for Visit * Reason Comments Med Refill Encounter Details Date Type Department Care Team ([facility] st Contact Info) Description 04/07/[address] [facility] MEDICINE [address] [place] [address] Barbara Triplett DO [address] [place] [address] Joana Social History Tobacco Use Types Packs/Day [...] Description 03/24/2025 11:00 AM EDT Office Visit [facility] MEDICINE [address] [place] [address] Barbara Triplett DO [address] [place] [address] documented as of this encounter Visit Diagnoses Diagnosis Rosacea documented in this encounter Additional Health Concerns Assessment Noted Time PHQ-9 Depression Total Score: 3 12/01/19 24 10:50 AM EDT documented as of this encounter Care Teams Attractions Associate Relationship Specialty Start Date End Date Barbara Triplett DO 230 [place] [address] PCP - General Family Medicine 03/14/13 documented as of this encounter
--- OUTSIDE RECORDS SUMMARY | 2025-03-14 14:57 | XMS_ITS | Encounter Summary ---
Author Organization [employer] Address [address] [place] [address] 7 [place] [address] Care Team Providers Care Major Account Representative Name Role Phone Ioana Barbara Primary Care Provider + [phone] Encounter Details Date Type Department Care Team ([facility] st Contact Info) Description 10/13/2023 Orders Only [facility] MEDICINE [address] [place] [address] ProviderSussy MD Social History Tobacco Use Types [...] Description 03/24/2025 11:00 AM EDT Office Visit [facility] MEDICINE [address] [place] [address] Barbara Triplett DO [address] [place] [address] documented as of this encounter Procedures Procedure [...] documented as of this encounter Care Teams Major Account Representative Relationship Specialty Start Date End Date Barbara Triplett DO [address] [place] [address] PCP - General Family Medicine 03/14/13 documented as of this encounter
--- OUTSIDE RECORDS SUMMARY | 2025-03-14 14:58 | XMS_ITS | Encounter Summary ---
Author Organization [employer] Address [address] [place] [address] 7 [place] [address] Care Team Providers Care Tabular Typist Name Role Phone Barbara Triplett DO Primary Care Provider + [phone] Reason for Visit * Reason Comments Med Refill Encounter Details Date Type Department Care Team (Late st Contact Info) Description 11/18/2022 Refill [facility] MEDICINE [address] [place] [address] [phone] Destiny Metcalf MD [address] [place] [address] [phone] Social History Tobacco Use Types Packs/Day Years [...] Description 03/24/2025 11:00 AM EDT Office Visit [facility] MEDICINE [address] [place] [phone] Barbara Triplett DO 230 [place] [address] documented as of this encounter Visit Diagnoses Not on filedocumented in this encounter Additional Health Concerns Assessment Noted Time PHQ-9 Depression Total Score: 1 11/12/19 23 9:48 AM EDT documented as of this encounter Care Teams Tabular Typist Relationship Specialty Start Date End Date Barbara Triplett DO [address] [place] [address] PCP - General Family Medicine 03/14/13 documented as of this encounter
--- OUTSIDE RECORDS SUMMARY | 2025-03-14 14:58 | XMS_ITS | Encounter Summary ---
Author Organization [employer] Address [address] [place] [address] 7 [place] [address] Care Team Providers Care Bay Stocker Name Role Phone Barbara Triplett DO Primary Care Provider + [phone] Reason for Visit * Reason Onset Date Comments Nurse Triage 08/03/2024 Encounter Details Date Type Department Care Team ([facility] st Contact Info) Description 08/03/2024 Telephone [facility] MEDICINE [address] [place], [place] [phone] Barbara Triplett DO [address] [place] [address] Nurse Triage Social History Tobacco Use Types [...] today. Pt does report being at a libertarian over the weekend where the cake was [...] caller accepted this outcome. Contact pt at [phone] documented in this encounter Plan of Treatment Upcoming Encounters Date Type Department Care Team (Late st Contact Info) Description 03/24/2025 11:00 AM EDT Office Visit [facility] MEDICINE [address] [place] [address] Barbara Triplett DO [address] [place] [address] documented as of this encounter Visit Diagnoses Not on filedocumented in this encounter Additional Health Concerns Assessment Noted Time PHQ-9 Depression Total Score: 3 12/01/19 24 10:50 AM EDT documented as of this encounter Care Teams Bay Stocker Relationship Specialty Start Date End Date Barbara Triplett DO [address] [place] [address] PCP - General Family Medicine 03/14/13 documented as of this encounter
--- OUTSIDE RECORDS SUMMARY | 2025-03-14 14:58 | XMS_ITS | Encounter Summary ---
Author Organization [employer] Address [address] [place] [address] 7 [place] [address] Care Team Providers Care Golf Ball Inspector Name Role Phone Barbara Triplett DO Primary Care Provider + [phone] Reason for Visit * Reason Onset Date Comments Nurse Triage 03/25/2023 Encounter Details Date Type Department Care Team ([facility] st Contact Info) Description 03/25/2023 Telephone [facility] MEDICINE [address] [place] [address] Barbara Triplett DO [address] [place] [address] Nurse Triage Social History Tobacco Use Types [...] two new ointments today waiting for pharmacy picker operator. Triamcinolone 0.1% and metronidazole 0.75% cream. Pt is advised to start these creams and if by the end of the week they are not effectively decreasing the rash come to [facility] to be seen byprovider. Pt [...] 11:00 AM EDT Office Visit [facility] MEDICINE [address] [place] [address] Barbara Triplett DO [address] [place] [address] documented as of this encounter Visit Diagnoses Not on filedocumented in this encounter Additional Health Concerns Assessment Noted Time PHQ-9 Depression Total Score: 1 11/12/19 23 9:48 AM EDT documented as of this encounter Care Teams Golf Ball Inspector Relationship Specialty Start Date End Date Barbara Triplett DO [address] [place] [address] PCP - General Family Medicine 03/14/13 documented as of this encounter
--- OUTSIDE RECORDS SUMMARY | 2025-03-14 14:58 | XMS_ITS | Clinical Summary ---
Author Organization [facility] Address [address] [place] [address] Phone Care Team Providers Care Ctrs Name Role Phone Mery Triplettnifer Zohreh ROBERSON Primary Care Provider [phone] Allergies Active Allergy Reactions Criticality Noted Date [...] to complete this topic Insurance [place] Care Teams Ctrs Relationship Specialty Start Date End Date Barbara Triplett DO [address] [place], [place] PCP - General 07/30/23
--- OUTSIDE RECORDS SUMMARY | 2025-03-14 14:58 | XMS_ITS | Encounter Summary ---
Author Organization [employer] Address [address] [place] [address] 7 [place] [address] Care Team Providers Care Glass Designer Name Role Phone Barbara Triplett Primary Care Provider + [phone] Reason for Visit * Reason Comments Med Refill Encounter Details Date Type Department Care Team ([facility] Contact Info) Description 12/30/2022 Refill [facility] MEDICINE [address] [place] [address] Destiny Metcalf MD [address] [place] [address] Social History Tobacco Use Types Packs/Day Years [...] Description 03/24/2025 11:00 AM EDT Office Visit [facility] MEDICINE [address] [place] [address] Barbara Triplett DO [address] [place] [address] documented as of this encounter Visit Diagnoses Not on filedocumented in this encounter Additional Health Concerns Assessment Noted Time PHQ-9 Depression Total Score: 1 11/12/19 23 9:48 AM EDT documented as of this encounter Care Teams Glass Designer Relationship Specialty Start Date End Date Barbara Triplett DO [address] [place] [address] PCP - General Family Medicine 03/14/13 documented as of this encounter
--- OUTSIDE RECORDS SUMMARY | 2025-03-14 14:58 | XMS_ITS | Encounter Summary ---
Author Organization [employer] Address [address] [place] [address] 7 [place] [address] Care Team Providers Care Prop Making Supervisor Name Role Phone LitzyBarbara avalos Primary Care Provider + [phone] Encounter Details Date Type Department Care Team ([facility] st Contact Info) Description 04/10/2023 Abstract [facility] MEDICINE [address] [place] [address] Deyanira Olivares Social History Tobacco Use Types [...] Description 03/24/2025 11:00 AM EDT Office Visit [facility] MEDICINE [address] [place] [address] Barbara Triplett DO [address] [place], [place] [phone] documented as of this encounter Procedures Procedure [...] documented as of this encounter Care Teams Prop Making Supervisor Relationship Specialty Start Date End Date Barbara Triplett DO [address] [place] [address] PCP - General Family Medicine 03/14/13 documented as of this encounter
--- OUTSIDE RECORDS SUMMARY | 2025-03-14 14:58 | XMS_ITS | Clinical Summary ---
Author Organization [email or web address] Address [address] [place] [address] 7 [place] [address] Care Team Providers Care Production Recovery Operator Name Role Phone IoanaBarbara Primary Care Provider + [phone] Allergies Active Allergy Reactions Criticality Noted Date [...] DEPARTMENT Provider, Generic External Data 03/07/2025 Telephone [facility] [address] [place] [address] Barbara Triplett DO Recall Letter (Recall Letter sent 03/07/25.) 02/25/2025 Refill [facility] [address] [place] [address] Barbara Triplett DO Hidradenitis suppurativa 02/24/2025 Refill [facility] [address] [place] [address] Barbara Triplett DO 02/17/2025 Orders Only [facility] External Provider, [facility] 01/20/2025 3:00 PM EDT Office Visit [facility] [address] [place] [address] Roldan Stein CNP Pelvic pain (Primary Dx) 01/20/2025 Refill [facility] [address] [place] [address] Barbara Trilpett DO Hypertension, unspecified type 01/20/2025 Travel 01/19/2025 Telephone [facility] [address] [place] [address] Roma Sheffield [place] Chart Prep 01/19/2025 Telephone [facility] [address] [place] [address] Barbara Triplett DO Nurse Triage 12/17/2024 Refill [facility] [address] [place], [place] [phone] Barbara Triplett, DO Bernard from Last 3 [...] Description 03/24/2025 11:00 AM EDT Office Visit [facility] [address] [place] [address] Barbara Triplett DO [address] [place], [place] [phone] Health Maintenance Due Date Last Done Comments [...] Bilirubin, Total 0.5 0.0 - 1.0 mg/dL [facility] Bilirubin, Direct 0.1 0.0 - 0.5 mg/dL [facility] Aspartate Amino Transferase 22 5 - 31 U/L [facility] Alanine Aminotransferase 17 0 - 31 U/L [facility] Total Protein 7.3 6.5 - 8.0 g/dL [facility] Albumin Level 4.0 3.5 - 5.0 g/dL [facility] Alkaline Phosphatase 77 39 - 117 U/L [facility] 03/13/2025 11:1 6 AM EDT 03/13/2025 11:16 AM EDT us Generic External Data Provider LAB BLOOD ORDERAB LES Final Result Performing Organization Address City/State/[facility] Co de Phone Number [facility] [address] [place] [address] [phone] * US ABDOMEN BURRELL W ELASTOGRAPHY (02/17/2025 10:01 AM EDT) Anatomical Region Laterality Modality Abdomen Ultrasound 02/17/2025 10:0 1 AM EDT Narrative 02/17/2025 11:00 AM EDT [address] [address] Ultrasound Report Signed Patient: Quan Rowley MR#: [id number] 82 : 1975 Acct:[id number] Age/Sex: 49 / F ADM Date: 02/17/25 Loc: HO.US Attending Dr: Jasmin GIL-ASHWINI Ordering Physician: Jasmin Meek Date of Service: 02/17/25 Procedure(s): US abdomen burrell w elastography Accession Number(s): [id number] cc: Barbara Triplett DO; Jasmin Meek INTERNAL SECURITY MANAGER- EXAMINATION: US ABDOMEN LIMITED WITH LIVER ELASTOGRAPHY [...] 02/17/25 1057 DD/ 1001 TD/TT: 02/17/25 1018 Engraving Press Operator: Procedure Note Donotuseinterpreter, Image - 02/17/2025 [place] [address] Ultrasound Report Signed Patient: Quan RowleyMR#: [id number] 82 : 1975Acct:[id number] Age/Sex: 49 / FADM Date: 02/17/25 Loc: HO.US Attending Dr: Jasmin PTIT Ordering Physician: Jasmin Meek Date of Service: 02/17/25 Procedure(s): US abdomen burrell w elastography Accession Number(s): [id number] cc: Barbara Triplett DO; Jasmin Meek EXAMINATION: [...] 02/17/25 1057 DD/ 1001 TD/TT: 02/17/25 1018 Engraving Press Operator: us [facility] External Provider IMG US PROCEDURES Final Result * Hepatitis C Antibody with Reflex to HCV, RNA, Quantitative, Real-Time PCR (10/05/2024 3:02 PM EDT) Hepatitis C Antibody Nonreactive Nonreactive [facility] Comment:Antibodies to HCV no t detected; does not exclude early acuteHCV infection. 10/05/2024 3:02 PM EDT 10/05/2024 3:02 PM EDT us Generic External Data Provider LAB BLOOD ORDERAB LES Final Result [facility] [address] [place] [address] [phone] * HIV-1/2 Antigen and Antibodies, Fourth Generation, with Reflexes (10/05/2024 3:02 PM EDT) HIV AB/AG Nonreactive Nonreactive [facility] Comment:HIV-1 p24 Ag and/or HIV-1/HIV-2 Ab not detected.A test result that is nonreactive does not exclude thepossibility of exposure to or infection with HIV-1 and/orHIV-2. Nonreactive results in this assay for individualswith prior exposure to HIV-1 and/or HIV-2 may be due toantigen and antibody levels that are below the limit ofdetection of this assay.The [employer] HIV Ag/Ab Combo assay result andsupplemental assay results should be interpreted inconjunction with the patient's clinical presentation,history and other laboratory results. If the results areinconsistent with clinical evidence, additional testing issuggested to confirm the result. 10/05/2024 3:02 PM EDT 10/05/2024 3:02 PM EDT us Generic External Data Provider LAB BLOOD ORDERAB LES Final Result [facility] [address] [place] [phone] * (ABNORMAL) Lipid Panel, Standard (08/19/2024 11:15 AM EST) Triglycerides 120 <150 mg/dL [facility] Comment:Desirable Triglyceri de: less than 150 mg/dLBorderline High Triglyceride 150-199 mg/dLHigh Triglyceride: 200-499 mg/dLVery High Triglyceride: greater than or equal to 5OO mg/dL Cholesterol 246(H) <200 mg/dL [facility] Comment:Desirable Cholestero l: less than 200 mg/dLBorderline High Cholesterol: 200-239 mg/dLHigh Cholesterol: greater than 239 mg/dL LDL Cholesterol Calculated 176(H) <100 mg/dL [facility] Comment:Desirable LDL: less than 100 mg/dLNear Optimal/Above Optimal LDL: 110- 129 mg/dLBorderline High LDL: 130-159 mg/dLHigh LDL: 160-189 mg/dLVery High LDL: greater than or equal to 190 mg/dL HDL Cholesterol 46 >40 mg/dL [facility] Comment:Desirable HDL: great er than 40 mg/dL Note: This HDL assay may give artificially low results in patients with liver disease. Blood Venous blood specimen / Unknown 08/19/2024 11:15 AM EST 08/19/2024 1:05 PM EST us Barbara Triplett DO LAB BLOOD ORDERABLES Final R esult [facility] [address] [place] [phone] * BI Mammogram Screening Tomosynthesis Bilateral (05/03/2024 2:00 PM EDT) Anatomical Region Laterality Modality Breast Bilateral Mammography 05/03/2024 2:00 PM EDT Narrative 05/11/2024 10:49 AM EST [address] [place] [address] Mammography Report Signed Patient: Quan Rowley MR#: [id number] 82 : 1975 Acct:[id number] Age/Sex: 49 / F ADM Date: 05/03/24 Loc: HO.MAMMO Attending Dr: Barbara Triplett DO Ordering Physician: Barbara Triplett DO Results: 1N egative Date of Service: 05/03/24 Follow Up: 1 Year From Orig inal Mammogram Procedure(s): MM tomosynthesis screening BI Accession Number(s): [id number] cc: Barbara Triplett DO EXAMINATION: MM SCREENING [...] 05/11/24 1046 DD/ 1400 TD/TT: 05/03/24 1421 Engraving Press Operator: Procedure Note Donotuseinterpreter, Image - 05/11/2024 [place] [facility] [address] [place] [address] Mammography Report Signed Patient: Quan RowleyMR#: [id number] 82 : 1975Acct:[id number] Age/Sex: 49 / FADM Date: 05/03/24 Loc: HO.MAMMO Attending Dr: Barbara Triplett DO Ordering Physician: Barbara Triplettults: 1N egative Date of Service: 05/03/24Follow Up: 1 Year From Orig inal Mammogram Procedure(s): MM tomosynthesis screening BI Accession Number(s): [id number] cc: Barbara Triplett DO EXAMINATION: MM SCREENING [...] 05/11/24 1046 DD/ 1400 TD/TT: 05/03/24 1421 Engraving Press Operator: Barbara Triplett DO IMG BI PROCEDURES Final Resu lt * Hm Colonoscopy (01/10/2022 11:40 AM EDT) Historical Provider HEALTH MAINTENANCE Final Result * Hm Pap Smear (11/20/2021) Pap Negative for intraephithelial lesion or malignancy Negative for intraephithelial lesion or malignancy, Other HPV Undetected Historical Provider HEALTH MAINTENANCE Final Result from Last 3 Months or Most Recently Relevant to Health Maintenance Insurance [facility] Care Teams Production Recovery Operator Relationship Specialty Start Date End Date Barbara Triplett DO [address] [place], [place] [phone] PCP - General Family Medicine 03/14/13
--- OUTSIDE RECORDS SUMMARY | 2025-03-14 14:58 | XMS_ITS | Encounter Summary ---
Author Organization [employer] Address [address] [place] [address] [place] [address] Care Team Providers Care Ela Teacher Name Role Phone Barbara Triplett DO Primary Care Provider + [phone] Encounter Details Date Type Department Care Team (Late st Contact Info) Description 09/15/2022 Orders Only [facility] MED [facility] PEDS [address] [place] [address] Barbara Rider LPN Social History Tobacco Use [...] Description 03/24/2025 11:00 AM EDT Office Visit [facility] MEDICINE [address] [place] [address] Barbara Triplett DO [address] [place] [address] documented as of this encounter Visit Diagnoses Not on filedocumented in this encounter Care Teams Ela Teacher Relationship Specialty Start Date End Date Barbara Triplett DO [address] [place] [address] PCP - General Family Medicine 03/14/13 documented as of this encounter
--- OUTSIDE RECORDS SUMMARY | 2025-03-14 14:58 | XMS_ITS | Encounter Summary ---
Author Organization [employer] Address [address] [place] [address] 7 [place] [address] Care Team Providers Care Derrick Engineer Name Role Phone LitzyBarbara avalos Primary Care Provider + [phone] Encounter Details Date Type Department Care Team [...] Description 03/24/2025 11:00 AM EDT Office Visit [facility] MEDICINE [address] [place], [place] [phone] Barbara Triplett DO [address] [place], [place] [phone] documented as of this encounter Procedures Procedure Name Priority Date/Time Associated Diagnosis Comments HEPATIC FUNCTION PANEL Routine 03/13/2025 11:16 AM EDT documented in this encounter Results * Hepatic Function Panel (03/13/2025 11:16 AM EDT) Bilirubin, Total 0.5 0.0 - 1.0 mg/dL [facility] Bilirubin, Direct 0.1 0.0 - 0.5 mg/dL [facility] Aspartate Amino Transferase 22 5 - 31 U/L [facility] Alanine Aminotransferase 17 0 - 31 U/L [facility] Total Protein 7.3 6.5 - 8.0 g/dL [facility] Albumin Level 4.0 3.5 - 5.0 g/dL [facility] Alkaline Phosphatase 77 39 - 117 U/L [facility] 03/13/2025 11:1 6 AM EDT 03/13/2025 11:16 AM EDT us Generic External Data Provider LAB BLOOD ORDERAB LES Final Result [facility] [address] [place] [address] [phone] documented in this encounter Visit Diagnoses Not on filedocumented in this encounter Additional Health Concerns Assessment Noted Time PHQ-9 Depression Total Score: 0 01/21/20 25 3:30 PM EDT documented as of this encounter Care Teams Derrick Engineer Relationship Specialty Start Date End Date Barbara Triplett DO [address] [place] [address] PCP - General Family Medicine 03/14/13 documented as of this encounter
--- OUTSIDE RECORDS SUMMARY | 2025-03-14 14:58 | XMS_ITS | Encounter Summary ---
Author Organization [employer] Address [address] [place] [address] 7 [place] [address] Care Team Providers Care Claims Account Manager Name Role Phone Barbara Triplett DO Primary Care Provider + [phone] Encounter Details Date Type Department Care Team (Late st Contact Info) Description 12/30/2022 Orders Only [facility] MED & PEDS [address] [place], [place] [phone] Barbara Rider LPN Social History Tobacco Use [...] Description 03/24/2025 11:00 AM EDT Office Visit [facility] MEDICINE [address] [place] [address] Barbara Triplett DO [address] [place] [address] documented as of this encounter Visit Diagnoses Not on filedocumented in this encounter Additional Health Concerns Assessment Noted Time PHQ-9 Depression Total Score: 1 11/12/19 23 9:48 AM EDT documented as of this encounter Care Teams Claims Account Manager Relationship Specialty Start Date End Date Barbara Triplett DO [address] [place] [address] PCP - General Family Medicine 03/14/13 documented as of this encounter
--- OUTSIDE RECORDS SUMMARY | 2025-03-14 14:58 | XMS_ITS | Clinical Summary ---
Author Organization [facility] Address [address] [address] Phone Care Team Providers Care Sheet Hanger Name Role Phone IoanaBarbara Primary Care Provider [...] ACO C3 ACO C3 ACO Care Teams Sheet Hanger Relationship Specialty Start Date End Date Barbara Triplett DO [address] [place] [address] PCP - General Family Medicine 12/29/18 Additional Source Comments The information contained in this document represents components of the legal health record. It is not the complete legal health record.[facility]
== END 2025-03-14 13:30 | disposition home or self-care (01) ==
PROVIDERS: PCP Family Medicine; Visit Provider Nurse Practitioner Family
DX: K57.90 Diverticulosis of intestine, part unspecified, without perforation or abscess without bleeding (principal); K58.1 Irritable bowel syndrome with constipation; K21.9 Gastro-esophageal reflux disease without esophagitis; K76.0 Fatty (change of) liver, not elsewhere classified
CPT/HCPCS: 99213

== ENCOUNTER → 2025-03-14 12:37 | Outpatient (BNVA) | payer OTHER, SELFPAY | PROVIDERS: PCP Family Medicine; Visit Provider Nurse Practitioner Family | DX: K57.90 Diverticulosis of intestine, part unspecified, without perforation or abscess without bleeding (principal); K59.01 Slow transit constipation; K58.9 Irritable bowel syndrome, unspecified; K21.9 Gastro-esophageal reflux disease without esophagitis; K76.0 Fatty (change of) liver, not elsewhere classified; Z68.41 Body mass index [BMI] 40.0-44.9, adult | CPT/HCPCS: 99212 ==

== ENCOUNTER 2025-05-09 13:50 | Outpatient (REF) | payer OTHER, SELFPAY ==
--- OUTSIDE RECORDS SUMMARY | 2025-05-09 16:57 | XMS_ITS | Encounter Summary ---
Author Organization [employer] Address [address] [place] [address] 7 [place] [address] Care Team Providers Care Soils Analyst Name Role Phone Barbara Trpilett DO Primary Care Provider + [phone] Encounter Details Date Type Department Care Team (Late st Contact Info) Description 12/30/[address] [facility] MED & PEDS [address] [place], [place] [phone] Barbara Rider LPN Social History Tobacco Use [...] Care Team (Late st Contact Info) Description 05/10/2025 11:30 AM EST Office Visit [facility] MEDICINE [address] [place] [address] Barbara Triplett DO [address] [place] [address] documented as of this encounter Visit Diagnoses Not on filedocumented in this encounter Additional Health Concerns Assessment Noted Time PHQ-9 Depression Total Score: 1 11/12/19 23 9:48 AM EDT documented as of this encounter Care Teams Soils Analyst Relationship Specialty Start Date End Date Barbara Triplett DO [address] [place] [address] PCP - General Family Medicine 03/14/13 documented as of this encounter
--- OUTSIDE RECORDS SUMMARY | 2025-05-09 16:57 | XMS_ITS | Encounter Summary ---
Author Organization [employer] Address [address] [place] [address] 7 [place] [address] Care Team Providers Care Solderer Barrel Ribs Name Role Phone Barbara Triplett DO Primary Care Provider + [phone] Reason for Visit * Reason Onset Date Comments Nurse Triage 08/03/2024 Encounter Details Date Type Department Care Team ([facility] st Contact Info) Description 08/03/2024 Telephone [facility] MEDICINE [address] [place], [place] [phone] Barbara Triplett DO [address] [place] [address] Nurse Triage Social History Tobacco Use Types [...] caller accepted this outcome. Contact pt at [phone] documented in this encounter Plan of Treatment Upcoming Encounters Date Type Department Care Team (Late st Contact Info) Description 05/10/2025 11:30 AM EST Office Visit [facility] MEDICINE [address] [place] [address] Barbara Triplett DO [address] [place] [address] documented as of this encounter Visit Diagnoses Not on filedocumented in this encounter Additional Health Concerns Assessment Noted Time PHQ-9 Depression Total Score: 3 12/01/19 24 10:50 AM EDT documented as of this encounter Care Teams Solderer Barrel Ribs Relationship Specialty Start Date End Date Barbara Triplett DO [address] [place] [address] PCP - General Family Medicine 03/14/13 documented as of this encounter
--- OUTSIDE RECORDS SUMMARY | 2025-05-09 16:57 | XMS_ITS | Encounter Summary ---
Author Organization [employer] Address [address] [place] [address] 7 [place] [address] Care Team Providers Care Civil Cadd Technician Name Role Phone LitzyBarbara avalos Primary Care Provider + [phone] Encounter Details Date Type Department Care Team ([facility] st Contact Info) Description 04/10/2023 Abstract [facility] MEDICINE [address] [place] [address] Deyanira Olivares Social History Tobacco Use Types [...] Description 05/10/2025 11:30 AM EST Office Visit [facility] MEDICINE [address] [place] [address] Barbara Triplett DO [address] [place], [place] [phone] documented as of this encounter Procedures Procedure [...] documented as of this encounter Care Teams Civil Cadd Technician Relationship Specialty Start Date End Date Barbara Triplett DO [address] [place] [address] PCP - General Family Medicine 03/14/13 documented as of this encounter
--- OUTSIDE RECORDS SUMMARY | 2025-05-09 16:57 | XMS_ITS | Encounter Summary ---
Author Organization [employer] Address [address] [place] [address] 7 [place] [address] Care Team Providers Care Lamp Inspector Name Role Phone Barbara Triplett DO Primary Care Provider + [phone] Reason for Visit * Reason Comments Med Refill Encounter Details Date Type Department Care Team ([facility] st Contact Info) Description 04/07/[address] [facility] MEDICINE [address] [place] [address] Barbara Triplett DO [address] [place] [address] Joana Social History Tobacco Use Types Packs/Day [...] 05/10/2025 11:30 AM EST Office Visit [facility] MEDICINE [address] [place] [address] Barbara Triplett DO [address] [place] [address] documented as of this encounter Visit Diagnoses Diagnosis Rosacea documented in this encounter Additional Health Concerns Assessment Noted Time PHQ-9 Depression Total Score: 3 12/01/19 24 10:50 AM EDT documented as of this encounter Care Teams Lamp Inspector Relationship Specialty Start Date End Date Barbara Triplett DO [address] [place] [id number] PCP - General Family Medicine 03/14/13 documented as of this encounter
--- OUTSIDE RECORDS SUMMARY | 2025-05-09 16:57 | XMS_ITS | Encounter Summary ---
Author Organization [employer] Address [address] [place] [address] 7 [place] [address] Care Team Providers Care Montessori Lead Teacher Name Role Phone Barbara Triplett DO Primary Care Provider + [phone] Reason for Visit * Reason Onset Date Comments Nurse Triage 03/25/2023 Encounter Details Date Type Department Care Team ([facility] st Contact Info) Description 03/25/2023 Telephone [facility] MEDICINE [address] [place] [address] Barbara Triplett DO [address] [place] [address] Nurse Triage Social History Tobacco Use Types [...] two new ointments today waiting for pharmacy crop picker. Triamcinolone 0.1% and metronidazole 0.75% cream. Pt is advised to start these creams and if by the end of the week they are not effectively decreasing the rash come to [facility] to be seen byprovider. Pt agrees with [...] Description 05/10/2025 11:30 AM EST Office Visit [facility] MEDICINE [address] [place] [address] Barbara Triplett DO [address] [place] [address] documented as of this encounter Visit Diagnoses Not on filedocumented in this encounter Additional Health Concerns Assessment Noted Time PHQ-9 Depression Total Score: 1 11/12/19 23 9:48 AM EDT documented as of this encounter Care Teams Montessori Lead Teacher Relationship Specialty Start Date End Date Barbara Triplett DO [address] [place] [address] PCP - General Family Medicine 03/14/13 documented as of this encounter
--- OUTSIDE RECORDS SUMMARY | 2025-05-09 16:57 | XMS_ITS | Encounter Summary ---
Author Organization [employer] Address [address] [place] [address] 7 [place] [address] Care Team Providers Care Mud Mixer Helper Name Role Phone Barbara Triplett DO Primary Care Provider + [phone] Encounter Details Date Type Department Care Team (Late st Contact Info) Description 09/15/2022 Orders Only [facility] [address] [place], [place] [phone] Barbara Rider LPN Social History Tobacco Use [...] Description 05/10/2025 11:30 AM EST Office Visit [facility] MEDICINE [address] [place] [address] Barbara Triplett DO [address] [place] [address] documented as of this encounter Visit Diagnoses Not on filedocumented in this encounter Care Teams Mud Mixer Helper Relationship Specialty Start Date End Date Barbara Triplett DO [address] [place] [address] PCP - General Family Medicine 03/14/13 documented as of this encounter
--- OUTSIDE RECORDS SUMMARY | 2025-05-09 16:57 | XMS_ITS | Encounter Summary ---
Author Organization [employer] Address [address] [place] [address] 7 [place] [address] Care Team Providers Care Court Operations Clerk Name Role Phone Barbara Triplett DO Primary Care Provider + [phone] Reason for Visit * Reason Onset Date Comments Med Refill 10/16/2024 Encounter Details Date Type Department Care Team ([facility] st Contact Info) Description 10/16/2024 Refill [facility] MEDICINE [address] [place] [address] Barbara Triplett DO [address] [place] [address] Social History Tobacco Use Types Packs/Day Years [...] Description 05/10/2025 11:30 AM EST Office Visit [facility] MEDICINE [address] [place] [phone] Barbara Triplett DO [address] [place] [address] documented as of this encounter Visit Diagnoses Not on filedocumented in this encounter Additional Health Concerns Assessment Noted Time PHQ-9 Depression Total Score: 3 12/01/19 24 10:50 AM EDT documented as of this encounter Care Teams Court Operations Clerk Relationship Specialty Start Date End Date Barbara Triplett DO [address] [place] [address] PCP - General Family Medicine 03/14/13 documented as of this encounter
--- OUTSIDE RECORDS SUMMARY | 2025-05-09 16:57 | XMS_ITS | Clinical Summary ---
Author Organization [address] [facility] g Address [address] [place] [address] Phone Care Team Providers Care Biodiesel Product Manager Name Role Phone LitzyBarbara avalos Zohrhe ROBERSON Primary Care Provider [phone] Allergies Active Allergy Reactions Criticality Noted Date Comments Metronidazole 10/29/2023 Medications salicylic acid 40 % plaster Apply 1 applicator topically 1 (one) time each day. Salicylic Acid 40 % STICK Active ammonium lactate (AmLactin) 12 % lotion Apply topically if needed for dry skin. 400 g 4 05/19/20 Active Social History Tobacco Use Types [...] 05/19/2024 1:00 PM EST Plan of Treatment Upcoming Encounters Date Type Department Care Team (Late Contact Info) Description 09/26/2025 2:30 PM EDT Office Visit [facility] - [place] [address] [facility] [address] [place] [address] Gregory Ayoub MD [address] [place] [phone] Health Maintenance Due Date Last Done Comments Breast Cancer Screening 1975 Colorectal Cancer Screening: Colonoscopy 1975 Cervical Cancer Screening: Pap Smear 1996 Social Influencers of Health Screening 04/14/2024 Depression Screening 07/06/2024 COVID-19 Vaccine ( - season) 2025 07/29/2023, 01/30/2021, 01/10/2021 Influenza Vaccine (#1) 2025 Hypertension/CHF/CAD Annual BMP Blood Test 04/08/2025 04/08/2024 Pneumococcal Vaccine: 50+ Years (1 of 1 - PCV) 2025 RSV Immunization Adult Patients (1 - Risk 50-74 years 1-dose series) 2025 Zoster Vaccines (1 of 2) 2025 Cholesterol Screening (Lipid Panel) 07/29/2028 07/29/2023 DTaP,Tdap,and [...] patient's age to complete this topic Insurance [address] [place] [address] MEDICAID - [place] Care Teams Biodiesel Product Manager Relationship Specialty Start Date End Date Barbara Triplett DO [address] [place], [place] PCP - General 07/30/23
--- OUTSIDE RECORDS SUMMARY | 2025-05-09 16:57 | XMS_ITS | Encounter Summary ---
Author Organization [employer] Address [address] [place] [address] 7 [place] [address] Care Team Providers Care Wirer Passenger Car Name Role Phone Barbara Triplett DO Primary Care Provider + [phone] Reason for Visit * Reason Comments Med Refill Encounter Details Date Type Department Care Team (Late st Contact Info) Description 11/18/2022 Refill [facility] MEDICINE [address] [place] [phone] Destiny Metcalf MD [address] [place] [phone] Social History Tobacco Use Types Packs/Day Years [...] 11:30 AM EST Office Visit [facility] MEDICINE [address] [place] [phone] Barbara Triplett DO [address] [place] [address] documented as of this encounter Visit Diagnoses Not on filedocumented in this encounter Additional Health Concerns Assessment Noted Time PHQ-9 Depression Total Score: 1 11/12/19 23 9:48 AM EDT documented as of this encounter Care Teams Wirer Passenger Car Relationship Specialty Start Date End Date Barbara Triplett DO [address] [place] [address] PCP - General Family Medicine 03/14/13 documented as of this encounter
--- OUTSIDE RECORDS SUMMARY | 2025-05-09 16:57 | XMS_ITS | Clinical Summary ---
Author Organization [employer] Address [address] [place] [address] 7 [place] [address] Care Team Providers Care Construction Administrator Name Role Phone BerlinBarbara carrasquillo Primary Care Provider + [phone] Allergies Active Allergy Reactions Criticality Noted Date Comments Metronidazole 10/29/2023 Molds & Smuts 10/28/2021 Medications pantoprazole (ProtoNix) 40 MG EC tablet TAKE [...] FOR GASSINESS 120 tablet 2 024 Active venlafaxine XR (Effexor XR) 37.5 MG 24 hr capsule TAKE 1 CAPSULE BY MOUTH EVERY DAY. DO NOT CRUSH OR CHEW. 30 capsule 3 024 Active cholecalciferol VITAMIN D (Vitamin [...] WITH FOOD 90 tablet 3 025 Active lisinopril 10 MG tabletIndications :Hypertension, [...] MINUTES AFTER. 60 tablet 1 025 Active valACYclovir (Valtrex) 500 MG tabletIndications :HSV infection TAKE 1 TABLET BY MOUTH TWICE A DAY X 3 DAYS IF NEEDED FOR OUTBREAK 12 tablet Active rosuvastatin (Crestor) 40 MG tablet TAKE 1 TABLET BY MOUTH EVERY DAY 90 tablet 3 Active triamcinolone (Kenalog) 0.1 % creamIndications: Folliculitis,Rash Apply topically if needed in the morning and at bedtime for rash or irritation. 30 g 3 025 Active metroNIDAZOLE (Metrocream) 0.75 % creamIndications: Rosacea APPLY SPARINGLY TO AFFECTED AREA TWICE A DAY 45 g 025 Active valACYclovir (Valtrex) 500 MG tabletIndications :HSV infection TAKE 1 TABLET BY MOUTH TWICE A DAY X 3 DAYS IF NEEDED FOR OUTBREAK 12 tablet 024 2024 Discontinued(R eorder (will not trigger notification to Pharmacy)) rosuvastatin (Crestor) 40 MG tablet TAKE 1 TABLET BY MOUTH EVERY DAY 90 tablet 3 024 2024 Discontinued(R eorder (will not trigger notification to Pharmacy)) triamcinolone (Kenalog) 0.1 % creamIndications: Folliculitis,Rash APPLY TOPICALLY IF NEEDED IN THE MORNING AND AT BEDTIME FOR RASH OR IRRITATION. 30 g 3 024 2024 Discontinued(R eorder (will not trigger notification to Pharmacy)) metroNIDAZOLE (Metrocream) 0.75 % creamIndications: Rosacea APPLY SPARINGLY TO AFFECTED AREA TWICE A DAY 45 g 12/19/2 025 2024 Discontinued(R eorder (will not trigger notification to Pharmacy)) clotrimazole (Lotrimin) 1 % cream APPLY TOPICALLY IF NEEDED IN THE MORNING AND AT BEDTIME (SHOULDER RASH) FOR UP TO 28 DAYS. 30 g 5 025 2024 Active Problems Problem Noted Date Diagnosed Date [...] 07/18/2015 Essential hypertension 07/18/2015 BMI 40.0-44.9, adult ([facility]) 07/18/2015 Osteoarthritis 07/18/2015 Polycystic ovarian syndrome 07/18/2015 Rosacea 07/18/2015 Varicose veins 07/18/2015 Vitamin D deficiency 07/18/2015 Resolved Problems Problem Noted Date Diagnosed Date Resolved Date Dyslipidemia 08/15/2022 12/03/2022 Herpes simplex type 2 infection 08/15/2022 12/03/2022 Encounters Date Type Department Care Team Description 05/05/2025 Telephone [facility] [address] [place] [phone] Barbara Triplett DO 05/01/2025 Refill [facility] [address] [place], [place] [phone] Barbara Triplett DO HSV infection; Folliculitis; Rash; Rosacea 03/31/[address] [address] Barbara Triplett DO Telephone Call 03/27/[address] [address] Barbara Triplett DO 03/24/2025 11:00 AM EDT Office Visit [address] [address] Barbara Triplett DO Essential hypertension (Primary Dx); Other hyperlipidemia; Depressive disorder; Fatty liver; Chronic gastroesophageal reflux disease; Chronic pelvic pain; Multiple thyroid nodules; Healthcare maintenance; Dietary counseling; Exercise counseling; Morbid obesity with BMI of 40.0-44.9, adult ([facility]) 03/24/2025 Travel 03/23/2025 Telephone [facility] [address] [place] [address] Barbara Triplett DO Chart Prep 03/13/2025 Orders Only GENERIC EXTERNAL DATA DEPARTMENT Provider, Generic External Data 03/07/[address] [address] Barbara Triplett DO Recall Letter (Recall Letter sent 03/07/25.) 02/25/[address] [address] Barbara Triplett DO Hidradenitis suppurativa 02/24/[address] [address] Barbara Triplett DO 02/17/2025 Orders Only [facility] External Provider, [facility] from Last 3 Months Immunizations Immunization Administration Dates Next Due Hep A, Adult 12/27/2021,04/01/2021 Hep B, adult 11/11/2022,12/27/2021,04/01/2021 Pfizer Covid-19 Vaccine 12+ 07/29/2023 TD (adult), 2 Lf tetanus tox oid, preservative free, adsorbed 07/29/2023,12/22/2011,11/10/2008 Tdap 02/11/2013 Family History Medical History Relation Name Comments Lung cancer Father Asthma Mother Diabetes Mother Hypertension Mother Relation Name Status Comments Father Mother Social History Tobacco Use Types Packs/Day [...] Sign Reading Time Taken Comments Blood Pressure 126/70 03/24/2025 11:28 AM EDT Pulse 70 03/24/2025 11:28 AM EDT Temperature 36.6 C (97.9 F) 03/24/2025 11:28 AM EDT Respiratory Rate 19 03/24/2025 11:28 AM EDT Oxygen Saturation 100% 03/24/2025 11:28 AM EDT Inhaled Oxygen Concentration - - Weight 122 kg (269 lb) 03/24/2025 11:28 AM EDT Height 165.1 cm (5' 5 ) 03/24/2025 11:28 AM EDT Body Mass Index 44.76 03/24/2025 11:28 AM EDT Plan of Treatment Upcoming Encounters Date Type Department Care Team (Late st Contact Info) Description 05/10/2025 11:30 AM EST Office Visit [facility] [address] [place], [place] [phone] Barbara Triplett DO [address] [place], [place] [phone] Health Maintenance Due Date Last Done Comments CT Colonography 1975 FIT DNA/Cologuard 1975 FIT 1975 FOBT 1975 Sigmoidoscopy 1975 Family Planning (PISQ) 1990 Pap Smear 11/20/2024 11/20/2021 COVID-19 Vaccine ( season) 2025 07/29/2023, 01/30/2021, 01/10/2021 Influenza Vaccine (#1) 2025 Pneumococcal Vaccine: 50+ Years (1 of 1 - PCV) 2025 Zoster Vaccines (1 of 2) 2025 Mammogram 05/03/2025 05/03/2024, 04/06, 04/28/2023, Additional history exists Alcohol/Substance Use Screening 08/19/2025 08/19/2024 Depression Screening 01/20/2026 01/20/2025, 01/21/20 25 Disability Screening 01/20/2026 01/20/2025 SDOH Screening 01/20/2026 01/20/2025 Tobacco Screening 03/24/2026 03/24/2025 Cervical Cancer Screening 11/20/2026 HPV/Cotest 11/20/2026 11/20/2021, [...] Procedure Name Priority Date/Time Associated Diagnosis Comments LIVER FIBROSIS, FIBROTEST ACTITEST PANEL Routine 03/13/2025 11:16 AM EDT ACTIN (SMOOTH MUSCLE) ANTIBODY (IGG) Routine 03/13/2025 11:16 AM EDT DELLA SCREEN, IFA, W/REFL TITER AND PATTERN Routine 03/13/2025 11:16 AM EDT HEPATIC FUNCTION PANEL Routine 03/13/2025 11:16 AM [...] Recently Relevant to Health Maintenance Results * Liver Fibrosis (HCV), FibroTest-ActiTest Panel (03/13/2025 11:16 AM EDT) Liver Fibrosis Score 0.17 [facility] Liver Fibrosis Stage F0 [facility] Liver Fibrosis Interpretation SEE NOTE [facility] Comment:no fibrosisFibro Chantelle t Score (f) Metavir Score f>=0 and f<=0.21 : F0 (no fibrosis)f>0.21 and f<=0.27 : F0-F1 (no fibrosis)f>0.27 and f<=0.31 : F1 (minimal fibrosis)f>0.31 and f<=0.48 : F1-F2 (minimal fibrosis)f>0.48 and f<=0.58 : F2 (moderate fibrosis)f>0.58 and f<=0.72 : F3 (advanced fibrosis)f>0.72 and f<=0.74 : F3-F4 (advanced fibrosis)f>0.74 and f<=1.00 : F4 (severe fibrosis) Nec Inflam Act Score 0.04 [facility] Nec Inflam Act Grade A0 [facility] Nec Inflam Act Interpretation SEE NOTE [facility] Comment:no activityActiTest Score (a) Metavir Score a>=0 and a<=0.17 : A0 (no activity)a>0.17 and a<=0.29 : A0-A1 (no activity)a>0.29 and a<=0.36 : A1 (minimal activity)a>0.36 and a<=0.52 : A1-A2 (minimal activity)a>0.52 and a<=0.60 : A2 (significant activity)a>0.60 and a<=0.62 : A2-A3 (significant activity)a>0.62 and a<=1.00 : A3 (severe activity) DCD-Cxxeo-1-Macroglo bulin 216 106 - 279 mg/dL [facility] FIB-Haptoglobin 143 43 - 212 mg/dL [facility] FIB-Apolipoprotein A1 167 101 - 198 mg/dL [facility] FIB-Total Bilirubin 0.5 0.2 - 1.2 mg/dL [facility] FIB-GGT 39 3 - 55 U/L [facility] FIB-ALT 15 6 - 29 U/L [facility] Reference ID [id number] [facility] Footnote SEE NOTE [facility] Comment: The reliability of results is dependent on compliance withthe preanalytical and analytical conditions recommended byBioPredictive. The tests have to be deferred for: acutehemolysis, acute hepatitis, acute inflammation, extrahepatic cholestasis. The advice of a specialist should besought for interpretation in chronic hemolysis and Gilbert'ssyndrome. The test interpretation is not validated in livertransplant patients. Isolated extreme values of one of thecomponents should lead to caution in interpreting theresults. In case of discordance between a biopsy result tristen test, it is recommended to seek the advice of aspecialist. The causes of these discordances could be due toa flaw of the test or to a flaw in the biopsy: i.e. a liverbiopsy has a 33% variability rate for one fibrosis stage.FibroTest is interpretable for chronic hepatitis B and C,alcoholic and non alcoholic steatosis. ActiTest isinterpretable for chronic hepatitis B and C.The performance characteristics have been determined by[facility]. Ithas not been cleared or approved by the U.S. Food and DrugAdministration. Performance characteristics refer to theanalytical performance of the test.[employer], [employer], the associated logo, [employer] and all associated [employer] mariscal are theregistered trademarks of [employer]. All third partymarks - (R) and (TM) - are the property of their respectiveowners. (C) [id number] [employer]. Allrights reserved.THIS TEST WAS PERFORMED AT:[facility] [id number] [place] [address]IWQOQASTON JAEGER MD,PHD,MUKUL 03/13/2025 11:1 6 AM EDT 03/13/2025 11:16 AM EDT us Generic External Data Provider LAB BLOOD ORDERAB LES Final Result [facility] [address] [place] [phone] * (ABNORMAL) Actin (Smooth Muscle) Antibody (IgG) (03/13/2025 11:16 AM EDT) Smooth Muscle Antibody 33(A) <20 U [facility] Comment:Reference Range: <20 U: Negative>or=20 U: PositiveAntibodies recognizing actin are the main componentof smooth muscle antibodies associated with auto- immune liver disease. Actin antibodies are found inapproximately 75% of patients with autoimmunehepatitis (AIH) type 1, approximately 65% of patientswith autoimmune cholangitis, approximately 30% ofpatients with primary biliary cirrhosis andapproximately 2% of healthy controls. High values areclosely correlated with AIH type 1.THIS TEST WAS PERFORMED AT:[employer] [id number] [place] [address]HKJKMUMANANDA JULES MD,PHD 03/13/2025 11:1 6 AM EDT 03/13/2025 11:16 AM EDT us Generic External Data Provider LAB BLOOD ORDERAB LES Final Result Performing Organization Address City/[facility]/ZIP Co de Phone Number [facility] [address] [place] [address] [phone] * DELLA Screen,IFA, with Reflex to Titer and Pattern (03/13/2025 11:16 AM EDT) Anti Nuclear Antibody Screen NEGATIVE NEGATIVE [facility] Comment:DELLA IFA is a first l ine screen for detecting thepresence of up to approximately 150 autoantibodies invarious autoimmune diseases. A negative DELLA IFA resultsuggests an DELLA-associated autoimmune disease is notpresent at this time, but is not definitive. If thereis high clinical suspicion for Sjogren's syndrome,testing for anti-SS-A/Ro antibody should be considered.Anti-Carina-1 antibody should be considered for clinicallysuspected inflammatory myopathies.AC-0: NegativeInternational Consensus on DELLA Patterns(https://doi.org/10.1515/otaj-1583-2034)For additional information, please refer tohttp://education.[employer]/faq/ROW391(This link is being provided for informational/educational purposes only.)THIS TEST WAS PERFORMED AT:[facility] [place] [address]LVTYKDANITA ROBLEDO MD DELLA Titer TNP [facility] DELLA Pattern [facility] DELLA Titer 2 [facility] DELLA Pattern 2 [facility] DELLA TITER 3 [facility] DELLA PATTERN 3 [facility] 03/13/2025 11:1 6 AM EDT 03/13/2025 11:16 AM EDT us Generic External Data Provider LAB BLOOD ORDERAB LES Final Result Performing Organization Address City/[facility]/ZIP Co de Phone Number [facility] [address] [place] [address] [phone] * Hepatic Function Panel (03/13/2025 11:16 AM EDT) Bilirubin, Total 0.5 0.0 - 1.0 mg/dL [facility] Bilirubin, Direct 0.1 0.0 - 0.5 mg/dL [facility] Aspartate Amino Transferase 22 5 - 31 U/L [facility] Alanine Aminotransferase 17 0 - 31 U/L [facility] Total Protein 7.3 6.5 - 8.0 g/dL [facility] Albumin Level 4.0 3.5 - 5.0 g/dL [facility] Alkaline Phosphatase 77 39 - 117 U/L [facility] 03/13/2025 11:1 6 AM EDT 03/13/2025 11:16 AM EDT us Generic External Data Provider LAB BLOOD ORDERAB LES Final Result Performing Organization Address City/State/[facility] de Phone Number [facility] [address] [place] [address] [phone] * US ABDOMEN BURRELL W ELASTOGRAPHY (02/17/2025 10:01 AM EDT) Anatomical Region Laterality Modality Abdomen Ultrasound 02/17/2025 10:0 1 AM EDT Narrative 02/17/2025 11:00 AM EDT [place] [address] Ultrasound Report Signed Patient: Quan Rowley MR#: [id number] 82 : 1975 Acct:[id number] Age/Sex: 49 / F ADM Date: 02/17/25 Loc: HO.US Attending Dr: Jasmin GIL-ASHWINI Ordering Physician: Jasmin Meek Date of Service: 02/17/25 Procedure(s): US abdomen burrell w elastography Accession Number(s): [id number] cc: Barbara Triplett DO; Jasmin Meek EXAMINATION: [...] 02/17/25 1057 DD/ 1001 TD/TT: 02/17/25 1018 Hardwood Flooring Specialist: Procedure Note Donotuseinterpreter, Image - 02/17/[address] [address] Ultrasound Report Signed Patient: Quan RowleyMR#: [id number] 82 : 1975Acct:[id number] Age/Sex: 49 / FADM Date: 02/17/25 Loc: HO.US Attending Dr: Jasmin PITT Ordering Physician: Jasmin Meek Date of Service: 02/17/25 Procedure(s): US abdomen burrell w elastography Accession Number(s): [id number] cc: Barbara Triplett DO; Jasmin Meek [facility]- EXAMINATION: US ABDOMEN LIMITED WITH LIVER ELASTOGRAPHY [...] of Radiologists in Ultrasound Liver Stiffness Thresholds (2019): LIVER STIFFNESS THRESHOLDS: *Shear wave velocity less [...] 02/17/25 1057 DD/ 1001 TD/TT: 02/17/25 1018 Hardwood Flooring Specialist: us [facility] External Provider IMG US PROCEDURES Final Result * Hepatitis C Antibody with Reflex to HCV, RNA, Quantitative, Real-Time PCR (10/05/2024 3:02 PM EDT) Hepatitis C Antibody Nonreactive Nonreactive [facility] Comment:Antibodies to HCV no t detected; does not exclude early acuteHCV infection. 10/05/2024 3:02 PM EDT 10/05/2024 3:02 PM EDT us Generic External Data Provider LAB BLOOD ORDERAB LES Final Result Performing Organization Address [facility]/ZIP Co de Phone Number [facility] [address] [place] [address] [phone] * HIV-1/2 Antigen and Antibodies, Fourth Generation, with Reflexes (10/05/2024 3:02 PM EDT) HIV AB/AG Nonreactive Nonreactive [facility] Comment:HIV-1 p24 Ag and/or HIV-1/HIV-2 Ab not detected.A test result that is nonreactive does not exclude thepossibility of exposure to or infection with HIV-1 and/orHIV-2. Nonreactive results in this assay for individualswith prior exposure to HIV-1 and/or HIV-2 may be due toantigen and antibody levels that are below the limit ofdetection of this assay.The [employer] HIV Ag/Ab Combo assay result andsupplemental assay results should be interpreted inconjunction with the patient's clinical presentation,history and other laboratory results. If the results areinconsistent with clinical evidence, additional testing issuggested to confirm the result. 10/05/2024 3:02 PM EDT 10/05/2024 3:02 PM EDT us Generic External Data Provider LAB BLOOD ORDERAB LES Final Result Performing Organization Address City/[facility]/ZIP Co de Phone Number [facility] [address] [place] [phone] [phone] * (ABNORMAL) Lipid Panel, Standard (08/19/2024 11:15 AM EST) Triglycerides 120 <150 mg/dL [facility] Comment:Desirable Triglyceri de: less than 150 mg/dLBorderline High Triglyceride 150-199 mg/dLHigh Triglyceride: 200-499 mg/dLVery High Triglyceride: greater than or equal to 5OO mg/dL Cholesterol 246(H) <200 mg/dL [facility] Comment:Desirable Cholestero l: less than 200 mg/dLBorderline High Cholesterol: 200-239 mg/dLHigh Cholesterol: greater than 239 mg/dL LDL Cholesterol Calculated 176(H) <100 mg/dL [facility] Comment:Desirable LDL: less than 100 mg/dLNear Optimal/Above Optimal LDL: 110- 129 mg/dLBorderline High LDL: 130-159 mg/dLHigh LDL: 160-189 mg/dLVery High LDL: greater than or equal to 190 mg/dL HDL Cholesterol 46 >40 mg/dL [facility] Comment:Desirable HDL: great er than 40 mg/dL Note: This HDL assay may give artificially low results in patients with liver disease. Blood Venous blood specimen / Unknown 08/19/2024 11:15 AM EST 08/19/2024 1:05 PM EST Barbara Triplett DO LAB BLOOD ORDERABLES Final R esult [facility] [address] [place] [phone] * BI Mammogram Screening Tomosynthesis Bilateral (05/03/2024 2:00 PM EDT) Anatomical Region Laterality Modality Breast Bilateral Mammography 05/03/2024 2:00 PM EDT Narrative 05/11/2024 10:49 AM EST [facility] [address] [place] [address] Mammography Report Signed Patient: Quan Rowley MR#: [id number] 82 : 1975 Acct:[id number] Age/Sex: 49 / F ADM Date: 05/03/24 Loc: HO.MAMMO Attending Dr: Barbara Triplett DO Ordering Physician: Barbara Triplett DO Results: 1N egative Date of Service: 05/03/24 Follow Up: 1 Year From Orig inal Mammogram Procedure(s): MM tomosynthesis screening BI Accession Number(s): [id number] cc: Barbara Triplett DO EXAMINATION: MM SCREENING [...] 05/11/24 1046 DD/ 1400 TD/TT: 05/03/24 1421 Hardwood Flooring Specialist: Procedure Note Donmichaelter, Image - [facility]/11/20[facility] [address] [place], [place] [address] Mammography Report Signed Patient: Quan RowleyMR#: [id number] 82 : 1975Acct:[id number] Age/Sex: 49 / FADM Date: 05/03/24 Loc: HO.MAMMO Attending Dr: Barbara Triplett DO Ordering Physician: Barbara Triplettults: 1N egative Date of Service: 05/03/24Follow Up: 1 Year From Orig inal Mammogram Procedure(s): MM tomosynthesis screening BI Accession Number(s): [id number] cc: Barbara Triplett DO EXAMINATION: MM SCREENING [...] 05/11/24 1046 DD/ 1400 TD/TT: 05/03/24 1421 Hardwood Flooring Specialist: Barbara Triplett DO IMG BI PROCEDURES Final Resu lt * Hm Colonoscopy (01/10/2022 11:40 AM EDT) Historical Provider HEALTH MAINTENANCE Final Result * Hm Pap Smear (11/20/2021) Pap Negative for intraephithelial lesion or malignancy Negative for intraephithelial lesion or malignancy, Other HPV Undetected Historical Provider HEALTH MAINTENANCE Final Result from Last 3 Months or Most Recently Relevant to Health Maintenance Insurance [facility] Care Teams Construction Administrator Relationship Specialty Start Date End Date Barbara Triplett DO [address] [place] [phone] PCP - General Family Medicine 03/14/13
--- OUTSIDE RECORDS SUMMARY | 2025-05-09 16:57 | XMS_ITS | Clinical Summary ---
Author Organization [facility] Address [address] [address] Phone Care Team Providers Care Voip Network Technician Name Role Phone IoanaBarbara Primary Care Provider [...] ACO C3 ACO C3 ACO Care Teams Voip Network Technician Relationship Specialty Start Date End Date Barbara Triplett DO [address] [place] [address] PCP - General Family Medicine 12/29/18 Additional Source Comments The information contained in this document represents components of the legal health record. It is not the complete legal health record.[facility]
--- OUTSIDE RECORDS SUMMARY | 2025-05-09 16:57 | XMS_ITS | Encounter Summary ---
Author Organization [employer] Address [address] [place] [address] 7 [place] [address] Care Team Providers Care Underwear Cutter Name Role Phone Barbara Triplett Primary Care Provider + [phone] Reason for Visit * Reason Comments Med Refill Encounter Details Date Type Department Care Team (Late Contact Info) Description 12/30/2022 Refill [facility] [address] [place] [address] Destiny Metcalf MD [address] [place] [address] Social History Tobacco Use Types Packs/Day Years [...] Department Care Team (Late Contact Info) Description 05/10/2025 11:30 AM EST Office Visit [facility] [address] [place] [address] Barbara Triplett DO [address] [place] [address] documented as of this encounter Visit Diagnoses Not on filedocumented in this encounter Additional Health Concerns Assessment Noted Time PHQ-9 Depression Total Score: 1 11/12/19 23 9:48 AM EDT documented as of this encounter Care Teams Underwear Cutter Relationship Specialty Start Date End Date Barbara Triplett DO [address] [place] [address] PCP - General Family Medicine 03/14/13 documented as of this encounter
--- OUTSIDE RECORDS SUMMARY | 2025-05-09 16:57 | XMS_ITS | Encounter Summary ---
Author Organization [employer] Address [address] [place] [address] 7 [place] [address] Care Team Providers Care Concrete Pipe Machine Operator Name Role Phone Barbara Triplett DO Primary Care Provider + [phone] Encounter Details Date Type Department Care Team ([facility] st Contact Info) Description 05/05/2025 Telephone [facility] [address] [place] [address] Barbara Triplett DO [address] [place] [address] Social History Tobacco Use Types Packs/Day Years [...] encounter Miscellaneous Notes * Telephone Encounter - César Nicole RN - 05/05/2025 12:20 PM EDT See previous message documented in this encounter Plan of Treatment Upcoming Encounters Date Type Department Care Team (Late st Contact Info) Description 05/10/2025 11:30 AM EST Office Visit [facility] [address] [place] [address] Barbara Triplett DO [address] [place] [address] documented as of this encounter Visit Diagnoses Not on filedocumented in this encounter Additional Health Concerns Assessment Noted Time PHQ-9 Depression Total Score: 0 01/21/20 25 3:30 PM EDT documented as of this encounter Care Teams Concrete Pipe Machine Operator Relationship Specialty Start Date End Date Barbara Triplett DO [address] [place] [address] PCP - General Family Medicine 03/14/13 documented as of this encounter
--- OUTSIDE RECORDS SUMMARY | 2025-05-09 16:57 | XMS_ITS | Encounter Summary ---
Author Organization [employer] Address [address] [place] [address] 7 [place] [address] Care Team Providers Care Dye Jig Operator Name Role Phone Ioana Barbara Primary Care Provider + [phone] Encounter Details Date Type Department Care Team ([facility] st Contact Info) Description 10/13/2023 Orders Only [facility] [address] [place] [address] ProviderSussy MD Social History Tobacco Use Types [...] Description 05/10/2025 11:30 AM EST Office Visit [facility] [address] [place] [address] Barbara Triplett DO [address] [place] [address] documented as of this encounter Procedures Procedure [...] documented as of this encounter Care Teams Dye Jig Operator Relationship Specialty Start Date End Date Barbara Triplett DO [address] [place] [address] PCP - General Family Medicine 03/14/13 documented as of this encounter
== END 2025-05-09 13:51 | disposition home or self-care (01) ==
LOC: HO.MAMMO 13:50
PROVIDERS: Visit Provider Family Medicine
DX: Z12.31 Encounter for screening mammogram for malignant neoplasm of breast (principal)
CPT/HCPCS: 77063; 77067

== ENCOUNTER → 2025-05-09 14:15 | Outpatient (BNV) | payer OTHER, SELFPAY | PROVIDERS: Visit Provider Radiology Body Imaging | DX: Z12.31 Encounter for screening mammogram for malignant neoplasm of breast (principal) | CPT/HCPCS: 77063; 77067 ==